=== PATIENT | male | born 1965 | race African-American/Black ===

== ENCOUNTER 2018-01-16 12:34 | Inpatient (IN) | payer MEDICARE ==
[~2018-01-16] VITALS: Ht 177.8 cm; Wt 75.3 kg
[2018-01-16 16:00] VITALS: BP 142/79
[2018-01-16] MEDS: D5 1/2NS w/KCl 20mEq 1,000 ML IV SCH (17:34)
[2018-01-16 18:00] VITALS: BP 142/79
--- NOTE | 2018-01-16 19:35 | Infectious Diseases Prog Note ---
Assessment/Plan Assessment/Plan Full consult dictated: A) 1) possible infectious diarrhea, ? OI, ? c.diff., ? viral gastroenteritis 2) hiv, aids, off anti-retroviral therapy, hx rubén esophagitis that is now resolved 3) allergies - negative P) 1) cipro and flagyl 2) check stool studies, check cd4 and VL, start hiv prophylaxis 3) consider GI evaluation for colonoscopy 4) thank you Subjective Allergies: Coded Allergies: No Known Allergies (Unverified , 01/16/18) Objective Vital Signs Last 24 Hour Vital Signs Date Time Temp Pulse Resp B/P (MAP) Pulse Ox O2 Delivery O2 Flow Rate FiO2 01/16/18 18:00 97.3 66 19 142/79 100 97.3 01/16/18 16:00 97.3 66 19 142/79 100 97.3 Height (Feet): 5 Height (Inches): 10.00 Weight (Pounds): 166 Current Medications Medications (Trade) Dose Ordered Sig/Liat Route PRN Reason Start Time Stop Time Status Last Admin Dose Admin Ciprofloxacin 200 ml @ 200 mls/hr Q12HR IVPB 01/16/18 21:00 01/23/18 20:59 UNV Dextrose/ Electrolytes 1,000 ml @ 75 mls/hr [id number] IV 01/16/18 17:30 02/15/18 17:29 01/16/18 17:34 Metronidazole (Flagyl) 500 mg Q8HR ORAL 01/16/18 22:00 01/23/18 21:59 JUAN MANUEL SALES Jan 16, 2018 19:35
[2018-01-16 20:00] VITALS: BP 142/80
[2018-01-16] MEDS ORDERED: Azithromycin 600mg Tab ORAL SCH (21:00)
[2018-01-16] MEDS ORDERED: Ciprofloxacin 500mg tab ORAL SCH (21:00)
[2018-01-16] MEDS: Bactrim-DS 1 tab ORAL SCH (21:10)
--- NOTE | 2018-01-16 21:56 | Wound Care Consultation ---
Wound Assessment Wound Assessment : Wound Number: 1 Wound Present on Admission: Yes New Wound: No Status Change of Wound: No Wound Location Body Site Modif: mid Wound Location Body Site: other - Sacrococcygeal Wound Type: pressure ulcer Bandar Test: Does not Bandar Pressure Ulcer Stage: III Wound Thickness: Full Thickness Wound Length: 4.5 Wound Width: 2.5 Wound Depth: 0.3 Percent of Wound Elsa/Red: 100 Wound Drainage Description: Serosanguineous Wound Drainage Amount: Moderate Wound Drainage Odor: None/Absent Tissue Surrounding Wound: full thickness scar Wound General Appearance: Reddened, Draining Wound Comment #1 Sacrococcygeal stage III pressure ulcer. Surrounding skin with full thickness scar tissue. Pt at risk for further breakdown. Recommendation -Local wound care per protocol -Keep clean and dry -Turn and reposition -Optimize nutrition -Low air loss mattress -Offload both heels -Heel protector on both heels -Assess and f/u accordingly for any changes TAN MEJIA RN Jan 16, 2018 21:56
[2018-01-16] MEDS: metroNIDAZOLE 500mg tab ORAL SCH (22:32)
[2018-01-17] VITALS: BP 139/77
--- NOTE | 2018-01-17 | Consultation ---
DATE OF CONSULTATION: 01/16/2018 INFECTIOUS DISEASE CONSULTATION CONSULTING PHYSICIAN: Becca Madrid M.D. ATTENDING PHYSICIAN: Zach Mccray M.D. REFERRING PHYSICIAN: Zach Mccray M.D. REASON FOR CONSULTATION: Possible infectious diarrhea, C. diff, in a patient has HIV and AIDS. CHIEF COMPLAINT: The patient's chief complaint coming into the hospital is diarrhea and dehydration. HISTORY OF PRESENT ILLNESS: This is a 52-year-old male, who has a history of HIV and AIDS. He is off antiretroviral therapy. When I asked him why, he said "nothing works." The patient now presents with severe diarrhea and dehydration. Infectious Disease consultation is requested. The patient was placed on Cipro and Flagyl, and stool studies have been ordered. The patient has high risk for opportunistic infections such as CMV colitis or other bacterial infections such as Salmonella and Shigella. The patient also could have viral gastroenteritis. The patient will be continued on Cipro and Flagyl pending workup. MAR was noted. Orders were noted. Notes and records were reviewed. The patient of note has recent Marge esophagitis, he said, which has resolved after given Diflucan. REVIEW OF SYSTEMS: CONSTITUTIONAL: The patient has generalized weakness and fatigue. No focal weakness. No fever, chills, or night sweats. He does have history of weight loss and dehydration. HEAD AND NECK: No thrush or dysphagia. He did have dysphagia before, but it has resolved after treatment with Diflucan. CARDIAC: No chest pain or palpitations. GASTROINTESTINAL: No nausea or vomiting, but severe diarrhea and abdominal discomfort. PULMONARY: No congestion, shortness of breath, hemoptysis, or secretions. SKIN: No rash or itching. EXTREMITIES: No extremity pain. NEUROLOGIC: No seizures. GENITOURINARY: No dysuria of frequency. No Seymour. PAST MEDICAL HISTORY: Includes the following. The patient has a past medical history of HIV and AIDS. He has also blurry vision, diarrhea, history of Marge esophagitis. He has a history of wounds MEDICATIONS: The patient has been started on Flagyl, Cipro, Bactrim, azithromycin. He is getting IV fluids. He did have a course of Diflucan in the past, I will restart that at this time. Outside medications noted and reconciliated. He is not on antiretroviral therapy. Medications in regards to antibiotics, Cipro and Flagyl for active treatment, and Bactrim and azithromycin for prophylactic treatment. He was on Diflucan in the past and also off antiretroviral therapy. ALLERGIES: No known drug allergies. SOCIAL HISTORY: Negative for smoking, alcohol, or drug abuse. FAMILY HISTORY: Noncontributory. Negative for exposure to tuberculosis or cancer. PHYSICAL EXAMINATION: VITAL SIGNS: Temperature is 97.3 degrees, pulse rate 66, respiratory rate 19, blood pressure 142/79, and saturation 100%. GENERAL: Alert, responsive, in no acute distress. HEAD AND NECK: Oral exam, no thrush. Eye exam, no icterus. Normocephalic. No facial droop. No neck stiffness. Neck is supple. HEART: Regular rate and rhythm. No gallop or murmur. ABDOMEN: Soft. Positive bowel sounds. Nontender. LUNGS: Clear bilaterally. No rhonchi or rales. MUSCULOSKELETAL: No effusion. Legs are without cellulitis. PERIPHERAL VASCULAR: No gangrene. GENITOURINARY: No Seymour. LINES: Line sites is without phlebitis. NEUROLOGIC: Generalized weakness. Responsive. Alert and oriented x3. Intact and nonfocal. SKIN: No rash. Sacrococcyx wound looks clean and dry, stage III. LABORATORY DATA: Laboratory data has been ordered. Stool cultures and C. diff have been ordered. Chest x-ray and labs have been ordered. Pending at this time. ASSESSMENT AND PLAN: 1. The patient has possible infectious diarrhea versus gastroenteritis versus Clostridium difficile. Rule out opportunistic infections such as cryptosporidium, Microsporidium, and CMV. Continue Cipro and Flagyl for Salmonella and Clostridium difficile coverage, also Shigella coverage for bacterial infectious diarrhea coverage. Also again, the patient could have viral gastroenteritis in addition to Clostridium difficile and bacterial infectious diarrhea. Continue antibiotics, Cipro and Flagyl. Check stool studies. Check ova and parasites. Also, we would consider gastrointestinal evaluation for possible colonoscopy to rule out other etiology or opportunistic infection for the diarrhea. We will watch the patient clinically. Continue IV fluid hydration. 2. Human immunodeficiency virus and acquired immune deficiency syndrome, off antiretroviral therapy because he said nothing works. We will check CD4 viral load. Start Bactrim and azithromycin prophylaxis. Again, check CD4 viral load. 3. History of Marge esophagitis, status post treatment, which has resolved. However, I will restart Diflucan started on antibiotics and he is at high risk for recurrent Marge esophagitis. 4. Decrease in vision. Consider Ophthalmology evaluation. Rule out cytomegalovirus retinitis. 5. Wound care protocol for sacrococcyx wound, which looks really clean. 6. No history of diabetes or hypertension. 7. IV fluid hydration for dehydration. 8. No known allergies. 9. Social history is negative. 10. Family history is noncontributory. 11. MAR was noted. 12. Case was discussed with RN. 13. Continue treatment per primary consultants 14. Case was discussed with the patient. 15. Orders were noted. 16. Notes and records were noted. Becca Madrid M.D. DR: Maryanne JOB#: [id number] CC:
--- NOTE | 2018-01-17 01:00 | Consultation ---
DATE OF CONSULTATION: 01/16/2018 ADDENDUM The patient was at an outside facility as discussed earlier. He had labs which showed the following, CT scan of the head showed old lacunar infarcts. His ua was negative. White count 2.0, hemoglobin 9.7, platelet count was 197. Creatinine was 0.57. LFTs were noted. PAST MEDICAL HISTORY: He has also has history of anemia and leukopenia in addition to what was mentioned above and also old lacunar infarcts. Becca Madrid M.D. DR: Min JOB#: [id number] CC: WEN
[2018-01-17 04:00] VITALS: BP 136/75
[2018-01-17] MEDS: metroNIDAZOLE 500mg tab ORAL SCH ×3 (06:05→21:57)
[2018-01-17] MEDS: D5 1/2NS w/KCl 20mEq 1,000 ML IV SCH ×2 (06:48→20:36)
[2018-01-17 07:24] LABS: BILIRUBIN, URINE NEGATIVE (NEGATIVE); GLUCOSE, URINE (UA) NEGATIVE (NEGATIVE); KETONES,URINE NEGATIVE (NEGATIVE); LEUKOCYTE ESTERASE ,URINE NEGATIVE (NEGATIVE); NITRITE,URINE NEGATIVE (NEGATIVE); PH,URINE 6 (4.5-8.0); PROTEIN,URINE NEGATIVE (NEGATIVE); UROBILINOGEN,URINE 1 MG/DL (0.0-1.0)
[2018-01-17 07:25] LABS: APPEARANCE,URINE CLEAR; COLOR,URINE YELLOW
[2018-01-17 08:00] VITALS: BP 139/60
--- NOTE | 2018-01-17 09:43 | Diagnostic Imaging Report ---
Indication: Chest pain Technique: XRAY Chest 1v Comparison:None Findings: The heart is normal in size. There is some mild bronchial wall thickening. Remaining lungs are clear. No pleural fluid. The there is mild scoliosis convex to the left. Impression: Mild bronchial wall thickening. This may be acute or chronic. Otherwise negative.
[2018-01-17] MEDS: Fluconazole 100mg tab ORAL SCH (09:53)
[2018-01-17 10:18] LABS: HEMATOCRIT 21.5 % (42.0-52.0); MEAN CORPUSCULAR VOLUME 78 FL (80-99); PLATELET COUNT 157 K/UL (150-450); RED BLOOD COUNT 2.75 M/UL (4.70-6.10); RED CELL DISTRIBUTION WIDTH 18.9 % (11.6-14.8)
[2018-01-17 10:22] LABS: HEMOGLOBIN 6.6 G/DL (14.2-18.0); WHITE BLOOD COUNT 2.1 K/UL (4.8-10.8)
[2018-01-17 11:00] LABS: ALANINE AMINOTRANSFERASE 12 U/L (12-78); ALBUMIN 2.1 G/DL (3.4-5.0); ALBUMIN/GLOBULIN RATIO 0.5 (1.0-2.7); ALKALINE PHOSPHATASE 835 U/L (46-116); ANION GAP 6 mmol/L (5-15); ASPARTATE AMINO TRANSFERASE 28 U/L (15-37); BILIRUBIN,TOTAL 0.1 MG/DL (0.2-1.0); BLOOD UREA NITROGEN 9 mg/dL (7-18); CALCIUM 7.5 MG/DL (8.5-10.1); CARBON DIOXIDE 27 MMOL/L (21-32); CHLORIDE 109 MMOL/L (98-107); CREATININE 0.6 MG/DL (0.55-1.30); PHOSPHORUS 3.5 MG/DL (2.5-4.9); POTASSIUM 3.8 MMOL/L (3.5-5.1); SODIUM 142 MMOL/L (136-145)
[2018-01-17 12:00] VITALS: BP 127/79
--- NOTE | 2018-01-17 13:40 | History & Physical ---
History and Physical History & Physicial Dictated for [facility]Int Med-Dr Mccray no. [id number]. DELMA CARRANZA Jan 17, 2018 13:40
[2018-01-17 16:00] VITALS: BP 120/69
--- NOTE | 2018-01-17 17:45 | Consultation ---
DATE OF CONSULTATION: 01/17/2018 GASTROENTEROLOGY CONSULTATION CONSULTING PHYSICIAN: Toor Lugo M.D. CHIEF COMPLAINT: Diarrhea and anemia. HISTORY OF PRESENT ILLNESS: This is a very pleasant 52-year-old male with history of AIDS. According to him, he is not taking any medications at this time. He was recently admitted to [facility] according to him and he had an esophageal infection. He was given some antibiotics. He was transferred from [place] at this time with complaint of going blind, complaint of abdominal pain and diarrhea. According to the patient, diarrhea has been going on for two weeks. No recent travel. No recent fast food ingestion. He stated there is no prior history of endoscopy. No colonoscopy. PAST MEDICAL HISTORY: 1. History of HIV and AIDS. 2. History of CVA without any neurological loss. 3. Prostate cancer, status post treatment per patient with two shots. ALLERGIES: No known drug allergies. MEDICATIONS: Please see medication reconciliation list. SOCIAL HISTORY: There is no recent history of tobacco, alcohol, or illicit drug abuse. FAMILY HISTORY: Noncontributory. REVIEW OF SYSTEMS: A 10-point review of systems was performed and pertinent positives in HPI. PHYSICAL EXAMINATION: VITAL SIGNS: Temperature is 97.9, pulse is 74, respirations 17, and blood pressure is 136/75. HEENT: Normocephalic and atraumatic. Mild pale conjunctivae. NECK: Supple. No lymphadenopathy. CARDIOVASCULAR: Regular rate and rhythm. Plus S1 and S2. LUNGS: Clear to auscultation bilaterally. ABDOMEN: Positive bowel sounds. Soft and nontender. No rebound. No guarding. No peritoneal sign. EXTREMITIES: No cyanosis, no clubbing, no edema. LABORATORY AND DIAGNOSTIC DATA: Labs from [place] is not available. From [place], the patient had a CT of the head, which was negative except for old infarct. Hemoglobin was low at 9.7. ASSESSMENT: This is a 52-year-old male with human immunodeficiency virus and acquired immunodeficiency syndrome with leukopenia, anemia, and diarrhea. PLAN: We will do anemia workup including stool for OB, iron panel, B12, folic acid. Send the stool for OB. Stool for C. diff already came back negative. The patient's CD4 count is pending. If the patient has low CD4 count, then we have to do more workup in terms of diarrhea for opportunistic infections. Meanwhile, we will send a serology for CMV. Consider doing colonoscopy on Friday for evaluation of causes of diarrhea. We will talk to the patient about colonoscopy to see if he agrees. We also going to try to obtain the records from [facility]. Meanwhile, continue on diet, follow labs, send urine tox, and follow with anemia workup. I want to thank, Dr. Zach Mccray, for this kind referral. Toro Lugo M.D. DR: JENNIE JOB#: [id number] CC: Zach Mccray M.D.; Fax#: [phone]
--- NOTE | 2018-01-17 18:30 | History and Physical Report ---
DATE OF ADMISSION: 01/16/2018 CHIEF COMPLAINT: The patient is a 52-year-old male, who presents with chief complaint of diarrhea. HISTORY OF PRESENT ILLNESS: The patient was admitted to [facility] from 12/17/2017 to 12/29/2017. The patient was admitted for increased frequency of urination. The patient was found to have prostate cancer. The patient is status post chemotherapy treatment x1 at [facility]. The patient states history of present illness began immediately after discharge from [facility]. The patient began to have diarrhea. The patient states he has several bowel movements today. Diarrhea is complete water. The patient states there are no formed elements. The patient also has abdominal pain. The patient states that one week ago, he began to experience "shades" over both eyes. The patient states he is now unable to see out of either eye. The patient initially presented to [facility] Room. The patient is transferred to [facility] for insurance purposes. The patient is admitted for diarrhea and bilateral eye blindness. PAST MEDICAL HISTORY: Significant for: 1. Prostate cancer diagnosed in December 2017 as above. 2. AIDS. PAST SURGICAL HISTORY: The patient denies. CURRENT MEDICATIONS: The patient was not taking any medications at home. ALLERGIES: No known drug allergies. SOCIAL HISTORY: The patient is single and lives alone. The patient is disabled. The patient admits to tobacco use of one quarter pack per day. The patient admits to occasional alcohol use. The patient denies drug abuse. REVIEW OF SYSTEMS: CONSTITUTIONAL: The patient denies weight loss or weight gain. The patient denies fevers or chills. HEENT: The patient complains of bilateral eye blindness as above. The patient denies headache. CARDIOVASCULAR: The patient denies palpitations or chest pain. CHEST: The patient denies wheeze or shortness of breath. ABDOMINAL: The patient denies nausea or vomiting. The patient does complain of diarrhea as above. The patient denies constipation. GENITOURINARY: The patient denies dysuria or increased frequency of urination. NEUROMUSCULAR: The patient denies seizures or generalized weakness. PHYSICAL EXAMINATION: VITAL SIGNS: Temperature 97.3 degrees, respirations 19, pulse 66, and blood pressure 142/79. GENERAL: The patient is a thin-appearing, male, in no apparent distress. HEENT: Eyes, pupils equal and responsive to light and accommodation. Extraocular movements are intact. NECK: Supple. No lymphadenopathy. CHEST: Lungs are clear to auscultation bilaterally without wheezes or rales. CARDIOVASCULAR: Regular rate. S1 and S2 are normal without murmurs, rubs, or gallops. ABDOMEN: Soft, nontender, and nondistended. Positive bowel sounds. No evidence of hepatosplenomegaly. Currently, no rebound or guarding noted. EXTREMITIES: Negative for clubbing, cyanosis, or edema. RECTAL: Refused. GENITAL: Refused. NEUROLOGIC: Cranial nerves II through XII grossly intact without focal deficits. Motor strength is 5/5 bilaterally intact. Deep tendon reflexes are 2+ plantar. LABORATORY STUDIES: WBC 2.0, hemoglobin 9.7, hematocrit 31.1, and platelets 197,000. Sodium 139, potassium 5.0, chloride 106, CO2 25, BUN 10, and creatinine 0.59. ASSESSMENT: This is a 52-year-old male: 1. Diarrhea. 2. 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 3. Acquired immune deficiency syndrome. 4. Anemia. 5. Prostate cancer. TREATMENT: 1. Diarrhea. A Gastroenterology consultation has been obtained with Dr. Toro Lugo. Infectious Diseases consultation was obtained with Dr. Madrid. Stool cultures are pending. Clostridium difficile titer is pending. The patient has been started empirically on ciprofloxacin and Flagyl. We will follow recommendations of Infectious Disease and Gastroenterology. 2. Blindness. An Ophthalmology consultation has been obtained with Dr. Isaacs. We will follow recommendations of Ophthalmology. Differential includes CMV retinitis. 3. AIDS. The patient is currently not on anti-retroviral therapy. We will follow recommendations of Infectious Diseases. A CD4 and viral load are pending. 4. Prostate cancer. The patient is status post chemotherapy x1. The patient is to follow up with his primary oncologist upon discharge. 5. Anemia. He has probably anemia of chronic disease. We will follow hemoglobin and hematocrit. Brian Sun M.D. DR: Emperatriz JOB#: [id number] CC:
[2018-01-17 20:00] VITALS: BP 119/67
[2018-01-17] MEDS: LORazepam 1mg tab ORAL PRN (20:37)
[2018-01-17] MEDS: Bactrim-DS 1 tab ORAL SCH (20:37)
[2018-01-18] VITALS (10 sets, daily range): BP systolic 117–143; BP diastolic 59–88
[2018-01-18] MEDS: metroNIDAZOLE 500mg tab ORAL SCH ×3 (06:43→22:07)
--- NOTE | 2018-01-18 08:03 | General Progress Note ---
Assessment/Plan Problem List: (1) Anemia ICD Codes: D64.9 - Anemia, unspecified SNOMED: 239790230 (2) Leukopenia ICD Codes: D72.819 - Decreased white blood cell count, unspecified SNOMED: 69025938, 442664374 (3) HIV (human immunodeficiency virus infection) ICD Codes: B20 - Human immunodeficiency virus [HIV] disease SNOMED: 07989715 (4) Prostate CA ICD Codes: C61 - Malignant neoplasm of prostate SNOMED: 832606327 (5) Diarrhea ICD Codes: R19.7 - Diarrhea, unspecified SNOMED: 77111135 (6) Blurry vision, bilateral ICD Codes: H53.8 - Other visual disturbances SNOMED: 034879062 Assessment/Plan blood transfusion fu stool ob GI procedures when WBC better fu stool studies fu ID recs Subjective ROS Limited/Unobtainable: Yes Allergies: Coded Allergies: No Known Allergies (Unverified , 01/16/18) Subjective no event Objective Last 24 Hour Vital Signs Date Time Temp Pulse Resp B/P (MAP) Pulse Ox O2 Delivery O2 Flow Rate FiO2 01/18/18 07:04 96.8 68 18 126/88 99 96.8 01/18/18 04:25 97.4 70 18 120/70 100 Room Air 97.4 01/18/18 04:10 97.5 69 18 119/78 100 97.5 01/18/18 01:25 97.7 77 20 143/74 99 97.7 01/18/18 01:10 97.7 73 20 139/74 99 97.7 01/18/18 00:00 97.7 77 20 127/68 99 97.7 01/17/18 20:00 97.5 74 20 119/67 100 97.5 01/17/18 16:00 97.5 67 19 120/69 100 97.5 01/17/18 12:00 98.4 90 18 127/79 100 98.4 Intake and Output 01/17/18 01/18/18 19:00 07:00 Intake Total 1355 ml 575 ml Output Total 800 ml 800 ml Balance 555 ml -225 ml Intake Oral 480 ml IV Total 875 ml 575 ml Output Urine Total 800 ml 800 ml # Bowel Movements 2 Laboratory Tests 01/18/18 05:00: Urine Opiates Screen Negative, Urine Barbiturates Screen Negative, Phencyclidine (PCP) Screen Negative, Urine Amphetamines Screen Negative, Urine Benzodiazepines Screen Negative, Urine Cocaine Screen Negative, Urine Marijuana (THC) Screen Negative Height (Feet): 5 Height (Inches): 10.00 Weight (Pounds): 166 General Appearance: alert EENT: normal ENT inspection Neck: supple Cardiovascular: normal rate Respiratory/Chest: decreased breath sounds Abdomen: normal bowel sounds, non tender, soft Extremities: non-tender MARLENE PERSAUD Jan 18, 2018 08:03
[2018-01-18] MEDS: Fluconazole 100mg tab ORAL SCH (08:39)
[2018-01-18] MEDS: D5 1/2NS w/KCl 20mEq 1,000 ML IV SCH ×2 (08:42→22:50)
[2018-01-18] MEDS ORDERED: NS 500ML ONE (10:07)
[2018-01-18] MEDS ORDERED: Tubing Blood Filter IV ONE (10:07)
--- NOTE | 2018-01-18 10:59 | Internal Med Progress Note ---
Subjective Date of Service: Jan 18, 2018 Physician Name Delma Carranza Attending Physician Zach Mccray MD Current Medications Medications (Trade) Dose Ordered Sig/Liat Route PRN Reason Start Time Stop Time Status Last Admin Dose Admin Azithromycin (Zithromax) 1,200 mg ONCE A WEEK ORAL 01/16/18 21:00 01/23/18 20:59 01/16/18 21:10 Ciprofloxacin 200 ml @ 200 mls/hr Q12HR IV 01/16/18 21:00 01/23/18 20:59 01/18/18 08:42 Dextrose/ Electrolytes 1,000 ml @ 75 mls/hr [id number] IV 01/16/18 17:30 02/15/18 17:29 01/18/18 08:42 Fluconazole (Diflucan) 100 mg DAILY ORAL 01/17/18 09:00 01/24/18 08:59 01/18/18 08:39 Lorazepam (Ativan) 1 mg Q6H PRN ORAL For Anxiety 01/17/18 13:30 01/24/18 13:29 01/17/18 20:37 Metronidazole (Flagyl) 500 mg Q8HR ORAL 01/16/18 22:00 01/23/18 21:59 01/18/18 06:43 Ondansetron HCl (Zofran) 4 mg Q4H PRN IVP Nausea & Vomiting 01/17/18 09:00 02/16/18 08:59 Trimethoprim/ Sulfamethoxazole (Bactrim-DS) 1 tab QHS ORAL 01/16/18 21:00 01/23/18 20:59 01/17/18 20:37 Allergies: Coded Allergies: No Known Allergies (Unverified , 01/16/18) ROS Limited/Unobtainable: No Constitutional: Reports: no symptoms HEENT: Reports: blurred vision Cardiovascular: Reports: no symptoms Respiratory: Reports: no symptoms Gastrointestinal/Abdominal: Reports: diarrhea Genitourinary: Reports: no symptoms Neurologic/Psychiatric: Reports: no symptoms Subjective 52 YO M admitted with diarrhea and sudden blindness. Now severe anemia. Cover for Int Jostin-Dr Mccray Objective Last Vital Signs Date Time Temp Pulse Resp B/P (MAP) Pulse Ox O2 Delivery O2 Flow Rate FiO2 01/18/18 08:00 96.8 68 18 127/59 99 96.8 01/18/18 04:25 Room Air General Appearance: WD/WN, no apparent distress, alert EENT: PERRL/EOMI, normal ENT inspection, TMs normal Neck: non-tender, normal alignment, supple, normal inspection Cardiovascular: normal peripheral pulses, normal rate, regular rhythm, no gallop/murmur, no JVD Respiratory/Chest: chest wall non-tender, lungs clear, normal breath sounds, no respiratory distress, no accessory muscle use Abdomen: no organomegaly, no mass, decreased bowel sounds, tender Extremities: normal range of motion, non-tender 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 Skin: normal pigmentation, warm/dry Laboratory Tests Test 01/18/18 05:00 Urine Opiates Screen Negative (NEGATIVE) Urine Barbiturates Screen Negative (NEGATIVE) Phencyclidine (PCP) Screen Negative (NEGATIVE) Urine Amphetamines Screen Negative (NEGATIVE) Urine Benzodiazepines Screen Negative (NEGATIVE) Urine Cocaine Screen Negative (NEGATIVE) Urine Marijuana (THC) Screen Negative (NEGATIVE) Microbiology Date/Time Source Procedure Growth Status 01/16/18 18:00 Stool Clostridium difficile Toxin Assay - Final Complete Intake and Output 01/17/18 01/18/18 19:00 07:00 Intake Total 1355 ml 575 ml Output Total 800 ml 800 ml Balance 555 ml -225 ml Intake Oral 480 ml IV Total 875 ml 575 ml Output Urine Total 800 ml 800 ml # Bowel Movements 2 Assessment/Plan Problem List: (1) Diarrhea Assessment & Plan: See GI note. (2) Prostate CA Assessment & Plan: Await oncology consult (3) Blurry vision, bilateral (4) HIV (human immunodeficiency virus infection) Assessment & Plan: Noncompliant with HAART-see ID note. await HIV viral load and T cell panel (5) Severe anemia Assessment & Plan: ?due to chemotherapy? S/P transfusion 2 units PRBC 01/18/18. Await hematology consult. Status: not improved DELMA CARRANZA Jan 18, 2018 10:59
[2018-01-18] MEDS: LORazepam 1mg tab ORAL PRN ×2 (13:55→22:20)
[2018-01-18 14:22] LABS: HEMATOCRIT 22.2 % (42.0-52.0); HEMOGLOBIN 7.1 G/DL (14.2-18.0); MEAN CORPUSCULAR VOLUME 78 FL (80-99); PLATELET COUNT 132 K/UL (150-450); RED BLOOD COUNT 2.83 M/UL (4.70-6.10); RED CELL DISTRIBUTION WIDTH 17.4 % (11.6-14.8); WHITE BLOOD COUNT 2.4 K/UL (4.8-10.8)
[2018-01-18 14:59] LABS: ANION GAP 7 mmol/L (5-15); BLOOD UREA NITROGEN 10 mg/dL (7-18); CALCIUM 7.7 MG/DL (8.5-10.1); CARBON DIOXIDE 26 MMOL/L (21-32); CHLORIDE 107 MMOL/L (98-107); CREATININE 0.7 MG/DL (0.55-1.30); POTASSIUM 4.1 MMOL/L (3.5-5.1); SODIUM 140 MMOL/L (136-145)
[2018-01-18 15:00] LABS: BILIRUBIN,TOTAL 0.3 MG/DL (0.2-1.0)
[2018-01-18 15:05] LABS: % IRON SATURATION 62 % (15-50); IRON 105 ug/dL (50-175); TOTAL IRON BINDING CAPACITY 169 ug/dL (250-450)
--- NOTE | 2018-01-18 15:40 | Infectious Diseases Prog Note ---
Assessment/Plan Assessment/Plan ASSESSMENT AND PLAN: 1. possible infectious diarrhea vs viral gastroenteritis, c.diff. negative, dehydration - clinically improved, stool culture and o/p pending - continue cipro and flagyl - GI f/u, possible colonoscopy - continue ivf - check labs 2. Human immunodeficiency virus and acquired immune deficiency syndrome, off antiretroviral therapy because he said nothing works. We will check CD4 viral load. continue Bactrim and azithromycin prophylaxis. Again, check CD4 viral load. Will need outpatient genotyping prior to anti-retroviral treatment. 3. History of Marge esophagitis, status post treatment, which has resolved - will continue Diflucan for now, high risk for recurrent marge esophagitis and thrush. 4. Decrease in vision. Consider Ophthalmology evaluation. Rule out cytomegalovirus retinitis. 5. Wound care protocol for sacrococcyx wound, which looks really clean. 6. anemia, leukopenia, prostate ca, old lacunar infarcts 7. IV fluid hydration for dehydration. 8. No known allergies. 9. Social history is negative. 10. Family history is noncontributory. 11. MAR was noted. 12. Case was discussed with RN. 13. Continue treatment per primary consultants 14. Case was discussed with the patient. 15. Orders were noted. 16. Notes and records were noted. Subjective Constitutional: Denies: fever HEENT: Reports: visual change - as vision loss over last two weeks ; Denies: congestion Respiratory: Denies: shortness of breath Cardiovascular: Denies: chest pain Gastrointestinal/Abdominal: Reports: other - diarrhea resolved; Denies: nausea , vomiting, diarrhea Genitourinary: Denies: dysuria Neurologic: Denies: headache Psychiatric: Denies: depression Skin: Denies: rash Hematologic: Denies: bleeding Musculoskeletal: Denies: pain Allergies: Coded Allergies: No Known Allergies (Unverified , 01/16/18) Objective Vital Signs Last 24 Hour Vital Signs Date Time Temp Pulse Resp B/P (MAP) Pulse Ox O2 Delivery O2 Flow Rate FiO2 01/18/18 12:00 97.1 61 18 126/72 100 97.1 01/18/18 08:00 96.8 68 18 127/59 99 96.8 01/18/18 07:04 96.8 68 18 126/88 99 96.8 01/18/18 04:25 97.4 70 18 120/70 100 Room Air 97.4 01/18/18 04:10 97.5 69 18 119/78 100 97.5 01/18/18 01:25 97.7 77 20 143/74 99 97.7 01/18/18 01:10 97.7 73 20 139/74 99 97.7 01/18/18 00:00 97.7 77 20 127/68 99 97.7 01/17/18 20:00 97.5 74 20 119/67 100 97.5 01/17/18 16:00 97.5 67 19 120/69 100 97.5 Height (Feet): 5 Height (Inches): 10.00 Weight (Pounds): 166 General Appearance: no acute distress HEENT: normocephalic, atraumatic, anicteric, mucous membranes moist, EOMI, pharynx normal, supple, no JVD Respiratory/Chest: lungs clear, normal breath sounds, no respiratory distress, no accessory muscle use Cardiovascular: normal rate, regular rhythm, no gallop/murmur, no JVD Abdomen: normal bowel sounds, soft, non tender, no organomegaly, non distended Genitourinary: other - no delcaruz, no cva pain Extremities: no cyanosis Skin: no rash Neurologic/Psychiatric: 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 There is some mild bronchial wall thickening. Remaining lungs are clear. No pleural fluid. The there is mild scoliosis convex to the left. Impression: Mild bronchial wall thickening. This may be acute or chronic. Otherwise negative. Microbiology Date/Time Source Procedure Growth Status 01/16/18 18:00 Stool Clostridium difficile Toxin Assay - Final Complete Laboratory Tests Test 01/18/18 05:00 01/18/18 13:20 01/18/18 13:30 01/18/18 14:30 Urine Opiates Screen Negative (NEGATIVE) Urine Barbiturates Screen Negative (NEGATIVE) Phencyclidine (PCP) Screen Negative (NEGATIVE) Urine Amphetamines Screen Negative (NEGATIVE) Urine Benzodiazepines Screen Negative (NEGATIVE) Urine Cocaine Screen Negative (NEGATIVE) Urine Marijuana (THC) Screen Negative (NEGATIVE) Fibrinogen 411 mg/dL (200-400) H White Blood Count 2.4 K/UL (4.8-10.8) L Red Blood Count 2.83 M/UL (4.70-6.10) L Hemoglobin 7.1 G/DL (14.2-18.0) L Hematocrit 22.2 % (42.0-52.0) L Mean Corpuscular Volume 78 FL (80-99) L Mean Corpuscular Hemoglobin 25.0 PG (27.0-31.0) L Mean Corpuscular Hemoglobin Concent 31.9 G/DL (32.0-36.0) L Red Cell Distribution Width 17.4 % (11.6-14.8) H Platelet Count 132 K/UL (150-450) L Mean Platelet Volume 6.3 FL (6.5-10.1) L Neutrophils (%) (Auto) % (45.0-75.0) Lymphocytes (%) (Auto) % (20.0-45.0) Monocytes (%) (Auto) % (1.0-10.0) Eosinophils (%) (Auto) % (0.0-3.0) Basophils (%) (Auto) % (0.0-2.0) Differential Total Cells Counted 100 Neutrophils % (Manual) 41 % (45-75) L Lymphocytes % (Manual) 33 % (20-45) Monocytes % (Manual) 14 % (1-10) H Eosinophils % (Manual) 8 % (0-3) H Basophils % (Manual) 0 % (0-2) Band Neutrophils 4 % (0-8) Nucleated Red Blood Cells 3 /100 WBC Platelet Estimate Adequate Platelet Morphology Normal Polychromasia 1+ Hypochromasia 2+ Anisocytosis 1+ Microcytosis 1+ Reticulocyte Count 1.9 % (0.0-2.0) Sodium Level 140 MMOL/L (136-145) Potassium Level 4.1 MMOL/L (3.5-5.1) Chloride Level 107 MMOL/L (98-107) Carbon Dioxide Level 26 MMOL/L (21-32) Anion Gap 7 mmol/L (5-15) Blood Urea Nitrogen 10 mg/dL (7-18) Creatinine 0.7 MG/DL (0.55-1.30) Estimat Glomerular Filtration Rate > 60 mL/min (>60) Glucose Level 85 MG/DL (74-106) Calcium Level 7.7 MG/DL (8.5-10.1) L Iron Level 105 ug/dL (50-175) Total Iron Binding Capacity 169 ug/dL (250-450) L Percent Iron Saturation 62 % (15-50) H Unsaturated Iron Binding 64 ug/dL (112-346) L Ferritin 739 NG/ML (8-388) H Total Bilirubin 0.3 MG/DL (0.2-1.0) Lactate Dehydrogenase 347 U/L (135-225) H Prostate Specific Antigen 15.02 ng/mL (0.13-4.0) H Vitamin B12 Level 614 PG/ML (193-986) Folate 2.3 NG/ML (8.6-58.9) L Thyroid Stimulating Hormone (TSH) 0.811 uiU/mL (0.358-3.740) Hepatitis A IgM Antibody Pending Hepatitis B Surface Antigen Pending Hepatitis B Core IgM Antibody Pending Hepatitis C Antibody Pending Erythrocyte Sedimentation Rate Pending Current Medications Medications (Trade) Dose Ordered Sig/Liat Route PRN Reason Start Time Stop Time Status Last Admin Dose Admin Azithromycin (Zithromax) 1,200 mg ONCE A WEEK ORAL 01/16/18 21:00 01/23/18 20:59 01/16/18 21:10 Ciprofloxacin 200 ml @ 200 mls/hr Q12HR IV 01/16/18 21:00 01/23/18 20:59 01/18/18 08:42 Dextrose/ Electrolytes 1,000 ml @ 75 mls/hr [id number] IV 01/16/18 17:30 02/15/18 17:29 01/18/18 08:42 Fluconazole (Diflucan) 100 mg DAILY ORAL 01/17/18 09:00 01/24/18 08:59 01/18/18 08:39 Lorazepam (Ativan) 1 mg Q6H PRN ORAL For Anxiety 01/17/18 13:30 01/24/18 13:29 01/18/18 13:55 Metronidazole (Flagyl) 500 mg Q8HR ORAL 01/16/18 22:00 01/23/18 21:59 01/18/18 13:55 Ondansetron HCl (Zofran) 4 mg Q4H PRN IVP Nausea & Vomiting 01/17/18 09:00 02/16/18 08:59 Trimethoprim/ Sulfamethoxazole (Bactrim-DS) 1 tab QHS ORAL 01/16/18 21:00 01/23/18 20:59 01/17/18 20:37 JUAN MANUEL SALES Jan 18, 2018 15:40
[2018-01-18] MEDS: Bactrim-DS 1 tab ORAL SCH (22:07)
[2018-01-19] VITALS: BP 157/70
--- NOTE | 2018-01-19 00:45 | Consultation ---
DATE OF CONSULTATION: 01/18/2018 NOTE: POOR AUDIO HEMATOLOGY/ONCOLOGY CONSULTATION CONSULTING PHYSICIAN: Zack Castro M.D. REQUESTING PHYSICIAN: Brian Sun M.D. REASON FOR CONSULTATION: Evaluation of anemia and prostate cancer. IDENTIFICATION DATA: Dear Dr. Sun, The patient is a pleasant 52-year-old male with past medical history significant for prostate cancer, history of HIV/AIDS, at this time presents initially from [facility], admitted for approximately two weeks, is status post chemotherapy for one treatment at [facility], began to have diarrhea, states he has had several bowel movements on Friday, full of water. He states he was unable to see from either eye. The patient apparently initially went to [facility] emergency room. At this time presents to [facility] due to insurance reasons. WBC , hemoglobin 6.6, and platelet count of 137,000. Serology reviewed. CMV pending. PAST MEDICAL HISTORY: 1. Breast cancer. 2. HIV/AIDS. PAST SURGICAL HISTORY: None. CURRENT MEDICATIONS: Reviewed. ALLERGIES: No known drug allergies. SOCIAL HISTORY: Single, lives alone, disabled. Smokes tobacco. Admits to occasional alcohol use. No illicit drug use. REVIEW OF SYSTEMS: CONSTITUTIONAL: No fevers, chills, or night sweats. SKIN: No rashes, bumps, or itching. HEENT: No headache, hearing or vision changes. BREASTS: No lumps, pain, or discharge. PULMONARY: No cough, sputum, or shortness of breath. GASTROINTESTINAL: No nausea, vomiting, or diarrhea. GENITOURINARY: No dysuria, frequency, or urgency. MUSCULOSKELETAL: No joint swelling, muscle pain, or trauma. PHYSICAL EXAMINATION: VITAL SIGNS: Reviewed. GENERAL: Cachectic male. No distress. PULMONARY: Decreased breath sounds. CARDIOVASCULAR: Regular rate. No S3 or S4 noted. ABDOMEN: Soft, nontender, and nondistended. Positive bowel sounds. EXTREMITIES: No cyanosis, swelling, or edema. NEUROLOGIC: Grossly nonfocal. LABORATORY DATA: WBC of 2, hemoglobin 10.7, hematocrit of 30, and platelet count of 197,000. Creatinine was 0.5. ASSESSMENT AND PLAN: 1. Prostate cancer. Imaging as described and reviewed. Mild bronchial thickening noted. The patient has not had prior imaging here before. PSA at this time has already been ordered. Continue outpatient management with Oncology. 2. Leukopenia, likely secondary to chemotherapy, likely needs dose reduction in the future per primary oncologist. In addition, consider use of antibiotics since the patient is having neutropenic fever and administered one dose of Neupogen. 3. . 4. Anemia due to myelosuppression from chemotherapy. Continue anemia workup at this time. In addition, may need administration of iron based on workup. 5. Weakness and fatigue, likely due to underlying anemia. 6. Diarrhea. Has been seen by Gastroenterology. GI procedure when white count has improved. Follow up stool studies, IV fluids, evaluation. 7. Human immunodeficiency virus/acquired immunodeificiency syndrome. Outpatient management. ID service followup. CD4 count and viral load pending. I appreciate the consultation. Zack Castro M.D. DR: KAYLEE JOB#: [id number] CC:
[2018-01-19 04:00] VITALS: BP 112/69
[2018-01-19] MEDS: metroNIDAZOLE 500mg tab ORAL SCH ×4 (05:42→20:50)
[2018-01-19 08:00] VITALS: BP 128/68
[2018-01-19] MEDS: Fluconazole 100mg tab ORAL SCH (09:04)
--- NOTE | 2018-01-19 10:35 | General Progress Note ---
Assessment/Plan Problem List: (1) Anemia ICD Codes: D64.9 - Anemia, unspecified SNOMED: 851193442 (2) Leukopenia ICD Codes: D72.819 - Decreased white blood cell count, unspecified SNOMED: 30606795, 177171609 (3) HIV (human immunodeficiency virus infection) ICD Codes: B20 - Human immunodeficiency virus [HIV] disease SNOMED: 63847663 (4) Prostate CA ICD Codes: C61 - Malignant neoplasm of prostate SNOMED: 242940890 (5) Diarrhea ICD Codes: R19.7 - Diarrhea, unspecified SNOMED: 38290143 (6) Blurry vision, bilateral ICD Codes: H53.8 - Other visual disturbances SNOMED: 040498968 Assessment/Plan fu stool ob diarrhea is beeter patient refusing GI procedures, he wants to see an eye doctor fu stool studies fu ID recs Subjective ROS Limited/Unobtainable: Yes Allergies: Coded Allergies: No Known Allergies (Unverified , 01/16/18) Subjective no event Objective Last 24 Hour Vital Signs Date Time Temp Pulse Resp B/P (MAP) Pulse Ox O2 Delivery O2 Flow Rate FiO2 01/19/18 08:00 97.5 77 20 128/68 92 Room Air 97.5 01/19/18 04:00 97.7 75 18 112/69 100 Room Air 97.7 01/19/18 00:00 98.2 81 20 157/70 100 Room Air 98.2 01/18/18 20:00 98.1 73 18 127/69 100 Room Air 98.1 01/18/18 16:00 97.3 67 19 117/64 100 97.3 01/18/18 12:00 97.1 61 18 126/72 100 97.1 Intake and Output 01/18/18 01/19/18 19:00 07:00 Intake Total 1205 ml 360 ml Output Total 1150 ml Balance 55 ml 360 ml Intake Oral 480 ml 360 ml IV Total 725 ml Output Urine Total 1150 ml # Voids 3 # Bowel Movements 1 1 Laboratory Tests 01/18/18 13:20: Fibrinogen 411H 01/18/18 13:30: White Blood Count 2.4L, Red Blood Count 2.83L, Hemoglobin 7.1L, Hematocrit 22.2L , Mean Corpuscular Volume 78L, Mean Corpuscular Hemoglobin 25.0L, Mean Corpuscular Hemoglobin Concent 31.9L, Red Cell Distribution Width 17.4H, Platelet Count 132L, Mean Platelet Volume 6.3L, Neutrophils (%) (Auto) , Lymphocytes (%) (Auto) , Monocytes (%) (Auto) , Eosinophils (%) (Auto) , Basophils (%) (Auto) , Differential Total Cells Counted 100, Neutrophils % ( Manual) 41L, Lymphocytes % (Manual) 33, Monocytes % (Manual) 14H, Eosinophils % (Manual) 8H, Basophils % (Manual) 0, Band Neutrophils 4, Nucleated Red Blood Cells 3, Other Cell Type Pathologist comment, Platelet Estimate Adequate, Platelet Morphology Normal, Polychromasia 1+, Hypochromasia 2+, Anisocytosis 1+ , Microcytosis 1+, Reticulocyte Count 1.9, Haptoglobin [Pending], Sodium Level 140, Potassium Level 4.1, Chloride Level 107, Carbon Dioxide Level 26, Anion Gap 7, Blood Urea Nitrogen 10, Creatinine 0.7, Estimat Glomerular Filtration Rate > 60, Glucose Level 85, Calcium Level 7.7L, Iron Level 105, Total Iron Binding Capacity 169L, Percent Iron Saturation 62H, Unsaturated Iron Binding 64L , Soluble Transferrin Receptor [Pending], Ferritin 739H, Total Bilirubin 0.3, Lactate Dehydrogenase 347H, Prostate Specific Antigen 15.02H, Vitamin B12 Level 614, Methylmalonic Acid [Pending], Folate 2.3L, Thyroid Stimulating Hormone (TSH ) 0.811, Hepatitis A IgM Antibody [Pending], Hepatitis B Surface Antigen [ Pending], Hepatitis B Core IgM Antibody [Pending], Hepatitis C Antibody [Pending ] 01/18/18 14:30: Erythrocyte Sedimentation Rate 115H Height (Feet): 5 Height (Inches): 10.00 Weight (Pounds): 166 General Appearance: alert EENT: normal ENT inspection Neck: supple Cardiovascular: normal rate Respiratory/Chest: decreased breath sounds Abdomen: normal bowel sounds, non tender, soft Extremities: non-tender MARLENE PERSAUD Jan 19, 2018 10:35
[2018-01-19 11:13] LABS: ANION GAP 5 mmol/L (5-15); BLOOD UREA NITROGEN 12 mg/dL (7-18); CARBON DIOXIDE 28 MMOL/L (21-32); CHLORIDE 105 MMOL/L (98-107); CREATININE 0.6 MG/DL (0.55-1.30); POTASSIUM 4.1 MMOL/L (3.5-5.1); SODIUM 138 MMOL/L (136-145)
[2018-01-19 11:18] LABS: HEMATOCRIT 30.2 % (42.0-52.0); MEAN CORPUSCULAR VOLUME 79 FL (80-99); PLATELET COUNT 147 K/UL (150-450); RED BLOOD COUNT 3.83 M/UL (4.70-6.10); RED CELL DISTRIBUTION WIDTH 17.9 % (11.6-14.8); WHITE BLOOD COUNT 2.2 K/UL (4.8-10.8)
[2018-01-19] MEDS: D5 1/2NS w/KCl 20mEq 1,000 ML IV SCH (12:10)
--- NOTE | 2018-01-19 12:36 | Internal Med Progress Note ---
Subjective Date of Service: Jan 19, 2018 Physician Name Delma Carranza Attending Physician Zach Mccray MD Current Medications Medications (Trade) Dose Ordered Sig/Liat Route PRN Reason Start Time Stop Time Status Last Admin Dose Admin Azithromycin (Zithromax) 1,200 mg ONCE A WEEK ORAL 01/16/18 21:00 01/23/18 20:59 01/16/18 21:10 Ciprofloxacin 200 ml @ 200 mls/hr Q12HR IV 01/16/18 21:00 01/23/18 20:59 01/19/18 09:04 Dextrose/ Electrolytes 1,000 ml @ 75 mls/hr [id number] IV 01/16/18 17:30 02/15/18 17:29 01/18/18 22:50 Fluconazole (Diflucan) 100 mg DAILY ORAL 01/17/18 09:00 01/24/18 08:59 01/19/18 09:04 Lorazepam (Ativan) 1 mg Q6H PRN ORAL For Anxiety 01/17/18 13:30 01/24/18 13:29 01/18/18 22:20 Metronidazole (Flagyl) 500 mg Q8HR ORAL 01/16/18 22:00 01/23/18 21:59 01/19/18 05:42 Ondansetron HCl (Zofran) 4 mg Q4H PRN IVP Nausea & Vomiting 01/17/18 09:00 02/16/18 08:59 Trimethoprim/ Sulfamethoxazole (Bactrim-DS) 1 tab QHS ORAL 01/16/18 21:00 01/23/18 20:59 01/18/18 22:07 Allergies: Coded Allergies: No Known Allergies (Unverified , 01/16/18) ROS Limited/Unobtainable: No Constitutional: Reports: no symptoms HEENT: Reports: blurred vision Cardiovascular: Reports: no symptoms Respiratory: Reports: no symptoms Gastrointestinal/Abdominal: Reports: diarrhea Genitourinary: Reports: no symptoms Neurologic/Psychiatric: Reports: no symptoms Subjective 52 YO M admitted with diarrhea and sudden blindness. Now severe anemia. Cover for Ernst Frankel-Dr Mccray Objective Last Vital Signs Date Time Temp Pulse Resp B/P (MAP) Pulse Ox O2 Delivery O2 Flow Rate FiO2 01/19/18 08:00 97.5 77 20 128/68 92 Room Air 97.5 Laboratory Tests Test 01/18/18 13:20 01/18/18 13:30 01/18/18 14:30 01/19/18 10:50 Fibrinogen 411 mg/dL (200-400) H White Blood Count 2.4 K/UL (4.8-10.8) L 2.2 K/UL (4.8-10.8) L Red Blood Count 2.83 M/UL (4.70-6.10) L 3.83 M/UL (4.70-6.10) L Hemoglobin 7.1 G/DL (14.2-18.0) L 10.0 G/DL (14.2-18.0) #L Hematocrit 22.2 % (42.0-52.0) L 30.2 % (42.0-52.0) #L Mean Corpuscular Volume 78 FL (80-99) L 79 FL (80-99) L Mean Corpuscular Hemoglobin 25.0 PG (27.0-31.0) L 26.1 PG (27.0-31.0) L Mean Corpuscular Hemoglobin Concent 31.9 G/DL (32.0-36.0) L 33.1 G/DL (32.0-36.0) Red Cell Distribution Width 17.4 % (11.6-14.8) H 17.9 % (11.6-14.8) H Platelet Count 132 K/UL (150-450) L 147 K/UL (150-450) L Mean Platelet Volume 6.3 FL (6.5-10.1) L 7.3 FL (6.5-10.1) Neutrophils (%) (Auto) % (45.0-75.0) % (45.0-75.0) Lymphocytes (%) (Auto) % (20.0-45.0) % (20.0-45.0) Monocytes (%) (Auto) % (1.0-10.0) % (1.0-10.0) Eosinophils (%) (Auto) % (0.0-3.0) % (0.0-3.0) Basophils (%) (Auto) % (0.0-2.0) % (0.0-2.0) Differential Total Cells Counted 100 100 Neutrophils % (Manual) 41 % (45-75) L 47 % (45-75) Lymphocytes % (Manual) 33 % (20-45) 28 % (20-45) Monocytes % (Manual) 14 % (1-10) H 17 % (1-10) H Eosinophils % (Manual) 8 % (0-3) H 4 % (0-3) H Basophils % (Manual) 0 % (0-2) 0 % (0-2) Band Neutrophils 4 % (0-8) 4 % (0-8) Nucleated Red Blood Cells 3 /100 WBC 3 /100 WBC Other Cell Type Pathologist comment Platelet Estimate Adequate Adequate Platelet Morphology Normal Normal Polychromasia 1+ 2+ Hypochromasia 2+ 1+ Anisocytosis 1+ 1+ Microcytosis 1+ 1+ Reticulocyte Count 1.9 % (0.0-2.0) Haptoglobin Pending Sodium Level 140 MMOL/L (136-145) 138 MMOL/L (136-145) Potassium Level 4.1 MMOL/L (3.5-5.1) 4.1 MMOL/L (3.5-5.1) Chloride Level 107 MMOL/L (98-107) 105 MMOL/L (98-107) Carbon Dioxide Level 26 MMOL/L (21-32) 28 MMOL/L (21-32) Anion Gap 7 mmol/L (5-15) 5 mmol/L (5-15) Blood Urea Nitrogen 10 mg/dL (7-18) 12 mg/dL (7-18) Creatinine 0.7 MG/DL (0.55-1.30) 0.6 MG/DL (0.55-1.30) Estimat Glomerular Filtration Rate > 60 mL/min (>60) > 60 mL/min (>60) Glucose Level 85 MG/DL (74-106) 83 MG/DL (74-106) Calcium Level 7.7 MG/DL (8.5-10.1) L 8.0 MG/DL (8.5-10.1) L Iron Level 105 ug/dL (50-175) Total Iron Binding Capacity 169 ug/dL (250-450) L Percent Iron Saturation 62 % (15-50) H Unsaturated Iron Binding 64 ug/dL (112-346) L Soluble Transferrin Receptor Pending Ferritin 739 NG/ML (8-388) H Total Bilirubin 0.3 MG/DL (0.2-1.0) Lactate Dehydrogenase 347 U/L (135-225) H Prostate Specific Antigen 15.02 ng/mL (0.13-4.0) H Vitamin B12 Level 614 PG/ML (193-986) Methylmalonic Acid Pending Folate 2.3 NG/ML (8.6-58.9) L Thyroid Stimulating Hormone (TSH) 0.811 uiU/mL (0.358-3.740) Hepatitis A IgM Antibody Pending Hepatitis B Surface Antigen Pending Hepatitis B Core IgM Antibody Pending Hepatitis C Antibody Pending Erythrocyte Sedimentation Rate 115 MM/HR (0-20) H Microbiology Date/Time Source Procedure Growth Status 01/16/18 18:00 Stool Clostridium difficile Toxin Assay - Final Complete 01/16/18 18:00 Anus Stool Culture - Final NO SALMONELLA,SHIGELLA,OR CAMPYLOBACT... Complete Intake and Output 01/18/18 01/19/18 19:00 07:00 Intake Total 1205 ml 360 ml Output Total 1150 ml Balance 55 ml 360 ml Intake Oral 480 ml 360 ml IV Total 725 ml Output Urine Total 1150 ml # Voids 3 # Bowel Movements 1 1 Objective General Appearance: WD/WN, no apparent distress, alert EENT: PERRL/EOMI, normal ENT inspection, TMs normal Neck: non-tender, normal alignment, supple, normal inspection Cardiovascular: normal peripheral pulses, normal rate, regular rhythm, no gallop/murmur, no JVD Respiratory/Chest: chest wall non-tender, lungs clear, normal breath sounds, no respiratory distress, no accessory muscle use Abdomen: no organomegaly, no mass, decreased bowel sounds, tender Extremities: normal range of motion, non-tender Neurologic: code enforcement officer II-XII grossly normal Skin: normal pigmentation, warm/dry Assessment/Plan Problem List: (1) Diarrhea Assessment & Plan: Stool studies negative so far. See GI note. (2) Prostate CA Assessment & Plan: Await oncology consult (3) Blurry vision, bilateral (4) HIV (human immunodeficiency virus infection) Assessment & Plan: Noncompliant with HAART-see ID note. await HIV viral load and T cell panel (5) Severe anemia Assessment & Plan: ?due to chemotherapy? S/P transfusion 2 units PRBC 01/18/18. Await hematology consult. Status: progressing DELMA CARRANZA Jan 19, 2018 12:36
[2018-01-19 16:00] VITALS: BP 127/67
[2018-01-19 20:00] VITALS: BP 159/78
[2018-01-19] MEDS: Ciprofloxacin 500mg tab ORAL SCH (20:50)
[2018-01-19] MEDS: Bactrim-DS 1 tab ORAL SCH (20:50)
--- NOTE | 2018-01-19 21:30 | Consultation ---
DATE OF CONSULTATION: 01/19/2018 CONSULTING PHYSICIAN: Brian Farrell M.D. REQUESTING PHYSICIAN: Zach Mccray M.D. REASON FOR CONSULTATION: Evaluation of decreased visual acuity. HISTORY OF PRESENT ILLNESS: The patient is a very pleasant 53-year-old male who is HIV positive with AIDS and he has been off his anti-retroviral therapy because "nothing works." He was admitted at [facility] for dehydration and severe diarrhea. An ophthalmology consultation was requested as it was noted that he had decreased vision in both eyes. The patient states that he has noticed decreased vision over three to four weeks and he associates this with receiving some type of medication, possible chemotherapy for his prostate cancer. He states that prior to this his vision was fine. The patient has had painless progressive loss of vision in both eyes that has became very severe over the last two weeks. There is no history of trauma, discharge, or photophobia. ALLERGIES: None known. MEDICATIONS: As noted in the EMR. PAST OCULAR HISTORY: None previous to this episode. PAST MEDICAL HISTORY: History of HIV with AIDS, history of prostate cancer, history of Marge esophagitis. PAST SURGICAL HISTORY: None. REVIEW OF SYSTEMS: Negative except for the above. PHYSICAL EXAMINATION: HEENT: Upon examination, his visual acuity in the right eye was possibly count fingers but in the left eye hand motion. The pupils in the right eye were approximately 5 mm with minimal reactivity and in the left eye approximately 4 mm with minimal reactivity. Isaiah-Pen tonometry at 19:00 was OD 20 and OS 16. The extraocular motility was intact bilaterally without pain. The lids were within normal limits bilaterally as well as the conjunctivae and sclerae. The cornea was clear bilaterally and the anterior chamber deep and quiet. The iris was within normal limits bilaterally and the lens were clear bilaterally. A dilated fundus examination revealed marked papilledema bilaterally with severe pallor and hemorrhages for approximately 360 degrees in both retinas. The retina did appear flat though. The vitreous revealed mild areas of slight vitreous hemorrhage. ASSESSMENT/PLAN: Severe CMV retinitis, bilaterally. I will ask the retina specialist to consult to see what we can offer from an ophthalmic standpoint. Also I have noticed notified the Infectious Disease remediation consultant, Dr. Becca Madrid as well as Dr. Zach Mccray. I will continue to follow the patient while he is in-house but unfortunately this is a very severe case of CMV retinitis. Brian Prashanth Farrell DR: Karie JOB#: [id number] CC:
--- NOTE | 2018-01-19 22:41 | Pulmonology Progress Note ---
Assessment/Plan Problems: (1) Bronchiectasis (2) Anemia (3) Prostate CA (4) Blurry vision, bilateral (5) Severe anemia (6) HIV (human immunodeficiency virus infection) (7) Diarrhea Assessment/Plan respiratory treatment anemia w/u to be seen by ophtahlmology f/u by ID CD4 pending CT of abdomen and pelvis to looks for prostate cancer and it mets. Subjective Allergies: Coded Allergies: No Known Allergies (Unverified , 01/16/18) Objective Last 24 Hour Vital Signs Date Time Temp Pulse Resp B/P (MAP) Pulse Ox O2 Delivery O2 Flow Rate FiO2 01/19/18 20:00 97.9 67 20 159/78 100 97.9 01/19/18 16:00 97.4 69 18 127/67 94 Room Air 97.4 01/19/18 08:00 97.5 77 20 128/68 92 Room Air 97.5 01/19/18 04:00 97.7 75 18 112/69 100 Room Air 97.7 01/19/18 00:00 98.2 81 20 157/70 100 Room Air 98.2 Intake and Output 01/18/18 01/19/18 19:00 07:00 Intake Total 1205 ml 360 ml Output Total 1150 ml Balance 55 ml 360 ml Intake Oral 480 ml 360 ml IV Total 725 ml Output Urine Total 1150 ml # Voids 3 # Bowel Movements 1 1 Laboratory Tests 01/19/18 10:50: White Blood Count 2.2L, Red Blood Count 3.83L, Hemoglobin 10.0#L, Hematocrit 30.2#L, Mean Corpuscular Volume 79L, Mean Corpuscular Hemoglobin 26.1L, Mean Corpuscular Hemoglobin Concent 33.1, Red Cell Distribution Width 17.9H, Platelet Count 147L, Mean Platelet Volume 7.3, Neutrophils (%) (Auto) , Lymphocytes (%) (Auto) , Monocytes (%) (Auto) , Eosinophils (%) (Auto) , Basophils (%) (Auto) , Differential Total Cells Counted 100, Neutrophils % ( Manual) 47, Lymphocytes % (Manual) 28, Monocytes % (Manual) 17H, Eosinophils % ( Manual) 4H, Basophils % (Manual) 0, Band Neutrophils 4, Nucleated Red Blood Cells 3, Platelet Estimate Adequate, Platelet Morphology Normal, Polychromasia 2 +, Hypochromasia 1+, Anisocytosis 1+, Microcytosis 1+, Sodium Level 138, Potassium Level 4.1, Chloride Level 105, Carbon Dioxide Level 28, Anion Gap 5, Blood Urea Nitrogen 12, Creatinine 0.6, Estimat Glomerular Filtration Rate > 60 , Glucose Level 83, Calcium Level 8.0L Current Medications Medications (Trade) Dose Ordered Sig/Liat Route PRN Reason Start Time Stop Time Status Last Admin Dose Admin Azithromycin (Zithromax) 1,200 mg ONCE A WEEK ORAL 01/16/18 21:00 01/23/18 20:59 01/16/18 21:10 Ciprofloxacin (Cipro 500mg tab) 500 mg EVERY 12 HOURS ORAL 01/19/18 21:00 01/26/18 20:59 01/19/18 20:50 Dextrose/ Electrolytes 1,000 ml @ 75 mls/hr [id number] IV 01/16/18 17:30 02/15/18 17:29 01/18/18 22:50 Fluconazole (Diflucan) 100 mg DAILY ORAL 01/17/18 09:00 01/24/18 08:59 01/19/18 09:04 Lorazepam (Ativan) 1 mg Q6H PRN ORAL For Anxiety 01/17/18 13:30 01/24/18 13:29 01/18/18 22:20 Metronidazole (Flagyl) 500 mg Q8HR ORAL 01/16/18 22:00 01/23/18 21:59 01/19/18 20:50 Ondansetron HCl (Zofran) 4 mg Q4H PRN IVP Nausea & Vomiting 01/17/18 09:00 02/16/18 08:59 Trimethoprim/ Sulfamethoxazole (Bactrim-DS) 1 tab QHS ORAL 01/16/18 21:00 01/23/18 20:59 01/19/18 20:50 Spenser Serrano MD Jan 19, 2018 22:41
[2018-01-20] VITALS: BP 135/68
[2018-01-20] MEDS: D5 1/2NS w/KCl 20mEq 1,000 ML IV SCH ×2 (01:47→14:28)
[2018-01-20 04:00] VITALS: BP 117/79
[2018-01-20] MEDS: metroNIDAZOLE 500mg tab ORAL SCH ×2 (06:00→14:24)
[2018-01-20 08:00] VITALS: BP 107/67
[2018-01-20] MEDS: Fluconazole 100mg tab ORAL SCH (08:15)
[2018-01-20] MEDS: Ciprofloxacin 500mg tab ORAL SCH (08:16)
--- NOTE | 2018-01-20 09:21 | General Progress Note ---
Assessment/Plan Problem List: (1) Anemia ICD Codes: D64.9 - Anemia, unspecified SNOMED: 322323281 (2) Leukopenia ICD Codes: D72.819 - Decreased white blood cell count, unspecified SNOMED: 37166915, 962743404 (3) HIV (human immunodeficiency virus infection) ICD Codes: B20 - Human immunodeficiency virus [HIV] disease SNOMED: 15647600 (4) Prostate CA ICD Codes: C61 - Malignant neoplasm of prostate SNOMED: 742441260 (5) Diarrhea ICD Codes: R19.7 - Diarrhea, unspecified SNOMED: 67415529 (6) Blurry vision, bilateral ICD Codes: H53.8 - Other visual disturbances SNOMED: 546145421 Assessment/Plan s/p blood transfusion fu stool ob diarrhea is better patient refusing GI procedures, fu stool studies fu ID recs Subjective ROS Limited/Unobtainable: Yes Allergies: Coded Allergies: No Known Allergies (Unverified , 01/16/18) Subjective no event Objective Last 24 Hour Vital Signs Date Time Temp Pulse Resp B/P (MAP) Pulse Ox O2 Delivery O2 Flow Rate FiO2 01/20/18 08:00 96.8 72 18 107/67 97 Room Air 96.8 01/20/18 04:00 97.9 71 20 117/79 100 97.9 01/20/18 00:00 97.6 65 21 135/68 100 97.6 01/19/18 20:00 97.9 67 20 159/78 100 97.9 01/19/18 16:00 97.4 69 18 127/67 94 Room Air 97.4 Intake and Output 01/19/18 01/20/18 19:00 07:00 Intake Total 1670 ml 300 ml Output Total 800 ml 850 ml Balance 870 ml -550 ml Intake Oral 720 ml IV Total 950 ml 300 ml Output Urine Total 800 ml 850 ml # Voids 2 # Bowel Movements 1 Laboratory Tests 01/19/18 10:50: White Blood Count 2.2L, Red Blood Count 3.83L, Hemoglobin 10.0#L, Hematocrit 30.2#L, Mean Corpuscular Volume 79L, Mean Corpuscular Hemoglobin 26.1L, Mean Corpuscular Hemoglobin Concent 33.1, Red Cell Distribution Width 17.9H, Platelet Count 147L, Mean Platelet Volume 7.3, Neutrophils (%) (Auto) , Lymphocytes (%) (Auto) , Monocytes (%) (Auto) , Eosinophils (%) (Auto) , Basophils (%) (Auto) , Differential Total Cells Counted 100, Neutrophils % ( Manual) 47, Lymphocytes % (Manual) 28, Monocytes % (Manual) 17H, Eosinophils % ( Manual) 4H, Basophils % (Manual) 0, Band Neutrophils 4, Nucleated Red Blood Cells 3, Platelet Estimate Adequate, Platelet Morphology Normal, Polychromasia 2 +, Hypochromasia 1+, Anisocytosis 1+, Microcytosis 1+, Sodium Level 138, Potassium Level 4.1, Chloride Level 105, Carbon Dioxide Level 28, Anion Gap 5, Blood Urea Nitrogen 12, Creatinine 0.6, Estimat Glomerular Filtration Rate > 60 , Glucose Level 83, Calcium Level 8.0L Height (Feet): 5 Height (Inches): 10.00 Weight (Pounds): 166 General Appearance: no apparent distress EENT: normal ENT inspection Neck: supple Cardiovascular: normal rate Respiratory/Chest: decreased breath sounds Abdomen: normal bowel sounds, non tender, soft Extremities: non-tender MARLENE PERSAUD Jan 20, 2018 09:21
[2018-01-20 11:43] VITALS: BP 112/64
--- NOTE | 2018-01-20 15:32 | Infectious Diseases Prog Note ---
Assessment/Plan Assessment/Plan ASSESSMENT AND PLAN: 1. possible infectious diarrhea vs viral gastroenteritis, c.diff. negative, dehydration - clinically improved, stool culture negative, c.diff. negative - discontinue cipro and flagyl - diarrhea improved - check labs 2. Human immunodeficiency virus and acquired immune deficiency syndrome - bactrim ds daily for pcp prophylaxis - azithromycin 1200 mg weekly for mac prophylaxis - await viral load and cd4 - patient to f/u with MD for hiv mgt, genotyping and anti-retroviral therapy - patient says has been given tx in past but not taking it, not clear of medication names in d/w patient, I told him to f/u and clarify this with MD - d/w Dr. Sun and patient 3. History of Marge esophagitis - continue diflucan 100 mg daily po 4. Decrease in vision - d/w ophthalmology and patient has cmv retinitis - valganciclovir 900 mg po bid for 2 week induction then suppression with 900 mg daily - f/u with ophthalmology retinal specialist for intravitreal ganciclovir or foscarnet - d/w Dr. Sun and Dr. Farrell from ophthalmology - d/w pharmacy x 2 5. Wound care protocol for sacrococcyx wound, which looks really clean. 6. anemia, leukopenia, prostate ca, old lacunar infarcts 7. IV fluid hydration for dehydration. 8. No known allergies. 9. Social history is negative. 10. Family history is noncontributory. 11. MAR was noted. 12. Case was discussed with RN. 13. Continue treatment per primary consultants 14. Case was discussed with the patient. 15. Orders were noted. 16. Notes and records were noted. Subjective Constitutional: Reports: fatigue, other - loss of vision ; Denies: fever, chills HEENT: Denies: congestion Respiratory: Denies: shortness of breath Cardiovascular: Denies: chest pain Gastrointestinal/Abdominal: Denies: nausea, vomiting, diarrhea Genitourinary: Denies: dysuria, hematuria Neurologic: Denies: headache Psychiatric: Denies: depression Skin: Denies: rash Hematologic: Denies: bleeding Musculoskeletal: Denies: pain Allergies: Coded Allergies: No Known Allergies (Unverified , 01/16/18) Objective Vital Signs Last 24 Hour Vital Signs Date Time Temp Pulse Resp B/P (MAP) Pulse Ox O2 Delivery O2 Flow Rate FiO2 01/20/18 11:43 97.3 68 19 112/64 100 97.3 01/20/18 08:00 96.8 72 18 107/67 97 Room Air 96.8 01/20/18 04:00 97.9 71 20 117/79 100 97.9 01/20/18 00:00 97.6 65 21 135/68 100 97.6 01/19/18 20:00 97.9 67 20 159/78 100 97.9 01/19/18 16:00 97.4 69 18 127/67 94 Room Air 97.4 Height (Feet): 5 Height (Inches): 10.00 Weight (Pounds): 166 General Appearance: no acute distress HEENT: normocephalic, atraumatic, anicteric, mucous membranes moist Respiratory/Chest: lungs clear, normal breath sounds, no accessory muscle use, respiratory distress Cardiovascular: normal rate, regular rhythm, no gallop/murmur, no JVD Abdomen: normal bowel sounds, soft, non tender, no organomegaly, non distended Genitourinary: other - no delacruz Extremities: no cyanosis Skin: no rash 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 There is some mild bronchial wall thickening. Remaining lungs are clear. No pleural fluid. The there is mild scoliosis convex to the left. Impression: Mild bronchial wall thickening. This may be acute or chronic. Otherwise negative. Microbiology Date/Time Source Procedure Growth Status 01/16/18 18:00 Stool Clostridium difficile Toxin Assay - Final Complete 01/16/18 18:00 Anus Stool Culture - Final NO SALMONELLA,SHIGELLA,OR CAMPYLOBACT... Complete c.diff. - negative Labs Test 01/18/18 05:00 01/18/18 13:20 01/18/18 13:30 01/18/18 14:30 Urine Opiates Screen Negative (NEGATIVE) Urine Barbiturates Screen Negative (NEGATIVE) Phencyclidine (PCP) Screen Negative (NEGATIVE) Urine Amphetamines Screen Negative (NEGATIVE) Urine Benzodiazepines Screen Negative (NEGATIVE) Urine Cocaine Screen Negative (NEGATIVE) Urine Marijuana (THC) Screen Negative (NEGATIVE) Fibrinogen 411 mg/dL (200-400) White Blood Count 2.4 K/UL (4.8-10.8) Red Blood Count 2.83 M/UL (4.70-6.10) Hemoglobin 7.1 G/DL (14.2-18.0) Hematocrit 22.2 % (42.0-52.0) Mean Corpuscular Volume 78 FL (80-99) Mean Corpuscular Hemoglobin 25.0 PG (27.0-31.0) Mean Corpuscular Hemoglobin Concent 31.9 G/DL (32.0-36.0) Red Cell Distribution Width 17.4 % (11.6-14.8) Platelet Count 132 K/UL (150-450) Mean Platelet Volume 6.3 FL (6.5-10.1) Neutrophils (%) (Auto) % (45.0-75.0) Lymphocytes (%) (Auto) % (20.0-45.0) Monocytes (%) (Auto) % (1.0-10.0) Eosinophils (%) (Auto) % (0.0-3.0) Basophils (%) (Auto) % (0.0-2.0) Differential Total Cells Counted 100 Neutrophils % (Manual) 41 % (45-75) Lymphocytes % (Manual) 33 % (20-45) Monocytes % (Manual) 14 % (1-10) Eosinophils % (Manual) 8 % (0-3) Basophils % (Manual) 0 % (0-2) Band Neutrophils 4 % (0-8) Nucleated Red Blood Cells 3 /100 WBC Other Cell Type Pathologist comment Platelet Estimate Adequate Platelet Morphology Normal Polychromasia 1+ Hypochromasia 2+ Anisocytosis 1+ Microcytosis 1+ Reticulocyte Count 1.9 % (0.0-2.0) Sodium Level 140 MMOL/L (136-145) Potassium Level 4.1 MMOL/L (3.5-5.1) Chloride Level 107 MMOL/L (98-107) Carbon Dioxide Level 26 MMOL/L (21-32) Anion Gap 7 mmol/L (5-15) Blood Urea Nitrogen 10 mg/dL (7-18) Creatinine 0.7 MG/DL (0.55-1.30) Estimat Glomerular Filtration Rate > 60 mL/min (>60) Glucose Level 85 MG/DL (74-106) Calcium Level 7.7 MG/DL (8.5-10.1) Iron Level 105 ug/dL (50-175) Total Iron Binding Capacity 169 ug/dL (250-450) Percent Iron Saturation 62 % (15-50) Unsaturated Iron Binding 64 ug/dL (112-346) Ferritin 739 NG/ML (8-388) Total Bilirubin 0.3 MG/DL (0.2-1.0) Lactate Dehydrogenase 347 U/L (135-225) Prostate Specific Antigen 15.02 ng/mL (0.13-4.0) Vitamin B12 Level 614 PG/ML (193-986) Folate 2.3 NG/ML (8.6-58.9) Thyroid Stimulating Hormone (TSH) 0.811 uiU/mL (0.358-3.740) Hepatitis A IgM Antibody Negative (Negative) Hepatitis B Surface Antigen Positive (Negative) Hepatitis B Core IgM Antibody Negative (Negative) Hepatitis C Antibody 0.1 s/co ratio (0.0-0.9) Erythrocyte Sedimentation Rate 115 MM/HR (0-20) Test 01/19/18 10:50 White Blood Count 2.2 K/UL (4.8-10.8) Red Blood Count 3.83 M/UL (4.70-6.10) Hemoglobin 10.0 G/DL (14.2-18.0) Hematocrit 30.2 % (42.0-52.0) Mean Corpuscular Volume 79 FL (80-99) Mean Corpuscular Hemoglobin 26.1 PG (27.0-31.0) Mean Corpuscular Hemoglobin Concent 33.1 G/DL (32.0-36.0) Red Cell Distribution Width 17.9 % (11.6-14.8) Platelet Count 147 K/UL (150-450) Mean Platelet Volume 7.3 FL (6.5-10.1) Neutrophils (%) (Auto) % (45.0-75.0) Lymphocytes (%) (Auto) % (20.0-45.0) Monocytes (%) (Auto) % (1.0-10.0) Eosinophils (%) (Auto) % (0.0-3.0) Basophils (%) (Auto) % (0.0-2.0) Differential Total Cells Counted 100 Neutrophils % (Manual) 47 % (45-75) Lymphocytes % (Manual) 28 % (20-45) Monocytes % (Manual) 17 % (1-10) Eosinophils % (Manual) 4 % (0-3) Basophils % (Manual) 0 % (0-2) Band Neutrophils 4 % (0-8) Nucleated Red Blood Cells 3 /100 WBC Platelet Estimate Adequate Platelet Morphology Normal Polychromasia 2+ Hypochromasia 1+ Anisocytosis 1+ Microcytosis 1+ Sodium Level 138 MMOL/L (136-145) Potassium Level 4.1 MMOL/L (3.5-5.1) Chloride Level 105 MMOL/L (98-107) Carbon Dioxide Level 28 MMOL/L (21-32) Anion Gap 5 mmol/L (5-15) Blood Urea Nitrogen 12 mg/dL (7-18) Creatinine 0.6 MG/DL (0.55-1.30) Estimat Glomerular Filtration Rate > 60 mL/min (>60) Glucose Level 83 MG/DL (74-106) Calcium Level 8.0 MG/DL (8.5-10.1) Current Medications Medications (Trade) Dose Ordered Sig/Liat Route PRN Reason Start Time Stop Time Status Last Admin Dose Admin Azithromycin (Zithromax) 1,200 mg ONCE A WEEK ORAL 01/16/18 21:00 01/23/18 20:59 01/16/18 21:10 Ciprofloxacin (Cipro 500mg tab) 500 mg EVERY 12 HOURS ORAL 01/19/18 21:00 01/26/18 20:59 01/20/18 08:16 Dextrose/ Electrolytes 1,000 ml @ 75 mls/hr [id number] IV 01/16/18 17:30 02/15/18 17:29 01/20/18 14:28 Fluconazole (Diflucan) 100 mg DAILY ORAL 01/17/18 09:00 01/24/18 08:59 01/20/18 08:15 Lorazepam (Ativan) 1 mg Q6H PRN ORAL For Anxiety 01/17/18 13:30 01/24/18 13:29 01/18/18 22:20 Metronidazole (Flagyl) 500 mg Q8HR ORAL 01/16/18 22:00 01/23/18 21:59 01/20/18 14:24 Ondansetron HCl (Zofran) 4 mg Q4H PRN IVP Nausea & Vomiting 01/17/18 09:00 02/16/18 08:59 Trimethoprim/ Sulfamethoxazole (Bactrim-DS) 1 tab QHS ORAL 01/16/18 21:00 01/23/18 20:59 01/19/18 20:50 JUAN MANUEL [employer]ES Jan 20, 2018 15:32
[2018-01-20 16:00] VITALS: BP 122/64
--- NOTE | 2018-01-20 16:19 | Pulmonology Progress Note ---
Assessment/Plan Problems: (1) Bronchiectasis (2) Anemia (3) Prostate CA (4) Blurry vision, bilateral (5) Severe anemia (6) HIV (human immunodeficiency virus infection) (7) Diarrhea Assessment/Plan respiratory treatment anemia w/u to be seen by ophtahlmology f/u by ID CD4 pending Ophthalmology input appreciated, He recommended retinal specialist ID recommended antiviral treatment. dc home with close f/u Subjective ROS Limited/Unobtainable: No Constitutional: Reports: no symptoms Allergies: Coded Allergies: No Known Allergies (Unverified , 01/16/18) Objective Last 24 Hour Vital Signs Date Time Temp Pulse Resp B/P (MAP) Pulse Ox O2 Delivery O2 Flow Rate FiO2 01/20/18 11:43 97.3 68 19 112/64 100 97.3 01/20/18 08:00 96.8 72 18 107/67 97 Room Air 96.8 01/20/18 04:00 97.9 71 20 117/79 100 97.9 01/20/18 00:00 97.6 65 21 135/68 100 97.6 01/19/18 20:00 97.9 67 20 159/78 100 97.9 Intake and Output 01/19/18 01/20/18 19:00 07:00 Intake Total 1670 ml 300 ml Output Total 800 ml 850 ml Balance 870 ml -550 ml Intake Oral 720 ml IV Total 950 ml 300 ml Output Urine Total 800 ml 850 ml # Voids 2 # Bowel Movements 1 General Appearance: cachetic HEENT: normocephalic, atraumatic Respiratory/Chest: chest wall non-tender, lungs clear Cardiovascular: normal peripheral pulses, normal rate Abdomen: normal bowel sounds, soft, non tender Genitourinary: normal external genitalia Extremities: no cyanosis 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, no motor/sensory deficits Lymphatic: no neck adenopathy, no groin adenopathy Current Medications Medications (Trade) Dose Ordered Sig/Liat Route PRN Reason Start Time Stop Time Status Last Admin Dose Admin Azithromycin (Zithromax) 1,200 mg ONCE A WEEK ORAL 01/16/18 21:00 01/23/18 20:59 01/16/18 21:10 Dextrose/ Electrolytes 1,000 ml @ 75 mls/hr [id number] IV 3/30/18 17:30 02/15/18 17:29 01/20/18 14:28 Fluconazole (Diflucan) 100 mg DAILY ORAL 01/17/18 09:00 01/24/18 08:59 01/20/18 08:15 Lorazepam (Ativan) 1 mg Q6H PRN ORAL For Anxiety 01/17/18 13:30 01/24/18 13:29 01/18/18 22:20 Ondansetron HCl (Zofran) 4 mg Q4H PRN IVP Nausea & Vomiting 01/17/18 09:00 02/16/18 08:59 Trimethoprim/ Sulfamethoxazole (Bactrim-DS) 1 tab QHS ORAL 01/16/18 21:00 01/23/18 20:59 01/19/18 20:50 Valganciclovir (Valcyte) 900 mg Q12HR ORAL 01/20/18 16:00 02/19/18 15:59 01/20/18 15:56 Spenser Serrano MD Jan 20, 2018 16:19
[2018-01-20] MEDS ORDERED: BACTRIM-DS1 EA ORAL (16:36)
[2018-01-20] MEDS ORDERED: ZITHROMAX600 MG ORAL (16:36)
[2018-01-20] MEDS ORDERED: VALCYTE450 MG ORAL (16:36)
--- NOTE | 2018-01-20 16:57 | Internal Med Progress Note ---
Subjective Date of Service: Jan 20, 2018 Physician Name Delma Carranza Attending Physician Zach Mccray MD Current Medications Medications (Trade) Dose Ordered Sig/Liat Route PRN Reason Start Time Stop Time Status Last Admin Dose Admin Azithromycin (Zithromax) 1,200 mg ONCE A WEEK ORAL 01/16/18 21:00 01/23/18 20:59 01/16/18 21:10 Dextrose/ Electrolytes 1,000 ml @ 75 mls/hr [id number] IV 01/16/18 17:30 02/15/18 17:29 01/20/18 14:28 Fluconazole (Diflucan) 100 mg DAILY ORAL 01/17/18 09:00 01/24/18 08:59 01/20/18 08:15 Lorazepam (Ativan) 1 mg Q6H PRN ORAL For Anxiety 01/17/18 13:30 01/24/18 13:29 01/18/18 22:20 Ondansetron HCl (Zofran) 4 mg Q4H PRN IVP Nausea & Vomiting 01/17/18 09:00 02/16/18 08:59 Trimethoprim/ Sulfamethoxazole (Bactrim-DS) 1 tab QHS ORAL 01/16/18 21:00 01/23/18 20:59 01/19/18 20:50 Valganciclovir (Valcyte) 900 mg Q12HR ORAL 01/20/18 16:00 02/19/18 15:59 01/20/18 15:56 Allergies: Coded Allergies: No Known Allergies (Unverified , 01/16/18) ROS Limited/Unobtainable: No Constitutional: Reports: no symptoms HEENT: Reports: no symptoms Cardiovascular: Reports: no symptoms Respiratory: Reports: no symptoms Gastrointestinal/Abdominal: Reports: no symptoms Genitourinary: Reports: no symptoms Neurologic/Psychiatric: Reports: no symptoms Subjective 52 YO M admitted with diarrhea and sudden blindness. Now severe anemia. Cover for Int Jostin-Dr Mccray Objective Last Vital Signs Date Time Temp Pulse Resp B/P (MAP) Pulse Ox O2 Delivery O2 Flow Rate FiO2 01/20/18 16:00 97.9 72 21 122/64 100 97.9 01/20/18 08:00 Room Air Intake and Output 01/19/18 01/20/18 19:00 07:00 Intake Total 1670 ml 300 ml Output Total 800 ml 850 ml Balance 870 ml -550 ml Intake Oral 720 ml IV Total 950 ml 300 ml Output Urine Total 800 ml 850 ml # Voids 2 # Bowel Movements 1 Objective General Appearance: WD/WN, no apparent distress, alert EENT: PERRL/EOMI, normal ENT inspection, TMs normal Neck: non-tender, normal alignment, supple, normal inspection Cardiovascular: normal peripheral pulses, normal rate, regular rhythm, no gallop/murmur, no JVD Respiratory/Chest: chest wall non-tender, lungs clear, normal breath sounds, no respiratory distress, no accessory muscle use Abdomen: no organomegaly, no mass, decreased bowel sounds, tender Extremities: normal range of motion, non-tender 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 See GI note. (2) Prostate CA Assessment & Plan: Await oncology consult (3) Blurry vision, bilateral (4) HIV (human immunodeficiency virus infection) Assessment & Plan: Noncompliant with HAART-see ID note. await HIV viral load and T cell panel (5) Severe anemia Assessment & Plan: ?due to chemotherapy? S/P transfusion 2 units PRBC 01/18/18. Await hematology consult. (6) CMV (cytomegalovirus retinitis) Assessment & Plan: Continue valganciclovir per ID Status: stable Assessment/Plan D/C home today DELMA CARRANZA Jan 20, 2018 16:57
--- NOTE | 2018-01-20 19:50 | General Progress Note ---
Assessment/Plan Assessment/Plan #. Prostate cancer. Imaging as described and reviewed. --> Mild bronchial thickening noted. The patient has not had prior imaging here before. --> PSA at this time has already been ordered. PSA --> 15 --> Continue outpatient management with Oncology. #. Leukopenia, likely secondary to chemotherapy, likely needs dose reduction in the future per primary oncologist. --> In addition, consider use of antibiotics since the patient is having neutropenic fever and administered one dose of Neupogen. #. Anemia due to myelosuppression from chemotherapy. --> Continue anemia workup at this time. --> In addition, may need administration of iron based workup. #. Weakness and fatigue, likely due to underlying anemia. #. Diarrhea. Has been seen by Gastroenterology. --> GI procedure when white count has improved. --> Follow up stool studies, IV fluids, evaluation. #. Human immunodeficiency virus/acquired immunodeificiency syndrome. --> Outpatient management. ID service followup. CD4 count and viral load pending. Subjective Date patient seen: Jan 19, 2018 Constitutional: Denies: no symptoms, chills, diaphoresis, fever, malaise, weakness, other HEENT: Denies: no symptoms, eye pain, blurred vision, tearing, double vision, ear pain, ear discharge, nose pain, nose congestion, throat pain, throat swelling, mouth pain, mouth swelling, other Cardiovascular: Denies: no symptoms, chest pain, edema, irregular heart rate, lightheadedness, palpitations, syncope, other Respiratory: Denies: no symptoms, cough, orthopnea, shortness of breath, SOB with excertion, SOB at rest, sputum, stridor, wheezing, other Gastrointestinal/Abdominal: Denies: no symptoms, abdomen distended, abdominal pain, black stools, tarry stools, blood in stool, constipated, diarrhea, difficulty swallowing, nausea, poor appetite, poor fluid intake, rectal bleeding , vomiting, other Genitourinary: Denies: no symptoms, burning, discharge, frequency, flank pain, hematuria, incontinence, pain, urgency, other Neurologic/Psychiatric: Denies: no symptoms, anxiety, depressed, emotional problems, headache, numbness, paresthesia, pre-existing deficit, seizure, tingling, tremors, weakness, other Hematologic/Lymphatic: Reports: anemia Allergies: Coded Allergies: No Known Allergies (Unverified , 01/16/18) Subjective Wbc count low. No fever or chills. Objective Last 24 Hour Vital Signs Date Time Temp Pulse Resp B/P (MAP) Pulse Ox O2 Delivery O2 Flow Rate FiO2 01/20/18 16:00 97.9 72 21 122/64 100 97.9 01/20/18 11:43 97.3 68 19 112/64 100 97.3 01/20/18 08:00 96.8 72 18 107/67 97 Room Air 96.8 01/20/18 04:00 97.9 71 20 117/79 100 97.9 01/20/18 00:00 97.6 65 21 135/68 100 97.6 01/19/18 20:00 97.9 67 20 159/78 100 97.9 Intake and Output 01/19/18 01/20/18 19:00 07:00 Intake Total 1670 ml 300 ml Output Total 800 ml 850 ml Balance 870 ml -550 ml Intake Oral 720 ml IV Total 950 ml 300 ml Output Urine Total 800 ml 850 ml # Voids 2 # Bowel Movements 1 Height (Feet): 5 Height (Inches): 10.00 Weight (Pounds): 166 General Appearance: no apparent distress Respiratory/Chest: decreased breath sounds Edema: trace edema Zack Castro MD Jan 20, 2018 19:50
--- NOTE | 2018-01-21 23:36 | General Progress Note ---
Assessment/Plan Assessment/Plan #. Prostate cancer. Imaging as described and reviewed. --> Mild bronchial thickening noted. The patient has not had prior imaging here before. --> PSA at this time has already been ordered. PSA --> 15 --> Continue outpatient management with Oncology. #. Leukopenia, likely secondary to chemotherapy, likely needs dose reduction in the future per primary oncologist. --> In addition, consider use of antibiotics since the patient is having neutropenic fever and administered one dose of Neupogen. --> Improved. #. Anemia due to myelosuppression from chemotherapy. --> Continue anemia workup at this time. --> In addition, may need administration of iron based workup. --> Blood transfusion not required unless symptomatic or hgb <7 #. Weakness and fatigue, likely due to underlying anemia. #. Diarrhea. Has been seen by Gastroenterology. --> GI procedure when white count has improved. --> Follow up stool studies, IV fluids, evaluation. #. Human immunodeficiency virus/acquired immunodeificiency syndrome. --> Outpatient management. ID service followup. CD4 count and viral load pending. Subjective Date patient seen: Jan 20, 2018 Constitutional: Denies: no symptoms, chills, diaphoresis, fever, malaise, weakness, other HEENT: Denies: no symptoms, eye pain, blurred vision, tearing, double vision, ear pain, ear discharge, nose pain, nose congestion, throat pain, throat swelling, mouth pain, mouth swelling, other Cardiovascular: Denies: no symptoms, chest pain, edema, irregular heart rate, lightheadedness, palpitations, syncope, other Respiratory: Denies: no symptoms, cough, orthopnea, shortness of breath, SOB with excertion, SOB at rest, sputum, stridor, wheezing, other Gastrointestinal/Abdominal: Denies: no symptoms, abdomen distended, abdominal pain, black stools, tarry stools, blood in stool, constipated, diarrhea, difficulty swallowing, nausea, poor appetite, poor fluid intake, rectal bleeding , vomiting, other Genitourinary: Denies: no symptoms, burning, discharge, frequency, flank pain, hematuria, incontinence, pain, urgency, other Neurologic/Psychiatric: Denies: no symptoms, anxiety, depressed, emotional problems, headache, numbness, paresthesia, pre-existing deficit, seizure, tingling, tremors, weakness, other Hematologic/Lymphatic: Reports: anemia Allergies: Coded Allergies: No Known Allergies (Unverified , 01/16/18) Subjective H/H stable. No acute distress. No active bleeding. Objective Intake and Output 01/20/18 01/21/18 19:00 07:00 Intake Total 525 ml Balance 525 ml IV Total 525 ml Height (Feet): 5 Height (Inches): 10.00 Weight (Pounds): 166 General Appearance: no apparent distress Respiratory/Chest: decreased breath sounds Abdomen: soft Zack Castro MD Jan 21, 2018 23:36
--- NOTE | 2018-01-22 14:25 | Discharge Summary ---
Discharge Summary Discharge Summary Discharge Summary DATE OF ADMISSION: 01/16/2018 DATE OF DISCHARGE: 01/20/2018 CONSULTANTS: Dr. Zack Hicks BRIEF HOSPITAL COURSE: Patient is a 52-year-old -[place] male who presented with chief complaint of diarrhea. He was admitted to [facility] on 12/17/2017 and was admitted for increased frequency of urination. He was found to have prostate cancer. He is status post chemotherapy treatment at [facility]. Symptoms started immediately after discharge from [facility] and began to have diarrhea. He initially presented to [facility] and was transferred to [place] for insurance purposes. He also stated a week prior he began to experience "shade" over both eyes. He is now unable to see on both eyes. He has medical history significant for prostate CA and AIDS. He was started empirically on ciprofloxacin and Flagyl. He was seen by ophthalmology. He was diagnosed with severe CMV retinitis bilaterally. Patient has HIV and AIDS and had been off anti-retroviral therapy. He was started on Bactrim and azithromycin for prophylaxis. He was having diarrhea stool culture was negative and C. difficile was negative. He was given valganciclovir 900 mg twice a day and we'll need to weeks for induction and then suppression with 900 mg daily, he was advised to follow-up with ophthalmology/retinitis specialist. He had history of prostate cancer PSA was 15 he was advised to continue with outpatient management with oncologist. His leukopenia was probably secondary to chemotherapy, likely needs dose reduction per primary oncologist. He was having neutropenic fever and was given a dose of Neupogen. Anemia was due to myelosuppression from chemotherapy. CD4 and viral load count pending. He came in with pressure ulcer and was given wound care. He had drop in Hemoglobin and received total 3 units packed RBC blood transfusion. He refused GI procedures. He was eventually discharged home advice to follow up as outpatient. 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 DISCHARGE INSTRUCTIONS: Follow up with PCP in a week. Will need to follow-up with PMD for HIV management, genotyping and antiretroviral therapy. I have been assigned to dictate discharge summary on this account, and I was not involved in the patient's management. Valeria Frost NP Jan 22, 2018 14:25
== END 2018-01-20 17:47 | disposition home or self-care (01) | DRG 974 ==
LOC: 4W 15:15
PROC: 30233N1 Transfusion of Nonautologous Red Blood Cells into Peripheral Vein, Percutaneous Approach (ICD-10-PCS; principal; 2018-01-18)
DX: B20 Human immunodeficiency virus [HIV] disease (principal); L89.153 Pressure ulcer of sacral region, stage 3; B25.8 Other cytomegaloviral diseases; H30.893 Other chorioretinal inflammations, bilateral; C61 Malignant neoplasm of prostate; Z91.14 Patient's other noncompliance with medication regimen; R19.7 Diarrhea, unspecified; E86.0 Dehydration; H53.8 Other visual disturbances; D64.81 Anemia due to antineoplastic chemotherapy; Z86.73 Personal history of transient ischemic attack (TIA), and cerebral infarction without residual deficits; J47.9 Bronchiectasis, uncomplicated
CPT/HCPCS: 36415; 71045; 80048; 80053; 80307; 81003; 82247; 82270; 82607; 82728; 82746; 83010; 83540; 83550; 83615; 83735; 83921; 84100; 84153; 84238; 84443; 85007; 85025; 85044; 85060; 85384; 85651; 86360; 86644; 86705; 86709; 86803; 86850; 86870; 86880; 86900; 86901; 86904; 86920; 87045; 87324; 87340; 87536

== ENCOUNTER 2019-06-09 11:50 | Inpatient (IN) | payer MEDICARE, OTHER ==
[~2019-06-09] VITALS: Ht 182.9 cm; Wt 107.0 kg
[~2019-06-09 11:50] MED LIST: BACTRIM-DS1 EA ORAL; VALCYTE450 MG ORAL; ZITHROMAX600 MG ORAL
--- NOTE | 2019-06-09 11:50 | NUR ---
ED Nurse Note: Patient brought in by ambulance from home due to left lower back/pelvic pain. patient reports he has stage 4 prostate cancer, patient reports he has been having discomfort and pain on the left lower back/pelvic area for 1 week, but this morning the pain was unbearable. patient is alert awake x4 breathing unlabored and even.
[2019-06-09 12:11] VITALS: BP 127/73
--- NOTE | 2019-06-09 12:42 | Emergency Room Report ---
History of Present Illness General Chief Complaint: Back Pain-No Injury Source: Patient Present Illness HPI Patient is a 54-year-old male who presents after increased low back pain. Patient had prior history of stage IV prostate cancer with widespread metastases as well as HIV. Patient reports having worsening pain to the left lower extremity. He reports having pain worse with left lateral flexion. He had been able to urinate. He reports having decreased bowel movements for the past 2 days. He reports having some chills. He had reportedly had recent imaging which showed widespread bony metastases. Patient is followed by Dr. Lopez. Allergies: Coded Allergies: No Known Allergies (Unverified , 01/16/18) Patient History Past Medical History: see triage record Reviewed Nursing Documentation: PMH: Agreed; PSxH: Agreed Nursing Documentation-PMH Past Medical History: No History, Except For Hx Cancer: Yes - Stage 4 Prostate Hx Gastrointestinal Problems: Yes Hx Cerebrovascular Accident: Yes Review of Systems All Other Systems: negative except mentioned in HPI Physical Exam Vital Signs Date Time Temp Pulse Resp B/P (MAP) Pulse Ox O2 Delivery O2 Flow Rate FiO2 06/09/19 11:42 97.3 86 20 133/90 (104) 97 Room Air Sp02 EP Interpretation: reviewed, normal General Appearance: normal inspection, well appearing, no apparent distress, alert, GCS 15 Head: atraumatic ENT: normal ENT inspection, hearing grossly normal, normal voice Neck: normal inspection, full range of motion, supple, no bony tend Respiratory: normal inspection, lungs clear, normal breath sounds, no respiratory distress, no retraction, no wheezing Cardiovascular #1: regular rate, rhythm, no edema Gastrointestinal: normal inspection, normal bowel sounds, non tender, soft, no guarding, no hernia Genitourinary: no CVA tenderness Musculoskeletal: normal inspection, back normal, normal range of motion Neurologic: normal inspection, alert, responsive, speech normal Psychiatric: normal inspection, judgement/insight normal, mood/affect normal Medical Decision Making Diagnostic Impression: Primary Impression: CMV (cytomegalovirus retinitis) Additional Impressions: Leukopenia Prostate cancer metastatic to bone ER Course Patient presented for low back pain. Differential diagnosis include was not limited to metastatic lesion, spinal cord compression, cauda equina syndrome, abscess among others. Because of complexity of patient's case laboratory testing and imaging studies were ordered. Patient was noted to have long- standing history of prostate cancer which is stage IV. Per patient's prior CT imaging patient had widely metastatic disease to the bone of his spine. I contacted the patient's physician Dr. Lopez who suggested obtaining MRI of the lumbar spine. Patient was given IV pain medications.Patient is noted to be weak to the left lower extremity and having difficulty with ambulation. MRI of the lumbar spine showed no evidence of bony metastases to this area or cord compression. Patient was noted to have some CT imaging which she had previously shown some pelvic metastases. Dr. Lopez was notified of patient MR findings and requested patient be admitted to Dr. Tremayne Garcia. Dr. Tremayne Garcia was contacted for inpatient management due to PMD request and he agreed to accept the patient. Labs Test 06/09/19 12:40 06/09/19 13:23 White Blood Count 4.4 K/UL (4.8-10.8) Red Blood Count 4.35 M/UL (4.70-6.10) Hemoglobin 10.6 G/DL (14.2-18.0) Hematocrit 35.4 % (42.0-52.0) Mean Corpuscular Volume 81 FL (80-99) Mean Corpuscular Hemoglobin 24.4 PG (27.0-31.0) Mean Corpuscular Hemoglobin Concent 30.0 G/DL (32.0-36.0) Red Cell Distribution Width 17.0 % (11.6-14.8) Platelet Count 191 K/UL (150-450) Mean Platelet Volume 6.2 FL (6.5-10.1) Neutrophils (%) (Auto) 40.7 % (45.0-75.0) Lymphocytes (%) (Auto) 39.6 % (20.0-45.0) Monocytes (%) (Auto) 9.2 % (1.0-10.0) Eosinophils (%) (Auto) 2.4 % (0.0-3.0) Basophils (%) (Auto) 8.0 % (0.0-2.0) Sodium Level 140 MMOL/L (136-145) Potassium Level 4.3 MMOL/L (3.5-5.1) Chloride Level 106 MMOL/L (98-107) Carbon Dioxide Level 29 MMOL/L (21-32) Anion Gap 5 mmol/L (5-15) Blood Urea Nitrogen 14 mg/dL (7-18) Creatinine 0.8 MG/DL (0.55-1.30) Estimat Glomerular Filtration Rate > 60 mL/min (>60) Glucose Level 112 MG/DL (74-106) Calcium Level 9.6 MG/DL (8.5-10.1) Total Bilirubin 0.3 MG/DL (0.2-1.0) Aspartate Amino Transf (AST/SGOT) 21 U/L (15-37) Alanine Aminotransferase (ALT/SGPT) 13 U/L (12-78) Alkaline Phosphatase 169 U/L (46-116) Troponin I 0.000 ng/mL (0.000-0.056) Total Protein 8.3 G/DL (6.4-8.2) Albumin 3.3 G/DL (3.4-5.0) Globulin 5.0 g/dL Albumin/Globulin Ratio 0.7 (1.0-2.7) Lipase 98 U/L (73-393) Urine Color Pale yellow Urine Appearance Clear Urine pH 7 (4.5-8.0) Urine Specific [place] 1.005 (1.005-1.035) Urine Protein Negative (NEGATIVE) Urine Glucose (UA) Negative (NEGATIVE) Urine Ketones Negative (NEGATIVE) Urine Blood Negative (NEGATIVE) Urine Nitrite Negative (NEGATIVE) Urine Bilirubin Negative (NEGATIVE) Urine Urobilinogen Normal MG/DL (0.0-1.0) Urine Leukocyte Esterase Negative (NEGATIVE) Urine RBC 0 /HPF (0 - 0) Urine WBC 0 /HPF (0 - 0) Urine Squamous Epithelial Cells Occasional /LPF Urine Bacteria None /HPF (NONE) Last Vital Signs Date Time Temp Pulse Resp B/P (MAP) Pulse Ox O2 Delivery O2 Flow Rate FiO2 06/09/19 12:11 97.3 75 12 127/73 99 Room Air Status: improved Disposition: ADMITTED INPATIENT Condition: Stable Chip Galloway MD Jun 09, 2019 12:42
[2019-06-09] MEDS ORDERED: Isovue-300 100ml vial INJ PRN (12:45)
[2019-06-09] MEDS ORDERED: Morphine Sulfate 4mg/ml Inj (IV USE ONLY) IVP ONE ×3 (12:45→16:15)
[2019-06-09 12:51] LABS: EOSINOPHILS % (AUTO) 2.4 % (0.0-3.0); HEMATOCRIT 35.4 % (42.0-52.0); HEMOGLOBIN 10.6 G/DL (14.2-18.0); LYMPHOCYTES % (AUTO) 39.6 % (20.0-45.0); MEAN CORPUSCULAR VOLUME 81 FL (80-99); MONOCYTES % (AUTO) 9.2 % (1.0-10.0); NEUTROPHILS % (AUTO) 40.7 % (45.0-75.0); PLATELET COUNT 191 K/UL (150-450); RED BLOOD COUNT 4.35 M/UL (4.70-6.10); WHITE BLOOD COUNT 4.4 K/UL (4.8-10.8)
[2019-06-09 13:03] LABS: ANION GAP 5 mmol/L (5-15); BLOOD UREA NITROGEN 14 mg/dL (7-18); CALCIUM 9.6 MG/DL (8.5-10.1); CARBON DIOXIDE 29 MMOL/L (21-32); CHLORIDE 106 MMOL/L (98-107); CREATININE 0.8 MG/DL (0.55-1.30); POTASSIUM 4.3 MMOL/L (3.5-5.1); SODIUM 140 MMOL/L (136-145)
[2019-06-09 13:07] LABS: ALANINE AMINOTRANSFERASE 13 U/L (12-78); ALBUMIN 3.3 G/DL (3.4-5.0); ALBUMIN/GLOBULIN RATIO 0.7 (1.0-2.7); ALKALINE PHOSPHATASE 169 U/L (46-116); ASPARTATE AMINO TRANSFERASE 21 U/L (15-37); BILIRUBIN,TOTAL 0.3 MG/DL (0.2-1.0)
--- NOTE | 2019-06-09 13:24 | NUR ---
ED Nurse Note: patient taken to MRI in stable condtion.
[2019-06-09 13:32] LABS: APPEARANCE,URINE CLEAR; BILIRUBIN, URINE NEGATIVE (NEGATIVE); COLOR,URINE PALE YELLOW; GLUCOSE, URINE (UA) NEGATIVE (NEGATIVE); KETONES,URINE NEGATIVE (NEGATIVE); LEUKOCYTE ESTERASE ,URINE NEGATIVE (NEGATIVE); NITRITE,URINE NEGATIVE (NEGATIVE); PH,URINE 7 (4.5-8.0); PROTEIN,URINE NEGATIVE (NEGATIVE); UROBILINOGEN,URINE NORMAL MG/DL (0.0-1.0)
--- NOTE | 2019-06-09 14:30 | NUR ---
ED Nurse Note: patient came back from MRI in same condtion. patient connected back to monitor, vss.
[2019-06-09 14:43] VITALS: BP 125/71
--- NOTE | 2019-06-09 15:23 | Diagnostic Imaging Report ---
Indication: Severe low back pain. History of prostate cancer Technique: Sagittal T1, sagittal T2 propeller, sagittal STIR propeller, axial T2 FRFSE, axial T2 propeller disc cut, axial T1, pre and postcontrast sagittal and axial T1 fat saturated images of the lumbar spine Comparison: none Findings: There is very slight anterior offset of L4 on L5. The bony alignment is otherwise normal. There are Modic type II marrow changes about the L3-4 and L4-5 discs. Vertebral marrow signal is otherwise unremarkable. The vertebral body heights are preserved. The conus medullaris terminates at the L1 level. At L3-4, there is mild degenerative disc narrowing. There is minimal right foraminal disc protrusion which, in combination with facet hypertrophy, results in mild to moderate compromise of the neural foramen. No significant central disc protrusion or central canal stenosis At L4-5, there is mild degenerative disc narrowing. There is mild circumferential annular bulge. This results in mild compromise of the left neural foramen. No evidence of central canal stenosis or right neural foraminal stenosis. At L5-S1, there is minimal degenerative disc narrowing. There is broad-based posterior disc protrusion. This does not compromise the central canal, may result in mild compromise of the bilateral neural foramina. No unusual contrast enhancement is demonstrated. The included extraspinal soft tissues are unremarkable. Impression: No acute bony trauma No definite evidence of osseous metastatic disease Mild degenerative changes, as detailed above
--- NOTE | 2019-06-09 16:23 | NUR ---
HAND-OFF: Report given to Swati DUMONT. patient is stable in bed. endorsed all plan of care to Swati DUMONT
--- NOTE | 2019-06-09 16:43 | NUR ---
ED Nurse Note: patient is being transferred to with all of his belongings. patient did not come with a cane.
[2019-06-09 17:00] VITALS: BP 107/67
--- NOTE | 2019-06-09 17:00 | NUR ---
NURSE NOTES: ADMITTED A 54 YR OLD MALE WITH DX OF INTRACTABLE BACK PAIN. AWAKE/ALERT. ADM CARE DONE SEE ADM ASSESSMENT. [facility] CALLED FOR ADM ORDERS BY TYRONE AMARAL RN. LEFT MESSAGE TO RETURN CALL
--- NOTE | 2019-06-09 18:17 | History & Physical ---
History and Physical History & Physicial dictated #[id number] Tremayne Garcia MD Jun 09, 2019 18:17
[2019-06-09] MEDS: oxyCODONE 15mg IR tab ORAL PRN (19:03)
--- NOTE | 2019-06-09 19:40 | NUR ---
NURSE NOTES: RESING IN BED. NO ACUTE DISTRESS.
--- NOTE | 2019-06-09 19:41 | NUR ---
HAND-OFF: Report given to Kim CHUNG RN.
--- NOTE | 2019-06-09 19:42 | NUR ---
NURSE NOTES: Received report from Swati Talamantes RN. No distress noted at this time. Patient alert and oriented. IV infusing well in RFA. Bed in low position, locked, side rails up x2, call light within reach. Will continue to monitor.
[2019-06-09 20:00] VITALS: BP 103/65
[2019-06-09] MEDS ORDERED: Bactrim-DS 1 tab ORAL SCH (21:00)
--- NOTE | 2019-06-09 21:00 | History and Physical Report ---
DATE OF ADMISSION: 06/09/2019 HISTORY OF PRESENT ILLNESS: This is a 54-year-old male with history of HIV with last CD4 count of 250, metastatic prostate cancer, pancytopenia, ____, CMV retinitis, and history of CVA, who presents to the emergency room for left flank pain x1 week. The patient states that he has left flank pain that was worse last night to the point where he could not stand or walk. He is followed by oncologist, Dr. Celso Melton and was on chemotherapy until recently. He denies any dysuria, frequency, or urgency. He had an MRI of the spine in the emergency room that shows no obvious metastatic disease. The patient takes oxycodone 30 mg four times a day for pain. He has tenderness over his left flank region. He does not have any hematuria. Creatinine is normal. PAST MEDICAL HISTORY: Includes CMV retinitis, HIV with last CD4 count 250, syphilis, metastatic prostate cancer with metastases to the T/L-spine as well as bilateral hips, obesity, anemia, and hypertension. PAST SURGICAL HISTORY: None. MEDICATIONS: Reviewed in [facility]. SOCIAL HISTORY: The patient does not smoke, drink alcohol, or use any drugs. FAMILY HISTORY: Noncontributory. PHYSICAL EXAMINATION: VITAL SIGNS: Temperature is 97.9, pulse 75, respiratory rate 20, and blood pressure 107/67. O2 saturation 97% on room air. GENERAL: No acute distress. The patient is awake, alert, and oriented x3. HEENT: Normocephalic/atraumatic. NECK: Supple. No JVD. LUNGS: Clear to auscultation bilaterally. No crackles, rhonchi, or rales. CARDIOVASCULAR: Regular rate and rhythm. Normal S1, S2. ABDOMEN: Soft, nontender, and nondistended. The patient has tenderness to palpation over the left flank region, however, not the right. EXTREMITIES: No clubbing, cyanosis, or edema. LABORATORY DATA: BMP - sodium 140, potassium 4.3, chloride 106, CO2 29, BUN 14, and creatinine 0.8. Alkaline phosphatase is 169. Troponin is 0. CBC - white count 4.4, hemoglobin 10.6, and platelet count 191,000. UA is negative for ketones, blood, nitrites, wbc's. ASSESSMENT: 1. Left-sided flank plain. Differential diagnosis includes obstructive uropathy/hydronephrosis versus secondary to prostate cancer metastasis to that region. 2. Metastatic prostate cancer with metastases to the lumbar spine and bilateral hips. 3. History of CVA. 4. Anemia. 5. . 6. Cytomegalovirus retinitis. PLAN: 1. The patient is admitted to Med/Surg. 2. MRI of spine reviewed with no obvious metastatic lesions. 3. Urology consult. 4. Continue HIV/AIDS prophylaxis with Bactrim Double Strength Friday, Friday, and Friday, and azithromycin 1200 mg weekly. Continue with Tivicay, Prezcobix, and Descovy for HIV. 5. Pain management. 6. IV fluids. 7. Ultrasound of the abdomen to evaluate kidneys. 8. DVT prophylaxis with heparin. 9. Full Code. Tremayne Garcia MD DR: LORRAINE/PETE JOB#: [id number] CC:
[2019-06-09] MEDS: LORazepam 0.5mg tab ORAL SCH (21:06)
--- NOTE | 2019-06-09 21:35 | NUR ---
NURSE NOTES: Patient voided approximately 1 hour ago: 100 cc, clear yellow urine. At this time bladder scan done per physician request. Bladder scan: 147 cc.
--- NOTE | 2019-06-09 21:40 | NUR ---
NURSE NOTES: Notified physician of patient's pain 710 after med was already given. Patient requested IV medication earlier to AM shift. Received order for Dilaudid 1 mg IV piggy back Q6 hours as needed for breakthrough pain.
[2019-06-09] MEDS ORDERED: HYDROmorphone 1 MG in NS 55 ML IVPB PRN (21:45)
[2019-06-09] MEDS ORDERED: HYDROmorphone 1mg/ml Carpuject IVPB PRN (21:45)
--- NOTE | 2019-06-09 22:15 | Consultation ---
DATE OF CONSULTATION: 06/09/2019 CONSULTING PHYSICIAN: Logan King M.D. REFERRING PHYSICIAN: Tremayne Garcia M.D. REASON FOR CONSULTATION: For evaluation of metastatic prostate cancer and back pain. HISTORY OF PRESENT ILLNESS: This is a 54-year-old gentleman. Apparently, he has a history of metastatic prostate cancer. He is followed as an outpatient by Dr. Ponce as well as Dr. Celso Melton at [facility]. He had been on Lupron and he was previously on Zytiga and apparently he is supposed to start Xtandi soon. He has been having back pain, which is mostly left-sided that started about a week ago and has been progressively worsening and he came to the emergency room and has been admitted for pain control. Urology evaluation requested. The patient is able to urinate well. He has some frequency. He denies hematuria. PAST MEDICAL HISTORY: Significant for above. Again, metastatic prostate cancer. He also has a history of HIV, history of hypertension, peritonitis. PAST SURGICAL HISTORY: Unknown. CURRENT MEDICATIONS: Here in the hospital, the patient is on Zithromax, Ativan, oxycodone, Isovue. ALLERGIES: No known drug allergies. SOCIAL HISTORY: The patient is currently nonsmoker. REVIEW OF SYSTEMS: As above. FAMILY HISTORY: Noncontributory. PHYSICAL EXAMINATION: GENERAL: He is a well-developed and well-nourished male. He has some distress from his back pain. VITAL SIGNS: Temperature is 98, blood pressure is 103/65, pulse 74, respirations 18. HEENT: Normocephalic. NECK: Supple. ABDOMEN: Soft. BACK: There is minimal CVA tenderness. He does have some tenderness to palpation of his left lower abdomen laterally. EXTREMITIES: No clubbing, cyanosis. LABORATORY DATA: White count is 4.4, hemoglobin 10.6, platelets 191,000. BUN is 14 and creatinine is 0.8. UA was negative. DIAGNOSTIC IMAGING STUDIES: The patient had a lumbar spine MRI, which showed no acute bony trauma and there was no obvious osseous metastatic disease. IMPRESSION: 1. History of advanced prostate cancer. 2. Left-sided abdominal and back pain. 3. Urinary frequency. 4. Rule out neurogenic bladder. PLAN AND DISCUSSION: Again, the patient does have back pain and I agree with workup with abdominal ultrasound, which has been ordered. There is a question that this may be urologic in origin and we have to rule out hydronephrosis. The bladder scan result will also be obtained. We will have to review the outside records including any recent PSA levels and he needs to continue his Lupron and Xtandi as an outpatient. Thank you for this consultation. Logan King M.D. DR: MONI JOB#: [id number] CC:
--- NOTE | 2019-06-09 23:29 | NUR ---
NURSE NOTES: Patient states pain has decreased to 5/10. States it is easier to move in bed now, with less pain. Aware of status NPO after midnight in preparation for abd ultrasound.
[2019-06-10] VITALS: BP 119/70
[2019-06-10 04:00] VITALS: BP 116/64
--- NOTE | 2019-06-10 06:53 | NUR ---
NURSE NOTES: Patient dislodged IV. Will start new IV.
--- NOTE | 2019-06-10 07:30 | NUR ---
NURSE NOTES: Pt received in bed IV dislodged . Pt is malodorous, per outgoing nurse pt refused to change gown. Fac Engineer provided pt with towel and soap, encouraged to freshen up at his leisure.
--- NOTE | 2019-06-10 07:42 | NUR ---
HAND-OFF: Report given to TIM Conrad. Notified of unsuccessful IV start.
[2019-06-10 08:00] VITALS: BP 119/73
--- NOTE | 2019-06-10 08:43 | Urology Progress Note ---
Assessment/Plan Assessment/Plan: 1. History of advanced prostate cancer. 2. Left-sided abdominal and back pain. 3. Urinary frequency. 4. Rule out neurogenic bladder. monitor clinically pain control f/u on abdominal u/s consider adding flomax Subjective Allergies: Coded Allergies: No Known Allergies (Unverified , 01/16/18) Subjective all noted, voiding, feels better, PVR 147 cc Objective Last 24 Hour Vital Signs Date Time Temp Pulse Resp B/P (MAP) Pulse Ox O2 Delivery O2 Flow Rate FiO2 06/10/19 04:00 98.1 75 18 116/64 (81) 97 06/10/19 00:00 98.3 69 17 119/70 (86) 97 06/09/19 21:00 Room Air 06/09/19 20:00 98.0 74 18 103/65 (78) 97 06/09/19 17:00 Room Air 06/09/19 17:00 97.9 75 20 107/67 (80) 97 06/09/19 17:00 Room Air 06/09/19 16:40 97.3 71 14 125/71 99 Room Air 06/09/19 16:29 97.3 06/09/19 16:29 97.3 06/09/19 14:43 97.3 71 14 125/71 99 Room Air 06/09/19 14:34 97.3 06/09/19 12:11 97.3 75 12 127/73 99 Room Air 06/09/19 11:42 97.3 86 20 133/90 (104) 97 Room Air Intake and Output 06/09/19 06/10/19 18:59 06:59 Intake Total 300 ml 1065 ml Output Total 950 ml Balance 300 ml 115 ml Intake Oral 300 ml 240 ml IV Total 825 ml Output Urine Total 950 ml # Voids 6 Current Medications Medications (Trade) Dose Ordered Sig/Liat Route PRN Reason Start Time Stop Time Status Last Admin Dose Admin Azithromycin (Zithromax) 1,200 mg ONCE A WEEK ORAL 06/14/19 09:00 06/21/19 08:59 Dextrose (Dextrose 50%) 25 ml Q30M PRN IV Hypoglycemia 06/09/19 18:15 07/09/19 18:14 Dextrose (Dextrose 50%) 50 ml Q30M PRN IV Hypoglycemia 06/09/19 18:15 07/09/19 18:14 Hydromorphone HCl 1 mg/Sodium Chloride 56 ml @ 224 mls/hr Q6H PRN IVPB breakthrough pain 06/09/19 21:45 06/16/19 21:44 06/09/19 22:32 Iopamidol (Isovue-300 100ml) 100 ml NOW PRN INJ Radiology Procedure 06/09/19 12:45 Lorazepam (Ativan) 0.5 mg QHS ORAL 06/09/19 21:00 06/16/19 20:59 06/09/19 21:06 Oxycodone HCl (Roxicodone) 30 mg QIDPRN PRN ORAL pain 06/09/19 18:30 06/16/19 18:29 06/09/19 19:03 Patient Own Medication (Patient's Own Med) 1 ea DAILY OPHTHALM 06/10/19 09:00 07/10/19 08:59 Sodium Chloride 1,000 ml @ 75 mls/hr [id number] IV 06/09/19 18:19 07/09/19 18:18 06/09/19 18:54 Valganciclovir (Valcyte) 900 mg Q12HR ORAL 06/09/19 21:00 07/09/19 20:59 Future Hold Laboratory Tests 06/09/19 12:40: White Blood Count 4.4L, Red Blood Count 4.35L, Hemoglobin 10.6L, Hematocrit 35.4L, Mean Corpuscular Volume 81, Mean Corpuscular Hemoglobin 24.4L, Mean Corpuscular Hemoglobin Concent 30.0L, Red Cell Distribution Width 17.0H, Platelet Count 191, Mean Platelet Volume 6.2L, Neutrophils (%) (Auto) 40.7L, Lymphocytes (%) (Auto) 39.6, Monocytes (%) (Auto) 9.2, Eosinophils (%) (Auto) 2.4, Basophils (%) (Auto) 8.0H, Sodium Level 140, Potassium Level 4.3, Chloride Level 106, Carbon Dioxide Level 29, Anion Gap 5, Blood Urea Nitrogen 14, Creatinine 0.8, Estimat Glomerular Filtration Rate > 60, Glucose Level 112H, Calcium Level 9.6, Total Bilirubin 0.3, Aspartate Amino Transf (AST/SGOT) 21, Alanine Aminotransferase (ALT/SGPT) 13, Alkaline Phosphatase 169H, Troponin I 0.000, Total Protein 8.3H, Albumin 3.3L, Globulin 5.0, Albumin/Globulin Ratio 0.7L, Lipase 98 06/09/19 13:23: Urine Color Pale yellow, Urine Appearance Clear, Urine pH 7, Urine Specific [place] 1.005, Urine Protein Negative, Urine Glucose (UA) Negative, Urine Ketones Negative, Urine Blood Negative, Urine Nitrite Negative, Urine Bilirubin Negative, Urine Urobilinogen Normal, Urine Leukocyte Esterase Negative, Urine RBC 0, Urine WBC 0, Urine Squamous Epithelial Cells Occasional, Urine Bacteria None Height (Feet): 6 Weight (Pounds): 236 Objective exam stable Logan King MD Jun 10, 2019 08:43
[2019-06-10] MEDS ORDERED: DUREZOL 0.05% OPHTHALM SCH (09:00)
--- NOTE | 2019-06-10 09:28 | NUR ---
NURSE NOTES: Pt undergoing ultrasound upon this writing. Well provide scheduled medication when ultrasound is complete
[2019-06-10] MEDS: oxyCODONE 15mg IR tab ORAL PRN (10:01)
--- NOTE | 2019-06-10 10:35 | NUR ---
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 No definite evidence of osseous metastatic disease IS: MORPHINE 4MG IV x 3 Admitted to [facility] status DCP: Pending Hospital Stay
--- NOTE | 2019-06-10 11:04 | Diagnostic Imaging Report ---
Indication: Abdominal pain, abnormal liver function tests Technique: Toussaint-scale and duplex images of the upper abdomen were obtained Comparison: none Findings: Gallbladder is unremarkable, without stones, wall thickening, nor pericholecystic fluid. Sonographic Galdamez's sign is negative. Common bile duct measures for mm in diameter. No intrahepatic biliary ductal dilatation. Liver demonstrates normal echogenicity, no focal abnormality. Portal vein and hepatic veins are patent. Pancreas is unremarkable. Spleen is unremarkable. Left kidney measures 10.9 cm in length. Right kidney measures 11.1 cm length. Both kidneys demonstrate normal echogenicity. There is no hydronephrosis. No focal abnormality . Abdominal aorta is partially obscured by bowel gas, visualized portions are non-aneurysmal . Impression: Negative Note Limited visualization of the abdominal aorta
[2019-06-10] MEDS ORDERED: Tubing IV Secondary IV ONE (11:15)
[2019-06-10] MEDS ORDERED: 1/2 NS 1000ml IV ONE (11:15)
[2019-06-10 12:00] VITALS: BP 124/64
--- NOTE | 2019-06-10 12:43 | Internal Med Progress Note ---
Subjective Physician Name Tremayne Garcia Attending Physician Tremayne Garcia MD Current Medications Medications (Trade) Dose Ordered Sig/Liat Route PRN Reason Start Time Stop Time Status Last Admin Dose Admin Azithromycin (Zithromax) 1,200 mg ONCE A WEEK ORAL 06/14/19 09:00 06/21/19 08:59 Dextrose (Dextrose 50%) 25 ml Q30M PRN IV Hypoglycemia 06/09/19 18:15 07/09/19 18:14 Dextrose (Dextrose 50%) 50 ml Q30M PRN IV Hypoglycemia 06/09/19 18:15 07/09/19 18:14 Hydromorphone HCl 1 mg/Sodium Chloride 56 ml @ 224 mls/hr Q6H PRN IVPB breakthrough pain 06/09/19 21:45 06/16/19 21:44 06/09/19 22:32 Iopamidol (Isovue-300 100ml) 100 ml NOW PRN INJ Radiology Procedure 06/09/19 12:45 Lorazepam (Ativan) 0.5 mg QHS ORAL 06/09/19 21:00 06/16/19 20:59 06/09/19 21:06 Oxycodone HCl (Roxicodone) 30 mg QIDPRN PRN ORAL pain 06/09/19 18:30 06/16/19 18:29 06/10/19 10:01 Patient Own Medication (Patient's Own Med) 1 ea DAILY OPHTHALM 06/10/19 09:00 07/10/19 08:59 06/10/19 09:59 Sodium Chloride 1,000 ml @ 75 mls/hr [id number] IV 06/09/19 18:19 07/09/19 18:18 06/09/19 18:54 Valganciclovir (Valcyte) 900 mg Q12HR ORAL 06/09/19 21:00 07/09/19 20:59 Future Hold Allergies: Coded Allergies: No Known Allergies (Unverified , 01/16/18) All Systems: reviewed and negative except above - Left CVA pain Objective Last Vital Signs Date Time Temp Pulse Resp B/P (MAP) Pulse Ox O2 Delivery O2 Flow Rate FiO2 06/10/19 04:00 98.1 75 18 116/64 (81) 97 06/09/19 21:00 Room Air General Appearance: WD/WN, no apparent distress EENT: PERRL/EOMI, normal ENT inspection Neck: normal alignment, supple Cardiovascular: normal rate, regular rhythm Respiratory/Chest: lungs clear, normal breath sounds Abdomen: non tender, soft Laboratory Tests Test 06/09/19 12:40 06/09/19 13:23 White Blood Count 4.4 K/UL (4.8-10.8) L Red Blood Count 4.35 M/UL (4.70-6.10) L Hemoglobin 10.6 G/DL (14.2-18.0) L Hematocrit 35.4 % (42.0-52.0) L Mean Corpuscular Volume 81 FL (80-99) Mean Corpuscular Hemoglobin 24.4 PG (27.0-31.0) L Mean Corpuscular Hemoglobin Concent 30.0 G/DL (32.0-36.0) L Red Cell Distribution Width 17.0 % (11.6-14.8) H Platelet Count 191 K/UL (150-450) Mean Platelet Volume 6.2 FL (6.5-10.1) L Neutrophils (%) (Auto) 40.7 % (45.0-75.0) L Lymphocytes (%) (Auto) 39.6 % (20.0-45.0) Monocytes (%) (Auto) 9.2 % (1.0-10.0) Eosinophils (%) (Auto) 2.4 % (0.0-3.0) Basophils (%) (Auto) 8.0 % (0.0-2.0) H Sodium Level 140 MMOL/L (136-145) Potassium Level 4.3 MMOL/L (3.5-5.1) Chloride Level 106 MMOL/L (98-107) Carbon Dioxide Level 29 MMOL/L (21-32) Anion Gap 5 mmol/L (5-15) Blood Urea Nitrogen 14 mg/dL (7-18) Creatinine 0.8 MG/DL (0.55-1.30) Estimat Glomerular Filtration Rate > 60 mL/min (>60) Glucose Level 112 MG/DL (74-106) H Calcium Level 9.6 MG/DL (8.5-10.1) Total Bilirubin 0.3 MG/DL (0.2-1.0) Aspartate Amino Transf (AST/SGOT) 21 U/L (15-37) Alanine Aminotransferase (ALT/SGPT) 13 U/L (12-78) Alkaline Phosphatase 169 U/L (46-116) H Troponin I 0.000 ng/mL (0.000-0.056) Total Protein 8.3 G/DL (6.4-8.2) H Albumin 3.3 G/DL (3.4-5.0) L Globulin 5.0 g/dL Albumin/Globulin Ratio 0.7 (1.0-2.7) L Lipase 98 U/L (73-393) Urine Color Pale yellow Urine Appearance Clear Urine pH 7 (4.5-8.0) Urine Specific [place] 1.005 (1.005-1.035) Urine Protein Negative (NEGATIVE) Urine Glucose (UA) Negative (NEGATIVE) Urine Ketones Negative (NEGATIVE) Urine Blood Negative (NEGATIVE) Urine Nitrite Negative (NEGATIVE) Urine Bilirubin Negative (NEGATIVE) Urine Urobilinogen Normal MG/DL (0.0-1.0) Urine Leukocyte Esterase Negative (NEGATIVE) Urine RBC 0 /HPF (0 - 0) Urine WBC 0 /HPF (0 - 0) Urine Squamous Epithelial Cells Occasional /LPF Urine Bacteria None /HPF (NONE) Intake and Output 06/09/19 06/10/19 19:00 07:00 Intake Total 300 ml 1065 ml Output Total 950 ml Balance 300 ml 115 ml Intake Oral 300 ml 240 ml IV Total 825 ml Output Urine Total 950 ml # Voids 6 Assessment/Plan Assessment/Plan ASSESSMENT: 1. Left-sided flank plain. Differential diagnosis includes obstructive uropathy/hydronephrosis versus secondary to prostate cancer metastasis to that region. 2. Metastatic prostate cancer with metastases to the lumbar spine and bilateral hips. 3. History of CVA. 4. Anemia. 5. Cytomegalovirus retinitis. PLAN: 1. Med/Surg. 2. MRI of spine reviewed with no obvious metastatic lesions. 3. Urology consult. 4. Continue HIV/AIDS prophylaxis with Bactrim Double Strength Friday, Friday, and Friday, and azithromycin 1200 mg weekly. Continue with Tivicay, Prezcobix, and Descovy for HIV. 5. Pain management. 6. IV fluids. 7. Ultrasound of the abdomen to evaluate kidneys. 8. Robaxin 500mg PO TID 8. DVT prophylaxis with heparin. 9. Full Code. Tremayne Garcia MD Jun 10, 2019 12:43
--- NOTE | 2019-06-10 12:45 | NUR ---
NURSE NOTES: Dr Garcia here made aware that pt does not have a IV line. ultrasound complete. Jose requested that pt ambulate with physical therapy. Graham pt costumer assistant informed.
[2019-06-10] MEDS: Methocarbamol 500mg tab ORAL SCH ×3 (13:00→20:47)
--- NOTE | 2019-06-10 14:40 | NUR ---
NURSE NOTES: Strapper attempted to start an in line on pt. PT has multiple scar tissue areas, most vein are not palpable, and those that are are firm with keloid type nodule. Pt is emotional fearful of possible results of ultrasound. Required verbal encouragement
[2019-06-10 16:00] VITALS: BP 117/80
[2019-06-10] MEDS ORDERED: HYDROmorphone 2mg tab ORAL PRN ×2 (16:46→17:00)
[2019-06-10] MEDS ORDERED: oxyCODONE 15mg IR tab ORAL PRN (17:00)
--- NOTE | 2019-06-10 17:50 | NUR ---
NURSE NOTES: Dr made aware that pt has his antivirals at bedside and refused to give medications. Charge Nurse made aware. Pt is emotional fearful of mestasis of cancer. Call light in reach
--- NOTE | 2019-06-10 19:10 | NUR ---
NURSE NOTES: Received report from TIM Conrad. Patient alert, resting in bed. Side rails up x2, bed in low position locked. Call light within reach. TIM Cherry will take over care of patient for the night.
[2019-06-10 19:46] LABS: BASOPHILS % (AUTO) 2.5 % (0.0-2.0); EOSINOPHILS % (AUTO) 2.6 % (0.0-3.0); HEMATOCRIT 33.2 % (42.0-52.0); HEMOGLOBIN 10.5 G/DL (14.2-18.0); LYMPHOCYTES % (AUTO) 44.7 % (20.0-45.0); MEAN CORPUSCULAR VOLUME 78 FL (80-99); MONOCYTES % (AUTO) 2.7 % (1.0-10.0); NEUTROPHILS % (AUTO) 47.6 % (45.0-75.0); PLATELET COUNT 209 K/UL (150-450); RED BLOOD COUNT 4.23 M/UL (4.70-6.10); RED CELL DISTRIBUTION WIDTH 15.9 % (11.6-14.8); WHITE BLOOD COUNT 5.3 K/UL (4.8-10.8)
--- NOTE | 2019-06-10 20:07 | NUR ---
NURSE NOTES: gave orders earlier in shift for pt to have cbc and bmp in the am
[2019-06-10 20:08] VITALS: BP 136/86
--- NOTE | 2019-06-10 20:08 | NUR ---
HAND-OFF: Report given to Leitcia DUMONT.
[2019-06-10 20:15] LABS: ANION GAP 5 mmol/L (5-15); BLOOD UREA NITROGEN 15 mg/dL (7-18); CALCIUM 8.9 MG/DL (8.5-10.1); CARBON DIOXIDE 28 MMOL/L (21-32); CHLORIDE 105 MMOL/L (98-107); CREATININE 0.8 MG/DL (0.55-1.30); POTASSIUM 3.8 MMOL/L (3.5-5.1); SODIUM 138 MMOL/L (136-145)
[2019-06-10] MEDS: LORazepam 0.5mg tab ORAL SCH (20:46)
[2019-06-10] MEDS: Artificial Tears 1.4% Op Soln BOTH EYES PRN (20:47)
[2019-06-10] MEDS: DUREZOL OPHTHALM SCH (20:47)
[2019-06-11 00:10] VITALS: BP 124/84
[2019-06-11 04:00] VITALS: BP 106/60
--- NOTE | 2019-06-11 07:09 | NUR ---
HAND-OFF: Report given to TIM Cotter.
--- NOTE | 2019-06-11 07:52 | Urology Progress Note ---
Assessment/Plan Assessment/Plan: 1. History of advanced prostate cancer. 2. Left-sided abdominal and back pain. 3. Urinary frequency. 4. Rule out neurogenic bladder. monitor clinically pain control no obvious source of pain consider adding flomax Subjective Allergies: Coded Allergies: No Known Allergies (Unverified , 01/16/18) Subjective all noted, voiding, feels better, PVR 147 cc Objective Last 24 Hour Vital Signs Date Time Temp Pulse Resp B/P (MAP) Pulse Ox O2 Delivery O2 Flow Rate FiO2 06/11/19 04:00 98.4 72 18 106/60 (75) 98 06/11/19 00:10 97.9 86 18 124/84 (97) 96 06/10/19 20:08 98.3 80 18 136/86 (103) 98 06/10/19 20:06 Room Air 06/10/19 16:00 97.8 78 18 117/80 (92) 97 06/10/19 12:00 98.8 20 20 124/64 (84) 06/10/19 09:00 Room Air 06/10/19 08:00 97.1 78 19 119/73 (88) 97 Intake and Output 06/10/19 06/11/19 19:00 07:00 Intake Total 480 ml 240 ml Output Total 500 ml Balance 480 ml -260 ml Intake Oral 480 ml 240 ml Output Urine Total 500 ml # Voids 1 Current Medications Medications (Trade) Dose Ordered Sig/Liat Route PRN Reason Start Time Stop Time Status Last Admin Dose Admin Artificial Tears (Akwa-Tears) 2 drop Q4H PRN BOTH EYES Dry Eyes 06/10/19 20:00 07/10/19 19:59 06/10/19 20:47 Azithromycin (Zithromax) 1,200 mg ONCE A WEEK ORAL 06/14/19 09:00 06/21/19 08:59 Dextrose (Dextrose 50%) 25 ml Q30M PRN IV Hypoglycemia 06/09/19 18:15 07/09/19 18:14 Dextrose (Dextrose 50%) 50 ml Q30M PRN IV Hypoglycemia 06/09/19 18:15 07/09/19 18:14 Hydromorphone HCl (Dilaudid) 2 mg Q4H PRN ORAL SEVERE PAIN 06/10/19 17:00 06/17/19 16:45 Iopamidol (Isovue-300 100ml) 100 ml NOW PRN INJ Radiology Procedure 06/09/19 12:45 Lorazepam (Ativan) 0.5 mg QHS ORAL 06/09/19 21:00 06/16/19 20:59 06/10/19 20:46 Methocarbamol (Robaxin) 500 mg QID ORAL 06/10/19 13:00 07/10/19 12:59 06/10/19 20:47 Oxycodone HCl (Roxicodone) 30 mg QIDPRN PRN ORAL moderate pain 06/10/19 17:00 06/16/19 18:29 Patient Own Medication (Patient's Own Med) 1 ea EVERY 12 HOURS OPHTHALM 06/10/19 21:00 07/10/19 08:59 06/10/19 20:47 Valganciclovir (Valcyte) 900 mg Q12HR ORAL 06/09/19 21:00 07/09/19 20:59 Future Hold Laboratory Tests 06/10/19 19:30: White Blood Count 5.3, Red Blood Count 4.23L, Hemoglobin 10.5L, Hematocrit 33.2L , Mean Corpuscular Volume 78L, Mean Corpuscular Hemoglobin 24.8L, Mean Corpuscular Hemoglobin Concent 31.6L, Red Cell Distribution Width 15.9H, Platelet Count 209, Mean Platelet Volume 5.9L, Neutrophils (%) (Auto) 47.6, Lymphocytes (%) (Auto) 44.7, Monocytes (%) (Auto) 2.7, Eosinophils (%) (Auto) 2.6, Basophils (%) (Auto) 2.5H, Sodium Level 138, Potassium Level 3.8, Chloride Level 105, Carbon Dioxide Level 28, Anion Gap 5, Blood Urea Nitrogen 15, Creatinine 0.8, Estimat Glomerular Filtration Rate > 60, Glucose Level 103, Calcium Level 8.9 Height (Feet): 6 Weight (Pounds): 236 Objective exam stable abdominal u/s (06/10) negative Logan King MD Jun 11, 2019 07:52
[2019-06-11 08:00] VITALS: BP 135/81
--- NOTE | 2019-06-11 08:13 | NUR ---
NURSE NOTES: Pt eating breakfast. States he feels better today. Slept well through the night. Call light is in reach. Fluids encouraged, due to appearance of urine, dark yellow. Per pt was here earlier in shift , and explained results to him from yesterday ultrasound. Pt is aware of pending PT evaluation
[2019-06-11] MEDS: DUREZOL OPHTHALM SCH ×2 (08:44→21:00)
[2019-06-11] MEDS: Methocarbamol 500mg tab ORAL SCH ×4 (08:44→20:59)
--- NOTE | 2019-06-11 09:30 | NUR ---
PT EVALUATION NOTE Patient seen for initial evaluation, see complete evaluation for details. Patient presents with low back pain and generalized weakness which affects patient's ability to perform functional mobility tasks. Patient requires SBA for transfers and ambulation with a SPC due to c/o LBP and history of CVA with L hemibody weakness and increased tone. Patient will benefit from skilled inpatient PT intervention to address strength, balance, safety and functional mobility. Recommend outpatient PT at discharge once medically cleared by MD. No DME recommendations at this time. Addendum: 06/11/19 at 1308 by CIRA TONY PT Amended: Links added.
[2019-06-11 12:00] VITALS: BP 134/89
--- NOTE | 2019-06-11 12:13 | NUR ---
CASE MANAGEMENT:REVIEW 06/11/19 SI: LT FLANK PAIN METS PROSTATE CANCER. CMV RETINITIS 97.9 84 18 135/81 98% ON RA IS: AZITHROMAX PO QWEEK DILAUDID PO QID PRN ROBAXIN PO QID : [facility] STATUS 3 EAST DCP: FROM HOME
[2019-06-11] MEDS ORDERED: Miralax 17gm pkt ORAL PRN (15:45)
[2019-06-11 16:00] VITALS: BP 136/86
--- NOTE | 2019-06-11 18:38 | NUR ---
NURSE NOTES: Dr Gonzalez here seen pt gave orders for urine to be collected stat. gave written prescription to pt to take home with him. Pt very emotional . made aware that pt was anxious believing that cancer has spread. Pt required pt teaching for safe medication administration.
--- NOTE | 2019-06-11 18:41 | Discharge Instructions ---
Discharge Instructions Discharge Instructions Follow up with: PCP in 1 wk and Oncology in 1wk Call MD/Return to Hospital if: worsening symptoms Resume Normal Activity?: Yes For Congestive Heart Failure Reminder Report to your physician any weight gain of 5 pounds or more in one week. Tremayne Garcia MD Jun 11, 2019 18:41
--- NOTE | 2019-06-11 18:48 | Discharge Summary ---
Discharge Summary Hospital Course Date of Admission Jun 09, 2019 at 13:08 Date of Discharge Admitting Diagnosis intractable back pain HPI Jones Noel is a 54 year old male who was admitted on Jun 09, 2019 at 13 :08 for Intractable Back Pain dictated # [id number] Discharge Condition Upon Discharge: stable Discharge Disposition Patient was discharged to home Discharge Instructions Discharge Instructions Follow up with: PCP in 1 wk and Oncology in 1wk Call MD/Return to Hospital if: worsening symptoms Tremayne Garcia MD Jun 11, 2019 18:47
--- NOTE | 2019-06-11 19:30 | NUR ---
NURSE NOTES: Oncoming nurse made aware , pt has orders for discharge. Written prescription in his chart. UA contaminated and requires to be collected again.
--- NOTE | 2019-06-11 19:30 | NUR ---
NURSE NOTES: Receive a report from TIM Leija. Pt is discharging today as soon as pt collects urine. Pt's neighbor will come and pick him up. Will continue to monitor.
[2019-06-11] MEDS: Artificial Tears 1.4% Op Soln BOTH EYES PRN (21:00)
[2019-06-11] MEDS: LORazepam 0.5mg tab ORAL SCH (21:00)
--- NOTE | 2019-06-11 21:00 | NUR ---
NURSE NOTES: Urine collection is done. Pt is aware that MD will contact if urine lab results are abnormal for other prescription. Given prescription to pt. Discharge education done with discharge package. Done checking belongings and retrieve home medication from pharmacy. Waiting for ride. Will continue to monitor.
--- NOTE | 2019-06-11 21:15 | Discharge Summary ---
DATE OF ADMISSION: 06/09/2019 DATE OF DISCHARGE: 06/11/2019 REASON FOR ADMISSION: Left-sided flank pain. PROCEDURES DONE HERE: None. SIGNIFICANT FINDINGS: None. BRIEF HOSPITAL COURSE AND SUMMARY: This is a 54-year-old male with a history of HIV, last CD4 count of 250, metastatic prostate cancer, pancytopenia, CMV retinitis, and history of CVA, who presented to the emergency room for left flank pain x1 week. The patient had an MRI of his lumbar spine that showed no metastatic disease. We also ordered an ultrasound of his kidneys that showed no hydronephrosis, stones or obstruction. The patient's urinalysis was done that did not show any evidence of urinary tract infection. He was seen by Urology. The patient was started on muscle relaxant and given some narcotics with improvement in his pain. There is no obvious source for his pain other than possible muscle strain from lifting a heavy watermelon. The patient is stable for discharge with follow up with Dr. Ponce and his oncologist next week. He understands to come back to the emergency room for worsening pain. DISCHARGE DIAGNOSES: 1. Left flank pain, possibly secondary to muscle strain. 2. Metastatic prostate cancer with metastasis to the lumbar spine and bilateral hips. 3. History of cerebrovascular accident. 4. Anemia. 5. CMV retinitis. Tremayne Garcia MD DR: MAC JOB#: [id number] CC:
[2019-06-11 21:23] LABS: APPEARANCE,URINE CLEAR; BILIRUBIN, URINE NEGATIVE (NEGATIVE); GLUCOSE, URINE (UA) NEGATIVE (NEGATIVE); KETONES,URINE NEGATIVE (NEGATIVE); LEUKOCYTE ESTERASE ,URINE NEGATIVE (NEGATIVE); NITRITE,URINE NEGATIVE (NEGATIVE); PH,URINE 5 (4.5-8.0); PROTEIN,URINE NEGATIVE (NEGATIVE); UROBILINOGEN,URINE 1 MG/DL (0.0-1.0)
[2019-06-11 21:25] LABS: COLOR,URINE YELLOW
--- NOTE | 2019-06-11 21:35 | NUR ---
NURSE NOTES: Pt's neighbor arrives and walk down with a cane to private car. Left the facility with all his belongings, prescription, and discharge package.
[2019-06-14] MEDS ORDERED: Azithromycin 600mg Tab ORAL SCH (09:00)
== END 2019-06-11 21:35 | disposition home or self-care (01) | DRG 563 ==
LOC: EDBD 11:50 → EMR 12:40 → 3E 13:08 → EDBEDREQ 16:16
DX: S39.011A Strain of muscle, fascia and tendon of abdomen, initial encounter (principal); C79.51 Secondary malignant neoplasm of bone; C79.89 Secondary malignant neoplasm of other specified sites; N13.1 Hydronephrosis with ureteral stricture, not elsewhere classified; H30.899 Other chorioretinal inflammations, unspecified eye; B20 Human immunodeficiency virus [HIV] disease; X58.XXXA Exposure to other specified factors, initial encounter; C61 Malignant neoplasm of prostate; R35.0 Frequency of micturition; M54.9 Dorsalgia, unspecified
CPT/HCPCS: 36415; 72158; 76700; 80048; 80053; 81001; 81003; 83690; 84484; 85025; 87086; 96374; 96376; 99285; A9585

== ENCOUNTER 2020-07-24 18:07 | Inpatient (IN) | payer MEDICARE, OTHER ==
[~2020-07-24] VITALS: Ht 182.9 cm; Wt 77.2 kg
[2020-07-24] MEDS ORDERED: Hydromorphone 0.5mg/0.5ml inj IVP ONE (18:30)
[2020-07-24] MEDS ORDERED: OXYCODONE HCL5 M2 ORAL (18:34)
[2020-07-24] MEDS ORDERED: CELEXA20 MG ORAL (18:34)
--- NOTE | 2020-07-24 18:35 | NUR ---
ED Nurse Note: Pt arrived with RA 894 due to left lower marcial pain s/p fall today after heating up food in kitchen. pt denies head trauma. left lower left tender to touch and to move. pt shows facial grimacing, and moaning. pt skin intact slight deformity noted with swelling
--- NOTE | 2020-07-24 18:38 | NUR ---
ED Nurse Note: xray at bedside
--- NOTE | 2020-07-24 19:01 | NUR ---
ED Nurse Note: rapid test and blood specimen obtained.
--- NOTE | 2020-07-24 19:08 | Emergency Room Report ---
History of Present Illness General Chief Complaint: Lower Extremity Injury Source: Patient Present Illness HPI 55-year-old male history of prostate cancer metastatic, presents with left ankle tibial pain, aggravated with movement alleviated with rest severity is moderate, he endorses the pain as sharp, patient was walking, hit his knee against a stool, tripped and fell, no LOC did not hit his head no chest pain or shortness of breath patient presents for evaluation and treatment Allergies: Coded Allergies: No Known Allergies (Unverified , 01/16/18) COVID-19 Screening Contact w/high risk pt: No Experienced COVID-19 symptoms?: No COVID-19 Testing performed MANAGER COMBINATION: No Patient History Past Medical History: see triage record Reviewed Nursing Documentation: PMH: Agreed; PSxH: Agreed Nursing Documentation-PMH Hx Cancer: Yes - Stage 4 Prostate Hx Gastrointestinal Problems: No Hx Cerebrovascular Accident: Yes - 2008 Review of Systems All Other Systems: negative except mentioned in HPI Physical Exam Vital Signs Date Time Temp Pulse Resp B/P (MAP) Pulse Ox O2 Delivery O2 Flow Rate FiO2 07/24/20 18:25 97.0 90 18 142/8 (52) 99 Room Air Sp02 EP Interpretation: reviewed, normal General Appearance: well appearing, no apparent distress, alert Head: normocephalic, atraumatic Eyes: bilateral eye PERRL, bilateral eye EOMI ENT: uvula midline, moist mucus membranes Neck: supple, thyroid normal, supple/symm/no masses Respiratory: lungs clear, no respiratory distress, no retraction, no accessory muscle use Cardiovascular #1: normal peripheral pulses, regular rate, rhythm, no edema, no gallop, no murmur Gastrointestinal: non tender, soft, no guarding, no rebound Musculoskeletal: other - Left lower extremity: Swelling left tibia, 2+ PT DP fires EHL Neurologic: alert, oriented x3 Psychiatric: mood/affect normal Skin: no rash, warm/dry Procedures Splinting Splinting : Consent: Emergent Location: left leg Hand-Made Type: plaster Splint: posterior long Pre-Proc Neuro Vasc Exam: normal Post-Proc Neuro Vasc Exam: normal Patient Tolerated: Well Complications: None Medical Decision Making Diagnostic Impression: Primary Impression: Pathologic fracture Qualified Codes: M84.562A - Pathological fracture in neoplastic disease, left tibia, initial encounter for fracture Additional Impression: Left tibial fracture Qualified Codes: S82.192A - Other fracture of upper end of left tibia, initial encounter for closed fracture ER Course 55-year-old male presents with pathological left hip medial fracture, after hi tting it against a stool. Patient given pain control with hydromorphone, patient required multiple doses, patient also placed in a stirrup/long posterior leg splint neurovascularly intact patient will be admitted to [facility] for possible orthopedic evaluation and intervention Laboratory Tests Test 07/24/20 18:53 White Blood Count 8.3 K/UL (4.8-10.8) Red Blood Count 3.22 M/UL (4.70-6.10) L Hemoglobin 8.4 G/DL (14.2-18.0) L Hematocrit 26.9 % (42.0-52.0) L Mean Corpuscular Volume 84 FL (80-99) Mean Corpuscular Hemoglobin 26.0 PG (27.0-31.0) L Mean Corpuscular Hemoglobin Concent 31.1 G/DL (32.0-36.0) L Red Cell Distribution Width 19.6 % (11.6-14.8) H Platelet Count 211 K/UL (150-450) Mean Platelet Volume 6.3 FL (6.5-10.1) L Neutrophils (%) (Auto) 74.9 % (45.0-75.0) Lymphocytes (%) (Auto) 18.8 % (20.0-45.0) L Monocytes (%) (Auto) 5.2 % (1.0-10.0) Eosinophils (%) (Auto) 0.4 % (0.0-3.0) Basophils (%) (Auto) 0.7 % (0.0-2.0) Prothrombin Time 11.8 SEC (9.30-11.50) H Prothrombin Time INR 1.1 (0.9-1.1) Activated Partial Thromboplast Time 25 SEC (23-33) Sodium Level 137 MMOL/L (136-145) Potassium Level 3.5 MMOL/L (3.5-5.1) Chloride Level 105 MMOL/L (98-107) Carbon Dioxide Level 22 MMOL/L (21-32) Blood Urea Nitrogen 10 mg/dL (7-18) Creatinine 0.7 MG/DL (0.55-1.30) Estimated Glomerular Filtration Rate > 60 mL/min (>60) Glucose Level 113 MG/DL (74-106) H Calcium Level 8.0 MG/DL (8.5-10.1) L Total Bilirubin 0.3 MG/DL (0.2-1.0) Aspartate Amino Transferase (AST) 50 U/L (15-37) H Alanine Aminotransferase (ALT) 12 U/L (12-78) Alkaline Phosphatase 778 U/L (46-116) H Total Protein 7.5 G/DL (6.4-8.2) Albumin 2.4 G/DL (3.4-5.0) L Globulin 5.1 g/dL Albumin/Globulin Ratio 0.5 (1.0-2.7) L Microbiology Date/Time Source Procedure Growth Status 07/24/20 19:00 Nasopharynx SARS-CoV-2 RdRp Gene Assay - Final Complete Other X-Ray Diagnostic Results Other X-Ray Diagnostic Results : X-Ray ordered: Tibia-fibula # of Views/Limited Vs Complete: 4 View Indication: Pain EP Interpretation: Yes Interpretation: other - Fracture of the superior tibia noted Impression: Other - Fracture of the superior tibia noted Electronically Signed by: Tien Martinez MD Last Vital Signs Date Time Temp Pulse Resp B/P (MAP) Pulse Ox O2 Delivery O2 Flow Rate FiO2 07/24/20 18:25 97.0 90 18 142/8 (52) 99 Room Air Disposition: ADMITTED INPATIENT Condition: Stable Tien Martinez MD Jul 24, 2020 19:08
--- NOTE | 2020-07-24 19:12 | NUR ---
HAND-OFF: Report given to TIM Campbell.
--- NOTE | 2020-07-24 19:15 | NUR ---
ED Nurse Note: Recieved report from TIM Lemus to [facility], pt in bed awake, alert and oriented x 4, pt here with fx of left tibula, pt is moaning and groaning, states pain at 10/10 and meds given were not effective at all, pt needs splint cast applied, MD informed of pain level, will re-medicate and apply splint and prepare for admission, pt has patent saline lock in left arm. pt denies chest pain or sob or labored breathing.
[2020-07-24] MEDS ORDERED: HYDROmorphone 1mg/ml Carpuject IVP ONE ×2 (19:30→20:45)
[2020-07-24 19:33] LABS: INR 1.1 (0.9-1.1)
[2020-07-24 19:37] LABS: BASOPHILS % (AUTO) 0.7 % (0.0-2.0); EOSINOPHILS % (AUTO) 0.4 % (0.0-3.0); HEMATOCRIT 26.9 % (42.0-52.0); HEMOGLOBIN 8.4 G/DL (14.2-18.0); LYMPHOCYTES % (AUTO) 18.8 % (20.0-45.0); MEAN CORPUSCULAR VOLUME 84 FL (80-99); MONOCYTES % (AUTO) 5.2 % (1.0-10.0); NEUTROPHILS % (AUTO) 74.9 % (45.0-75.0); PLATELET COUNT 211 K/UL (150-450); RED BLOOD COUNT 3.22 M/UL (4.70-6.10); RED CELL DISTRIBUTION WIDTH 19.6 % (11.6-14.8); WHITE BLOOD COUNT 8.3 K/UL (4.8-10.8)
[2020-07-24 19:56] LABS: ALANINE AMINOTRANSFERASE 12 U/L (12-78); ALBUMIN 2.4 G/DL (3.4-5.0); ALBUMIN/GLOBULIN RATIO 0.5 (1.0-2.7); ALKALINE PHOSPHATASE 778 U/L (46-116); ASPARTATE AMINO TRANSFERASE 50 U/L (15-37); BILIRUBIN,TOTAL 0.3 MG/DL (0.2-1.0); BLOOD UREA NITROGEN 10 mg/dL (7-18); CARBON DIOXIDE 22 MMOL/L (21-32); CREATININE 0.7 MG/DL (0.55-1.30)
--- NOTE | 2020-07-24 20:15 | NUR ---
ED Nurse Note: Posterior, sugar tong splint applied to left leg, pt tolerated poorly, yelling and screaming in pain, pt cooperating as much as possible but c/o severe pain, MD aware and pt re-medicated with dilaudid, extremity elevated on pillow, pt IV site patent, will send to floor bed for admission when bed is available.
[2020-07-24 20:19] LABS: CHLORIDE 105 MMOL/L (98-107); POTASSIUM 3.5 MMOL/L (3.5-5.1); SODIUM 137 MMOL/L (136-145)
[2020-07-24 20:23] VITALS: BP 105/66
--- NOTE | 2020-07-24 20:38 | NUR ---
TRANSFER TO FLOOR: Patient transferred to as ordered, per DR. BANKS. Report given to TIM BONILLA. Belongings endorsed to TIM Bonilla
--- NOTE | 2020-07-24 20:50 | NUR ---
ED Nurse Note: Pt being taken to floor bed via gurney, pt medicated for pain prior to going, still states pain is very bad in left leg at 9/10, no changes noted, IV site patent, pt being taken to unit via gurney with [facility], pt has all belongings.
[2020-07-24 21:10] VITALS: BP 123/73
[2020-07-24] MEDS ORDERED: OXYCODONE HCL15 M1 ORAL (21:44)
[2020-07-24] MEDS ORDERED: KADIAN20 M1 PO (21:44)
[2020-07-24] MEDS ORDERED: BUPROPION XL300 MG ORAL (21:44)
[2020-07-24] MEDS ORDERED: VALACYCLOVIR (21:44)
[2020-07-24] MEDS: Morphine Sulfate 2mg/ml Inj(IV/IM USE ONLY) IVP PRN (22:28)
--- NOTE | 2020-07-24 22:30 | NUR ---
NURSE NOTES: Received patient from ED on [facility] accompanied by a staff. Alert and oriented x 4, on room air, with severe pain on left leg per patient it was 12/. IV access on left AC which was occluded and obtained a new IV access on the right forearm g.20. Per patient, he's taking Morphine 100mg PO every 12 hours, Oxycodone 60mg every 3 hours, Wellbutrin and Valcyclovir that he can't remember the dosages and frequencies. Per patient somebody can come by tomorrow to bring his HIV meds which he couldn't remember the names and dosages. Dr. Michael made aware and also that patient has no ordered code status but no new orders. Charge nurse made aware. Instructed patient to use call light for assistance. Call light in reach. Bed in lowest, lock engaged and alarm on. Will continue to monitor. Addendum: 07/25/20 at 0200 by DANA DOMINGUEZ RN Add: Patient came on the floor with splint cast applied in ED.
[2020-07-24] MEDS: Heparin 5000 units/ml inj SUBQ SCH (22:33)
[2020-07-25 00:30] VITALS: BP 128/77
[2020-07-25] MEDS: Morphine Sulfate 2mg/ml Inj(IV/IM USE ONLY) IVP PRN ×2 (02:26→06:21)
[2020-07-25 04:00] VITALS: BP 122/74
[2020-07-25] MEDS: Heparin 5000 units/ml inj SUBQ SCH ×3 (06:26→21:13)
--- NOTE | 2020-07-25 07:34 | NUR ---
NURSE HAND-OFF: Important Events on Shift:Admission, pain mgt Patient Status: in pain Diet: Regular Pending Orders: resume home meds Pending Results/Labs: Pending MD notification: Latest Vital Signs: Temperature 98.0 , Pulse 90 , B/P 122 /74 , Respiratory Rate 20 , O2 SAT 98 , Room Air, O2 Flow Rate . Vital Sign Comment:stable Latest Wade Fall Score: 80 Fall Risk: High Risk Safety Measures: Call light Within Reach, Bed Alarm Zone 1, Side Rails Side Rails x2, Bed position Low and Locked. Fall Precautions: Yellow Socks Door Sign Patient Fall Education Report given to TIM Gaytan.
--- NOTE | 2020-07-25 07:37 | NUR ---
NURSE NOTES: Patient is in bed asleep. Stable. Breathing is even and unlabored. Cast noted on left leg. Facial grimacing noted. No visible signs of distress noted at this time. Patient is in bed in locked and lowest position with call light within reach. All safety measures provided. Will continue to monitor.
--- NOTE | 2020-07-25 09:12 | NUR ---
CASE MANAGEMENT: INITIAL REVIEW 55YR OLD MALE FROM HOME CC:LOWER EXTREMITY INJURY + SWELLING + PAIN SI:LEFT TIBIA FRACTURE 97.0 18 1 H/H 8.4/26.9 BG 113 CA+ 8.0 AST 50 ALKP 778 PT 11.8 IS:IV ZOFRAN X1 IV DILAUDID X2 COVID-19 ~NEGATIVE TYPE AND CROSS~ \: 3E MED SURG UNIT DCP: HOME WHEN STABLE PLAN: SURGERY CONSULT
--- NOTE | 2020-07-25 09:45 | History and Physical ---
History of Present Illness General Date patient seen: Jul 25, 2020 Time patient seen: 09:00 Reason for Hospitalization: Lower Extremity Injury Present Illness HPI 55 years old aam c/o fall sustained fracture of lt tibia, interctable pain 07/29 hx prostate ca Allergies: Coded Allergies: No Known Allergies (Unverified , 01/16/18) COVID-19 Screening Contact w/high risk pt: No Experienced COVID-19 symptoms?: No Medication History Scheduled Azithromycin (Zithromax), 1,200 MG ORAL ONCE A WEEK Bupropion Hcl* (Wellbutrin*), 300 MG ORAL DAILY, (Reported) Citalopram Hydrobromide* (Celexa*), 20 MG ORAL DAILY, (Reported) Trimethoprim/Sulfamethoxazole (Bactrim Ds Tablet), 1 TAB ORAL QHS Valganciclovir HCl (Valcyte), 900 MG ORAL Q12HR Scheduled PRN Morphine Sulfate (Renee), 100 MG PO EVERY 12 HOURS PRN for Pain Scale (6-10), (Reported) Oxycodone Hcl* (Oxycodone Hcl*), 5 MG ORAL Q4H PRN for For Pain, (Reported) Oxycodone Hcl* (Oxycodone Hcl*), 60 MG ORAL EVERY 3 HOURS PRN for For Pain, (Reported) Miscellaneous Medications [valclyclovir], (Reported) Patient History Healthcare decision maker Resuscitation status Advanced Directive on File Physical Exam General Appearance: cachetic, other - in pain10/10 Last 24 Hour Vital Signs Date Time Temp Pulse Resp B/P (MAP) Pulse Ox O2 Delivery O2 Flow Rate FiO2 07/25/20 08:28 Room Air 07/25/20 08:00 20 07/25/20 04:00 98.0 90 20 122/74 (90) 98 07/25/20 01:23 Room Air 07/25/20 00:30 97.9 93 18 128/77 (94) 100 07/24/20 21:10 98.5 93 20 123/73 (90) 98 07/24/20 20:50 98.0 72 19 105/66 98 Room Air 07/24/20 20:50 98.0 07/24/20 20:23 98.0 72 19 105/66 98 07/24/20 19:27 97.0 07/24/20 19:27 97.0 10/5/20 18:25 97.0 90 18 142/8 (52) 99 Room Air Intake and Output 07/24/20 07/25/20 19:00 07:00 Intake Total 120 ml Output Total 0 ml 500 ml Balance 0 ml -380 ml Intake Oral 120 ml Output Urine Total 0 ml 500 ml # Voids 2 Laboratory Tests Test 07/24/20 18:53 White Blood Count 8.3 K/UL (4.8-10.8) Red Blood Count 3.22 M/UL (4.70-6.10) L Hemoglobin 8.4 G/DL (14.2-18.0) L Hematocrit 26.9 % (42.0-52.0) L Mean Corpuscular Volume 84 FL (80-99) Mean Corpuscular Hemoglobin 26.0 PG (27.0-31.0) L Mean Corpuscular Hemoglobin Concent 31.1 G/DL (32.0-36.0) L Red Cell Distribution Width 19.6 % (11.6-14.8) H Platelet Count 211 K/UL (150-450) Mean Platelet Volume 6.3 FL (6.5-10.1) L Neutrophils (%) (Auto) 74.9 % (45.0-75.0) Lymphocytes (%) (Auto) 18.8 % (20.0-45.0) L Monocytes (%) (Auto) 5.2 % (1.0-10.0) Eosinophils (%) (Auto) 0.4 % (0.0-3.0) Basophils (%) (Auto) 0.7 % (0.0-2.0) Prothrombin Time 11.8 SEC (9.30-11.50) H Prothromb Time International Ratio 1.1 (0.9-1.1) Activated Partial Thromboplast Time 25 SEC (23-33) Sodium Level 137 MMOL/L (136-145) Potassium Level 3.5 MMOL/L (3.5-5.1) Chloride Level 105 MMOL/L (98-107) Carbon Dioxide Level 22 MMOL/L (21-32) Blood Urea Nitrogen 10 mg/dL (7-18) Creatinine 0.7 MG/DL (0.55-1.30) Estimat Glomerular Filtration Rate > 60 mL/min (>60) Glucose Level 113 MG/DL (74-106) H Calcium Level 8.0 MG/DL (8.5-10.1) L Total Bilirubin 0.3 MG/DL (0.2-1.0) Aspartate Amino Transf (AST/SGOT) 50 U/L (15-37) H Alanine Aminotransferase (ALT/SGPT) 12 U/L (12-78) Alkaline Phosphatase 778 U/L (46-116) H Total Protein 7.5 G/DL (6.4-8.2) Albumin 2.4 G/DL (3.4-5.0) L Globulin 5.1 g/dL Albumin/Globulin Ratio 0.5 (1.0-2.7) L Microbiology Date/Time Source Procedure Growth Status 07/24/20 19:00 Nasopharynx SARS-CoV-2 RdRp Gene Assay - Final Complete Height (Feet): 6 Height (Inches): 0.00 Weight (Pounds): 168 Medications Current Medications Medications (Trade) Dose Ordered Sig/Liat Route PRN Reason Start Time Stop Time Status Last Admin Dose Admin Acetaminophen (Tylenol) 650 mg Q4H PRN ORAL Temp >100.5 07/24/20 21:45 08/23/20 21:44 Docusate Sodium (Colace) 200 mg TWICE A DAY ORAL 07/25/20 18:00 08/24/20 17:59 Heparin Sodium (Porcine) (Heparin 5000 units/ml) 5,000 units EVERY 8 HOURS SUBQ 07/24/20 22:00 09/07/20 21:59 07/25/20 06:26 Morphine Sulfate (Morphine Sulfate) 3 mg Q4H PRN IVP For Pain 07/25/20 09:06 08/01/20 09:05 Zeke Michael MD Jul 25, 2020 09:45
--- NOTE | 2020-07-25 09:49 | History and Physical ---
History of Present Illness General Reason for Hospitalization: Lower Extremity Injury Present Illness Allergies: Coded Allergies: No Known Allergies (Unverified , 01/16/18) COVID-19 Screening Contact w/high risk pt: No Experienced COVID-19 symptoms?: No Medication History Scheduled Azithromycin (Zithromax), 1,200 MG ORAL ONCE A WEEK Bupropion Hcl* (Wellbutrin*), 300 MG ORAL DAILY, (Reported) Citalopram Hydrobromide* (Celexa*), 20 MG ORAL DAILY, (Reported) Trimethoprim/Sulfamethoxazole (Bactrim Ds Tablet), 1 TAB ORAL QHS Valganciclovir HCl (Valcyte), 900 MG ORAL Q12HR Scheduled PRN Morphine Sulfate (Renee), 100 MG PO EVERY 12 HOURS PRN for Pain Scale (6-10), (Reported) Oxycodone Hcl* (Oxycodone Hcl*), 5 MG ORAL Q4H PRN for For Pain, (Reported) Oxycodone Hcl* (Oxycodone Hcl*), 60 MG ORAL EVERY 3 HOURS PRN for For Pain, (Reported) Miscellaneous Medications [valclyclovir], (Reported) Patient History Healthcare decision maker Resuscitation status Advanced Directive on File Physical Exam HEENT: anicteric, PERRL Neck: supple Respiratory/Chest: normal breath sounds Cardiovascular/Chest: regular rhythm Abdomen: non tender, soft, no organomegaly Genitourinary/Rectal: normal genital exam Extremities: other - lt leg in splint, moving his toes Skin Exam: warm/dry 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 II-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 grossly normal Last 24 Hour Vital Signs Date Time Temp Pulse Resp B/P (MAP) Pulse Ox O2 Delivery O2 Flow Rate FiO2 07/25/20 08:28 Room Air 07/25/20 08:00 20 07/25/20 04:00 98.0 90 20 122/74 (90) 98 07/25/20 01:23 Room Air 07/25/20 00:30 97.9 93 18 128/77 (94) 100 07/24/20 21:10 98.5 93 20 123/73 (90) 98 07/24/20 20:50 98.0 72 19 105/66 98 Room Air 07/24/20 20:50 98.0 07/24/20 20:23 98.0 72 19 105/66 98 10/5/20 19:27 97.0 07/24/20 19:27 97.0 07/24/20 18:25 97.0 90 18 142/8 (52) 99 Room Air Intake and Output 07/24/20 07/25/20 19:00 07:00 Intake Total 120 ml Output Total 0 ml 500 ml Balance 0 ml -380 ml Intake Oral 120 ml Output Urine Total 0 ml 500 ml # Voids 2 Laboratory Tests Test 07/24/20 18:53 White Blood Count 8.3 K/UL (4.8-10.8) Red Blood Count 3.22 M/UL (4.70-6.10) L Hemoglobin 8.4 G/DL (14.2-18.0) L Hematocrit 26.9 % (42.0-52.0) L Mean Corpuscular Volume 84 FL (80-99) Mean Corpuscular Hemoglobin 26.0 PG (27.0-31.0) L Mean Corpuscular Hemoglobin Concent 31.1 G/DL (32.0-36.0) L Red Cell Distribution Width 19.6 % (11.6-14.8) H Platelet Count 211 K/UL (150-450) Mean Platelet Volume 6.3 FL (6.5-10.1) L Neutrophils (%) (Auto) 74.9 % (45.0-75.0) Lymphocytes (%) (Auto) 18.8 % (20.0-45.0) L Monocytes (%) (Auto) 5.2 % (1.0-10.0) Eosinophils (%) (Auto) 0.4 % (0.0-3.0) Basophils (%) (Auto) 0.7 % (0.0-2.0) Prothrombin Time 11.8 SEC (9.30-11.50) H Prothromb Time International Ratio 1.1 (0.9-1.1) Activated Partial Thromboplast Time 25 SEC (23-33) Sodium Level 137 MMOL/L (136-145) Potassium Level 3.5 MMOL/L (3.5-5.1) Chloride Level 105 MMOL/L (98-107) Carbon Dioxide Level 22 MMOL/L (21-32) Blood Urea Nitrogen 10 mg/dL (7-18) Creatinine 0.7 MG/DL (0.55-1.30) Estimat Glomerular Filtration Rate > 60 mL/min (>60) Glucose Level 113 MG/DL (74-106) H Calcium Level 8.0 MG/DL (8.5-10.1) L Total Bilirubin 0.3 MG/DL (0.2-1.0) Aspartate Amino Transf (AST/SGOT) 50 U/L (15-37) H Alanine Aminotransferase (ALT/SGPT) 12 U/L (12-78) Alkaline Phosphatase 778 U/L (46-116) H Total Protein 7.5 G/DL (6.4-8.2) Albumin 2.4 G/DL (3.4-5.0) L Globulin 5.1 g/dL Albumin/Globulin Ratio 0.5 (1.0-2.7) L Microbiology Date/Time Source Procedure Growth Status 07/24/20 19:00 Nasopharynx SARS-CoV-2 RdRp Gene Assay - Final Complete Height (Feet): 6 Height (Inches): 0.00 Weight (Pounds): 168 Medications Current Medications Medications (Trade) Dose Ordered Sig/Liat Route PRN Reason Start Time Stop Time Status Last Admin Dose Admin Acetaminophen (Tylenol) 650 mg Q4H PRN ORAL Temp >100.5 07/24/20 21:45 08/23/20 21:44 Docusate Sodium (Colace) 200 mg TWICE A DAY ORAL 07/25/20 18:00 08/24/20 17:59 Heparin Sodium (Porcine) (Heparin 5000 units/ml) 5,000 units EVERY 8 HOURS SUBQ 07/24/20 22:00 09/07/20 21:59 07/25/20 06:26 Morphine Sulfate (Morphine Sulfate) 3 mg Q4H PRN IVP For Pain 07/25/20 09:06 08/01/20 09:05 Assessment/Plan Status: stable, other Diagnosis [place] I: 1 fracure of tibia left 2 interctable pain 3 hx prostate ca pain meds dvt prophylasix ortho Zeke Rodriguez MD Jul 25, 2020 09:49
[2020-07-25] MEDS: Morphine Sulfate 4mg/ml Inj (IV USE ONLY) IVP PRN ×2 (10:02→14:11)
--- NOTE | 2020-07-25 11:55 | NUR ---
KITCHEN STEWARD/STEWARDESS NOTE SW met w/ pt to discuss social worker psychiatric concerns. PT presents as A&O4x. Pt resides alone at [address] [place] [id number]. PT's apartment is located on the 1st floor. There are no stairs that he will need to use to enter his apartment. Pt does not have children/siblings. Pt's cousin, Tacho Diop is the IHSS caregiver/the closest family member. Pt receives IHSS 98 hours/mo. Pt uses a walker. Pt receives his grocery delivered or his cousin has been providing all assistance. Pt informs this SW that he receives sufficient support from his cousin. Pt does not share any social worker psychiatric concerns/needs at this time. SW to F/U as needed. Emergency contact: Tacho Diop (cousin/IHSS caregiver) [phone]
[2020-07-25 12:00] VITALS: BP 135/73
[2020-07-25] MEDS ORDERED: Naloxone 0.4mg/ml Inj IVP PRN (14:45)
--- NOTE | 2020-07-25 14:49 | Consultation ---
History of Present Illness General Date patient seen: Jul 25, 2020 Chief Complaint: Present Illness Allergies: Coded Allergies: No Known Allergies (Unverified , 01/16/18) Medication History Scheduled Azithromycin (Zithromax), 1,200 MG ORAL ONCE A WEEK Bupropion Hcl* (Wellbutrin*), 300 MG ORAL DAILY, (Reported) Citalopram Hydrobromide* (Celexa*), 20 MG ORAL DAILY, (Reported) Trimethoprim/Sulfamethoxazole (Bactrim Ds Tablet), 1 TAB ORAL QHS Valganciclovir HCl (Valcyte), 900 MG ORAL Q12HR Scheduled PRN Morphine Sulfate (Renee), 100 MG PO EVERY 12 HOURS PRN for Pain Scale (6-10), (Reported) Oxycodone Hcl* (Oxycodone Hcl*), 5 MG ORAL Q4H PRN for For Pain, (Reported) Oxycodone Hcl* (Oxycodone Hcl*), 60 MG ORAL EVERY 3 HOURS PRN for For Pain, (Reported) Miscellaneous Medications [valclyclovir], (Reported) Patient History Healthcare decision maker SELF RESPONSIBLE Resuscitation status Advanced Directive on File Physical Exam Last 24 Hour Vital Signs Date Time Temp Pulse Resp B/P (MAP) Pulse Ox O2 Delivery O2 Flow Rate FiO2 07/25/20 12:00 97.9 102 20 135/73 (93) 100 07/25/20 08:28 Room Air 07/25/20 08:00 20 07/25/20 04:00 98.0 90 20 122/74 (90) 98 07/25/20 01:23 Room Air 07/25/20 00:30 97.9 93 18 128/77 (94) 100 07/24/20 21:10 98.5 93 20 123/73 (90) 98 07/24/20 20:50 98.0 72 19 105/66 98 Room Air 07/24/20 20:50 98.0 07/24/20 20:23 98.0 72 19 105/66 98 07/24/20 19:27 97.0 07/24/20 19:27 97.0 07/24/20 18:25 97.0 90 18 142/8 (52) 99 Room Air Intake and Output 07/24/20 07/25/20 19:00 07:00 Intake Total 120 ml Output Total 0 ml 500 ml Balance 0 ml -380 ml Intake Oral 120 ml Output Urine Total 0 ml 500 ml # Voids 2 Laboratory Tests Test 07/24/20 18:53 White Blood Count 8.3 K/UL (4.8-10.8) Red Blood Count 3.22 M/UL (4.70-6.10) L Hemoglobin 8.4 G/DL (14.2-18.0) L Hematocrit 26.9 % (42.0-52.0) L Mean Corpuscular Volume 84 FL (80-99) Mean Corpuscular Hemoglobin 26.0 PG (27.0-31.0) L Mean Corpuscular Hemoglobin Concent 31.1 G/DL (32.0-36.0) L Red Cell Distribution Width 19.6 % (11.6-14.8) H Platelet Count 211 K/UL (150-450) Mean Platelet Volume 6.3 FL (6.5-10.1) L Neutrophils (%) (Auto) 74.9 % (45.0-75.0) Lymphocytes (%) (Auto) 18.8 % (20.0-45.0) L Monocytes (%) (Auto) 5.2 % (1.0-10.0) Eosinophils (%) (Auto) 0.4 % (0.0-3.0) Basophils (%) (Auto) 0.7 % (0.0-2.0) Prothrombin Time 11.8 SEC (9.30-11.50) H Prothromb Time International Ratio 1.1 (0.9-1.1) Activated Partial Thromboplast Time 25 SEC (23-33) Sodium Level 137 MMOL/L (136-145) Potassium Level 3.5 MMOL/L (3.5-5.1) Chloride Level 105 MMOL/L (98-107) Carbon Dioxide Level 22 MMOL/L (21-32) Blood Urea Nitrogen 10 mg/dL (7-18) Creatinine 0.7 MG/DL (0.55-1.30) Estimat Glomerular Filtration Rate > 60 mL/min (>60) Glucose Level 113 MG/DL (74-106) H Calcium Level 8.0 MG/DL (8.5-10.1) L Total Bilirubin 0.3 MG/DL (0.2-1.0) Aspartate Amino Transf (AST/SGOT) 50 U/L (15-37) H Alanine Aminotransferase (ALT/SGPT) 12 U/L (12-78) Alkaline Phosphatase 778 U/L (46-116) H Total Protein 7.5 G/DL (6.4-8.2) Albumin 2.4 G/DL (3.4-5.0) L Globulin 5.1 g/dL Albumin/Globulin Ratio 0.5 (1.0-2.7) L Microbiology Date/Time Source Procedure Growth Status 07/24/20 19:00 Nasopharynx SARS-CoV-2 RdRp Gene Assay - Final Complete Height (Feet): 6 Height (Inches): 0.00 Weight (Pounds): 168 Medications Current Medications Medications (Trade) Dose Ordered Sig/Liat Route PRN Reason Start Time Stop Time Status Last Admin Dose Admin Acetaminophen (Tylenol) 650 mg Q4H PRN ORAL Temp >100.5 07/24/20 21:45 08/23/20 21:44 Docusate Sodium (Colace) 200 mg TWICE A DAY ORAL 07/25/20 18:00 08/24/20 17:59 Heparin Sodium (Porcine) (Heparin 5000 units/ml) 5,000 units EVERY 8 HOURS SUBQ 07/24/20 22:00 09/07/20 21:59 07/25/20 14:25 Morphine Sulfate (Morphine Sulfate) 3 mg Q4H PRN IVP For Pain 07/25/20 09:06 08/01/20 09:05 07/25/20 14:11 Assessment/Plan Assessment/Plan: (1) Left tibial pathological fracture (2) Left LE pain (3) Metastatic prostate cancer seen dictated Ervin Duval Jul 25, 2020 14:49
[2020-07-25] MEDS: MS Contin 15mg tab ORAL SCH ×2 (14:56→22:45)
[2020-07-25] MEDS ORDERED: BUPROPION XL150 MG ORAL (15:38)
[2020-07-25] MEDS ORDERED: METOPROLOL TART50 M1 ORAL (15:38)
[2020-07-25] MEDS ORDERED: DUREZOL5 M1 OP (15:38)
[2020-07-25] MEDS ORDERED: ASPIRIN325 MG ORAL (15:38)
[2020-07-25] MEDS ORDERED: NEURONTIN300 MG ORAL (15:38)
[2020-07-25] MEDS ORDERED: DESCOVY 200MG/25MG PO (15:38)
[2020-07-25] MEDS ORDERED: ROXICODONE30 M1 ORAL (15:38)
[2020-07-25] MEDS ORDERED: TIVICAY50 MG ORAL (15:38)
[2020-07-25] MEDS ORDERED: KADIAN100 MG PO (15:38)
--- NOTE | 2020-07-25 15:51 | Diagnostic Imaging Report ---
Indication: Reason For Exam: PAIN Technique: 2 views of the left tibia and fibula Comparison: none Findings: There is a nondisplaced oblique fracture of the proximal tibial metadiaphyseal region there is also a fracture of the fibular neck, nondisplaced. Extensive surgical hardware is seen within the patella. Impression: Positive for tibial and fibular fractures
[2020-07-25 16:00] VITALS: BP 123/76
--- NOTE | 2020-07-25 17:27 | NUR ---
NURSE NOTES: RN spoke to Dr. Pablo regarding possible surgery for patient. Paged Dr. Wiggins regarding cardiac clearance for possible surgery. SCD at bedside, will apply when patient is agreeable. Patient is stable. Will continue to monitor.
[2020-07-25] MEDS: Docusate 100mg cap ORAL SCH (18:01)
[2020-07-25] MEDS: HYDROmorphone 1mg/ml Carpuject IVP PRN ×2 (18:02→21:11)
--- NOTE | 2020-07-25 18:36 | NUR ---
NURSE NOTES: Consents in chart. Patient refused SCD on right leg. Patient made aware of risks and benefits, patient stated he will put them on when he sleeps. Patient is stable. Will continue to monitor.
--- NOTE | 2020-07-25 19:14 | NUR ---
NURSE NOTES: Received report from TIM Gaytan. Pt resting in bed, on room air, AAO x 4. Pt has pain 5/10 on L leg. IV site intact and patent. No labored breathing. No acute distress noted. Bed locked, lowest position, side rails up, call light within reach. Will continue to monitor.
--- NOTE | 2020-07-25 19:29 | NUR ---
NURSE HAND-OFF: Important Events on Shift: pain management Patient Status: stable Diet: regular Pending Orders: n/a Pending Results/Labs:n/a Pending MD notification:n/a Latest Vital Signs: Temperature 97.5 , Pulse 108 , B/P 123 /76 , Respiratory Rate 20 , O2 SAT 98 , Room Air, O2 Flow Rate . Vital Sign Comment: n/a Latest Wade Fall Score: 60 Fall Risk: High Risk Safety Measures: Call light Within Reach, Side Rails x2, Bed position Low and Locked. Fall Precautions: Yellow Gown Door Sign Patient Fall Education Report given to Julia DUMONT.
[2020-07-25 19:59] VITALS: BP 135/83
--- NOTE | 2020-07-25 21:30 | Cardiology Progress Note ---
Assessment/Plan Assessment/Plan The patient is sen and examined, full consult note is dictated. Objective Last 24 Hour Vital Signs Date Time Temp Pulse Resp B/P (MAP) Pulse Ox O2 Delivery O2 Flow Rate FiO2 07/25/20 20:19 Room Air 07/25/20 19:59 98.0 110 18 135/83 (100) 96 07/25/20 16:00 97.5 108 20 123/76 (92) 98 07/25/20 12:00 97.9 102 20 135/73 (93) 100 07/25/20 08:28 Room Air 07/25/20 08:00 20 07/25/20 04:00 98.0 90 20 122/74 (90) 98 07/25/20 01:23 Room Air 07/25/20 00:30 97.9 93 18 128/77 (94) 100 Intake and Output 07/24/20 07/25/20 19:00 07:00 Intake Total 120 ml Output Total 0 ml 500 ml Balance 0 ml -380 ml Intake Oral 120 ml Output Urine Total 0 ml 500 ml # Voids 2 Microbiology Date/Time Source Procedure Growth Status 07/24/20 19:00 Nasopharynx SARS-CoV-2 RdRp Gene Assay - Final Complete Hector Wiggins MD Jul 25, 2020 21:30
--- NOTE | 2020-07-25 22:00 | Consultation ---
DATE OF CONSULTATION: 07/25/2020 PAIN MANAGEMENT CONSULTATION CONSULTING PHYSICIAN: Vivek Cristina MD REFERRING PHYSICIAN: Zeke Michael MD PHYSICIAN AUTO FORMER MACHINE OPERATOR: CRIS Layton CHIEF COMPLAINT: Left lower extremity pain. HISTORY OF PRESENT ILLNESS: This is a 55-year-old male, who is being seen on the Med/Surg floor of [facility] for initial pain management consultation. The patient was admitted under the care of Dr. Michael due to left lower extremity pain, which occurred yesterday. It is a constant acute pain, rating at 10/10. He described the pain as sharp pain, increased with movement, and is reduced with none. Reports that he has been aware of prostate cancer for about 3 years and had chemotherapy, and reports that he had a fall at home, found to have a left tibial pathologic fracture, and waiting for orthopedic consultation. At this time, reports that he takes morphine extended release 100 mg once a day and oxycodone 30 mg as needed as well, as an outpatient, which was confirmed with [facility] PDMP. At this time, he is on morphine 30 mg IV every 4 hours as needed for pain with minimal pain relief. Due to this, we were consulted so that the patient would have adequate pain control while here in the hospital. PAST MEDICAL HISTORY: HIV and prostate cancer. PAST SURGICAL HISTORY: Left knee ORIF. SOCIAL HISTORY: Denies smoking tobacco, drinking alcohol, or drug use. ALLERGIES: No known drug allergies. MEDICATIONS: Zithromax, Wellbutrin, Celexa, Bactrim, morphine, and oxycodone. REVIEW OF SYSTEMS: Denies rash, fever, chills, sweating, dizziness, drowsiness, blurred vision, sore throat, or change in weight. No shortness of breath or chest pain. No nausea, vomiting, diarrhea, or blood in the stool or urine. No dysuria. PHYSICAL EXAMINATION: GENERAL: Alert, awake, and oriented. VITAL SIGNS: Blood pressure 135/73, heart rate is 100, oxygen saturation 100%, respiratory rate 18 HEENT: PERRLA. NECK: Range of motion is decreased due to the patient's condition. No tenderness. LUNGS: Decreased breath sounds bilaterally. HEART: S1 and S2 regular. ABDOMEN: Soft, nontender. BACK: Range of motion is decreased in flexion and extension. EXTREMITIES: Upper and lower extremity range of motion is decreased due to the patient's condition. No cyanosis. No clubbing. Sensory is reduced. Reflexes are not obtainable. No adenopathy. Left lower extremity is in a splint. ASSESSMENT AND PLAN: The patient is a 55-year-old male with metastatic prostate cancer, left tibial pathological fracture, and left lower extremity pain. The patient will be discontinued of the morphine IV, started on morphine extended release 30 mg every 8 hours [id number], hold for oversedation; Dilaudid 1 mg IV every 3 hours as needed for severe pain; Percocet 10/325 one tablet every 4 hours as needed for moderate breakthrough pain. Parameters to be set to hold opiates for oversedation or lethargy or systolic blood pressure below 90 or diastolic blood pressure below 60, respiratory rate below 12, oxygen saturation below 94%, or heart rate below 69. The patient was discussed with Dr. Cristina and Dr. Cristina concurred. We will follow the patient. Thank you very much for the courtesy of this consultation. Vivek Cristina M.D. CRIS Layton DR: ALMAS JOB#: [id number] CC: WEN
--- NOTE | 2020-07-25 22:06 | NUR ---
NURSE NOTES: EKG done at bedside
--- NOTE | 2020-07-25 22:15 | Consultation ---
DATE OF CONSULTATION: 07/25/2020 ORTHOPEDIC CONSULTATION CONSULTING PHYSICIAN: Vel Pablo MD CHIEF COMPLAINT: Left leg pain. HISTORY OF PRESENT ILLNESS: Patient is a pleasant 55-year-old gentleman with a complicated medical history. He had a trip and fall. He was brought to the emergency room. He was diagnosed with left tibial fracture. Orthopedic consultation was obtained for further care and recommendation. PAST MEDICAL HISTORY: Reviewed per intake chart. PAST SURGICAL HISTORY: Reviewed per intake chart. MEDICATIONS: Reviewed per intake chart. PHYSICAL EXAMINATION: GENERAL: Patient is resting comfortably in bed. EXTREMITIES: Left leg is in a splint. Neurovascular exam is normal. IMAGING STUDIES: Show minimally displaced Schatzker 6 tibial plateau fracture. ASSESSMENT: Left tibial plateau fracture. DISCUSSION: At this point, what I recommend is to go ahead and proceed with open reduction and internal fixation with lateral plate fixation. Patient does have a cardiac history. We will try to obtain a cardiac clearance and schedule him for surgery more likely Friday in order to give us enough time to order the instruments and obtain medical clearance. Vel Pablo M.D. DR: SINCERE JOB#: [id number] CC:
[2020-07-26] VITALS: BP 138/86
[2020-07-26] MEDS: HYDROmorphone 1mg/ml Carpuject IVP PRN ×6 (00:49→22:38)
[2020-07-26 03:58] VITALS: BP 127/77
[2020-07-26] MEDS: MS Contin 15mg tab ORAL SCH ×3 (06:09→16:43)
[2020-07-26] MEDS: Heparin 5000 units/ml inj SUBQ SCH ×3 (06:12→21:07)
--- NOTE | 2020-07-26 06:25 | NUR ---
NURSE HAND-OFF: Important Events on Shift:tachy,fever,pain management Patient Status: in pain Diet: Reg. Mech soft chopped Pending Orders: 2D Echo 07/26 Pending Results/Labs:N Pending MD notification:N Latest Vital Signs: Temperature 98.4 , Pulse 113 , B/P 127 /77 , Respiratory Rate 20 , O2 SAT 96 , Room Air, O2 Flow Rate . Vital Sign Comment: [] Latest Wade Fall Score: 60 Fall Risk: High Risk Safety Measures: Call light Within Reach, Bed Alarm Zone 1, Side Rails Side Rails x2, Bed position Low and Locked. Fall Precautions: Yellow Gown Door Sign Patient Fall Education Addendum: 07/26/20 at 0716 by DHEERAJ NICOLE RN RN HAND-OFF: Report given to Harvey.
--- NOTE | 2020-07-26 07:28 | NUR ---
NURSE NOTES: PATIENT RECEIVED IN STABLE CONDITION. LLE IN SPLINT ELEVATED ON PILLOW. CMS WNL. LEFT PEDAL PULSE PALPABLE. C/O CONSTANT PAIN. ANALGESICS ADMINISTERED PER MD ORDERS. DISCUSSED PLAN OF CARE FOR THE DAY. DISCUSSED PLAN OF CARE FOR THE DAY. VERBALIZED UNDERSTANDING.BED IN LOW AND LOCKED IN POSITION. CALL LIGHT WITHIN REACH.
[2020-07-26 08:00] VITALS: BP 112/77
[2020-07-26] MEDS: Docusate 100mg cap ORAL SCH ×2 (08:01→17:59)
--- NOTE | 2020-07-26 10:15 | Consultation ---
DATE OF CONSULTATION: 07/25/2020 CARDIOLOGY CONSULTATION CONSULTING PHYSICIAN: Hector Wiggins MD. REFERRING PHYSICIAN: Zeke Michael MD. REASON FOR CONSULTATION: Preoperative cardiac clearance for noncardiac surgery. HISTORY OF PRESENT ILLNESS: The patient is a very unfortunate 55-year-old gentleman who presents to the hospital with left ankle tibial pain which is aggravated with movement and alleviated with rest. The patient apparently had a mechanical fall and hit his knee against a tool. There was no loss of consciousness involved. In the emergency department, he was found to have a fracture of the superior tibia. Cardiology consultation was made at request of Dr. Michael for preoperative cardiac clearance. The patient at time of arrival to the hospital did not have any chest pain or shortness of breath. He does not have any prior history of coronary artery disease or congestive heart failure. He had 2D echocardiography in the past showing normal LV systolic function with LVEF of approximately 55%. PAST MEDICAL HISTORY: Significant for metastatic prostate cancer stage IV, history of CVA in 2008, HIV disease, history of neuropathy, history of psychiatric disorder. PAST SURGICAL HISTORY: None. ALLERGIES: No known drug allergies. MEDICATIONS: List of medications: Aspirin 325 mg daily, bupropion 150 mg q.24 hours, , Tivicay 50 mg daily, Neurontin 600 mg twice daily, metoprolol 50 mg twice daily, morphine sulfate 100 mg twice daily as needed severe pain, oxycodone 30 mg p.o. q.3 hours as needed severe pain, valganciclovir 900 mg q.12 hours, Descovy 200/25 one tablet daily. FAMILY HISTORY: No premature coronary artery disease in the first-degree relatives. REVIEW OF SYSTEMS: HEENT: Denies any headache, diplopia, or blurred vision. CONSTITUTIONAL: Denies any fever, chills, night sweats, or weight loss. CARDIOVASCULAR: Denies any chest pain, shortness breath, PND, orthopnea, leg swelling. EXTREMITIES: There is casting of the right lower extremity with associated pain upon movement. PULMONARY: Denies any cough, hemoptysis, wheezing. GASTROINTESTINAL: Denies any nausea, vomiting, diarrhea, constipation, abdominal pain, or GI bleed. GENITOURINARY: Denies any hematuria, dysuria, incontinence. NEUROLOGY: Denies any motor dysfunction, sensory deficit, or altered speech. PHYSICAL EXAMINATION: VITAL SIGNS: At time of arrival to the hospital, blood pressure was 142/80, pulse of 90, temperature 97.0 degrees Fahrenheit, respirations 18, O2 saturation 99% on room air. GENERAL: The patient is a very delightful 55-year-old gentleman in no apparent respiratory distress. Alert and oriented x4. HEENT: Atraumatic and normocephalic. Anicteric. Pupils are equal, round, and reactive to light and accommodation. Extraocular muscles intact. NECK: JVP less than 5 cm. No carotid bruit. Carotid upstrokes 2+ bilaterally. CARDIOVASCULAR: Normal S1 and S2. Regular rate and rhythm. No murmurs, gallops, or rubs. PMI is at fourth intercostal space in the midclavicular line. LUNGS: Clear to auscultation bilaterally. ABDOMEN: Soft, nontender, nondistended. No hepatosplenomegaly. Positive bowel sounds. EXTREMITIES: Left lower extremity, swelling of left tibia about 2+. Right lower extremity within the cast. LABORATORY FINDINGS: WBC was 8.3, hemoglobin 8.4, hematocrit of 26.9%, and platelet count is 211. Sodium 137, potassium 3.5, chloride 105, bicarbonate 22, BUN of 10, creatinine 0.7, glucose is 113, calcium is 8.0. ASSESSMENT AND PLAN: The patient is a very unfortunate 55-year-old gentleman seen in Cardiology consultation. The patient is scheduled for open reduction and internal fixation of tibial fracture in the right lower extremity. Prior to fall on right lower extremity leading to right tibial fracture, he was asymptomatic from cardiovascular standpoint. He claimed that he could tolerate activity equal to 4 mets with no limitations. He does not have any history of coronary artery disease or congestive heart failure. Of note, 2D echocardiography recently showed normal LV systolic function with LVEF approximately 55%. He is clear for the intermediate risk ORIF of right tibia with risk of coronary artery events, cardiac arrest perioperatively estimated to be less than 1%. We recommend repeat of 2D echocardiography for latest evaluation of LV systolic and diastolic function. A 12-lead electrocardiogram stat has been ordered for preoperative purposes. The patient will be followed closely in the postoperative period. I would like to thank Dr. Michael for the courtesy of this consultation. Hector Wiggins M.D. DR: Dov JOB#: [id number] CC:
--- NOTE | 2020-07-26 11:27 | General Progress Note ---
Subjective Date patient seen: Jul 26, 2020 Time patient seen: 10:00 - am Allergies: Coded Allergies: No Known Allergies (Unverified , 01/16/18) Subjective REVIEW OF SYSTEMS: Denies rash, fever, chills, sweating, dizziness, drowsiness, blurred vision, sore throat, or change in weight. No shortness of breath or chest pain. No nausea, vomiting, diarrhea, or blood in the stool or urine. No dysuria. HISTORY OF PRESENT ILLNESS: This is a 55-year-old male, who is being seen on the Med/Surg floor of [facility]. Patient is in bed and showing no signs of pain or distress. Was seen by Ortho and is scheduled for surgery possibly on Friday. Pain has been tolerated on the Morphine ER and Dilaudid. No new complaints at this time. Objective Last 24 Hour Vital Signs Date Time Temp Pulse Resp B/P (MAP) Pulse Ox O2 Delivery O2 Flow Rate FiO2 07/26/20 09:01 Room Air 07/26/20 08:32 98.4 07/26/20 08:00 98.6 114 18 112/77 (89) 98 07/26/20 03:58 98.4 113 20 127/77 (94) 96 07/26/20 00:00 100.7 116 18 138/86 (103) 100 07/25/20 23:54 98.2 07/25/20 20:19 Room Air 07/25/20 19:59 98.0 110 18 135/83 (100) 96 07/25/20 16:00 97.5 108 20 123/76 (92) 98 07/25/20 12:00 97.9 102 20 135/73 (93) 100 Intake and Output 07/25/20 07/26/20 19:00 07:00 Output Total 800 ml 300 ml Balance -800 ml -300 ml Output Urine Total 800 ml 300 ml # Voids 4 2 Height (Feet): 6 Height (Inches): 0.00 Weight (Pounds): 168 Objective PHYSICAL EXAMINATION: LUNGS: Decreased breath sounds bilaterally. HEART: S1 and S2 regular. ABDOMEN: Soft, nontender. EXTREMITIES: Left lower extremity is in a splint. NEURO: No changes. Assessment/Plan Status: other Assessment/Plan: (1) Left tibial pathological fracture (2) Left LE pain (3) Metastatic prostate cancer Patient to be continued on Morphine ER, Dilaudid and Percocet. D/w Dr. Cristina and he concurred Ervin Duval Jul 26, 2020 11:27
[2020-07-26] MEDS: DUREZOL EYE BOTH EYES SCH (11:47)
[2020-07-26 11:54] VITALS: BP 128/72
--- NOTE | 2020-07-26 12:44 | General Progress Note ---
Subjective Date patient seen: Jul 26, 2020 Allergies: Coded Allergies: No Known Allergies (Unverified , 01/16/18) Subjective c/o pain weakness Objective Last 24 Hour Vital Signs Date Time Temp Pulse Resp B/P (MAP) Pulse Ox O2 Delivery O2 Flow Rate FiO2 07/26/20 11:54 99.0 112 18 128/72 (90) 99 07/26/20 09:01 Room Air 07/26/20 08:32 98.4 07/26/20 08:00 98.6 114 18 112/77 (89) 98 07/26/20 03:58 98.4 113 20 127/77 (94) 96 07/26/20 00:00 100.7 116 18 138/86 (103) 100 07/25/20 23:54 98.2 07/25/20 20:19 Room Air 07/25/20 19:59 98.0 110 18 135/83 (100) 96 07/25/20 16:00 97.5 108 20 123/76 (92) 98 Intake and Output 07/25/20 07/26/20 19:00 07:00 Output Total 800 ml 300 ml Balance -800 ml -300 ml Output Urine Total 800 ml 300 ml # Voids 4 2 Height (Feet): 6 Height (Inches): 0.00 Weight (Pounds): 168 General Appearance: alert, cachetic EENT: PERRL/EOMI Neck: supple Cardiovascular: regular rhythm Respiratory/Chest: lungs clear Abdomen: non tender, soft Extremities: other - weakness Assessment/Plan Status: other Zeke Michael MD Jul 26, 2020 12:44
--- NOTE | 2020-07-26 12:48 | General Progress Note ---
Subjective Allergies: Coded Allergies: No Known Allergies (Unverified , 01/16/18) Subjective c/o pain weakness Objective Last 24 Hour Vital Signs Date Time Temp Pulse Resp B/P (MAP) Pulse Ox O2 Delivery O2 Flow Rate FiO2 07/26/20 11:54 99.0 112 18 128/72 (90) 99 07/26/20 09:01 Room Air 07/26/20 08:32 98.4 07/26/20 08:00 98.6 114 18 112/77 (89) 98 07/26/20 03:58 98.4 113 20 127/77 (94) 96 07/26/20 00:00 100.7 116 18 138/86 (103) 100 07/25/20 23:54 98.2 07/25/20 20:19 Room Air 07/25/20 19:59 98.0 110 18 135/83 (100) 96 07/25/20 16:00 97.5 108 20 123/76 (92) 98 Intake and Output 07/25/20 07/26/20 19:00 07:00 Output Total 800 ml 300 ml Balance -800 ml -300 ml Output Urine Total 800 ml 300 ml # Voids 4 2 Height (Feet): 6 Height (Inches): 0.00 Weight (Pounds): 168 Assessment/Plan Status: doing well, stable, other Assessment/Plan: 1 fracture of leg 2 malnutrition 3 dehydation 4 htn for ortho surgery cont ccurrent tx dvt prophylasix cardio clearence Zeke Michael MD Jul 26, 2020 12:48
--- NOTE | 2020-07-26 13:06 | NUR ---
CASE MANAGEMENT:REVIEW SI;LEFT TIBIAL PLATEAU FRACTURE. 100.7 116 20 128/72 96% ON RA IS;HEPARIN SUBQ Q8 MORPHINE SULFATE PO Q8 GABAPENTIN PO TID MED SURG STATUS DCP;FROM HOME PLAN; ORIF TO LEFT TIBIA PLANNED FOR 07/28/20 PENDING CARDIO CLEARANCE FOR SURGERY
[2020-07-26] MEDS: VALCYTE ORAL SCH ×2 (13:57→21:05)
[2020-07-26] MEDS: DOLUTEGRAVIR SODIUM 50 MG ORAL SCH (13:58)
[2020-07-26] MEDS: DESCOVY ORAL SCH (13:58)
[2020-07-26] MEDS: BuPROPion XL 150mg tab ORAL SCH (13:59)
--- NOTE | 2020-07-26 15:14 | Cardiology Report ---
APPROVED REPORT EXAM: Two-dimensional and M-mode echocardiogram with Doppler and color Doppler. INDICATION PRE-OP M-Mode DIMENSIONS IVSd1.1 (0.7-1.1cm)Left Atrium (MM)4.1 (1.6-4.0cm) LVDd3.4 (3.5-5.6cm)Aortic Root2.7 (2.0-3.7cm) PWd1.2 (0.7-1.1cm)Aortic Cusp Exc.1.5 (1.5-2.0cm) IVSs1.3 cm LVDs2.1 (2.5-4.0cm) <Conclusion> Technically difficult study due to poor windows,all images obtained from subcostal. Normal left ventricular chamber size, systolic function and wall motion to extent visualized. Left ventricular ejection fraction estimated to be 60-65 %. No evidence of left ventricular hypertrophy. No evidence of pericardial fat or effusion. All other cardiac chamber sizes are within normal limits. Moderate calcification of aortic valve with adequate cusp excursion. Moderate thickened mitral valve leaflets with normal excursion. Mitral annulus and aortic root calcification. Pulmonic valve not well visualized. Normal tricuspid valve structure. IVC dilated at 2.3 cm without physiologic collapse suggestive of increased RA pressure. A color flow and spectral Doppler study was performed and revealed: Mild to moderate aortic insufficiency. Peak aortic valve gradient of 13 mm Hg and a mean of 5mmHg. Trace mitral regurgitation. Mitral diastolic velocities suggest reduced left ventricular relaxation c/w mild LV diastolic dysfunction (Grade I ). Mild tricuspid regurgitation. Tricuspid systolic velocities suggests peak right ventricular systolic pressure of 73 mmHg,consistent with severe pulmonary hypertension.
--- NOTE | 2020-07-26 15:44 | Cardiology Report ---
APPROVED REPORT EKG Measurement Heart [id number] <Conclusion> Sinus tachycardia Nonspecific ST abnormality Abnormal ECG
[2020-07-26 16:00] VITALS: BP 118/78
--- NOTE | 2020-07-26 17:18 | NUR ---
NURSE NOTES: PATIENT REMAINS STABLE. PAIN CONTROLLED WITH DILAUDID ORDERED. PATIENT SLEPT MOST OF THE DAY.LLE SPLINT REMAINS C/D/I ELEVATE DON PILLOW. CMS WNL. VSS.
--- NOTE | 2020-07-26 19:12 | NUR ---
NURSE NOTES: Received report from TIM STEINBERG. patient on bed, awake. a&0 x4. verbally responsive. noted with splint on the left lower leg. denies any pain or discomfort at the moment. on room air. no sob. per sanchez, " patient is cleared from cardio and possible surgery on the left lower leg on friday". with iv line on the right forearm, saline lock. reiterated to call and ask for assistance. bed locked and in lowest position. call light and light button within easy reach. will continue plan of care.
--- NOTE | 2020-07-26 19:20 | NUR ---
NURSE HAND-OFF: Important Events on Shift: HOME MEDS RESUMED; LAXATIVES ORDERED, WANTS FLU VACCINE UPON DISCHARGE. Patient Status: STABLE Diet: REGULAR Pending Orders: N/A Pending Results/Labs:N/A Pending MD notification:N/A Latest Vital Signs: Temperature 99.0 , Pulse 100 , B/P 118 /78 , Respiratory Rate 20 , O2 SAT 99 , Room Air . Vital Sign Comment: STABLE Latest Wade Fall Score: 80 Fall Risk: High Risk Safety Measures: Call light Within Reach, Bed Alarm Zone 1, Side Rails Side Rails x2, Bed position Low and Locked. Fall Precautions: Door Sign Patient Fall Education Report given to LISETTE DUMONT.
[2020-07-26 20:00] VITALS: BP 122/75
[2020-07-26] MEDS ORDERED: Bisacodyl EC 5mg tab ORAL SCH (21:00)
[2020-07-26] MEDS: Metoprolol Tartrate 50mg tab ORAL SCH (21:05)
[2020-07-26] MEDS: Miralax 17gm pkt ORAL SCH (21:05)
[2020-07-27] VITALS: BP 112/69
[2020-07-27] MEDS: HYDROmorphone 1mg/ml Carpuject IVP PRN ×4 (03:02→21:59)
[2020-07-27 04:00] VITALS: BP 120/78
[2020-07-27] MEDS: MS Contin 15mg tab ORAL SCH ×3 (05:59→23:37)
[2020-07-27] MEDS: Heparin 5000 units/ml inj SUBQ SCH ×3 (06:00→22:00)
--- NOTE | 2020-07-27 06:37 | NUR ---
NURSE HAND-OFF: Important Events on Shift: SPLINT ON THE LEFT LEG; PAIN MNGT; WITH BM TODAY Patient Status: STABLE Diet:REGULAR MECH SOFT CHOPPED Pending Orders: PENDING SURGERY Pending Results/Labs: Pending MD notification: Latest Vital Signs: Temperature 98.1 , Pulse 97 , B/P 120 /78 , Respiratory Rate 20 , O2 SAT 100 , Room Air, O2 Flow Rate . Vital Sign Comment: Latest Wade Fall Score: 80 Fall Risk: High Risk Safety Measures: Call light Within Reach, Bed Alarm Zone 1, Side Rails Side Rails x2, Bed position Low and Locked. Fall Precautions: Door Sign Patient Fall Education Addendum: 07/27/20 at 0639 by Rubi Carl RN HOLD ASPIRIN PER DR. DONOVAN.
--- NOTE | 2020-07-27 06:40 | NUR ---
NURSE NOTES: with bm x1
--- NOTE | 2020-07-27 07:20 | General Progress Note ---
Subjective HEENT: Denies: no symptoms, eye pain, blurred vision, tearing, double vision, ear pain, ear discharge, nose pain, nose congestion, throat pain, throat swelling, mouth pain, mouth swelling, other Cardiovascular: Denies: no symptoms, chest pain, edema, irregular heart rate, lightheadedness, palpitations, syncope, other Respiratory: Denies: no symptoms, cough, orthopnea, shortness of breath, SOB with excertion, SOB at rest, sputum, stridor, wheezing, other Gastrointestinal/Abdominal: Denies: no symptoms, abdomen distended, abdominal pain, black stools, tarry stools, blood in stool, constipated, diarrhea, difficulty swallowing, nausea, poor appetite, poor fluid intake, rectal bleeding, vomiting, other Neurologic/Psychiatric: Denies: no symptoms, anxiety, depressed, emotional problems, headache, numbness, paresthesia, pre-existing deficit, seizure, tingling, tremors, weakness, other Endocrine: Denies: no symptoms, excessive sweating, flushing, intolerance to cold, intolerance to heat, increased hunger, increased thirst, increased urine, unexplained weight gain, unexplained weight loss, other Hematologic/Lymphatic: Denies: no symptoms, anemia, easy bleeding, easy bruising, other Allergies: Coded Allergies: No Known Allergies (Unverified , 01/16/18) Subjective 07/27 is for surgery friday left hip orif Objective Last 24 Hour Vital Signs Date Time Temp Pulse Resp B/P (MAP) Pulse Ox O2 Delivery O2 Flow Rate FiO2 07/27/20 06:29 98.1 07/27/20 04:00 98.1 97 20 120/78 (92) 100 07/27/20 03:32 98.1 07/27/20 00:00 98.5 98 19 112/69 (83) 100 07/26/20 21:05 112 122/77 07/26/20 21:00 Room Air 07/26/20 20:00 99.1 112 19 122/75 (91) 100 07/26/20 18:33 99.0 07/26/20 17:13 99.0 07/26/20 16:00 98.6 100 20 118/78 (91) 99 07/26/20 12:21 99.0 07/26/20 11:54 99.0 112 18 128/72 (90) 99 07/26/20 09:01 Room Air 07/26/20 08:32 98.4 07/26/20 08:00 98.6 114 18 112/77 (89) 98 Intake and Output 07/26/20 07/27/20 18:59 06:59 Intake Total 840 ml 250 ml Output Total 300 ml 350 ml Balance 540 ml -100 ml Intake Oral 840 ml 250 ml Output Urine Total 300 ml 350 ml # Bowel Movements 1 Height (Feet): 6 Height (Inches): 0.00 Weight (Pounds): 168 Objective Gen nad Pulm ctab CV rrr Abd soft nt nd Ext Left leg in gauze padding Assessment/Plan Status: doing well, stable, other Status Narrative Assessment/Plan: 1 fracture of leg 2 malnutrition 3 dehydation 4 htn for ortho surgery cont ccurrent tx dvt prophylasix cardio clearence For surgery friday Zack Castro MD Jul 27, 2020 07:20
--- NOTE | 2020-07-27 07:20 | NUR ---
HAND-OFF: Report given to marilyn silverio.
--- NOTE | 2020-07-27 07:30 | NUR ---
NURSE NOTES: Patient lying in bed awake. Complain of pain 9/10 on left leg and pain medication given by production engineer nurse. Will continue to monitor. Splint on left lower leg intact and dry. IV dressing intact and dry. Bed lowest position. Call light within reach. Will continue to monitor.
[2020-07-27 08:00] VITALS: BP 110/71
[2020-07-27] MEDS: BuPROPion XL 150mg tab ORAL SCH (08:28)
[2020-07-27] MEDS: Docusate 100mg cap ORAL SCH ×2 (08:29→18:00)
[2020-07-27] MEDS: DUREZOL EYE BOTH EYES SCH (08:29)
[2020-07-27] MEDS: Metoprolol Tartrate 50mg tab ORAL SCH ×2 (08:29→20:55)
[2020-07-27] MEDS: DESCOVY ORAL SCH (08:49)
[2020-07-27] MEDS: DOLUTEGRAVIR SODIUM 50 MG ORAL SCH (08:49)
[2020-07-27] MEDS: VALCYTE ORAL SCH ×2 (08:49→20:57)
--- NOTE | 2020-07-27 09:37 | General Progress Note ---
Subjective Date patient seen: Jul 27, 2020 Time patient seen: 08:15 - am Allergies: Coded Allergies: No Known Allergies (Unverified , 01/16/18) Subjective REVIEW OF SYSTEMS: Denies rash, fever, chills, sweating, dizziness, drowsiness, blurred vision, sore throat, or change in weight. No shortness of breath or chest pain. No nausea, vomiting, diarrhea, or blood in the stool or urine. No dysuria. HISTORY OF PRESENT ILLNESS: This is a 55-year-old male, who is being seen on the Med/Surg floor of [facility]. Patient has been doing well tolerating pain on the Morphine ER and Dilaudid. Has no new complaints at this time. Objective Last 24 Hour Vital Signs Date Time Temp Pulse Resp B/P (MAP) Pulse Ox O2 Delivery O2 Flow Rate FiO2 07/27/20 08:29 92 110/71 07/27/20 08:00 98.0 92 18 110/71 (84) 98 07/27/20 06:29 98.1 07/27/20 04:00 98.1 97 20 120/78 (92) 100 07/27/20 03:32 98.1 07/27/20 00:00 98.5 98 19 112/69 (83) 100 07/26/20 21:05 112 122/77 07/26/20 21:00 Room Air 07/26/20 20:00 99.1 112 19 122/75 (91) 100 07/26/20 18:33 99.0 07/26/20 17:13 99.0 07/26/20 16:00 98.6 100 20 118/78 (91) 99 07/26/20 12:21 99.0 07/26/20 11:54 99.0 112 18 128/72 (90) 99 Intake and Output 07/26/20 07/27/20 18:59 06:59 Intake Total 840 ml 250 ml Output Total 300 ml 350 ml Balance 540 ml -100 ml Intake Oral 840 ml 250 ml Output Urine Total 300 ml 350 ml # Bowel Movements 1 Height (Feet): 6 Height (Inches): 0.00 Weight (Pounds): 168 Objective PHYSICAL EXAMINATION: LUNGS: Decreased breath sounds bilaterally. HEART: S1 and S2 regular. ABDOMEN: Soft, nontender. EXTREMITIES: Left lower extremity is in a splint. NEURO: No changes. Assessment/Plan Assessment/Plan: (1) Left tibial pathological fracture (2) Left LE pain (3) Metastatic prostate cancer Patient to be continued on Morphine ER, Dilaudid and Percocet. D/w Dr. Cristina and he concurred Ervin Duval Jul 27, 2020 09:37
--- NOTE | 2020-07-27 09:58 | General Progress Note ---
Subjective Date patient seen: Jul 27, 2020 Allergies: Coded Allergies: No Known Allergies (Unverified , 01/16/18) Subjective c/o pain weakness Objective Last 24 Hour Vital Signs Date Time Temp Pulse Resp B/P (MAP) Pulse Ox O2 Delivery O2 Flow Rate FiO2 07/27/20 08:29 92 110/71 07/27/20 08:00 98.0 92 18 110/71 (84) 98 07/27/20 06:29 98.1 07/27/20 04:00 98.1 97 20 120/78 (92) 100 07/27/20 03:32 98.1 07/27/20 00:00 98.5 98 19 112/69 (83) 100 07/26/20 21:05 112 122/77 07/26/20 21:00 Room Air 07/26/20 20:00 99.1 112 19 122/75 (91) 100 07/26/20 18:33 99.0 07/26/20 17:13 99.0 07/26/20 16:00 98.6 100 20 118/78 (91) 99 07/26/20 12:21 99.0 07/26/20 11:54 99.0 112 18 128/72 (90) 99 Intake and Output 07/26/20 07/27/20 18:59 06:59 Intake Total 840 ml 250 ml Output Total 300 ml 350 ml Balance 540 ml -100 ml Intake Oral 840 ml 250 ml Output Urine Total 300 ml 350 ml # Bowel Movements 1 Height (Feet): 6 Height (Inches): 0.00 Weight (Pounds): 168 General Appearance: alert EENT: PERRL/EOMI Neck: supple Cardiovascular: regular rhythm Respiratory/Chest: normal breath sounds Abdomen: non tender, soft Extremities: other - fracture tibia in splint Assessment/Plan Assessment/Plan: 1 fracture of leg 2 malnutrition 3 dehydation 4 htn for ortho surgery cont ccurrent tx dvt prophylasix cardio clearence Zeke Michael MD Jul 27, 2020 09:57
[2020-07-27 12:00] VITALS: BP 113/73
--- NOTE | 2020-07-27 14:50 | Anethesia Preoperative Eval ---
Anesthesia Pre-op PMH/ROS General Date of Evaluation: Jul 27, 2020 Time of Evaluation: 13:17 Anesthesiologist: Josias ASA Score: ASA 4 Mallampati Score Class I : Soft palate, uvula, fauces, pillars visible Class II: Soft palate, uvula, fauces visible Class III: Soft palate, base of uvula visible Class IV: Only hard plate visible Mallampati Classification: Class II Surgeon: Samy Diagnosis: L Tibial Fx Surgical Procedure: ORIF L Tibia Anesthesia History: none Family History: no anesthesia problems Allergies: Coded Allergies: No Known Allergies (Unverified , 01/16/18) Medications: see eMAR Patient NPO?: Yes Past Medical History Cardiovascular: Reports: CAD, [place] Gastrointestinal/Genitourinary: Reports: other - Prostate CA Neurologic/Psychiatric: Reports: CVA Hematology/Immune: Reports: other - HIV/AIDS Musculoskeletal/Integumentary: Reports: other - Back Pain Anesthesia Pre-op Phys. Exam Physician Exam Last Vital Signs Date Time Temp Pulse Resp B/P (MAP) Pulse Ox O2 Delivery O2 Flow Rate FiO2 07/27/20 12:00 97.9 95 18 113/73 (86) 98 07/27/20 09:00 Room Air Constitutional: NAD Neurologic: CN 2-12 intact Cardiovascular: RRR Respiratory: CTA Gastrointestinal: S/NT/ND Airway Exam Mallampati Score: Class II MO: full ROM: limited Teeth: missing, intact Anesthesia Pre-op A/P Labs Labs Test 07/24/20 18:53 White Blood Count 8.3 K/UL (4.8-10.8) Red Blood Count 3.22 M/UL (4.70-6.10) Hemoglobin 8.4 G/DL (14.2-18.0) Hematocrit 26.9 % (42.0-52.0) Mean Corpuscular Volume 84 FL (80-99) Mean Corpuscular Hemoglobin 26.0 PG (27.0-31.0) Mean Corpuscular Hemoglobin Concent 31.1 G/DL (32.0-36.0) Red Cell Distribution Width 19.6 % (11.6-14.8) Platelet Count 211 K/UL (150-450) Mean Platelet Volume 6.3 FL (6.5-10.1) Neutrophils (%) (Auto) 74.9 % (45.0-75.0) Lymphocytes (%) (Auto) 18.8 % (20.0-45.0) Monocytes (%) (Auto) 5.2 % (1.0-10.0) Eosinophils (%) (Auto) 0.4 % (0.0-3.0) Basophils (%) (Auto) 0.7 % (0.0-2.0) Prothrombin Time 11.8 SEC (9.30-11.50) Prothromb Time International Ratio 1.1 (0.9-1.1) Activated Partial Thromboplast Time 25 SEC (23-33) Sodium Level 137 MMOL/L (136-145) Potassium Level 3.5 MMOL/L (3.5-5.1) Chloride Level 105 MMOL/L (98-107) Carbon Dioxide Level 22 MMOL/L (21-32) Blood Urea Nitrogen 10 mg/dL (7-18) Creatinine 0.7 MG/DL (0.55-1.30) Estimat Glomerular Filtration Rate > 60 mL/min (>60) Glucose Level 113 MG/DL (74-106) Calcium Level 8.0 MG/DL (8.5-10.1) Total Bilirubin 0.3 MG/DL (0.2-1.0) Aspartate Amino Transf (AST/SGOT) 50 U/L (15-37) Alanine Aminotransferase (ALT/SGPT) 12 U/L (12-78) Alkaline Phosphatase 778 U/L (46-116) Total Protein 7.5 G/DL (6.4-8.2) Albumin 2.4 G/DL (3.4-5.0) Globulin 5.1 g/dL Albumin/Globulin Ratio 0.5 (1.0-2.7) Risk Assessment & Plan Assessment: ASA 4 Plan: GA Status Change Before Surgery: No Pre-Antibiotics Drug: Natalio Apple MD Jul 27, 2020 14:50
[2020-07-27 16:00] VITALS: BP 119/73
--- NOTE | 2020-07-27 19:29 | NUR ---
NURSE HAND-OFF: Important Events on Shift: Surgery tomorrow Patient Status: Stable Diet: Reg Pending Orders: N/A Pending Results/Labs: CBC, BMP on 07/28/20 Pending MD notification: N/A Latest Vital Signs: Temperature 97.3 , Pulse 100 , B/P 119 /73 , Respiratory Rate 18 , O2 SAT 97 , Room Air, O2 Flow Rate . Vital Sign Comment: Stable Latest Wade Fall Score: 80 Fall Risk: High Risk Safety Measures: Call light Within Reach, Bed Alarm Zone 1, Side Rails Side Rails x2, Bed position Low and Locked. Fall Precautions: Yellow Socks Door Sign Patient Fall Education Report given to Micheline DUMONT. Patient in stable condition.
--- NOTE | 2020-07-27 19:30 | NUR ---
NURSE NOTES: Received report from TIM Benitez. Patient is awake on bed, alert and oriented x 4. On regular diet, mechanical soft, chopped, NPO post midnight in preparation for his procedure tomorrow instructed and amenable. On room air, with no shortness of breath reported. With splint on left lower leg. SCD's on right lower leg. IV site is on right forearm g-20 saline lock that is patent and intact. Safety measures are in place, bed in lowest and locked position, side rails up x 2, call light button and bedside table within reach, instructed to call for any assistance needed. Will continue plan of care.
--- NOTE | 2020-07-27 19:51 | NUR ---
NURSE NOTES: Patient has due heparin 5,000 units tonight at [address] Pablo to verify this medication, awaiting for reply.
--- NOTE | 2020-07-27 19:53 | NUR ---
NURSE NOTES: Received an order from Dr. Pablo, will carry out.
[2020-07-27 20:00] VITALS: BP 119/73
[2020-07-27] MEDS: Miralax 17gm pkt ORAL SCH (20:56)
--- NOTE | 2020-07-27 20:59 | NUR ---
NURSE NOTES: Patient states that he had 4 episode of soft bowel movement, moderate in amount since this morning, refused due Miralax. Will observed for further BM episode.
--- NOTE | 2020-07-27 23:30 | NUR ---
NURSE NOTES: Patient is schedule for open reduction and internal fixation with lateral plate fixation of left lower leg tomorrow @ 1330. Instructed on NPO post midnight, amenable to instruction given.
[2020-07-28] VITALS (13 sets, daily range): BP systolic 100–137; BP diastolic 63–83
[2020-07-28] MEDS: HYDROmorphone 1mg/ml Carpuject IVP PRN ×3 (01:43→08:51)
[2020-07-28] MEDS: Heparin 5000 units/ml inj SUBQ SCH ×3 (05:55→22:44)
[2020-07-28] MEDS: MS Contin 15mg tab ORAL SCH ×3 (06:42→22:42)
[2020-07-28 07:06] LABS: HEMATOCRIT 25.3 % (42.0-52.0); HEMOGLOBIN 7.8 G/DL (14.2-18.0); MEAN CORPUSCULAR VOLUME 82 FL (80-99); PLATELET COUNT 168 K/UL (150-450); RED CELL DISTRIBUTION WIDTH 17.8 % (11.6-14.8); WHITE BLOOD COUNT 5.7 K/UL (4.8-10.8)
--- NOTE | 2020-07-28 07:20 | NUR ---
NURSE HAND-OFF: Important Events on Shift: Patient has been complaining of pain on left lower leg, dilaudid 1mg was given. Patient is for surgery today, on NPO post midnight. Patient Status: Patient is awake on bed, in stable condition. With no complaints made at this time. RN made aware of heparin was held since yesterday 2200 in preparation for the procedure today. Plan of care endorsed. Diet: Regular, mechanical soft chooped. NPO post midnight. Pending Orders: Surgery today Pending Results/Labs:BMP, CBC result Pending MD notification:none Latest Vital Signs: Temperature 98.2 , Pulse 89 , B/P 100 /68 , Respiratory Rate 20 , O2 SAT 100 , Room Air, O2 Flow Rate . Vital Sign Comment: Stable Latest Wade Fall Score: 80 Fall Risk: High Risk Safety Measures: Call light Within Reach, Bed Alarm Zone 1, Side Rails Side Rails x2, Bed position Low and Locked. Fall Precautions: Yellow Socks Yellow Gown Door Sign Patient Fall Education Report given to TIM Cunningham.
[2020-07-28 07:23] LABS: ANION GAP 9 mmol/L (5-15); BLOOD UREA NITROGEN 9 mg/dL (7-18); CALCIUM 8.2 MG/DL (8.5-10.1); CARBON DIOXIDE 25 MMOL/L (21-32); CHLORIDE 102 MMOL/L (98-107); CREATININE 0.7 MG/DL (0.55-1.30); POTASSIUM 3.9 MMOL/L (3.5-5.1); SODIUM 136 MMOL/L (136-145)
--- NOTE | 2020-07-28 07:52 | NUR ---
NURSE NOTES: Patient is in bed asleep. Stable. Breathing is even and unlabored. No visible signs of distress noted. Splint noted on left lower leg. Patient is in bed in locked and lowest position with call light within reach. All safety measures provided. Will continue to monitor.
--- NOTE | 2020-07-28 08:22 | General Progress Note ---
Subjective Constitutional: Denies: no symptoms, chills, diaphoresis, fever, malaise, weakness, other HEENT: Denies: no symptoms, eye pain, blurred vision, tearing, double vision, ear pain, ear discharge, nose pain, nose congestion, throat pain, throat swelling, mouth pain, mouth swelling, other Cardiovascular: Denies: no symptoms, chest pain, edema, irregular heart rate, lightheadedness, palpitations, syncope, other Respiratory: Denies: no symptoms, cough, orthopnea, shortness of breath, SOB with excertion, SOB at rest, sputum, stridor, wheezing, other Gastrointestinal/Abdominal: Denies: no symptoms, abdomen distended, abdominal pain, black stools, tarry stools, blood in stool, constipated, diarrhea, difficulty swallowing, nausea, poor appetite, poor fluid intake, rectal bleeding, vomiting, other Endocrine: Denies: no symptoms, excessive sweating, flushing, intolerance to cold, intolerance to heat, increased hunger, increased thirst, increased urine, unexplained weight gain, unexplained weight loss, other Allergies: Coded Allergies: No Known Allergies (Unverified , 01/16/18) Subjective 07/27 is for surgery friday left hip orif 07/28 scheduled for open reduction and internal fixation with lateral plate fixation of left lower leg today Objective Last 24 Hour Vital Signs Date Time Temp Pulse Resp B/P (MAP) Pulse Ox O2 Delivery O2 Flow Rate FiO2 07/28/20 04:00 98.2 89 20 100/68 (79) 100 07/28/20 00:00 97.5 89 20 114/73 (87) 100 07/27/20 21:00 Room Air 07/27/20 20:55 105 109/74 07/27/20 20:00 97.9 105 20 119/73 (88) 100 07/27/20 16:00 97.3 100 18 119/73 (88) 97 07/27/20 12:00 97.9 95 18 113/73 (86) 98 07/27/20 09:00 Room Air 07/27/20 08:29 92 110/71 Intake and Output 07/27/20 07/28/20 19:00 07:00 Intake Total 800 ml 500 ml Output Total 860 ml Balance 800 ml -360 ml Intake Oral 800 ml 500 ml Output Urine Total 860 ml # Voids 3 # Bowel Movements 4 Laboratory Tests 07/28/20 05:15: White Blood Count 5.7, Red Blood Count 3.10L, Hemoglobin 7.8L, Hematocrit 25.3L, Mean Corpuscular Volume 82, Mean Corpuscular Hemoglobin 25.1L, Mean Corpuscular Hemoglobin Concent 30.7L, Red Cell Distribution Width 17.8H, Platelet Count 168, Mean Platelet Volume 6.4L, Neutrophils (%) (Auto) , Lymphocytes (%) (Auto) , Monocytes (%) (Auto) , Eosinophils (%) (Auto) , Basophils (%) (Auto) , Sodium Level 136, Potassium Level 3.9, Chloride Level 102, Carbon Dioxide Level 25, Anion Gap 9, Blood Urea Nitrogen 9, Creatinine 0.7, Estimat Glomerular Filtration Rate > 60, Glucose Level 88, Calcium Level 8.2L Height (Feet): 6 Height (Inches): 0.00 Weight (Pounds): 168 Objective Gen nad Pulm ctab CV rrr Abd soft nt nd Ext Left leg in gauze padding Assessment/Plan Assessment/Plan: 1 fracture of leg 2 malnutrition 3 dehydation 4 htn for ortho surgery cont ccurrent tx dvt prophylasix cardio clearence Zack Castro MD Jul 28, 2020 08:22
[2020-07-28] MEDS: DUREZOL EYE BOTH EYES SCH (08:48)
[2020-07-28] MEDS: DOLUTEGRAVIR SODIUM 50 MG ORAL SCH (08:48)
[2020-07-28] MEDS: Docusate 100mg cap ORAL SCH ×2 (08:49→17:28)
[2020-07-28] MEDS: DESCOVY ORAL SCH (08:49)
[2020-07-28] MEDS: BuPROPion XL 150mg tab ORAL SCH (08:49)
[2020-07-28] MEDS: VALCYTE ORAL SCH ×2 (08:49→20:28)
[2020-07-28] MEDS: Metoprolol Tartrate 50mg tab ORAL SCH ×2 (08:50→20:28)
--- NOTE | 2020-07-28 09:00 | NUR ---
NURSE NOTES: Spoke to Patient regarding meningitis vaccine. Per patient: don't want it right now but may be before go home. Will follow up as needed.
--- NOTE | 2020-07-28 11:23 | General Progress Note ---
Subjective Date patient seen: Jul 28, 2020 Time patient seen: 10:15 - am Allergies: Coded Allergies: No Known Allergies (Unverified , 01/16/18) Subjective REVIEW OF SYSTEMS: Denies rash, fever, chills, sweating, dizziness, drowsiness, blurred vision, sore throat, or change in weight. No shortness of breath or chest pain. No nausea, vomiting, diarrhea, or blood in the stool or urine. No dysuria. HISTORY OF PRESENT ILLNESS: This is a 55-year-old male, who is being seen on the Med/Surg floor of [facility]. Patient is doing well, pain has been stable on the Morphine ER as scheduled and Dilaudid 6 doses in the last 24hrs. Surgery is scheduled for today. Objective Last 24 Hour Vital Signs Date Time Temp Pulse Resp B/P (MAP) Pulse Ox O2 Delivery O2 Flow Rate FiO2 07/28/20 08:50 100 116/72 07/28/20 04:00 98.2 89 20 100/68 (79) 100 07/28/20 00:00 97.5 89 20 114/73 (87) 100 07/27/20 21:00 Room Air 07/27/20 20:55 105 109/74 07/27/20 20:00 97.9 105 20 119/73 (88) 100 07/27/20 16:00 97.3 100 18 119/73 (88) 97 07/27/20 12:00 97.9 95 18 113/73 (86) 98 Intake and Output 07/27/20 07/28/20 19:00 07:00 Intake Total 800 ml 500 ml Output Total 860 ml Balance 800 ml -360 ml Intake Oral 800 ml 500 ml Output Urine Total 860 ml # Voids 3 # Bowel Movements 4 Laboratory Tests 07/28/20 05:15: White Blood Count 5.7, Red Blood Count 3.10L, Hemoglobin 7.8L, Hematocrit 25.3L, Mean Corpuscular Volume 82, Mean Corpuscular Hemoglobin 25.1L, Mean Corpuscular Hemoglobin Concent 30.7L, Red Cell Distribution Width 17.8H, Platelet Count 168, Mean Platelet Volume 6.4L, Neutrophils (%) (Auto) , Lymphocytes (%) (Auto) , Monocytes (%) (Auto) , Eosinophils (%) (Auto) , Basophils (%) (Auto) , Sodium Level 136, Potassium Level 3.9, Chloride Level 102, Carbon Dioxide Level 25, Anion Gap 9, Blood Urea Nitrogen 9, Creatinine 0.7, Estimat Glomerular Filtration Rate > 60, Glucose Level 88, Calcium Level 8.2L Height (Feet): 6 Height (Inches): 0.00 Weight (Pounds): 168 Objective PHYSICAL EXAMINATION: LUNGS: Decreased breath sounds bilaterally. HEART: S1 and S2 regular. ABDOMEN: Soft, nontender. EXTREMITIES: Left lower extremity is in a splint. NEURO: No changes. Assessment/Plan Assessment/Plan: (1) Left tibial pathological fracture (2) Left LE pain (3) Metastatic prostate cancer Patient to be continued on Morphine ER, Dilaudid and Percocet. D/w Dr. Cristina and he concurred Ervin Duval Jul 28, 2020 11:23
[2020-07-28] MEDS ORDERED: Rate Change PCA 1 Each MISC PRN ×2 (11:30→17:00)
[2020-07-28] MEDS ORDERED: PCA Education Pamphlet MISC ONE (11:30)
[2020-07-28] MEDS ORDERED: Naloxone 0.4mg/ml Inj IVP PRN ×2 (11:30→17:00)
--- NOTE | 2020-07-28 12:30 | NUR ---
NURSE NOTES: Patient taken to surgery. All belongings left in room.
[2020-07-28] MEDS ORDERED: Bupivacaine 0.25% Inj 30ml INJ ONE (12:40)
[2020-07-28] MEDS ORDERED: EPINEPHrine 1mg/1ml Amp ONE (12:40)
[2020-07-28] MEDS ORDERED: Bacitracin 50000 Units Vial ONE (12:40)
[2020-07-28] MEDS ORDERED: NeoSporin Gu Irrig 1ml Amp IRRIG ONE (12:41)
[2020-07-28] MEDS ORDERED: Rocuronium Bromide 50mg/5ml Inj IV ONE (12:52)
[2020-07-28] MEDS ORDERED: NS Irrig 1000ml ONE (13:00)
[2020-07-28] MEDS ORDERED: Phenylephrine 10mg/ml Vial ONE (13:00)
[2020-07-28] MEDS ORDERED: Sterile Water Irrig 1000ml IRRIG ONE (13:00)
[2020-07-28] MEDS ORDERED: Midazolam 2mg/2ml Inj ONE (13:02)
[2020-07-28] MEDS ORDERED: fentaNYL 100 mcg/2 mL IV ONE (13:02)
[2020-07-28] MEDS ORDERED: NS Irrig 2000ml IRRIG ONE ×2 (13:15→13:42)
[2020-07-28] MEDS ORDERED: PCA HYDROmorphone 1mg/ml 30 ML IV PRN ×3 (13:30→19:45)
[2020-07-28] MEDS ORDERED: Metoclopramide 10mg/2ml Inj ONE (13:41)
[2020-07-28] MEDS ORDERED: Lidocaine 1% MPF 10mg/ml 5ml ONE (13:41)
[2020-07-28] MEDS ORDERED: Ropivacaine 5mg/ml Vial 20ml INJ ONE (14:44)
[2020-07-28] MEDS ORDERED: Hydrogen Peroxide 473ml Bottle TOPIC ONE (14:44)
[2020-07-28] MEDS ORDERED: Lidocaine 1% Plain 30 ml INJ ONE (14:44)
[2020-07-28] MEDS ORDERED: Neostigmine 1mg/ml 10ml Inj ONE (14:51)
[2020-07-28] MEDS ORDERED: Glycopyrrolate 0.2mg/ml 1ml Vial ONE (14:51)
--- NOTE | 2020-07-28 15:04 | NUR ---
DISCHARGE PLANNING: NOTE PATIENT IS IN SERVICE WITH [facility] T: [phone] F: [phone]
--- NOTE | 2020-07-28 15:06 | NUR ---
CASE MANAGEMENT: REVIEW 07/28/2020 SI:PATH FRACTURE IN NEOPLASTIC DX VS: T 96.5 HR 89 RR 20 B/P 108/68 SATS 99% ON RA LABS: HGB 7.8 HCT 25.3 CA 8.2 IS:LOPRESSOR PO Q12H WELLBUTRIN PO QD MS CONTIN PO Q8H GRAIN ELEVATOR SUPERINTENDENT PER SHIFT VOLUME GABAPENTIN PO TID MED/SURG DCP: HOME W/ HOME HEALTH PLAN OF CARE: Surgical Procedure: ORIF L Tibia
--- NOTE | 2020-07-28 15:26 | Immediate Post-Op Evaluation ---
Immediate Post-Op Evalulation Immediate Post-Op Evalulation Procedure: ORIF left femoral Date of Evaluation: Jul 28, 2020 Time of Evaluation: 15:25 IV Fluids: 1000 Blood Products: 1 Estimated Blood Loss: 100 Blood Pressure Systolic: 118 Blood Pressure Diastolic: 78 Pulse Rate: 76 Respiratory Rate: 14 O2 Sat by Pulse Oximetry: 100 Temperature (Fahrenheit): 97.5 Nausea: No Vomiting: No Complications none Patient Status: awake, reacts, patent Hydration Status: adequate Drug: ancef Given Within 1 Hr of Incision: Yes Time Given: 13:15 Christelle Edouard CRNA Jul 28, 2020 15:26
[2020-07-28] MEDS ORDERED: DiphenhydrAMINE 50mg/ml Inj IVP PRN (15:30)
[2020-07-28] MEDS ORDERED: Hydromorphone 0.5mg/0.5ml inj IVP PRN (15:30)
[2020-07-28] MEDS ORDERED: fentaNYL 100 mcg/2 mL IV PRN (15:30)
--- NOTE | 2020-07-28 15:36 | 48 Hour Post Anesthesia Eval ---
Post Anesthesia Evaluation Procedure: ORIF left femoral Date of Evaluation: Jul 28, 2020 Time of Evaluation: 17:41 Blood Pressure Systolic: 127 0: 79 Pulse Rate: 88 Respiratory Rate: 16 Temperature (Fahrenheit): 98 O2 Sat by Pulse Oximetry: 100 Airway: patent Nausea: No Vomiting: No Pain Intensity: 2 Hydration Status: adequate Cardiopulmonary Status: Stable Mental Status/LOC: patient returned to baseline Follow-up Care/Observations: 0 Post-Anesthesia Complications: 0 Follow-up care needed: N/A Natalio Ferrara MD Jul 28, 2020 15:36
--- NOTE | 2020-07-28 16:30 | NUR ---
NURSE NOTES: Patient arrived on unit. Stable. Breathing is even and unlabored on 3L oxygen via nc. No signs of distress noted at this time. Patient is oriented to room, call light and unit. Facial grimacing noted. Patient c/o pain and GREENSKEEPER LABORER instructions were given. Patient given GREENSKEEPER LABORER pamphlet. Surgical dressing c/d/i. Immobilizer and ice pack in place. All safety measures provided. Patient is in bed in locked and lowest position with call light within reach. All needs met at this time. Will continue to monitor.
--- NOTE | 2020-07-28 16:40 | Diagnostic Imaging Report ---
INDICATION: Pain, intraoperative TECHNIQUE: Intraoperative imaging Fluoroscopy time: 67.9 seconds Total dose: [id number] mGym2 Total number of images: 4 COMPARISON: None FINDINGS: Intraoperative images document surgical repair of proximal tibial fracture using side plate and screws. IMPRESSION: Intraoperative imaging, as described
--- NOTE | 2020-07-28 17:00 | Cardiology Progress Note ---
Assessment/Plan Assessment/Plan 1. Left tibial facture, s/p left tibial ORIF, POD #0, no immediate cardiac events. 2. Metastatic prostate cancer stage IV, 3. History of CVA, consider ASA and statins. 4. HIV disease. 5. History of neuropathy. 6. History of psychiatric disorder. Subjective Subjective No cardiac event reported. Objective Last 24 Hour Vital Signs Date Time Temp Pulse Resp B/P (MAP) Pulse Ox O2 Delivery O2 Flow Rate FiO2 07/28/20 15:36 88 16 100 07/28/20 15:26 76 14 100 07/28/20 15:10 97.9 69 14 115/73 100 Simple Mask 6 07/28/20 12:00 96.5 89 20 108/68 (81) 99 07/28/20 09:00 Room Air 07/28/20 08:50 100 116/72 07/28/20 08:00 97.5 100 20 116/72 (87) 99 07/28/20 04:00 98.2 89 20 100/68 (79) 100 07/28/20 00:00 97.5 89 20 114/73 (87) 100 07/27/20 21:00 Room Air 07/27/20 20:55 105 109/74 07/27/20 20:00 97.9 105 20 119/73 (88) 100 Intake and Output 07/27/20 07/28/20 19:00 07:00 Intake Total 800 ml 500 ml Output Total 860 ml Balance 800 ml -360 ml Intake Oral 800 ml 500 ml Output Urine Total 860 ml # Voids 3 # Bowel Movements 4 Laboratory Tests Test 07/28/20 05:15 White Blood Count 5.7 K/UL (4.8-10.8) Red Blood Count 3.10 M/UL (4.70-6.10) L Hemoglobin 7.8 G/DL (14.2-18.0) L Hematocrit 25.3 % (42.0-52.0) L Mean Corpuscular Volume 82 FL (80-99) Mean Corpuscular Hemoglobin 25.1 PG (27.0-31.0) L Mean Corpuscular Hemoglobin Concent 30.7 G/DL (32.0-36.0) L Red Cell Distribution Width 17.8 % (11.6-14.8) H Platelet Count 168 K/UL (150-450) Mean Platelet Volume 6.4 FL (6.5-10.1) L Neutrophils (%) (Auto) % (45.0-75.0) Lymphocytes (%) (Auto) % (20.0-45.0) Monocytes (%) (Auto) % (1.0-10.0) Eosinophils (%) (Auto) % (0.0-3.0) Basophils (%) (Auto) % (0.0-2.0) Sodium Level 136 MMOL/L (136-145) Potassium Level 3.9 MMOL/L (3.5-5.1) Chloride Level 102 MMOL/L (98-107) Carbon Dioxide Level 25 MMOL/L (21-32) Anion Gap 9 mmol/L (5-15) Blood Urea Nitrogen 9 mg/dL (7-18) Creatinine 0.7 MG/DL (0.55-1.30) Estimat Glomerular Filtration Rate > 60 mL/min (>60) Glucose Level 88 MG/DL (74-106) Calcium Level 8.2 MG/DL (8.5-10.1) L Objective HEENT: Atraumatic and normocephalic. Anicteric. Pupils are equal, round, and reactive to light and accommodation. Extraocular muscles intact. NECK: JVP less than 5 cm. No carotid bruit. Carotid upstrokes 2+ bilaterally. CARDIOVASCULAR: Normal S1 and S2. Regular rate and rhythm. No murmurs, gallops, or rubs. PMI is at fourth intercostal space in the midclavicular line. LUNGS: Clear to auscultation bilaterally. ABDOMEN: Soft, nontender, nondistended. No hepatosplenomegaly. Positive bowel sounds. EXTREMITIES: Left lower extremity, swelling of left tibia about 2+. Right lower extremity within the cast. Hector Wiggins MD Jul 28, 2020 17:00
--- NOTE | 2020-07-28 17:57 | NUR ---
NURSE NOTES: Patient tolerated clear liquid diet. no c/o abdominal pain or n/v. Will advance diet as tolerated.
[2020-07-28] MEDS ORDERED: PCA shift volume MISC SCH (19:00)
[2020-07-28] MEDS: PCA shift volume MISC SCH (19:09)
--- NOTE | 2020-07-28 19:17 | NUR ---
NURSE HAND-OFF: Important Events on Shift: s/p surgery, pain management, CASH PROCESSING SPECIALIST teaching Patient Status: stable Diet: regular soft easy chew Pending Orders: n/a Pending Results/Labs:n/a Pending MD notification:n/a Latest Vital Signs: Temperature 98.0 , Pulse 91 , B/P 132 /80 , Respiratory Rate 18 , O2 SAT 100 , Nasal Cannula, O2 Flow Rate 3 . Vital Sign Comment: n/a Latest Wade Fall Score: 80 Fall Risk: High Risk Safety Measures: Call light Within Reach, Side Rails x2, Bed position Low and Locked. Fall Precautions: Yellow Socks Yellow Gown Door Sign Patient Fall Education Report given to Junior DUMONT.
--- NOTE | 2020-07-28 19:20 | NUR ---
NURSE NOTES: received pt and report from TIM Gaytan. patient alert and oriented x 4 but sleepy and in no acute distress. patient claims pain, will give meds when due. SPECIAL CRIMES INVESTIGATOR noted and running. patients surgical dressing on left leg noted clean dry and intact. patient says there is pain but no tingling or burning sensation. Plan of care discussed.
--- NOTE | 2020-07-28 19:34 | NUR ---
NURSE NOTES: patient still complaining of 9/10 pain on left leg, increased OFFSET PLATEMAKER bolus dose by 0.1mg as ordered. Will reassess and continue to monitor patients pain level.
[2020-07-28] MEDS: Miralax 17gm pkt ORAL SCH (20:28)
--- NOTE | 2020-07-28 21:00 | Operative Note - Dictated ---
DATE OF OPERATION: 07/28/2020 PREOPERATIVE DIAGNOSES: 1. Left Schatzker tibial plateau fracture involving the medial and lateral tibial plateau. 2. Osteoporosis. POSTOPERATIVE DIAGNOSES: 1. Left Schatzker tibial plateau fracture involving the medial and lateral tibial plateau. 2. Osteoporosis. PROCEDURES: Open reduction and internal fixation bi colounar tibial plateau fracture with plate and screw fixation. SURGEON: Vel Pablo MD ANESTHESIA: General with femoral adductor block. INDICATION FOR PROCEDURE: The patient is a pleasant 55-year-old gentleman who has been diagnosed with minimally displaced Schatzker tibial plateau fracture, indicative of operative fixation with open reduction internal fixation. Risks, limitations, expectations, and complications of the procedure discussed in detail. All questions addressed. DESCRIPTION OF PROCEDURE: After informed consent was obtained, the patient was brought to the operating room. The patient was placed under general anesthesia. Left leg was prepped and draped in a sterile manner. Time-out was performed. A lateral skin incision was made along the lateral tibial plateau. The subcutaneous tissue was dissected down to the fascia marialuisa. The fascia marialuisa was incised and the tibialis anterior tendon was reflected off the anterior lateral compartment. At this point, the fracture site along the lateral tibial plateau was well visualized. Given estimated displacement, minimal reduction of the fragments was required. At this point, periosteal elevator from the anterior and lateral aspect of the tibia, an 8-hole plate was then selected and placed. Two K-wires were placed proximally and distally and correct position was confirmed on AP and lateral imaging. Cortical screws were placed in the shaft. The patient was osteopenia, therefore there was only so much compression we could obtain. Once that was done, the cortical screws were placed proximally. Once this was done, AP and lateral imaging showed good overall reduction of the fracture fragment. Good placement of hardware. Wound was copiously irrigated. IT band was closed using #1 Vicryl suture, subcutaneous tissue closed using 2-0 Vicryl suture, and 3-0 Monocryl was used to close the skin. ESTIMATED BLOOD LOSS: 25 mL. COMPLICATIONS: None. SPECIMENS: None. IMPLANTS: [place] proximal tibial plate with multiple cortical screws. Vel Pablo M.D. DR: Jewel JOB#: [id number] CC: WEN
--- NOTE | 2020-07-28 22:13 | NUR ---
NURSE NOTES: pt continues to experience severe pain on left leg but upon assessment, patient respiratory rate was 10. GENETIC COUNSELLOR bolus dose decreased to 0.2mg. Patient o2 sat on 3 liters is 100% and CO2 level at 34. patient denies sob or difficulty breathing. patient wanted dose increase but i educated the patient on harmful effects of respiratory depression if more pain medication is administered. advised patient to dry distraction techniques such as watch TV. ice placed on pts knee.
[2020-07-29] VITALS: BP 128/78
--- NOTE | 2020-07-29 00:25 | NUR ---
NURSE NOTES: patients vital signs stable. patient still complaining of pain. I reminded patient that the button can be pressed q6min for bolus delivery. new ice pack placed on patients knee to help with pain. respiratory rate returned to 12 breaths per min. Will continue to follow up on patients pain level.
--- NOTE | 2020-07-29 02:15 | NUR ---
NURSE NOTES: patient currently asleep. will reassess pain level at 0400 vitals. pt in no acute distress at this time.
[2020-07-29 04:00] VITALS: BP 127/75
--- NOTE | 2020-07-29 04:26 | NUR ---
NURSE NOTES: pts vital signs stable. demand dosage administered from CONTRACT SERVICEMAN in past 4 hours was 4.2 which was the most in 4 hours for this shift. patient did not complain of pain at this moment. respiratory rate at 11-12 breaths per minute. patient satting at 100% on 2 liters, with CO2 of 35. patient in no acute distress. patient was uncomfortable when pulses in the left foot were plapated. Dorsalis pedis pulse felt throught the DES hose stocking but faint. pt denies any burning or numbness or pins and kneedles feeling in the left leg. patient was asked to wiggle toes and he accomplished task without difficulty.
[2020-07-29] MEDS: HYDROmorphone 1mg/ml Carpuject IVP PRN ×4 (05:35→20:42)
[2020-07-29] MEDS: Heparin 5000 units/ml inj SUBQ SCH ×3 (05:35→22:00)
--- NOTE | 2020-07-29 05:45 | NUR ---
NURSE NOTES: patient awake and complaining of severe pain. respiratory rate has been consistent at about 12 breaths per minute. Dilaudid PRN given and pt with almost immediate relief from pain. I/S teaching reinforced and patient tolerating it well. patient now sleeping and in no acute distress.
[2020-07-29] MEDS: MS Contin 15mg tab ORAL SCH ×3 (06:54→23:07)
--- NOTE | 2020-07-29 07:07 | NUR ---
NURSE NOTES: spoke with doctor Valerie Greenwood, who said she works under Dr. Castro. asked about issues. I reported on the increased MACHINE ADJUSTER LEADER bolus change and the need to drop the dose back down because of decreased respiratory rate. I also told her of the patients concern that the medication regimen wasnt working but that i was hesitant to give PRN pain meds because of the respiratory rate.
[2020-07-29] MEDS: PCA shift volume MISC SCH ×2 (07:27→19:00)
--- NOTE | 2020-07-29 07:30 | NUR ---
NURSE NOTES: Handoff received from Junior RN. Patient is asleep, no signs of distress noted, breathing is even and unlabored on 2L nasal cannula with etC02 monitor. Patient is on CHIEF OF STAFF, settings verified against order. Left leg andreas hose and immobilizer noted, dressing is dry and intact. Bed is low and locked, side rails up x2, call light is within reach.
--- NOTE | 2020-07-29 07:36 | NUR ---
NURSE HAND-OFF: Important Events on Shift: pain management, PROTECTIVE SERVICE SPECIALIST titration, monitor neurovascular status of left leg, PROTECTIVE SERVICE SPECIALIST bolus dose increased once during shift but returned to ordered dose because of low respiratory rate. Pts respiratory rate now normal Patient Status: stable but in pain Diet: regular Pending Orders: NA Pending Results/Labs:NA Pending MD notification:NA Latest Vital Signs: Temperature 97.9 , Pulse 84 , B/P 127 /75 , Respiratory Rate 11 , O2 SAT 100 , Nasal Cannula, O2 Flow Rate 2.0 . Vital Sign Comment: stable througout shift Latest Wade Fall Score: 80 Fall Risk: High Risk Safety Measures: Call light Within Reach, Bed Alarm Zone 1, Side Rails Side Rails x2, Bed position Low and Locked. Fall Precautions: Yellow Socks Yellow Gown Door Sign Patient Fall Education Report given to TIM Anne.
[2020-07-29 07:55] LABS: BASOPHILS % (AUTO) 0.9 % (0.0-2.0); EOSINOPHILS % (AUTO) 0.8 % (0.0-3.0); HEMATOCRIT 27.1 % (42.0-52.0); HEMOGLOBIN 8.8 G/DL (14.2-18.0); LYMPHOCYTES % (AUTO) 22.4 % (20.0-45.0); MEAN CORPUSCULAR VOLUME 80 FL (80-99); MONOCYTES % (AUTO) 7.4 % (1.0-10.0); NEUTROPHILS % (AUTO) 68.5 % (45.0-75.0); PLATELET COUNT 144 K/UL (150-450); RED CELL DISTRIBUTION WIDTH 15.8 % (11.6-14.8); WHITE BLOOD COUNT 5.2 K/UL (4.8-10.8)
[2020-07-29 08:00] VITALS: BP 126/75
[2020-07-29 08:07] LABS: ANION GAP 6 mmol/L (5-15); BLOOD UREA NITROGEN 6 mg/dL (7-18); CARBON DIOXIDE 26 MMOL/L (21-32); CHLORIDE 104 MMOL/L (98-107); CREATININE 0.7 MG/DL (0.55-1.30); POTASSIUM 3.7 MMOL/L (3.5-5.1); SODIUM 136 MMOL/L (136-145)
[2020-07-29] MEDS: BuPROPion XL 150mg tab ORAL SCH (08:50)
[2020-07-29] MEDS: Docusate 100mg cap ORAL SCH ×2 (08:51→17:19)
[2020-07-29] MEDS: Metoprolol Tartrate 50mg tab ORAL SCH ×2 (08:51→20:33)
[2020-07-29] MEDS: DUREZOL EYE BOTH EYES SCH (08:51)
--- NOTE | 2020-07-29 08:53 | General Progress Note ---
Subjective Allergies: Coded Allergies: No Known Allergies (Unverified , 01/16/18) Subjective Subjective: 07/27 is for surgery friday left hip orif 07/28 scheduled for open reduction and internal fixation with lateral plate fixation of left lower leg today 07/29: pt is resting is sleepy. Objective Last 24 Hour Vital Signs Date Time Temp Pulse Resp B/P (MAP) Pulse Ox O2 Delivery O2 Flow Rate FiO2 07/29/20 04:00 84 11 100 07/29/20 04:00 97.9 84 11 127/75 (92) 100 07/29/20 00:00 98.7 89 11 128/78 (95) 100 07/29/20 00:00 89 11 100 07/28/20 20:28 92 113/70 07/28/20 20:00 92 14 98 07/28/20 20:00 98.2 92 14 113/70 (84) 98 07/28/20 19:49 Nasal Cannula 2.0 07/28/20 17:00 98.0 91 18 132/80 (97) 100 07/28/20 16:30 98.0 88 18 137/83 (101) 100 07/28/20 16:15 97.9 85 18 134/79 100 Nasal Cannula 3 07/28/20 16:00 83 20 129/77 100 Nasal Cannula 3 07/28/20 15:45 88 15 120/64 100 Nasal Cannula 3 07/28/20 15:36 88 16 100 07/28/20 15:30 91 16 117/63 100 Nasal Cannula 3 07/28/20 15:26 76 14 100 07/28/20 15:20 94 20 112/65 100 Simple Mask 6 07/28/20 15:10 97.9 69 14 115/73 100 Simple Mask 6 07/28/20 12:00 96.5 89 20 108/68 (81) 99 07/28/20 09:00 Room Air Intake and Output 07/28/20 07/29/20 19:00 07:00 Intake Total 300 ml 300 ml Output Total 350 ml Balance 300 ml -50 ml Intake Oral 300 ml IV Total 100 ml Blood Product 200 ml Output Urine Total 350 ml # Voids 2 Laboratory Tests 07/29/20 07:45: White Blood Count 5.2, Red Blood Count 3.40L, Hemoglobin 8.8L, Hematocrit 27.1L, Mean Corpuscular Volume 80, Mean Corpuscular Hemoglobin 25.9L, Mean Corpuscular Hemoglobin Concent 32.4, Red Cell Distribution Width 15.8H, Platelet Count 144L, Mean Platelet Volume 5.4L, Neutrophils (%) (Auto) 68.5, Lymphocytes (%) (Auto) 22.4, Monocytes (%) (Auto) 7.4, Eosinophils (%) (Auto) 0.8, Basophils (%) (Auto) 0.9, Sodium Level 136, Potassium Level 3.7, Chloride Level 104, Carbon Dioxide Level 26, Anion Gap 6, Blood Urea Nitrogen 6L, Creatinine 0.7, Estimat Glomerular Filtration Rate > 60, Glucose Level 118H, Calcium Level 8.0L Height (Feet): 6 Height (Inches): 0.00 Weight (Pounds): 164 Objective Objective Gen nad Pulm ctab CV rrr Abd soft nt nd Ext Left leg in gauze padding Assessment/Plan Assessment/Plan: Assessment/Plan: # fracture of leg --> S/p Left Schatzker tibial plateau fracture involving the medial and lateral tibial plateau. --> s/p 07/28:ORIF w plate and screw fixation. #. Anemia of chronic disease --> Hgb 8.8 cont to monitor. post op labs --> transfuse as needed. --> anemia work up ordered #. Osteoporosis. # malnutrition # dehydation --> IVF # htn --> controlled cont ccurrent tx #. dvt prophylaxis Verónica Yin NP Jul 29, 2020 08:53
[2020-07-29] MEDS: VALCYTE ORAL SCH ×2 (08:58→20:34)
[2020-07-29] MEDS: DESCOVY ORAL SCH (08:58)
[2020-07-29] MEDS: DOLUTEGRAVIR SODIUM 50 MG ORAL SCH (08:58)
[2020-07-29 09:30] LABS: % IRON SATURATION 42 % (15-50); IRON 60 ug/dL (50-175); TOTAL IRON BINDING CAPACITY 142 ug/dL (250-450)
[2020-07-29 10:21] LABS: FERRITIN > 2000 NG/ML (8-388)
[2020-07-29 12:00] VITALS: BP 131/77
--- NOTE | 2020-07-29 15:19 | NUR ---
NURSE NOTES: MS contin held because patient is asleep, FLACC score is 0.
[2020-07-29 16:00] VITALS: BP 120/71
[2020-07-29] MEDS ORDERED: NS 500ML ONE (17:27)
--- NOTE | 2020-07-29 19:15 | NUR ---
NURSE HAND-OFF: Important Events on Shift:[none] Patient Status: stable Diet: reg soft Pending Orders: Pending Results/Labs: Pending MD notification: Latest Vital Signs: Temperature 98.6 , Pulse 83 , B/P 120 /71 , Respiratory Rate 16 , O2 SAT 100 , Nasal Cannula, O2 Flow Rate 2.0 . Vital Sign Comment: Latest Wade Fall Score: 80 Fall Risk: High Risk Safety Measures: Call light Within Reach, Bed Alarm Zone 1, Side Rails Side Rails x2, Bed position Low and Locked. Fall Precautions: Yellow Socks Yellow Gown Door Sign Patient Fall Education Report given to Joanne DUMONT.
[2020-07-29 20:00] VITALS: BP 123/74
--- NOTE | 2020-07-29 20:06 | NUR ---
NURSES NOTE: Pt in bed, A/OX4, denies pain currently. Breathing pattern is even and unlabored on RA. No outward s/s of distress noted. Dressing L leg is intact, clean and dry. Immobilizer on. IV site, R Hand, is patent infusing IVF without incident. TEACHING DIETITIAN pump, Dilaudid in place. Effective. All due medications will be administered. Bed at lowest level. Call light within reach. Pt will continue to be monitored.
[2020-07-29] MEDS: Miralax 17gm pkt ORAL SCH (20:34)
[2020-07-30] VITALS: BP 130/76
[2020-07-30 04:00] VITALS: BP 122/69
[2020-07-30] MEDS: PCA HYDROmorphone 1mg/ml 30 ML IV PRN (05:25)
[2020-07-30] MEDS: Heparin 5000 units/ml inj SUBQ SCH ×3 (06:40→21:01)
[2020-07-30] MEDS: MS Contin 15mg tab ORAL SCH ×4 (06:41→22:45)
[2020-07-30] MEDS: PCA shift volume MISC SCH ×2 (07:00→19:29)
--- NOTE | 2020-07-30 07:09 | General Progress Note ---
Subjective HEENT: Denies: no symptoms, eye pain, blurred vision, tearing, double vision, ear pain, ear discharge, nose pain, nose congestion, throat pain, throat swelling, mouth pain, mouth swelling, other Cardiovascular: Denies: no symptoms, chest pain, edema, irregular heart rate, lightheadedness, palpitations, syncope, other Respiratory: Denies: no symptoms, cough, orthopnea, shortness of breath, SOB with excertion, SOB at rest, sputum, stridor, wheezing, other Gastrointestinal/Abdominal: Denies: no symptoms, abdomen distended, abdominal pain, black stools, tarry stools, blood in stool, constipated, diarrhea, difficulty swallowing, nausea, poor appetite, poor fluid intake, rectal bleeding, vomiting, other Genitourinary: Denies: no symptoms, burning, discharge, frequency, flank pain, hematuria, incontinence, pain, urgency, other Neurologic/Psychiatric: Denies: no symptoms, anxiety, depressed, emotional problems, headache, numbness, paresthesia, pre-existing deficit, seizure, tingling, tremors, weakness, other Endocrine: Denies: no symptoms, excessive sweating, flushing, intolerance to cold, intolerance to heat, increased hunger, increased thirst, increased urine, unexplained weight gain, unexplained weight loss, other Allergies: Coded Allergies: No Known Allergies (Unverified , 01/16/18) Subjective 07/27 is for surgery friday left hip orif 07/28 scheduled for open reduction and internal fixation with lateral plate fixation of left lower leg today 07/29: pt is resting is sleepy. 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 baggage handler Objective Last 24 Hour Vital Signs Date Time Temp Pulse Resp B/P (MAP) Pulse Ox O2 Delivery O2 Flow Rate FiO2 07/30/20 04:00 99.2 90 19 122/69 (86) 97 07/30/20 00:00 99.3 88 17 130/76 (94) 98 07/29/20 21:00 Room Air 07/29/20 20:33 95 123/74 07/29/20 20:00 98.8 95 16 123/74 (90) 98 07/29/20 19:58 98 Room Air 21 07/29/20 17:50 98.6 07/29/20 16:00 98.6 83 16 120/71 (87) 100 07/29/20 12:15 98.2 07/29/20 12:03 97 Room Air 21 07/29/20 12:00 98.2 82 16 131/77 (95) 99 07/29/20 09:00 Nasal Cannula 2.0 07/29/20 08:51 87 126/75 07/29/20 08:00 98.8 87 16 126/75 (92) 100 Intake and Output 07/29/20 07/30/20 19:00 07:00 Intake Total 300 ml 120 ml Output Total 550 ml 400 ml Balance -250 ml -280 ml Intake Oral 300 ml 120 ml Output Urine Total 550 ml 400 ml # Voids 3 2 Laboratory Tests 07/29/20 07:45: White Blood Count 5.2, Red Blood Count 3.40L, Hemoglobin 8.8L, Hematocrit 27.1L, Mean Corpuscular Volume 80, Mean Corpuscular Hemoglobin 25.9L, Mean Corpuscular Hemoglobin Concent 32.4, Red Cell Distribution Width 15.8H, Platelet Count 144L, Mean Platelet Volume 5.4L, Neutrophils (%) (Auto) 68.5, Lymphocytes (%) (Auto) 22.4, Monocytes (%) (Auto) 7.4, Eosinophils (%) (Auto) 0.8, Basophils (%) (Auto) 0.9, Sodium Level 136, Potassium Level 3.7, Chloride Level 104, Carbon Dioxide Level 26, Anion Gap 6, Blood Urea Nitrogen 6L, Creatinine 0.7, Estimat Glomerular Filtration Rate > 60, Glucose Level 118H, Calcium Level 8.0L, Iron Level 60, Total Iron Binding Capacity 142L, Percent Iron Saturation 42, Unsaturated Iron Binding 82L, Ferritin > 2000H 07/30/20 05:30: White Blood Count [Pending], Red Blood Count [Pending], Hemoglobin [Pending], Hematocrit [Pending], Mean Corpuscular Volume [Pending], Mean Corpuscular Hemoglobin [Pending], Mean Corpuscular Hemoglobin Concent [Pending], Red Cell Distribution Width [Pending], Platelet Count [Pending], Mean Platelet Volume [Pending], Neutrophils (%) (Auto) [Pending], Lymphocytes (%) (Auto) [Pending], Monocytes (%) (Auto) [Pending], Eosinophils (%) (Auto) [Pending], Basophils (%) (Auto) [Pending], Sodium Level [Pending], Potassium Level [Pending], Chloride Level [Pending], Carbon Dioxide Level [Pending], Blood Urea Nitrogen [Pending], Creatinine [Pending], Estimat Glomerular Filtration Rate [Pending], Glucose Level [Pending], Calcium Level [Pending] Height (Feet): 6 Height (Inches): 0.00 Weight (Pounds): 164 Objective Gen nad Pulm ctab CV rrr Abd soft nt nd Ext Left leg in gauze padding Assessment/Plan Assessment/Plan: 1 fracture of leg 2 malnutrition 3 dehydation 4 htn for ortho surgery cont ccurrent tx dvt prophylasix cardio clearence s/p surgery Zack Castro MD Jul 30, 2020 07:09
--- NOTE | 2020-07-30 07:11 | NUR ---
NURSE HAND-OFF: Important Events on Shift:[NONE] Patient Status: [STABLE] Diet: [REG DIET SOFT] Pending Orders: [NONE] Pending Results/Labs:[CBC BMP] Pending MD notification:[] Latest Vital Signs: Temperature 99.2 , Pulse 90 , B/P 122 /69 , Respiratory Rate 19 , O2 SAT 97 , Room Air, O2 Flow Rate 2.0 . Vital Sign Comment: [WNL] Latest Wade Fall Score: 80 Fall Risk: High Risk Safety Measures: Call light Within Reach, Bed Alarm Zone 1, Side Rails Side Rails x2, Bed position Low and Locked. Fall Precautions: Yellow Socks Door Sign Patient Fall Education Report given to [].
[2020-07-30 07:27] LABS: BASOPHILS % (AUTO) 0.8 % (0.0-2.0); EOSINOPHILS % (AUTO) 0.8 % (0.0-3.0); HEMATOCRIT 26.1 % (42.0-52.0); HEMOGLOBIN 8.2 G/DL (14.2-18.0); LYMPHOCYTES % (AUTO) 24.1 % (20.0-45.0); MEAN CORPUSCULAR VOLUME 80 FL (80-99); MONOCYTES % (AUTO) 7.2 % (1.0-10.0); NEUTROPHILS % (AUTO) 67.1 % (45.0-75.0); PLATELET COUNT 140 K/UL (150-450); RED BLOOD COUNT 3.25 M/UL (4.70-6.10); RED CELL DISTRIBUTION WIDTH 16.8 % (11.6-14.8); WHITE BLOOD COUNT 5.3 K/UL (4.8-10.8)
[2020-07-30 07:36] LABS: ANION GAP 9 mmol/L (5-15); BLOOD UREA NITROGEN 5 mg/dL (7-18); CALCIUM 8.1 MG/DL (8.5-10.1); CARBON DIOXIDE 23 MMOL/L (21-32); CHLORIDE 105 MMOL/L (98-107); CREATININE 0.6 MG/DL (0.55-1.30); POTASSIUM 3.5 MMOL/L (3.5-5.1); SODIUM 137 MMOL/L (136-145)
--- NOTE | 2020-07-30 07:45 | NUR ---
HAND OFF: Report given to TIM Gaytan.
--- NOTE | 2020-07-30 07:53 | NUR ---
NURSE NOTES: Patient is in bed awake and able to verbalize needs. Stable. AOx4, irritable, c/o pain. Patient instructed to use BUSINESS SERVICES OFFICER for pain management, reinforcement needed. Patient instructed to use call light for assistance, verbalized understanding Surgical dressing c/d/i, immobilizer in place. Patient is in bed in locked and lowest position with call light within reach. All safety measures provided.WIll continue to monitor.
[2020-07-30 08:00] VITALS: BP 123/68
[2020-07-30] MEDS: DOLUTEGRAVIR SODIUM 50 MG ORAL SCH (08:22)
[2020-07-30] MEDS: BuPROPion XL 150mg tab ORAL SCH (08:22)
[2020-07-30] MEDS: VALCYTE ORAL SCH ×2 (08:22→20:55)
[2020-07-30] MEDS: DESCOVY ORAL SCH (08:22)
[2020-07-30] MEDS: DUREZOL EYE BOTH EYES SCH (08:22)
[2020-07-30] MEDS: Metoprolol Tartrate 50mg tab ORAL SCH ×2 (08:23→20:55)
[2020-07-30] MEDS: Docusate 100mg cap ORAL SCH ×2 (08:23→17:28)
[2020-07-30] MEDS: HYDROmorphone 1mg/ml Carpuject IVP PRN ×3 (08:28→21:14)
--- NOTE | 2020-07-30 11:01 | NUR ---
PT Note PT alaina completed, treatment initiated. Patient has muscle weakness and pain and NWB on the LLE, requiring extensive assist in mobility, unable to ambulate. Patient needs physical therapy to increase his muscle strength, ROM and balance to improve his safety in mobility and gait. Addendum: 07/30/20 at 1102 by ANAY SILVA PT Amended: Links added.
[2020-07-30 12:00] VITALS: BP 119/69
--- NOTE | 2020-07-30 15:54 | Cardiology Progress Note ---
Assessment/Plan Assessment/Plan 1. Left tibial facture, s/p left tibial ORIF, POD #2, no immediate cardiac events. 2. Metastatic prostate cancer stage IV, 3. History of CVA, consider ASA and statins. 4. HIV disease. 5. History of neuropathy. 6. History of psychiatric disorder. Subjective Subjective No cardiac event reported. Objective Last 24 Hour Vital Signs Date Time Temp Pulse Resp B/P (MAP) Pulse Ox O2 Delivery O2 Flow Rate FiO2 07/30/20 12:00 98.0 94 19 119/69 (86) 98 07/30/20 09:00 Room Air 07/30/20 08:23 93 123/68 07/30/20 08:00 97.5 93 19 123/68 (86) 98 07/30/20 04:00 99.2 90 19 122/69 (86) 97 07/30/20 00:00 99.3 88 17 130/76 (94) 98 07/29/20 21:00 Room Air 07/29/20 20:33 95 123/74 07/29/20 20:00 98.8 95 16 123/74 (90) 98 07/29/20 19:58 98 Room Air 21 07/29/20 17:50 98.6 07/29/20 16:00 98.6 83 16 120/71 (87) 100 Intake and Output 07/29/20 07/30/20 19:00 07:00 Intake Total 300 ml 120 ml Output Total 550 ml 400 ml Balance -250 ml -280 ml Intake Oral 300 ml 120 ml Output Urine Total 550 ml 400 ml # Voids 3 2 2D Echo: LVEF 60%, RVSP 73 mmHg, Grade I LVDD, RAP 15 mmHg, Mild-Mod AR Laboratory Tests Test 07/30/20 05:30 White Blood Count 5.3 K/UL (4.8-10.8) Red Blood Count 3.25 M/UL (4.70-6.10) L Hemoglobin 8.2 G/DL (14.2-18.0) L Hematocrit 26.1 % (42.0-52.0) L Mean Corpuscular Volume 80 FL (80-99) Mean Corpuscular Hemoglobin 25.3 PG (27.0-31.0) L Mean Corpuscular Hemoglobin Concent 31.4 G/DL (32.0-36.0) L Red Cell Distribution Width 16.8 % (11.6-14.8) H Platelet Count 140 K/UL (150-450) L Mean Platelet Volume 6.9 FL (6.5-10.1) Neutrophils (%) (Auto) 67.1 % (45.0-75.0) Lymphocytes (%) (Auto) 24.1 % (20.0-45.0) Monocytes (%) (Auto) 7.2 % (1.0-10.0) Eosinophils (%) (Auto) 0.8 % (0.0-3.0) Basophils (%) (Auto) 0.8 % (0.0-2.0) Sodium Level 137 MMOL/L (136-145) Potassium Level 3.5 MMOL/L (3.5-5.1) Chloride Level 105 MMOL/L (98-107) Carbon Dioxide Level 23 MMOL/L (21-32) Anion Gap 9 mmol/L (5-15) Blood Urea Nitrogen 5 mg/dL (7-18) L Creatinine 0.6 MG/DL (0.55-1.30) Estimat Glomerular Filtration Rate > 60 mL/min (>60) Glucose Level 107 MG/DL (74-106) H Calcium Level 8.1 MG/DL (8.5-10.1) L Objective HEENT: Atraumatic and normocephalic. Anicteric. Pupils are equal, round, and reactive to light and accommodation. Extraocular muscles intact. NECK: JVP less than 5 cm. No carotid bruit. Carotid upstrokes 2+ bilaterally. CARDIOVASCULAR: Normal S1 and S2. Regular rate and rhythm. 2/6 MSM at LSB, no gallops, or rubs. PMI is at fourth intercostal space in the midclavicular line. LUNGS: Clear to auscultation bilaterally. ABDOMEN: Soft, nontender, nondistended. No hepatosplenomegaly. Positive bowel sounds. EXTREMITIES: Left lower extremity, swelling of left tibia about 2+. Right lower extremity within the cast. Hector Wiggins MD Jul 30, 2020 15:54
[2020-07-30 16:00] VITALS: BP 113/68
--- NOTE | 2020-07-30 19:34 | NUR ---
NURSE HAND-OFF: Important Events on Shift: pain management, ROM Patient Status: stable Diet: regular soft easy chew Pending Orders: n/a Pending Results/Labs:n/a Pending MD notification:n/a Latest Vital Signs: Temperature 98.4 , Pulse 95 , B/P 113 /68 , Respiratory Rate 19 , O2 SAT 97 , Room Air, O2 Flow Rate 2.0 . Vital Sign Comment: n/a Latest Wade Fall Score: 80 Fall Risk: High Risk Safety Measures: Call light Within Reach, Bed Alarm Zone 1, Side Rails Yellow Socks Door Sign Patient Fall Education Report given to Joanne DUMONT.
[2020-07-30 20:00] VITALS: BP 107/68
[2020-07-30] MEDS: Miralax 17gm pkt ORAL SCH (20:54)
--- NOTE | 2020-07-30 22:53 | NUR ---
NURSES NOTE: Pt in bed, A/OX4, 04/28 pain in L marcial. Dilaudid 1mg IV push administered. Effective. No outward s/s of distress noted. Breathing pattern is even and unlabored on RA. Dilaudid SERVER ASSISTANT pump set up and used by pt. Pt prefers IV push for break through pain, however. IV site, R forearm, intact, infusing fluids to KVO. L marcial dressing, clean, dry intact. L leg elevated. All due medications will be administered. Bed at lowest level. Call light within reach. Pt will continue to be monitored.
[2020-07-31] MEDS: HYDROmorphone 1mg/ml Carpuject IVP PRN ×6 (02:16→22:07)
[2020-07-31 04:00] VITALS: BP 127/75
[2020-07-31] MEDS: PCA HYDROmorphone 1mg/ml 30 ML IV PRN (05:30)
[2020-07-31] MEDS: Heparin 5000 units/ml inj SUBQ SCH (05:50)
[2020-07-31] MEDS: MS Contin 15mg tab ORAL SCH ×3 (05:50→23:48)
[2020-07-31] MEDS: PCA shift volume MISC SCH (07:00)
--- NOTE | 2020-07-31 07:00 | General Progress Note ---
Subjective Constitutional: Denies: no symptoms, chills, diaphoresis, fever, malaise, weakness, other HEENT: Denies: no symptoms, eye pain, blurred vision, tearing, double vision, ear pain, ear discharge, nose pain, nose congestion, throat pain, throat swelling, mouth pain, mouth swelling, other Cardiovascular: Denies: no symptoms, chest pain, edema, irregular heart rate, lightheadedness, palpitations, syncope, other Respiratory: Denies: no symptoms, cough, orthopnea, shortness of breath, SOB with excertion, SOB at rest, sputum, stridor, wheezing, other Gastrointestinal/Abdominal: Denies: no symptoms, abdomen distended, abdominal pain, black stools, tarry stools, blood in stool, constipated, diarrhea, difficulty swallowing, nausea, poor appetite, poor fluid intake, rectal bleeding, vomiting, other Genitourinary: Denies: no symptoms, burning, discharge, frequency, flank pain, hematuria, incontinence, pain, urgency, other Neurologic/Psychiatric: Denies: no symptoms, anxiety, depressed, emotional problems, headache, numbness, paresthesia, pre-existing deficit, seizure, tingling, tremors, weakness, other Endocrine: Denies: no symptoms, excessive sweating, flushing, intolerance to cold, intolerance to heat, increased hunger, increased thirst, increased urine, unexplained weight gain, unexplained weight loss, other Allergies: Coded Allergies: No Known Allergies (Unverified , 01/16/18) Subjective 07/27 is for surgery friday left hip orif 07/28 scheduled for open reduction and internal fixation with lateral plate fixation of left lower leg today 07/29: pt is resting is sleepy. 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 07/31 labs noted, no bleeding, cbc has been reordered, meds reviewed Objective Last 24 Hour Vital Signs Date Time Temp Pulse Resp B/P (MAP) Pulse Ox O2 Delivery O2 Flow Rate FiO2 07/31/20 04:00 98.1 87 17 127/75 (92) 97 07/30/20 21:00 Room Air 07/30/20 20:55 95 107/68 07/30/20 20:10 100 Room Air 21 07/30/20 20:00 98.1 95 16 107/68 (81) 95 07/30/20 16:00 98.4 95 19 113/68 (83) 97 07/30/20 12:00 98.0 94 19 119/69 (86) 98 07/30/20 09:00 Room Air 07/30/20 08:23 93 123/68 07/30/20 08:00 97.5 93 19 123/68 (86) 98 Intake and Output 07/30/20 07/31/20 19:00 07:00 Intake Total 240 ml Output Total 450 ml Balance -210 ml Intake Oral 240 ml Output Urine Total 450 ml # Voids 3 4 Height (Feet): 6 Height (Inches): 0.00 Weight (Pounds): 164 Objective Gen nad Pulm ctab CV rrr Abd soft nt nd Ext Left leg in gauze padding Assessment/Plan Assessment/Plan: 1 fracture of leg 2 malnutrition 3 dehydation 4 htn cont ccurrent tx dvt prophylasix cardio clearence s/p surgery hgb 8.2 yest Zack Castro MD Jul 31, 2020 07:00
--- NOTE | 2020-07-31 07:30 | NUR ---
NURSE NOTES: Patient lying in bed awake. Complain of pain 8/10 on Left leg. On CONTINUOUS MINING MACHINE OPERATOR for pain management and will continue to monitor. IV dressing intact and dry. Surgical dressing intact and dry on Immobilizer. Bed lowest position. Call light within reach. Will continue to monitor.
--- NOTE | 2020-07-31 07:55 | NUR ---
NURSE HAND-OFF: Important Events on Shift:[NONE] Patient Status: [STABLE] Diet: [REGULAR] Pending Orders: [NONE] Pending Results/Labs:[NONE] Pending MD notification:[NONE] Latest Vital Signs: Temperature 98.1 , Pulse 87 , B/P 127 /75 , Respiratory Rate 17 , O2 SAT 97 , Room Air, O2 Flow Rate 2.0 . Vital Sign Comment: [WNL] Latest Wade Fall Score: 80 Fall Risk: High Risk Safety Measures: Call light Within Reach, Bed Alarm Zone 1, Side Rails Side Rails x2, Bed position Low and Locked. Fall Precautions: Yellow Socks Door Sign Patient Fall Education Report given to [TIM PADILLA].
[2020-07-31 08:00] VITALS: BP 116/75
[2020-07-31] MEDS: VALCYTE ORAL SCH ×2 (08:22→21:15)
[2020-07-31] MEDS: DUREZOL EYE BOTH EYES SCH (08:22)
[2020-07-31] MEDS: DOLUTEGRAVIR SODIUM 50 MG ORAL SCH (08:23)
[2020-07-31] MEDS: DESCOVY ORAL SCH (08:23)
[2020-07-31] MEDS: BuPROPion XL 150mg tab ORAL SCH (08:23)
[2020-07-31] MEDS: Metoprolol Tartrate 50mg tab ORAL SCH ×2 (08:23→21:16)
[2020-07-31] MEDS: Docusate 100mg cap ORAL SCH ×2 (08:24→17:11)
[2020-07-31 12:00] VITALS: BP 119/76
--- NOTE | 2020-07-31 12:38 | General Progress Note ---
Subjective Date patient seen: Jul 31, 2020 Time patient seen: 12:30 - pm Allergies: Coded Allergies: No Known Allergies (Unverified , 01/16/18) Subjective REVIEW OF SYSTEMS: Denies rash, fever, chills, sweating, dizziness, drowsiness, blurred vision, sore throat, or change in weight. No shortness of breath or chest pain. No nausea, vomiting, diarrhea, or blood in the stool or urine. No dysuria. HISTORY OF PRESENT ILLNESS: This is a 55-year-old male, who is being seen on the Med/Surg floor of [facility]. Patient is s/p ORIF of left LE. Was started on SECURITY SPECIALIST Dilaudid 0.25mg Q6min which has been used 8.2mg in the last 24hrs. I d/w patient about discontinuing the SECURITY SPECIALIST and he seems to understand. Objective Last 24 Hour Vital Signs Date Time Temp Pulse Resp B/P (MAP) Pulse Ox O2 Delivery O2 Flow Rate FiO2 07/31/20 12:00 97 18 98 07/31/20 12:00 98.1 97 18 119/76 (90) 98 07/31/20 09:00 Room Air 07/31/20 08:23 92 116/75 07/31/20 08:00 92 18 99 07/31/20 08:00 97.7 92 18 116/75 (89) 99 07/31/20 04:00 98.1 87 17 127/75 (92) 97 07/30/20 21:00 Room Air 07/30/20 20:55 95 107/68 07/30/20 20:10 100 Room Air 21 07/30/20 20:00 98.1 95 16 107/68 (81) 95 07/30/20 16:00 98.4 95 19 113/68 (83) 97 Intake and Output 07/30/20 07/31/20 19:00 07:00 Intake Total 240 ml Output Total 450 ml Balance -210 ml Intake Oral 240 ml Output Urine Total 450 ml # Voids 3 4 Height (Feet): 6 Height (Inches): 0.00 Weight (Pounds): 164 Objective PHYSICAL EXAMINATION: LUNGS: Decreased breath sounds bilaterally. HEART: S1 and S2 regular. ABDOMEN: Soft, nontender. EXTREMITIES: Left lower extremity is in a splint. NEURO: No changes. Assessment/Plan Assessment/Plan: (1) Left tibial pathological fracture (2) Left LE pain s/p ORIF (3) Metastatic prostate cancer Patient to be continued on Morphine ER, Dilaudid and Percocet. We will discontinued the SECURITY SPECIALIST D/w Dr. Cristina and he concurred Ervin Duval Jul 31, 2020 12:38
--- NOTE | 2020-07-31 12:49 | NUR ---
NURSE NOTES: Spoke to Ervin LYNCH regarding CRM SOLUTION ARCHITECT and Patient can finish current CRM SOLUTION ARCHITECT syringe and D/C CRM SOLUTION ARCHITECT. Order noted and carried out.
--- NOTE | 2020-07-31 13:01 | NUR ---
NURSE NOTES: Spoke to regarding Heparin and Platelet level and D/C Heparin. Order noted and carried out.
--- NOTE | 2020-07-31 14:16 | NUR ---
CASE MANAGEMENT: REVIEW SI: LEFT TIBIA FRACTURE S/P ORIF 07/28 T 98.1 HR 97 RR 18 BP 119/76 SAT 98% ROOM AIR IS: MS CONTIN PO Q8HR PT EVAL MED/SURG STATUS DCP: PATIENT IS FROM HOME
--- NOTE | 2020-07-31 14:30 | Psych Consult Progress Note ---
Psychiatry Progress Note Psychiatry Progress Note Medications Current Medications Medications (Trade) Dose Ordered Sig/Liat Route PRN Reason Start Time Stop Time Status Last Admin Dose Admin Acetaminophen (Tylenol) 650 mg Q4H PRN ORAL Temp >100.5 07/24/20 21:45 08/23/20 21:44 07/25/20 23:24 Bupropion HCl (Wellbutrin XL) 150 mg DAILY ORAL 07/26/20 13:00 08/25/20 12:59 07/31/20 08:23 Docusate Sodium (Colace) 200 mg TWICE A DAY ORAL 07/25/20 18:00 08/24/20 17:59 07/31/20 08:24 Gabapentin (Neurontin) 300 mg THREE TIMES A DAY ORAL 07/25/20 14:45 08/24/20 14:44 07/31/20 12:29 Hydromorphone HCl (Dilaudid) 1 mg Q2H PRN IVP Severe Pain (Pain Scale 7-10) 07/31/20 12:45 08/07/20 12:44 07/31/20 14:05 Metoprolol Tartrate (Lopressor) 50 mg EVERY 12 HOURS ORAL 07/26/20 21:00 10/24/20 20:59 07/31/20 08:23 Morphine Sulfate (MS Contin) 30 mg Q8H ORAL 07/31/20 14:45 08/07/20 14:44 Naloxone HCl (Narcan) 0.2 mg Q2M PRN IVP RR<8MIN 08/01/20 00:00 10/30/20 00:00 Oxycodone/ Acetaminophen (Percocet 10/325) 1 tab Q4H PRN ORAL Moderate Breakthru Pain (5-7) 07/31/20 14:45 08/07/20 14:44 Patient Own Medication (Patient's Own Med) 1 ea DAILY BOTH EYES 07/26/20 10:00 08/25/20 09:59 07/31/20 08:22 Patient Own Medication (Patient's Own Med) 1 ea DAILY ORAL 07/26/20 13:30 08/25/20 13:29 07/31/20 08:23 Patient Own Medication (Patient's Own Med) 1 ea DAILY ORAL 07/26/20 13:30 08/25/20 13:29 10/12/20 08:23 Patient Own Medication (Patient's Own Med) 2 ea Q12HR ORAL 07/26/20 13:30 08/25/20 13:29 07/31/20 08:22 Polyethylene Glycol (Miralax) 17 gm BEDTIME ORAL 07/26/20 21:00 08/25/20 20:59 07/30/20 20:54 Neurological/Psychiatric: Reports: anxiety, depressed, emotional problems; Denies: no symptoms, headache, numbness, paresthesia, pre-existing deficit, seizure, tingling, tremors, weakness, other Allergies: Coded Allergies: No Known Allergies (Unverified , 01/16/18) Objective Data Height (Feet): 6 Height (Inches): 0.00 Weight (Pounds): 164 General Appearance: WD/WN, no apparent distress, alert Additional Comments: alert and oriented times self, place, situation. Mood is depressed. Affect is blunted, congruent with mood. Thought process is concrete. Thought content, no suicidal or homicidal ideation. Cognition is intact. Insight and judgment is fair. Assessment/Plan Assessment/Plan: ASSESSMENT: [place] I Major depressive disorder. [place] II Deferred. [place] III None. [place] IV Low. [place] V 50 PLAN: 1. Continue the Wellbutrin. 2. Celexa. 3. Provide the patient with reality orientation and supportive therapy. Olegario Arreola MD Jul 31, 2020 14:30
[2020-07-31 16:00] VITALS: BP 116/76
--- NOTE | 2020-07-31 19:32 | NUR ---
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 Vital Sign Comment: Stable Latest Wade Fall Score: 80 Fall Risk: High Risk Safety Measures: Call light Within Reach, Bed Alarm Zone 1, Side Rails Side Rails x2, Bed position Low and Locked. Fall Precautions: Yellow Socks Door Sign Patient Fall Education Report given to Joanne DUMONT. Patient in stable condition.
--- NOTE | 2020-07-31 19:39 | NUR ---
NURSES NOTE: Pt in bed, A/OX4, AM nurse administered Dilaudid 1mg IV push upon end of shift. Will f/u on effectiveness. No outward s/s of distress noted. Breathing pattern is even and unlabored on RA. HISTORY PROFESSOR pump was discontinued. IV site, L hand, in place, patent. Dressing L marcial, dry, intact clean. L leg elevated on pillow. All due medications will be administered. Bed at lowest level. Call light within reach. Pt will continue to be monitored.
[2020-07-31 20:00] VITALS: BP 123/80
[2020-07-31] MEDS: Miralax 17gm pkt ORAL SCH (21:15)
--- NOTE | 2020-07-31 23:57 | Cardiology Progress Note ---
Assessment/Plan Assessment/Plan 1. Left tibial facture, s/p left tibial ORIF, POD #3, no cardiac events. 2. Metastatic prostate cancer stage IV, 3. History of CVA, consider ASA and statins. 4. HIV disease. 5. History of neuropathy. 6. History of psychiatric disorder. Subjective Subjective No cardiac event reported. Objective Last 24 Hour Vital Signs Date Time Temp Pulse Resp B/P (MAP) Pulse Ox O2 Delivery O2 Flow Rate FiO2 07/31/20 23:09 99.2 07/31/20 21:16 108 123/80 07/31/20 21:00 Room Air 07/31/20 20:42 98 Room Air 21 07/31/20 20:00 100.1 108 17 123/80 (94) 98 07/31/20 16:00 109 18 98 07/31/20 16:00 98.3 109 18 116/76 (89) 98 07/31/20 13:36 100 Room Air 21 07/31/20 12:00 97 18 98 07/31/20 12:00 98.1 97 18 119/76 (90) 98 07/31/20 09:00 Room Air 07/31/20 08:23 92 116/75 07/31/20 08:00 92 18 99 07/31/20 08:00 97.7 92 18 116/75 (89) 99 07/31/20 04:00 98.1 87 17 127/75 (92) 97 Intake and Output 07/30/20 07/31/20 19:00 07:00 Intake Total 240 ml Output Total 450 ml Balance -210 ml Intake Oral 240 ml Output Urine Total 450 ml # Voids 3 4 2D Echo: LVEF 60%, RVSP 73 mmHg, Grade I LVDD, RAP 15 mmHg, Mild-Mod AR Objective HEENT: Atraumatic and normocephalic. Anicteric. Pupils are equal, round, and reactive to light and accommodation. Extraocular muscles intact. NECK: JVP less than 5 cm. No carotid bruit. Carotid upstrokes 2+ bilaterally. CARDIOVASCULAR: Normal S1 and S2. Regular rate and rhythm. 2/6 MSM at LSB, no gallops, or rubs. PMI is at fourth intercostal space in the midclavicular line. LUNGS: Clear to auscultation bilaterally. ABDOMEN: Soft, nontender, nondistended. No hepatosplenomegaly. Positive bowel sounds. EXTREMITIES: Left lower extremity, swelling of left tibia about 2+. Hector Wiggins MD Jul 31, 2020 23:57
[2020-08-01] VITALS: BP 138/82
[2020-08-01] MEDS ORDERED: Naloxone 0.4mg/ml Inj IVP PRN
--- NOTE | 2020-08-01 00:45 | Consultation ---
DATE OF CONSULTATION: 08/01/2020 This is a 55-year-old male with a history of multiple medical issues including depression, anxiety, who has been admitted to the hospital for tibial fracture surgery. The patient presented with depressed mood, anxiety, low energy, anhedonia, worthlessness, hopelessness. PAST PSYCHIATRIC HISTORY: Depression and anxiety. No suicide attempt. PAST MEDICAL HISTORY: Hypertension and neuropathy. ALLERGIES: No known drug allergies. SUBSTANCE ABUSE HISTORY: No known history of illicit drug use or alcohol. MENTAL STATUS EXAMINATION: The patient is alert and oriented times self, place, situation. Mood is depressed. Affect is blunted, congruent with mood. Thought process is concrete. Thought content, no suicidal or homicidal ideation. Cognition is intact. Insight and judgment is fair. ASSESSMENT: [place] I Major depressive disorder. [place] II Deferred. [place] III None. [place] IV Low. [place] V 50 PLAN: 1. Continue the Wellbutrin. 2. Celexa. 3. Provide the patient with reality orientation and supportive therapy. Olegario Arreola M.D. DR: NORBERTO JOB#: [id number] CC:
[2020-08-01] MEDS: HYDROmorphone 1mg/ml Carpuject IVP PRN ×8 (01:45→21:46)
[2020-08-01 04:00] VITALS: BP 129/79
[2020-08-01 05:33] LABS: HEMATOCRIT 23.1 % (42.0-52.0); HEMOGLOBIN 7.3 G/DL (14.2-18.0); MEAN CORPUSCULAR VOLUME 79 FL (80-99); PLATELET COUNT 132 K/UL (150-450); RED BLOOD COUNT 2.91 M/UL (4.70-6.10); RED CELL DISTRIBUTION WIDTH 16.5 % (11.6-14.8); WHITE BLOOD COUNT 4.8 K/UL (4.8-10.8)
[2020-08-01] MEDS: MS Contin 15mg tab ORAL SCH ×3 (05:54→22:42)
--- NOTE | 2020-08-01 06:52 | General Progress Note ---
Subjective Constitutional: Denies: no symptoms, chills, diaphoresis, fever, malaise, weakness, other HEENT: Denies: no symptoms, eye pain, blurred vision, tearing, double vision, ear pain, ear discharge, nose pain, nose congestion, throat pain, throat swelling, mouth pain, mouth swelling, other Cardiovascular: Denies: no symptoms, chest pain, edema, irregular heart rate, lightheadedness, palpitations, syncope, other Respiratory: Denies: no symptoms, cough, orthopnea, shortness of breath, SOB with excertion, SOB at rest, sputum, stridor, wheezing, other Genitourinary: Denies: no symptoms, burning, discharge, frequency, flank pain, hematuria, incontinence, pain, urgency, other Neurologic/Psychiatric: Denies: no symptoms, anxiety, depressed, emotional problems, headache, numbness, paresthesia, pre-existing deficit, seizure, tingling, tremors, weakness, other Endocrine: Denies: no symptoms, excessive sweating, flushing, intolerance to cold, intolerance to heat, increased hunger, increased thirst, increased urine, unexplained weight gain, unexplained weight loss, other Allergies: Coded Allergies: No Known Allergies (Unverified , 01/16/18) Subjective 07/27 is for surgery friday left hip orif 07/28 scheduled for open reduction and internal fixation with lateral plate fixation of left lower leg today 07/29: pt is resting is sleepy. 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 learning solutions specialist 07/31 labs noted, no bleeding, cbc has been reordered, meds reviewed 08/01 labs reviewed, hgb 7.3, plt lower, hepbs ag was + from prior, and hiv Objective Last 24 Hour Vital Signs Date Time Temp Pulse Resp B/P (MAP) Pulse Ox O2 Delivery O2 Flow Rate FiO2 08/01/20 04:00 98.7 87 17 129/79 (96) 98 08/01/20 00:00 98.4 90 18 138/82 (100) 98 07/31/20 23:09 99.2 07/31/20 21:16 108 123/80 07/31/20 21:00 Room Air 07/31/20 20:42 98 Room Air 21 07/31/20 20:00 100.1 108 17 123/80 (94) 98 07/31/20 16:00 109 18 98 07/31/20 16:00 98.3 109 18 116/76 (89) 98 07/31/20 13:36 100 Room Air 21 07/31/20 12:00 97 18 98 07/31/20 12:00 98.1 97 18 119/76 (90) 98 07/31/20 09:00 Room Air 07/31/20 08:23 92 116/75 07/31/20 08:00 92 18 99 07/31/20 08:00 97.7 92 18 116/75 (89) 99 Intake and Output 07/31/20 08/01/20 19:00 07:00 Intake Total 590 ml 240 ml Output Total 500 ml Balance 590 ml -260 ml Intake Oral 590 ml 240 ml Output Urine Total 500 ml # Voids 2 Laboratory Tests 08/01/20 05:00: White Blood Count 4.8, Red Blood Count 2.91L, Hemoglobin 7.3L, Hematocrit 23.1L, Mean Corpuscular Volume 79L, Mean Corpuscular Hemoglobin 25.2L, Mean Corpuscular Hemoglobin Concent 31.7L, Red Cell Distribution Width 16.5H, Platelet Count 132L , Mean Platelet Volume 5.6L, Neutrophils (%) (Auto) , Lymphocytes (%) (Auto) , Monocytes (%) (Auto) , Eosinophils (%) (Auto) , Basophils (%) (Auto) , Neutrophils % (Manual) [Pending], Lymphocytes % (Manual) [Pending], Platelet Estimate [Pending], Platelet Morphology [Pending] Height (Feet): 6 Height (Inches): 0.00 Weight (Pounds): 164 Objective Gen nad Pulm ctab CV rrr Abd soft nt nd Ext Left leg in gauze padding Assessment/Plan Assessment/Plan: 1 fracture of leg 2 malnutrition 3 dehydation 4 htn 5. anemia r/o gi bleed 6. hiv 7. hep B sAg+ cont ccurrent tx dvt prophylasix cardio clearence s/p surgery hgb 8.2 -->7.3 1 unit prbc plt lower get id [id number] Landers MD Aug 01, 2020 06:52
--- NOTE | 2020-08-01 06:56 | NUR ---
NURSES NOTE: Message left for Dr. Zack Shay. Filling in for Dr Michael. Reported low Hct 23.1, Hgb 7.3, RBC 2.91 and platelets pending but have been recently under 150,000.00.
--- NOTE | 2020-08-01 07:28 | NUR ---
NURSE HAND-OFF: Important Events on Shift:[Abnormal labs, Message left for Dr. Shay. Hct, 23.1 Hgb 7.3, RBC 2.91 Endorsed to AM nurse. Platelets were pending] Patient Status: [STABLE] Diet: [REGULAR SOFT] Pending Orders: [NONE] Pending Results/Labs:[NONE] Pending MD notification:Platelets] Latest Vital Signs: Temperature 98.7 , Pulse 87 , B/P 129 /79 , Respiratory Rate 17 , O2 SAT 98 , Room Air, O2 Flow Rate 2.0 . Vital Sign Comment: [WNL] Latest Wade Fall Score: 80 Fall Risk: High Risk Safety Measures: Call light Within Reach, Bed Alarm Zone 1, Side Rails Side Rails x2, Bed position Low and Locked. Fall Precautions: Yellow Socks Door Sign Patient Fall Education Report given to [MARIBELL RN].
--- NOTE | 2020-08-01 07:30 | NUR ---
NURSE NOTES: received report from TIM Donahue. patient in bed. alert oriented x4, verbally responsive. no respiratory distress noted.clear lung sound. pain on lower abd area. legs.s/p ORIF left tibia. tedhose and immobilizer in place.elevated leg with pillow. IV on left fore arm TKO 20/hr. skin intact, warm to touch. urinal bed side. bed in the lowest position and locked. call light within reach, will continue to provide plan of care.
[2020-08-01 08:00] VITALS: BP 121/75
[2020-08-01] MEDS: BuPROPion XL 150mg tab ORAL SCH (08:25)
[2020-08-01] MEDS: DESCOVY ORAL SCH (08:26)
[2020-08-01] MEDS: Metoprolol Tartrate 50mg tab ORAL SCH ×2 (08:26→20:43)
[2020-08-01] MEDS: DUREZOL EYE BOTH EYES SCH (08:26)
[2020-08-01] MEDS: Docusate 100mg cap ORAL SCH ×2 (08:26→17:33)
[2020-08-01] MEDS: DOLUTEGRAVIR SODIUM 50 MG ORAL SCH (08:26)
[2020-08-01] MEDS: VALCYTE ORAL SCH ×2 (08:26→20:44)
--- NOTE | 2020-08-01 08:52 | General Progress Note ---
Subjective Date patient seen: Aug 01, 2020 Time patient seen: 08:15 - am Allergies: Coded Allergies: No Known Allergies (Unverified , 01/16/18) Subjective REVIEW OF SYSTEMS: Denies rash, fever, chills, sweating, dizziness, drowsiness, blurred vision, sore throat, or change in weight. No shortness of breath or chest pain. No nausea, vomiting, diarrhea, or blood in the stool or urine. No dysuria. HISTORY OF PRESENT ILLNESS: This is a 55-year-old male, who is being seen on the Med/Surg floor of [facility]. Patient resting in bed and continues to c/o pain which has been tolerated to a moderate level on the Morphine ER and Dilaudid. Was advised to continue therapy and he seems to understand. Objective Last 24 Hour Vital Signs Date Time Temp Pulse Resp B/P (MAP) Pulse Ox O2 Delivery O2 Flow Rate FiO2 08/01/20 08:26 90 121/75 08/01/20 08:00 97.4 90 20 121/75 (90) 97 08/01/20 07:30 99 Room Air 21 08/01/20 04:00 98.7 87 17 129/79 (96) 98 08/01/20 00:00 98.4 90 18 138/82 (100) 98 07/31/20 23:09 99.2 07/31/20 21:16 108 123/80 07/31/20 21:00 Room Air 07/31/20 20:42 98 Room Air 21 07/31/20 20:00 100.1 108 17 123/80 (94) 98 07/31/20 16:00 109 18 98 07/31/20 16:00 98.3 109 18 116/76 (89) 98 07/31/20 13:36 100 Room Air 21 07/31/20 12:00 97 18 98 07/31/20 12:00 98.1 97 18 119/76 (90) 98 07/31/20 09:00 Room Air Intake and Output 07/31/20 08/01/20 19:00 07:00 Intake Total 590 ml 240 ml Output Total 500 ml Balance 590 ml -260 ml Intake Oral 590 ml 240 ml Output Urine Total 500 ml # Voids 2 Laboratory Tests 08/01/20 05:00: White Blood Count 4.8, Red Blood Count 2.91L, Hemoglobin 7.3L, Hematocrit 23.1L, Mean Corpuscular Volume 79L, Mean Corpuscular Hemoglobin 25.2L, Mean Corpuscular Hemoglobin Concent 31.7L, Red Cell Distribution Width 16.5H, Platelet Count 132L , Mean Platelet Volume 5.6L, Neutrophils (%) (Auto) , Lymphocytes (%) (Auto) , Monocytes (%) (Auto) , Eosinophils (%) (Auto) , Basophils (%) (Auto) , Neutrophils % (Manual) [Pending], Lymphocytes % (Manual) [Pending], Platelet Estimate [Pending], Platelet Morphology [Pending] Height (Feet): 6 Height (Inches): 0.00 Weight (Pounds): 164 Objective PHYSICAL EXAMINATION: LUNGS: Decreased breath sounds bilaterally. HEART: S1 and S2 regular. ABDOMEN: Soft, nontender. EXTREMITIES: Left lower extremity is in a splint. NEURO: No changes. Assessment/Plan Assessment/Plan: (1) Left tibial pathological fracture (2) Left LE pain s/p ORIF (3) Metastatic prostate cancer Patient to be continued on Morphine ER, Dilaudid and Percocet. D/w Dr. Cristina and he concurred Ervin Duval Aug 01, 2020 08:52
--- NOTE | 2020-08-01 09:20 | NUR ---
NURSE NOTES: patient hasn't had a BM for 5days, colace miralax didn't work. notified DR. Castro and received order of have a physician consult with for GI. Also, patient hgb was 7.3 today. received order of 1unit of PRBC. order noted and carried out.
--- NOTE | 2020-08-01 09:35 | NUR ---
NURSE NOTES: notified that the patent has a GI consult. no BM for 5days. is aware.
--- NOTE | 2020-08-01 10:00 | NUR ---
NURSE NOTES: patient had a Physical therapy. used commode. sitting in chair with maximum travel assistant. No wt bearing on left leg.
--- NOTE | 2020-08-01 11:20 | NUR ---
RD ASSESSMENT & RECOMMENDATIONS SEE CARE ACTIVITY FOR COMPLETE ASSESSMENT DAILY ESTIMATED NEEDS: Needs based on HIV, CA/ 77.6kg 25-30 kcals/kg 3315-6776 total kcals 1-1.5 g protein/kg 77-115 g total protein 25-30 mL/kg 3060-4252 total fluid mLs NUTRITION DIAGNOSIS: Increased kcal/prot needs R/T catabolic dx as evidenced by HIV +, h/o metastatic prostate CA. CURRENT DIET:REGULAR, soft easy chew PO DIET RECOMMENDATIONS: LOW NA/ texture per STRAPPING MACHINE OPERATOR or as tolerated ADDITIONAL RECOMMENDATIONS: * Consider STRAPPING MACHINE OPERATOR evaluation for appropriate texture: h/o CVA * Snacks BID in b/w meals * Monitor for continued good PO intake * WC eval @ sacrum: sacral wound photo noted * Monitor BMs: last BM on 07/27, GI consulted for constipation -> prune juice QD added for now * Standing wt for accurate CBW
[2020-08-01 12:00] VITALS: BP 114/69
--- NOTE | 2020-08-01 14:11 | Consultation ---
History of Present Illness General Date patient seen: Aug 01, 2020 Chief Complaint: Lower Extremity Injury Present Illness HPI 55 y/o M with hx of MDD/Anxiety disorder, osteoporosis, HTN, HIV on ARV (Tivicay and Descovy), metastatic Prostate cancer sp chemotherapy 3 yrs ago, CVA 2008, neuropathy presented to ED on 07/24/20 with L ankle and tibial pain which is worse with movement. Patient had a mechanical fall and hit his knee against a tool. No LOC. Upon admission, was found to have Fracture of L superior tibia Denied CP, SOB upon admission Left tibial plateau fracture. -07/28 SP ORIF Allergies: Coded Allergies: No Known Allergies (Unverified , 01/16/18) Medication History Scheduled Aspirin* (Aspirin*), 325 MG ORAL DAILY, (Reported) Bupropion Xl* (Bupropion Xl*), 150 MG ORAL Q24H, (Reported) Dolutegravir Sodium (Tivicay), 50 MG ORAL DAILY, (Reported) Gabapentin (Neurontin), 600 MG ORAL BID, (Reported) Metoprolol Tartrate* (Metoprolol Tartrate*), 50 MG ORAL EVERY 12 HOURS, (Reported) Valganciclovir HCl (Valcyte), 900 MG ORAL Q12HR [Descovy 200MG/25MG], 1 TAB PO DAILY, (Reported) Scheduled PRN Morphine Sulfate (Renee), 100 MG PO BID PRN for Pain Scale (6-10), (Reported) Oxycodone Hcl* (Roxicodone*), 30 MG ORAL Q3HR PRN for For Pain, (Reported) Miscellaneous Medications Difluprednate (Durezol), Unknown Dose OP, (Reported) Discontinued Medications Azithromycin (Zithromax), 1,200 MG ORAL ONCE A WEEK Discontinued Reason: Therapy completed Bupropion Hcl* (Wellbutrin*), 300 MG ORAL DAILY, (Reported) Discontinued Reason: Therapy completed Citalopram Hydrobromide* (Celexa*), 20 MG ORAL DAILY, (Reported) Discontinued Reason: Therapy completed Morphine Sulfate (Renee), 100 MG PO EVERY 12 HOURS PRN for Pain Scale (6-10), (Reported) Discontinued Reason: Prescription changed Oxycodone Hcl* (Oxycodone Hcl*), 5 MG ORAL Q4H PRN for For Pain, (Reported) Discontinued Reason: Therapy completed Oxycodone Hcl* (Oxycodone Hcl*), 60 MG ORAL EVERY 3 HOURS PRN for For Pain, (Reported) Discontinued Reason: Prescription changed Trimethoprim/Sulfamethoxazole (Bactrim Ds Tablet), 1 TAB ORAL QHS Discontinued Reason: Therapy completed [valclyclovir], (Reported) Discontinued Reason: Therapy completed Patient History Healthcare decision maker SELF RESPONSIBLE Resuscitation status Advanced Directive on File Patient History Narrative Pmhx: as above Shx: No known history of illicit drug use or alcohol. Fhx: non contributory Review of Systems All Other Systems: negative except mentioned in HPI Physical Exam Physical Exam Narrative GENERAL: Alert, awake, and oriented. HEENT: PERRLA. NECK: Range of motion is decreased due to the patient's condition. No tenderness. LUNGS: Decreased breath sounds bilaterally. HEART: S1 and S2 regular. ABDOMEN: Soft, nontender. BACK: Range of motion is decreased in flexion and extension. EXTREMITIES: Upper and lower extremity range of motion is decreased due to the patient's condition. No cyanosis. No clubbing. Sensory is reduced. Reflexes are not obtainable. No adenopathy. Left lower extremity is in a splint. Last 24 Hour Vital Signs Date Time Temp Pulse Resp B/P (MAP) Pulse Ox O2 Delivery O2 Flow Rate FiO2 08/01/20 12:00 98.3 92 18 114/69 (84) 96 08/01/20 09:00 Room Air 08/01/20 08:26 90 121/75 08/01/20 08:00 97.4 90 20 121/75 (90) 97 08/01/20 07:30 99 Room Air 21 08/01/20 04:00 98.7 87 17 129/79 (96) 98 08/01/20 00:00 98.4 90 18 138/82 (100) 98 07/31/20 23:09 99.2 07/31/20 21:16 108 123/80 07/31/20 21:00 Room Air 07/31/20 20:42 98 Room Air 21 07/31/20 20:00 100.1 108 17 123/80 (94) 98 07/31/20 16:00 109 18 98 07/31/20 16:00 98.3 109 18 116/76 (89) 98 Intake and Output 07/31/20 08/01/20 19:00 07:00 Intake Total 590 ml 240 ml Output Total 500 ml Balance 590 ml -260 ml Intake Oral 590 ml 240 ml Output Urine Total 500 ml # Voids 2 Laboratory Tests Test 08/01/20 05:00 White Blood Count 4.8 K/UL (4.8-10.8) Red Blood Count 2.91 M/UL (4.70-6.10) L Hemoglobin 7.3 G/DL (14.2-18.0) L Hematocrit 23.1 % (42.0-52.0) L Mean Corpuscular Volume 79 FL (80-99) L Mean Corpuscular Hemoglobin 25.2 PG (27.0-31.0) L Mean Corpuscular Hemoglobin Concent 31.7 G/DL (32.0-36.0) L Red Cell Distribution Width 16.5 % (11.6-14.8) H Platelet Count 132 K/UL (150-450) L Mean Platelet Volume 5.6 FL (6.5-10.1) L Neutrophils (%) (Auto) % (45.0-75.0) Lymphocytes (%) (Auto) % (20.0-45.0) Monocytes (%) (Auto) % (1.0-10.0) Eosinophils (%) (Auto) % (0.0-3.0) Basophils (%) (Auto) % (0.0-2.0) Differential Total Cells Counted 100 Neutrophils % (Manual) 71 % (45-75) Lymphocytes % (Manual) 23 % (20-45) Monocytes % (Manual) 4 % (1-10) Eosinophils % (Manual) 2 % (0-3) Basophils % (Manual) 0 % (0-2) Band Neutrophils 0 % (0-8) Platelet Estimate Adequate Platelet Morphology Normal Hypochromasia 1+ Anisocytosis 1+ Microcytosis 1+ Height (Feet): 6 Height (Inches): 0.00 Weight (Pounds): 164 Medications Current Medications Medications (Trade) Dose Ordered Sig/Liat Route PRN Reason Start Time Stop Time Status Last Admin Dose Admin Acetaminophen (Tylenol) 650 mg Q4H PRN ORAL Temp >100.5 07/24/20 21:45 08/23/20 21:44 07/31/20 21:17 Bupropion HCl (Wellbutrin XL) 150 mg DAILY ORAL 07/26/20 13:00 08/25/20 12:59 08/01/20 08:25 Docusate Sodium (Colace) 200 mg TWICE A DAY ORAL 07/25/20 18:00 08/24/20 17:59 08/01/20 08:26 Gabapentin (Neurontin) 300 mg THREE TIMES A DAY ORAL 07/25/20 14:45 08/24/20 14:44 08/01/20 08:26 Hydromorphone HCl (Dilaudid) 1 mg Q2H PRN IVP Severe Pain (Pain Scale 7-10) 07/31/20 12:45 08/07/20 12:44 08/01/20 12:37 Methylnaltrexone [place] (Relistor) 12 mg QOD SUBQ 08/03/20 09:00 11/01/20 08:59 Metoprolol Tartrate (Lopressor) 50 mg EVERY 12 HOURS ORAL 07/26/20 21:00 10/24/20 20:59 08/01/20 08:26 Morphine Sulfate (MS Contin) 30 mg Q8H ORAL 07/31/20 14:45 08/07/20 14:44 08/01/20 05:54 Naloxone HCl (Narcan) 0.2 mg Q2M PRN IVP RR<8MIN 08/01/20 00:00 10/30/20 00:00 Oxycodone/ Acetaminophen (Percocet 10/325) 1 tab Q4H PRN ORAL Moderate Breakthru Pain (5-7) 07/31/20 14:45 08/07/20 14:44 Patient Own Medication (Patient's Own Med) 1 ea DAILY BOTH EYES 07/26/20 10:00 08/25/20 09:59 08/01/20 08:26 Patient Own Medication (Patient's Own Med) 1 ea DAILY ORAL 07/26/20 13:30 08/25/20 13:29 08/01/20 08:26 Patient Own Medication (Patient's Own Med) 1 ea DAILY ORAL 07/26/20 13:30 08/25/20 13:29 08/01/20 08:26 Patient Own Medication (Patient's Own Med) 2 ea Q12HR ORAL 07/26/20 13:30 11/6/20 13:29 08/01/20 08:26 Polyethylene Glycol (Miralax) 17 gm BEDTIME ORAL 07/26/20 21:00 08/25/20 20:59 07/31/20 21:15 Assessment/Plan Assessment/Plan: Abx: None Assessment: COVID19 neg x1 -07/24 rapid COVID PCR neg Low grade fever x1- probably post-op No leukocytosis Left tibial plateau fracture. -07/28 SP ORIF -07/24 L tibia/fibula xray: Positive for tibial and fibular fractures HIV on ARV (Tivicay and Descovy) Hep B (Hbs ag + 2017) MDD/Anxiety disorder osteoporosis HTN metastatic Prostate cancer sp chemotherapy 3 yrs ago, CVA 2008 neuropathy Plan: -Continue to monitor off abx -f/u cx -Monitor CBC/CMP, temperatures -wound care per ortho team -Continue ARV: Tivicay and Descovy (for both HIV and Hep B) -Continue Ppx valganciclovir -Ortho f/u Thank you for this consultation. Will continue to follow along with you. Discussed with Mariaa Up M.D. Aug 01, 2020 14:11
--- NOTE | 2020-08-01 14:30 | Consultation ---
DATE OF CONSULTATION: 08/01/2020 CONSULTING PHYSICIAN: Toro Lugo MD. REFERRING PHYSICIAN: Zeke Michael MD. CHIEF COMPLAINT: Constipation. HISTORY OF PRESENT ILLNESS: This is a 55-year-old male admitted to the hospital with ankle fracture, status post surgery, now postop. The patient is on lots of pain medications and subsequently has not had a bowel movement for five days. PAST MEDICAL HISTORY: 1. Metastatic prostate cancer. 2. History of CVA. 3. HIV. 4. Neuropathy. 5. Psychiatric disorder. ALLERGIES: No known drug allergies. MEDICATIONS: Please see medication reconciliation list. PAST SURGICAL HISTORY: Left ankle surgery in this admission, otherwise no other surgeries. REVIEW OF SYSTEMS: A 10-point review of systems was performed and pertinent positives in HPI. PHYSICAL EXAMINATION: VITAL SIGNS: Temperature is 97.4, pulse 90, respirations 20, blood pressure 121/75. HEENT: Normocephalic and atraumatic. Sclerae anicteric. NECK: Supple. No evidence of obvious lymphadenopathy. CARDIOVASCULAR: Regular rate and rhythm. Plus S1-S2. LUNGS: Clear to auscultation bilaterally. ABDOMEN: Positive bowel sounds. Soft and nontender. No rebound. No guarding. No peritoneal sign. EXTREMITIES: No cyanosis. No clubbing. The patient had a surgery on the left ankle. LABORATORY DATA: White count is 4.8, hemoglobin 7.3, hematocrit 23, platelet count 132,000. Chem-7, sodium is 137, potassium 3.5, BUN 5, creatinine 0.6. ASSESSMENT AND PLAN: This is a 55-year-old male, status post left ankle surgery, now with severe constipation, most probably secondary to narcotics. Currently on Colace and MiraLAX without any improvement. Plan is a dose of Relistor subcutaneous x1 dose to help movement as this is a medication for narcotic-induced constipation and then if that works tomorrow, we are going to put the patient on regimen including lactulose and Dulcolax. I want to thank Dr. Michael for this kind referral. Toro Lugo M.D. DR: JENNIE JOB#: [id number] CC:
--- NOTE | 2020-08-01 14:42 | NUR ---
CASE MANAGEMENT: REVIEW SI: LEFT TIBIA FRACTURE S/P ORIF 07/28 T 97.4 HR 902 RR 20 BP 121/75 SAT 97% ROOM AIR H/H 7.3/23.1 IS: MS CONTIN PO Q8HR PT EVAL TRANSFUSE PRBC 1 UNIT GI CONSULT -- NO BM FOR 5 DAYS MED/SURG STATUS DCP: PATIENT IS FROM HOME
[2020-08-01 16:00] VITALS: BP 127/75
--- NOTE | 2020-08-01 17:34 | Diagnostic Imaging Report ---
Indication: Abnormal liver function tests Technique: Toussaint-scale and duplex images of the upper abdomen were obtained Comparison: Findings: Gallbladder demonstrates sludge. Sonographic Galdamez's sign is negative. Common bile duct measures 5 mm in diameter. No intrahepatic biliary ductal dilatation. Liver demonstrates normal echogenicity. It is enlarged. Numerous hypoechoic lesions are seen scattered throughout the liver, measuring up to 1.7 cm in diameter. These are not evident previously. Portal vein and hepatic veins are patent. Pancreas is incompletely visualized due to overlying bowel gas, visualized portions are unremarkable. Spleen is unremarkable. Left kidney measures 10 cm in length. Right kidney measures 10 cm length. Both kidneys demonstrate normal echogenicity. There is no hydronephrosis. No focal abnormality . Left kidney is not well-demonstrated.. Abdominal aorta is partially obscured by bowel gas, visualized portions are non-aneurysmal . Impression: Numerous small liver lesions. These are not evident previously, are worrisome for multifocal neoplasm. Possibly metastatic deposits given history of prostate carcinoma. Multiple abscesses also a possibility Somewhat enlarged liver Gallbladder sludge. Negative for stones or dilated bile ducts Poorly demonstrated pancreas, abdominal aorta, left kidney
--- NOTE | 2020-08-01 19:19 | NUR ---
NURSE HAND-OFF: Important Events on Shift:pain management. 1unit PRBC. Patient Status: stable Diet: regular Pending Orders: n/a Pending Results/Labs:n/a Pending MD notification:n/a Latest Vital Signs: Temperature 98.0 , Pulse 89 , B/P 127 /75 , Respiratory Rate 20 , O2 SAT 98 , Room Air, O2 Flow Rate 2.0 . Vital Sign Comment: stale Latest Wade Fall Score: 80 Fall Risk: High Risk Safety Measures: Call light Within Reach, Bed Alarm Zone 1, Side Rails Side Rails x2, Bed position Low and Locked. Fall Precautions: Yellow Socks Door Sign Patient Fall Education Report given to TIM Gomez
--- NOTE | 2020-08-01 19:30 | NUR ---
NURSE NOTES: Received patient in no apparent distress. A&OX4. IV site patent and intact. Immobilizer noted on left leg, dressing dry and intact. Bed in lowest position. Call light within reach. Will continue to monitor.
[2020-08-01 20:00] VITALS: BP 113/74
[2020-08-01] MEDS: Miralax 17gm pkt ORAL SCH (20:43)
--- NOTE | 2020-08-02 00:14 | Psych Consult Progress Note ---
Psychiatry Progress Note Psychiatry Progress Note Medications Current Medications Medications (Trade) Dose Ordered Sig/Liat Route PRN Reason Start Time Stop Time Status Last Admin Dose Admin Acetaminophen (Tylenol) 650 mg Q4H PRN ORAL Temp >100.5 07/24/20 21:45 08/23/20 21:44 07/31/20 21:17 Bupropion HCl (Wellbutrin XL) 150 mg DAILY ORAL 07/26/20 13:00 08/25/20 12:59 08/01/20 08:25 Docusate Sodium (Colace) 200 mg TWICE A DAY ORAL 07/25/20 18:00 08/24/20 17:59 08/01/20 17:33 Gabapentin (Neurontin) 300 mg THREE TIMES A DAY ORAL 07/25/20 14:45 08/24/20 14:44 08/01/20 17:33 Hydromorphone HCl (Dilaudid) 1 mg Q2H PRN IVP Severe Pain (Pain Scale 7-10) 07/31/20 12:45 08/07/20 12:44 08/01/20 21:46 Methylnaltrexone [place] (Relistor) 12 mg QOD SUBQ 08/03/20 09:00 11/01/20 08:59 Metoprolol Tartrate (Lopressor) 50 mg EVERY 12 HOURS ORAL 07/26/20 21:00 10/24/20 20:59 08/01/20 20:43 Morphine Sulfate (MS Contin) 30 mg Q8H ORAL 07/31/20 14:45 08/07/20 14:44 08/01/20 22:42 Naloxone HCl (Narcan) 0.2 mg Q2M PRN IVP RR<8MIN 08/01/20 00:00 10/30/20 00:00 Oxycodone/ Acetaminophen (Percocet 10/325) 1 tab Q4H PRN ORAL Moderate Breakthru Pain (5-7) 07/31/20 14:45 08/07/20 14:44 Patient Own Medication (Patient's Own Med) 1 ea DAILY BOTH EYES 07/26/20 10:00 08/25/20 09:59 08/01/20 08:26 Patient Own Medication (Patient's Own Med) 1 ea DAILY ORAL 07/26/20 13:30 08/25/20 13:29 08/01/20 08:26 Patient Own Medication (Patient's Own Med) 1 ea DAILY ORAL 07/26/20 13:30 08/25/20 13:29 08/01/20 08:26 Patient Own Medication (Patient's Own Med) 2 ea Q12HR ORAL 07/26/20 13:30 08/25/20 13:29 08/01/20 20:44 Polyethylene Glycol (Miralax) 17 gm BEDTIME ORAL 07/26/20 21:00 08/25/20 20:59 08/01/20 20:43 Neurological/Psychiatric: Reports: anxiety, depressed; Denies: no symptoms, emotional problems, headache, numbness, paresthesia, pre-existing deficit, seizure, tingling, tremors, weakness, other Allergies: Coded Allergies: No Known Allergies (Unverified , 01/16/18) Objective Data Height (Feet): 6 Height (Inches): 0.00 Weight (Pounds): 164 General Appearance: alert Appearance: no abnormalities noted Behavior Mannerisms: good eye contact Mental Status Exam - Affect: blunted Mental Status Exam - Mood: depressed, anxious Mental Status Exam - Thought P: goal-directed Mental Status Exam - Suicidal: not present, no plan Additional Comments: Assessment/Plan Assessment/Plan: ASSESSMENT: Patterson I Major depressive disorder. Patterson II Deferred. Patterson III None. Patterson IV Low. Patterson V 50 PLAN: 1. Continue the Wellbutrin. 2. Celexa. 3. Provide the patient with reality orientation and supportive therapy. Olegario Arreola MD Aug 02, 2020 00:14
[2020-08-02] MEDS: HYDROmorphone 1mg/ml Carpuject IVP PRN ×6 (01:25→17:31)
[2020-08-02 04:00] VITALS: BP 106/67
[2020-08-02 05:21] LABS: HEMATOCRIT 24.6 % (42.0-52.0); HEMOGLOBIN 7.9 G/DL (14.2-18.0); MEAN CORPUSCULAR VOLUME 80 FL (80-99); PLATELET COUNT 130 K/UL (150-450); RED BLOOD COUNT 3.05 M/UL (4.70-6.10); WHITE BLOOD COUNT 4.7 K/UL (4.8-10.8)
[2020-08-02 05:36] LABS: ALANINE AMINOTRANSFERASE < 6 U/L (12-78); ALBUMIN 1.9 G/DL (3.4-5.0); ALBUMIN/GLOBULIN RATIO 0.4 (1.0-2.7); ALKALINE PHOSPHATASE 704 U/L (46-116); ANION GAP 9 mmol/L (5-15); ASPARTATE AMINO TRANSFERASE 125 U/L (15-37); BILIRUBIN,TOTAL 0.4 MG/DL (0.2-1.0); BLOOD UREA NITROGEN 6 mg/dL (7-18); CALCIUM 7.8 MG/DL (8.5-10.1); CARBON DIOXIDE 24 MMOL/L (21-32); CHLORIDE 106 MMOL/L (98-107); CREATININE 0.6 MG/DL (0.55-1.30); POTASSIUM 3.8 MMOL/L (3.5-5.1); SODIUM 139 MMOL/L (136-145)
[2020-08-02 05:45] LABS: % IRON SATURATION 36 % (15-50); IRON 44 ug/dL (50-175); TOTAL IRON BINDING CAPACITY 121 ug/dL (250-450)
[2020-08-02] MEDS: MS Contin 15mg tab ORAL SCH ×3 (06:29→22:31)
--- NOTE | 2020-08-02 07:32 | NUR ---
NURSE HAND-OFF: Important Events on Shift: No BM yet. Pain level 8/10. Pain medication was given as ordered. Patient Status: Diet: Regular diet Pending Orders: Pending Results/Labs: Pending MD notification: Latest Vital Signs: Temperature 99.2 , Pulse 90 , B/P 106 /67 , Respiratory Rate 20 , O2 SAT 96 , Room Air, O2 Flow Rate 2.0 . Vital Sign Comment: Latest Wade Fall Score: 80 Fall Risk: High Risk Safety Measures: Call light Within Reach, Bed Alarm Zone 1, Side Rails Side Rails x2, Bed position Low and Locked. Fall Precautions: Yellow Socks Door Sign Patient Fall Education Report given to Luzmaria DUMONT.
--- NOTE | 2020-08-02 07:34 | NUR ---
NURSE NOTES: Received report from Jason RN, rounds made, pt sleeping breaths regular unlabored on RA, no s/s of distress on RA, left leg with knee immobilizer, bed in low locked position, side rails upX2, call light with in reach,will continue with pain management plan
[2020-08-02 08:02] VITALS: BP 139/72
--- NOTE | 2020-08-02 08:38 | General Progress Note ---
Subjective Date patient seen: Aug 02, 2020 Time patient seen: 07:45 - am Allergies: Coded Allergies: No Known Allergies (Unverified , 01/16/18) Subjective REVIEW OF SYSTEMS: Denies rash, fever, chills, sweating, dizziness, drowsiness, blurred vision, sore throat, or change in weight. No shortness of breath or chest pain. No nausea, vomiting, diarrhea, or blood in the stool or urine. No dysuria. HISTORY OF PRESENT ILLNESS: This is a 55-year-old male, who is being seen on the Med/Surg floor of [facility]. Patient has been doing well and reports pain at a moderate and tolerable level, having no new complaints at this time. Objective Last 24 Hour Vital Signs Date Time Temp Pulse Resp B/P (MAP) Pulse Ox O2 Delivery O2 Flow Rate FiO2 08/02/20 08:02 98.0 71 20 139/72 (94) 97 08/02/20 04:00 99.2 90 20 106/67 (80) 96 08/02/20 00:00 20 08/01/20 20:57 Room Air 08/01/20 20:43 101 113/74 08/01/20 20:05 99 Room Air 21 08/01/20 20:00 99.0 101 20 113/74 (87) 97 08/01/20 16:00 98.0 89 20 127/75 (92) 98 08/01/20 12:00 98.3 92 18 114/69 (84) 96 08/01/20 09:00 Room Air Intake and Output 08/01/20 08/02/20 19:00 07:00 Intake Total 300 ml 240 ml Output Total 600 ml 850 ml Balance -300 ml -610 ml Intake Oral 300 ml 240 ml Output Urine Total 600 ml 850 ml # Voids 2 4 Laboratory Tests 08/02/20 04:35: White Blood Count 4.7L, Red Blood Count 3.05L, Hemoglobin 7.9L, Hematocrit 24.6L , Mean Corpuscular Volume 80, Mean Corpuscular Hemoglobin 25.9L, Mean Corpuscular Hemoglobin Concent 32.2, Red Cell Distribution Width 16.0H, Platelet Count 130L, Mean Platelet Volume 5.6L, Neutrophils (%) (Auto) , Lymphocytes (%) (Auto) , Monocytes (%) (Auto) , Eosinophils (%) (Auto) , Basophils (%) (Auto) , Differential Total Cells Counted 100, Neutrophils % (Manual) 58, Lymphocytes % (Manual) 36, Monocytes % (Manual) 3, Eosinophils % (Manual) 2, Basophils % (Manual) 0, Band Neutrophils 1, Platelet Estimate DecreasedL, Platelet Morphology Normal, Hypochromasia 1+, Anisocytosis 1+, Microcytosis 1+, Sodium Level 139, Potassium Level 3.8, Chloride Level 106, Carbon Dioxide Level 24, A nion Gap 9, Blood Urea Nitrogen 6L, Creatinine 0.6, Estimat Glomerular Filtration Rate > 60, Glucose Level 105, Calcium Level 7.8L, Iron Level 44L, Total Iron Binding Capacity 121L, Percent Iron Saturation 36, Unsaturated Iron Binding 77L, Total Bilirubin 0.4, Aspartate Amino Transf (AST/SGOT) 125H, Alanine Aminotransferase (ALT/SGPT) < 6L, Alkaline Phosphatase 704H, Total Protein 6.2L, Albumin 1.9L, Globulin 4.3, Albumin/Globulin Ratio 0.4L Height (Feet): 6 Height (Inches): 0.00 Weight (Pounds): 164 Objective PHYSICAL EXAMINATION: LUNGS: Decreased breath sounds bilaterally. HEART: S1 and S2 regular. ABDOMEN: Soft, nontender. EXTREMITIES: Left lower extremity is in a splint. NEURO: No changes. Assessment/Plan Assessment/Plan: (1) Left tibial pathological fracture (2) Left LE pain s/p ORIF (3) Metastatic prostate cancer Patient to be continued on Morphine ER, Dilaudid and Percocet. D/w Dr. Cristina and he concurred Ervin Duval Aug 02, 2020 08:38
[2020-08-02] MEDS: DUREZOL EYE BOTH EYES SCH (09:08)
[2020-08-02] MEDS: BuPROPion XL 150mg tab ORAL SCH (09:09)
[2020-08-02] MEDS: Metoprolol Tartrate 50mg tab ORAL SCH ×2 (09:09→20:11)
[2020-08-02] MEDS: DOLUTEGRAVIR SODIUM 50 MG ORAL SCH (09:09)
[2020-08-02] MEDS: VALCYTE ORAL SCH ×2 (09:09→20:12)
[2020-08-02] MEDS: Docusate 100mg cap ORAL SCH ×2 (09:09→17:30)
[2020-08-02] MEDS: DESCOVY ORAL SCH (09:09)
--- NOTE | 2020-08-02 10:58 | General Progress Note ---
Subjective ROS Limited/Unobtainable: Yes Allergies: Coded Allergies: No Known Allergies (Unverified , 01/16/18) Objective Last 24 Hour Vital Signs Date Time Temp Pulse Resp B/P (MAP) Pulse Ox O2 Delivery O2 Flow Rate FiO2 08/02/20 09:09 71 139/72 08/02/20 09:00 Room Air 08/02/20 08:02 98.0 71 20 139/72 (94) 97 08/02/20 04:00 99.2 90 20 106/67 (80) 96 08/02/20 00:00 20 08/01/20 20:57 Room Air 08/01/20 20:43 101 113/74 08/01/20 20:05 99 Room Air 21 08/01/20 20:00 99.0 101 20 113/74 (87) 97 08/01/20 16:00 98.0 89 20 127/75 (92) 98 08/01/20 12:00 98.3 92 18 114/69 (84) 96 l Intake and Output 08/01/20 08/02/20 19:00 07:00 Intake Total 300 ml 240 ml Output Total 600 ml 850 ml Balance -300 ml -610 ml Intake Oral 300 ml 240 ml Output Urine Total 600 ml 850 ml # Voids 2 4 Laboratory Tests 08/02/20 04:35: White Blood Count 4.7L, Red Blood Count 3.05L, Hemoglobin 7.9L, Hematocrit 24.6L , Mean Corpuscular Volume 80, Mean Corpuscular Hemoglobin 25.9L, Mean Corpuscular Hemoglobin Concent 32.2, Red Cell Distribution Width 16.0H, Platelet Count 130L, Mean Platelet Volume 5.6L, Neutrophils (%) (Auto) , Lymphocytes (%) (Auto) , Monocytes (%) (Auto) , Eosinophils (%) (Auto) , Basophils (%) (Auto) , Differential Total Cells Counted 100, Neutrophils % (Manual) 58, Lymphocytes % (Manual) 36, Monocytes % (Manual) 3, Eosinophils % (Manual) 2, Basophils % (Manual) 0, Band Neutrophils 1, Platelet Estimate DecreasedL, Platelet Morphology Normal, Hypochromasia 1+, Anisocytosis 1+, Microcytosis 1+, Sodium Level 139, Potassium Level 3.8, Chloride Level 106, Carbon Dioxide Level 24, Anion Gap 9, Blood Urea Nitrogen 6L, Creatinine 0.6, Estimat Glomerular Filtration Rate > 60, Glucose Level 105, Calcium Level 7.8L, Iron Level 44L, Total Iron Binding Capacity 121L, Percent Iron Saturation 36, Unsaturated Iron Binding 77L, Total Bilirubin 0.4, Aspartate Amino Transf (AST/SGOT) 125H, Alanine Aminotransferase (ALT/SGPT) < 6L, Alkaline Phosphatase 704H, Total Protein 6.2L, Albumin 1.9L, Globulin 4.3, Albumin/Globulin Ratio 0.4L Height (Feet): 6 Height (Inches): 0.00 Weight (Pounds): 164 General Appearance: no apparent distress EENT: normal ENT inspection Neck: supple Cardiovascular: normal rate Respiratory/Chest: decreased breath sounds Abdomen: normal bowel sounds, non tender, soft Extremities: non-tender Assessment/Plan Problem List: (1) Therapeutic opioid-induced constipation (OIC) ICD Codes: K59.03 - Drug induced constipation; T40.2X5A - Adverse effect of other opioids, initial encounter SNOMED: 404702847576900 (2) Prostate CA ICD Codes: C61 - Malignant neoplasm of prostate SNOMED: 756909980 (3) Left tibial fracture ICD Codes: S82.202A - Unspecified fracture of shaft of left tibia, initial encounter for closed fracture SNOMED: 85183694, 30607679636200805 Qualifiers: Qualified Codes: S82.192A - Other fracture of upper end of left tibia, initial encounter for closed fracture (4) HIV (human immunodeficiency virus infection) ICD Codes: B20 - Human immunodeficiency virus [HIV] disease SNOMED: 54884957 (5) Anemia ICD Codes: D64.9 - Anemia, unspecified SNOMED: 168923426 Assessment/Plan: good response to Relistor cont current meds repeat relistor tomorrow if needed Toro Lugo MD Aug 02, 2020 10:57
--- NOTE | 2020-08-02 11:38 | General Progress Note ---
Subjective Constitutional: Denies: no symptoms, chills, diaphoresis, fever, malaise, weakness, other HEENT: Denies: no symptoms, eye pain, blurred vision, tearing, double vision, ear pain, ear discharge, nose pain, nose congestion, throat pain, throat swelling, mouth pain, mouth swelling, other Cardiovascular: Denies: no symptoms, chest pain, edema, irregular heart rate, lightheadedness, palpitations, syncope, other Respiratory: Denies: no symptoms, cough, orthopnea, shortness of breath, SOB with excertion, SOB at rest, sputum, stridor, wheezing, other Gastrointestinal/Abdominal: Denies: no symptoms, abdomen distended, abdominal pain, black stools, tarry stools, blood in stool, constipated, diarrhea, difficulty swallowing, nausea, poor appetite, poor fluid intake, rectal bleeding, vomiting, other Genitourinary: Denies: no symptoms, burning, discharge, frequency, flank pain, hematuria, incontinence, pain, urgency, other Neurologic/Psychiatric: Denies: no symptoms, anxiety, depressed, emotional problems, headache, numbness, paresthesia, pre-existing deficit, seizure, tingling, tremors, weakness, other Endocrine: Denies: no symptoms, excessive sweating, flushing, intolerance to cold, intolerance to heat, increased hunger, increased thirst, increased urine, unexplained weight gain, unexplained weight loss, other Allergies: Coded Allergies: No Known Allergies (Unverified , 01/16/18) Subjective 07/27 is for surgery friday left hip orif 07/28 scheduled for open reduction and internal fixation with lateral plate fixation of left lower leg today 07/29: pt is resting is sleepy. 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 labs noted, no bleeding, cbc has been reordered, meds reviewed 08/01 labs reviewed, hgb 7.3, plt lower, hepbs ag was + from prior, and hiv 08/02 meds reviewed, no bleeding, wbc 4.7, hgb 7.9, psa ordered Objective Last 24 Hour Vital Signs Date Time Temp Pulse Resp B/P (MAP) Pulse Ox O2 Delivery O2 Flow Rate FiO2 08/02/20 09:09 71 139/72 08/02/20 09:00 Room Air 08/02/20 08:02 98.0 71 20 139/72 (94) 97 08/02/20 04:00 99.2 90 20 106/67 (80) 96 08/02/20 00:00 20 08/01/20 20:57 Room Air 08/01/20 20:43 101 113/74 08/01/20 20:05 99 Room Air 21 08/01/20 20:00 99.0 101 20 113/74 (87) 97 08/01/20 16:00 98.0 89 20 127/75 (92) 98 08/01/20 12:00 98.3 92 18 114/69 (84) 96 Intake and Output 08/01/20 08/02/20 19:00 07:00 Intake Total 300 ml 240 ml Output Total 600 ml 850 ml Balance -300 ml -610 ml Intake Oral 300 ml 240 ml Output Urine Total 600 ml 850 ml # Voids 2 4 Laboratory Tests 08/02/20 04:35: White Blood Count 4.7L, Red Blood Count 3.05L, Hemoglobin 7.9L, Hematocrit 24.6L , Mean Corpuscular Volume 80, Mean Corpuscular Hemoglobin 25.9L, Mean Corpuscular Hemoglobin Concent 32.2, Red Cell Distribution Width 16.0H, Platelet Count 130L, Mean Platelet Volume 5.6L, Neutrophils (%) (Auto) , Lymphocytes (%) (Auto) , Monocytes (%) (Auto) , Eosinophils (%) (Auto) , Basophils (%) (Auto) , Differential Total Cells Counted 100, Neutrophils % (Manual) 58, Lymphocytes % (Manual) 36, Monocytes % (Manual) 3, Eosinophils % (Manual) 2, Basophils % (Manual) 0, Band Neutrophils 1, Platelet Estimate DecreasedL, Platelet Morphology Normal, Hypochromasia 1+, Anisocytosis 1+, Microcytosis 1+, Sodium Level 139, Potassium Level 3.8, Chloride Level 106, Carbon Dioxide Level 24, Anion Gap 9, Blood Urea Nitrogen 6L, Creatinine 0.6, Estimat Glomerular Filtration Rate > 60, Glucose Level 105, Calcium Level 7.8L, Iron Level 44L, Total Iron Binding Capacity 121L, Percent Iron Saturation 36, Unsaturated Iron Binding 77L, Total Bilirubin 0.4, Aspartate Amino Transf (AST/SGOT) 125H, Alanine Aminotransferase (ALT/SGPT) < 6L, Alkaline Phosphatase 704H, Total Protein 6.2L, Albumin 1.9L, Globulin 4.3, Albumin/Globulin Ratio 0.4L Height (Feet): 6 Height (Inches): 0.00 Weight (Pounds): 164 Objective Gen nad Pulm ctab CV rrr Abd soft nt nd Ext Left leg in gauze padding Assessment/Plan Assessment/Plan: 1 fracture of leg 2 malnutrition 3 dehydation 4 htn 5. anemia r/o gi bleed 6. hiv 7. hep B sAg+ 8. leukopenia cont ccurrent tx dvt prophylasix cardio clearence s/p surgery hgb 8.2 -->7.3-->7.9 1 unit prbc plt lower psa ordered get id recs Zack Castro MD Aug 02, 2020 11:38
[2020-08-02 12:00] VITALS: BP 98/79
[2020-08-02] MEDS ORDERED: Omnipaque-300 100ml vial INJ PRN (12:45)
--- NOTE | 2020-08-02 12:45 | Infectious Diseases Prog Note ---
Assessment/Plan Assessment: COVID19 neg x1 -07/24 rapid COVID PCR neg Low grade fever x1- probably post-op No leukocytosis Left tibial plateau fracture. -07/28 SP ORIF -07/24 L tibia/fibula xray: Positive for tibial and fibular fractures HIV on ARV (Tivicay and Descovy) Hep B (Hbs ag + 2017) Elevate AST Liver lesions- r/o malignancy -Abd US: Numerous small liver lesions. These are not evident previously, are worrisome for multifocal neoplasm. Possibly metastatic deposits given history of prostate carcinoma. Multiple abscesses also a possibility. Somewhat enlarged liver. Gallbladder sludge. Negative for stones or dilated bile ducts Poorly demonstrated pancreas, abdominal aorta, left kidney MDD/Anxiety disorder osteoporosis HTN metastatic Prostate cancer sp chemotherapy 3 yrs ago, CVA 2008 neuropathy Plan: -Continue to monitor off abx -f/u cx -Monitor CBC/CMP, temperatures -wound care per ortho team -Continue ARV: Tivicay and Descovy (for both HIV and Hep B) -Continue Ppx valganciclovir -Ortho f/u -Discussed with Dr Kavon prescott liver lesions- will order CT liver protocol to further evaluate -HIV VL, CD4, hep serologies and Hep B VL -GI and Heme onc f/u Thank you for this consultation. Will continue to follow along with you. Discussed with RN. Subjective Allergies: Coded Allergies: No Known Allergies (Unverified , 01/16/18) afebrile >36hrs mild leukopenia liver lesions on ABd US Objective Last 24 Hour Vital Signs Date Time Temp Pulse Resp B/P (MAP) Pulse Ox O2 Delivery O2 Flow Rate FiO2 08/02/20 12:00 97.1 90 20 98/79 (85) 97 08/02/20 09:09 71 139/72 08/02/20 09:00 Room Air 08/02/20 08:02 98.0 71 20 139/72 (94) 97 08/02/20 04:00 99.2 90 20 106/67 (80) 96 08/02/20 00:00 20 08/01/20 20:57 Room Air 08/01/20 20:43 101 113/74 08/01/20 20:05 99 Room Air 21 08/01/20 20:00 99.0 101 20 113/74 (87) 97 10/13/20 16:00 98.0 89 20 127/75 (92) 98 Height (Feet): 6 Height (Inches): 0.00 Weight (Pounds): 164 GENERAL: Alert, awake, and oriented. HEENT: PERRLA. NECK: Range of motion is decreased due to the patient's condition. No tenderness. LUNGS: Decreased breath sounds bilaterally. HEART: S1 and S2 regular. ABDOMEN: Soft, nontender. BACK: Range of motion is decreased in flexion and extension. Ext- post op wound Laboratory Tests Test 08/02/20 04:35 White Blood Count 4.7 K/UL (4.8-10.8) L Red Blood Count 3.05 M/UL (4.70-6.10) L Hemoglobin 7.9 G/DL (14.2-18.0) L Hematocrit 24.6 % (42.0-52.0) L Mean Corpuscular Volume 80 FL (80-99) Mean Corpuscular Hemoglobin 25.9 PG (27.0-31.0) L Mean Corpuscular Hemoglobin Concent 32.2 G/DL (32.0-36.0) Red Cell Distribution Width 16.0 % (11.6-14.8) H Platelet Count 130 K/UL (150-450) L Mean Platelet Volume 5.6 FL (6.5-10.1) L Neutrophils (%) (Auto) % (45.0-75.0) Lymphocytes (%) (Auto) % (20.0-45.0) Monocytes (%) (Auto) % (1.0-10.0) Eosinophils (%) (Auto) % (0.0-3.0) Basophils (%) (Auto) % (0.0-2.0) Differential Total Cells Counted 100 Neutrophils % (Manual) 58 % (45-75) Lymphocytes % (Manual) 36 % (20-45) Monocytes % (Manual) 3 % (1-10) Eosinophils % (Manual) 2 % (0-3) Basophils % (Manual) 0 % (0-2) Band Neutrophils 1 % (0-8) Platelet Estimate Decreased L Platelet Morphology Normal Hypochromasia 1+ Anisocytosis 1+ Microcytosis 1+ Sodium Level 139 MMOL/L (136-145) Potassium Level 3.8 MMOL/L (3.5-5.1) Chloride Level 106 MMOL/L (98-107) Carbon Dioxide Level 24 MMOL/L (21-32) Anion Gap 9 mmol/L (5-15) Blood Urea Nitrogen 6 mg/dL (7-18) L Creatinine 0.6 MG/DL (0.55-1.30) Estimat Glomerular Filtration Rate > 60 mL/min (>60) Glucose Level 105 MG/DL (74-106) Calcium Level 7.8 MG/DL (8.5-10.1) L Iron Level 44 ug/dL (50-175) L Total Iron Binding Capacity 121 ug/dL (250-450) L Percent Iron Saturation 36 % (15-50) Unsaturated Iron Binding 77 ug/dL (112-346) L Total Bilirubin 0.4 MG/DL (0.2-1.0) Aspartate Amino Transf (AST/SGOT) 125 U/L (15-37) H Alanine Aminotransferase (ALT/SGPT) < 6 U/L (12-78) L Alkaline Phosphatase 704 U/L (46-116) H Total Protein 6.2 G/DL (6.4-8.2) L Albumin 1.9 G/DL (3.4-5.0) L Globulin 4.3 g/dL Albumin/Globulin Ratio 0.4 (1.0-2.7) L Prostate Specific Antigen Pending Current Medications Medications (Trade) Dose Ordered Sig/Liat Route PRN Reason Start Time Stop Time Status Last Admin Dose Admin Acetaminophen (Tylenol) 650 mg Q4H PRN ORAL Temp >100.5 07/24/20 21:45 08/23/20 21:44 07/31/20 21:17 Bupropion HCl (Wellbutrin XL) 150 mg DAILY ORAL 07/26/20 13:00 08/25/20 12:59 08/02/20 09:09 Docusate Sodium (Colace) 200 mg TWICE A DAY ORAL 07/25/20 18:00 08/24/20 17:59 08/02/20 09:09 Gabapentin (Neurontin) 300 mg THREE TIMES A DAY ORAL 07/25/20 14:45 08/24/20 14:44 08/02/20 09:09 Hydromorphone HCl (Dilaudid) 1 mg Q2H PRN IVP Severe Pain (Pain Scale 7-10) 07/31/20 12:45 08/07/20 12:44 08/02/20 11:36 Methylnaltrexone [place] (Relistor) 12 mg QOD SUBQ 08/03/20 09:00 11/01/20 08:59 Metoprolol Tartrate (Lopressor) 50 mg EVERY 12 HOURS ORAL 07/26/20 21:00 10/24/20 20:59 08/02/20 09:09 Mirtazapine (Remeron) 7.5 mg BEDTIME ORAL 08/02/20 21:00 10/31/20 20:59 Morphine Sulfate (MS Contin) 30 mg Q8H ORAL 07/31/20 14:45 08/07/20 14:44 08/02/20 06:29 Naloxone HCl (Narcan) 0.2 mg Q2M PRN IVP RR<8MIN 08/01/20 00:00 10/30/20 00:00 Oxycodone/ Acetaminophen (Percocet 10/325) 1 tab Q4H PRN ORAL Moderate Breakthru Pain (5-7) 07/31/20 14:45 08/07/20 14:44 Patient Own Medication (Patient's Own Med) 1 ea DAILY BOTH EYES 07/26/20 10:00 08/25/20 09:59 08/02/20 09:08 Patient Own Medication (Patient's Own Med) 1 ea DAILY ORAL 07/26/20 13:30 08/25/20 13:29 08/02/20 09:09 Patient Own Medication (Patient's Own Med) 1 ea DAILY ORAL 07/26/20 13:30 08/25/20 13:29 08/02/20 09:09 Patient Own Medication (Patient's Own Med) 2 ea Q12HR ORAL 07/26/20 13:30 08/25/20 13:29 08/02/20 09:09 Polyethylene Glycol (Miralax) 17 gm BEDTIME ORAL 07/26/20 21:00 08/25/20 20:59 08/01/20 20:43 Mariaa Pemberton M.D. Aug 02, 2020 12:45
--- NOTE | 2020-08-02 14:39 | NUR ---
CASE MANAGEMENT:REVIEW SI; LEFT TIBIA FRACTURE. S/P ORIF 07/28. 99.2 102 20 98/79 96% ON RA WBC 4.7 H/H 7.9/24.6 PLT 130 CA 7.8 IRON 44 AST 125 ALB 1.9 PROSTATE SPECIFIC AG 279.67 IS;MS CONTIN PO Q8 DILAUDID IV Q2 PRN LOPRESSOR PO Q12 MED SURG STATUS DCP;PATIENT IS FROM HOME
--- NOTE | 2020-08-02 15:19 | NUR ---
P.T NOTE: LATE ENTRY 1030 PATIENT RECEIVED IN SUPINE POSITION. PATIENT PRESENTED PERIODS OF CRYING EPISODES AND EXPRESSED FEELING OF BEING DEPRESSED AND SELF WORTHLESSNESS. PATIENT STATED " I FEEL LIKE GIVING UP AND DON'T WANT TO LIVE ANYMORE, I NEED SOMEONE TO SEE ME FOR MY DEPRESSION" . SPOKE WITH ATTENDING RN REGARDING WHAT PATIENT HAD STATED THIS AM PRIOR TO P.T SESSION. Addendum: 08/02/20 at 1527 by MIGUEL RAYA PT Amended: Links added.
[2020-08-02 16:00] VITALS: BP 103/69
--- NOTE | 2020-08-02 19:19 | NUR ---
NURSE HAND-OFF: Important Events on Shift: NPO after Midnight Patient Status: stable Diet: Regular Pending Orders: Pending Results/Labs: Pending MD notification: Latest Vital Signs: Temperature 97.0 , Pulse 73 , B/P 103 /69 , Respiratory Rate 21 , O2 SAT 99 , Room Air, O2 Flow Rate 2.0 . Vital Sign Comment: Latest Wade Fall Score: 80 Fall Risk: High Risk Safety Measures: Call light Within Reach, Bed Alarm Zone 1, Side Rails Side Rails x2, Bed position Low and Locked. Fall Precautions: Yellow Socks Door Sign Patient Fall Education Report given to Jason DUMONT .
--- NOTE | 2020-08-02 19:30 | NUR ---
NURSE NOTES: Received patient in no apparent distress. A&OX4. IV site patent and intact. Immobilizer noted on left leg, dressing dry and intact. Remind patient NPO midnight for tomorrow CT scan, patient fully understood. Bed in lowest position. Call light within reach. Will continue to monitor.
[2020-08-02 20:00] VITALS: BP 108/70
[2020-08-02] MEDS: Miralax 17gm pkt ORAL SCH (20:15)
--- NOTE | 2020-08-02 20:15 | NUR ---
NURSE NOTES: Patient refused Miralax. Explained risk and benefit but still refused. Patient says "tomorrow shot will take care of it!"
--- NOTE | 2020-08-02 23:07 | Psych Consult Progress Note ---
Psychiatry Progress Note Psychiatry Progress Note Medications Current Medications Medications (Trade) Dose Ordered Sig/Liat Route PRN Reason Start Time Stop Time Status Last Admin Dose Admin Acetaminophen (Tylenol) 650 mg Q4H PRN ORAL Temp >100.5 07/24/20 21:45 08/23/20 21:44 07/31/20 21:17 Barium Sulfate (Readi-Cat 2) 450 ml NOW PRN ORAL Radiology Procedure 08/02/20 12:45 08/04/20 12:44 Bupropion HCl (Wellbutrin XL) 150 mg DAILY ORAL 07/26/20 13:00 08/25/20 12:59 08/02/20 09:09 Docusate Sodium (Colace) 200 mg TWICE A DAY ORAL 07/25/20 18:00 08/24/20 17:59 08/02/20 17:30 Gabapentin (Neurontin) 300 mg THREE TIMES A DAY ORAL 07/25/20 14:45 08/24/20 14:44 08/02/20 17:30 Hydromorphone HCl (Dilaudid) 1 mg Q2H PRN IVP Severe Pain (Pain Scale 7-10) 07/31/20 12:45 08/07/20 12:44 08/02/20 17:31 Iohexol (OMNIPAQUE-300 100ml) 100 ml NOW PRN INJ Radiology Procedure 08/02/20 12:45 08/04/20 12:44 Methylnaltrexone [place] (Relistor) 12 mg QOD SUBQ 08/03/20 09:00 11/01/20 08:59 Metoprolol Tartrate (Lopressor) 50 mg EVERY 12 HOURS ORAL 07/26/20 21:00 10/24/20 20:59 08/02/20 20:11 Mirtazapine (Remeron) 7.5 mg BEDTIME ORAL 08/02/20 21:00 10/31/20 20:59 08/02/20 20:11 Morphine Sulfate (MS Contin) 30 mg Q8H ORAL 07/31/20 14:45 08/07/20 14:44 08/02/20 22:31 Naloxone HCl (Narcan) 0.2 mg Q2M PRN IVP RR<8MIN 08/01/20 00:00 10/30/20 00:00 Oxycodone/ Acetaminophen (Percocet 10/325) 1 tab Q4H PRN ORAL Moderate Breakthru Pain (5-7) 07/31/20 14:45 08/07/20 14:44 Patient Own Medication (Patient's Own Med) 1 ea DAILY BOTH EYES 07/26/20 10:00 08/25/20 09:59 08/02/20 09:08 Patient Own Medication (Patient's Own Med) 1 ea DAILY ORAL 07/26/20 13:30 08/25/20 13:29 08/02/20 09:09 Patient Own Medication (Patient's Own Med) 1 ea DAILY ORAL 07/26/20 13:30 08/25/20 13:29 08/02/20 09:09 Patient Own Medication (Patient's Own Med) 2 ea Q12HR ORAL 07/26/20 13:30 08/25/20 13:29 08/02/20 20:12 Polyethylene Glycol (Miralax) 17 gm BEDTIME ORAL 07/26/20 21:00 08/25/20 20:59 08/01/20 20:43 Neurological/Psychiatric: Denies: no symptoms, anxiety, depressed, emotional problems, headache, numbness, paresthesia, pre-existing deficit, seizure, tingling, tremors, weakness, other Allergies: Coded Allergies: No Known Allergies (Unverified , 01/16/18) Objective Data Height (Feet): 6 Height (Inches): 0.00 Weight (Pounds): 164 General Appearance: no apparent distress Appearance: no abnormalities noted Behavior Mannerisms: good eye contact Mental Status Exam - Affect: blunted Mental Status Exam - Mood: depressed, anxious Mental Status Exam - Thought P: goal-directed Mental Status Exam - Suicidal: not present, no plan Additional Comments: Assessment/Plan [place] I: ASSESSMENT: [place] I Major depressive disorder. [place] II Deferred. [place] III None. [place] IV Low. [place] V 50 PLAN: 1. Continue the Wellbutrin. 2. Celexa. 3. Provide the patient with reality orientation and supportive therapy. Status Narrative ASSESSMENT: [place] I Major depressive disorder. [place] II Deferred. [place] III None. [place] IV Low. [place] V 50 PLAN: 1. Continue the Wellbutrin. 2. Celexa. 3. Provide the patient with reality orientation and supportive therapy. Assessment/Plan: ASSESSMENT: [place] I Major depressive disorder. [place] II Deferred. [place] III None. [place] IV Low. [place] V 50 PLAN: 1. Continue the Wellbutrin. 2. Celexa. 3. Provide the patient with reality orientation and supportive therapy. Olegario Arreola MD Aug 02, 2020 23:07
[2020-08-03 00:16] VITALS: BP 119/74
[2020-08-03 04:00] VITALS: BP 122/75
[2020-08-03] MEDS: HYDROmorphone 1mg/ml Carpuject IVP PRN ×7 (04:47→23:51)
[2020-08-03] MEDS: MS Contin 15mg tab ORAL SCH ×3 (06:35→22:45)
[2020-08-03 07:13] LABS: HEMATOCRIT 24.6 % (42.0-52.0); HEMOGLOBIN 7.9 G/DL (14.2-18.0); MEAN CORPUSCULAR VOLUME 81 FL (80-99); PLATELET COUNT 135 K/UL (150-450); RED BLOOD COUNT 3.05 M/UL (4.70-6.10); RED CELL DISTRIBUTION WIDTH 16.1 % (11.6-14.8); WHITE BLOOD COUNT 4.8 K/UL (4.8-10.8)
--- NOTE | 2020-08-03 07:30 | NUR ---
NURSE NOTES: Patient is in bed asleep. Stable. Breathing is even and unlabored. No visible signs of distress noted. Patient appears comfortable, no facial grimacing noted. Patient is in bed in locked and lowest position with call light within reach. All safety measures provided. WIll continue to monitor.
--- NOTE | 2020-08-03 07:30 | NUR ---
NURSE HAND-OFF: Important Events on Shift: Kept NPO midnight for CT Patient Status: Diet: regular Pending Orders: Pending Results/Lab Pending MD notification Latest Vital Signs: Temperature 97.9 , Pulse 90 , B/P 119 /74 , Respiratory Rate 20 , O2 SAT 98 , Room Air, O2 Flow Rate 2.0 . Vital Sign Comment: Latest Wade Fall Score: 80 Fall Risk: High Risk Safety Measures: Call light Within Reach, Bed Alarm Zone 1, Side Rails Side Rails x2, Bed position Low and Locked. Fall Precautions: Yellow Socks Door Sign Patient Fall Education Report given to Lucila DUMONT.
[2020-08-03 08:00] VITALS: BP 109/62
[2020-08-03] MEDS: DOLUTEGRAVIR SODIUM 50 MG ORAL SCH (08:57)
[2020-08-03] MEDS: Docusate 100mg cap ORAL SCH ×2 (08:57→17:56)
[2020-08-03] MEDS: VALCYTE ORAL SCH ×2 (08:57→20:54)
[2020-08-03] MEDS: DUREZOL EYE BOTH EYES SCH (08:57)
[2020-08-03] MEDS: DESCOVY ORAL SCH (08:57)
[2020-08-03] MEDS: BuPROPion XL 150mg tab ORAL SCH (08:57)
[2020-08-03] MEDS: Metoprolol Tartrate 50mg tab ORAL SCH ×2 (08:58→20:53)
[2020-08-03] MEDS: Relistor 12mg/0.6ml Vial SUBQ SCH ×2 (09:00→09:01)
--- NOTE | 2020-08-03 09:11 | NUR ---
NURSE NOTES:DR. BEAR NOTIFIED RE:HGB.7.0/HCT.24.6,NO ORDERS.PRIMARY RN. AWARE.
--- NOTE | 2020-08-03 09:39 | General Progress Note ---
Subjective Date patient seen: Aug 03, 2020 Time patient seen: 08:30 - am Allergies: Coded Allergies: No Known Allergies (Unverified , 01/16/18) Subjective REVIEW OF SYSTEMS: Denies rash, fever, chills, sweating, dizziness, drowsiness, blurred vision, sore throat, or change in weight. No shortness of breath or chest pain. No nausea, vomiting, diarrhea, or blood in the stool or urine. No dysuria. HISTORY OF PRESENT ILLNESS: This is a 55-year-old male, who is being seen on the Med/Surg floor of [facility]. Patient continues to be in bed and was advised to participate in PT. Waiting to go for CT abd as per ID, pain has been tolerated on the Morphine ER and Dilaudid. Objective Last 24 Hour Vital Signs Date Time Temp Pulse Resp B/P (MAP) Pulse Ox O2 Delivery O2 Flow Rate FiO2 08/03/20 08:58 93 109/62 08/03/20 04:00 97.9 93 20 122/75 (91) 98 08/03/20 00:16 97.8 90 20 119/74 (89) 97 08/03/20 00:00 20 08/02/20 20:20 Room Air 08/02/20 20:11 96 108/70 08/02/20 20:00 98 Room Air 21 08/02/20 20:00 98.1 96 20 108/70 (83) 100 08/02/20 16:00 97.0 73 21 103/69 (80) 99 08/02/20 12:00 97.1 90 20 98/79 (85) 97 Intake and Output 08/02/20 08/03/20 19:00 07:00 Intake Total 1200 ml Output Total 800 ml 250 ml Balance 400 ml -250 ml Intake Oral 1200 ml Output Urine Total 800 ml 250 ml # Voids 3 2 Laboratory Tests 08/03/20 05:05: White Blood Count [Pending], Lymphocytes [Pending], Percent CD3 Cells [Pending], Absolute CD3 Count [Pending], Percent CD4 Cells [Pending], Absolute CD4 Count [Pending], T-Lymphocyte CD4/CD8 Ratio [Pending], Percent CD8 Cells [Pending], Absolute CD8 Count [Pending], Hepatitis A IgM Antibody [Pending], Hepatitis A Antibody Total [Pending], Hepatitis B Surface Antigen [Pending], Hepatitis B Core Total Antibody [Pending], Hepatitis B Core IgM Antibody [Pending], Hepatitis B DNA (IU/mL) [Pending], Hepatitis C Antibody [Pending], HIV-1 RNA (PCR) log10 Value [Pending], HIV-1 RNA Ultraquantitative (PCR) [Pending] 08/03/20 05:50: White Blood Count 4.8, Red Blood Count 3.05L, Hemoglobin 7.9L, Hematocrit 24.6L, Mean Corpuscular Volume 81, Mean Corpuscular Hemoglobin 25.8L, Mean Corpuscular Hemoglobin Concent 31.9L, Red Cell Distribution Width 16.1H, Platelet Count 135L, Mean Platelet Volume 4.8L, Neutrophils (%) (Auto) , Lymphocytes (%) (Auto) , Monocytes (%) (Auto) , Eosinophils (%) (Auto) , Basophils (%) (Auto) , Differential Total Cells Counted 100, Neutrophils % (Manual) 70, Lymphocytes % (Manual) 27, Monocytes % (Manual) 3, Eosinophils % (Manual) 0, Basophils % (Manual) 0, Band Neutrophils 0, Platelet Estimate DecreasedL, Platelet Morphology Normal, Hypochromasia 1+, Anisocytosis 1+ Height (Feet): 6 Height (Inches): 0.00 Weight (Pounds): 164 Objective PHYSICAL EXAMINATION: LUNGS: Decreased breath sounds bilaterally. HEART: S1 and S2 regular. ABDOMEN: Soft, nontender. EXTREMITIES: Left lower extremity is in a splint. NEURO: No changes. Assessment/Plan Assessment/Plan: (1) Left tibial pathological fracture (2) Left LE pain s/p ORIF (3) Metastatic prostate cancer Patient to be continued on Morphine ER, Dilaudid and Percocet. D/w Dr. Cristina and he concurred Ervin Duval Aug 03, 2020 09:39
--- NOTE | 2020-08-03 09:57 | Operative Note - PDOC ---
Operative Note Operative Note Pre-op Diagnosis: left tibia plateau fracture Procedure: orif left tibia plataue Post-op Diagnosis: same as pre-op plus Operative Findings: consistent w/pre-op dx studies Anesthesia: regional Specimen: none Complications: none Condition: stable Estimated Blood Loss: minimal Implant(s) used?: Yes Vel Pablo MD Aug 03, 2020 09:57
[2020-08-03 12:00] VITALS: BP 115/69
--- NOTE | 2020-08-03 12:24 | General Progress Note ---
Subjective ROS Limited/Unobtainable: Yes Allergies: Coded Allergies: No Known Allergies (Unverified , 01/16/18) Objective Last 24 Hour Vital Signs Date Time Temp Pulse Resp B/P (MAP) Pulse Ox O2 Delivery O2 Flow Rate FiO2 08/03/20 09:00 Room Air 08/03/20 08:58 93 109/62 08/03/20 08:00 98.2 93 20 109/62 (78) 98 08/03/20 04:00 97.9 93 20 122/75 (91) 98 08/03/20 00:16 97.8 90 20 119/74 (89) 97 08/03/20 00:00 20 08/02/20 20:20 Room Air 08/02/20 20:11 96 108/70 08/02/20 20:00 98 Room Air 21 08/02/20 20:00 98.1 96 20 108/70 (83) 100 08/02/20 16:00 97.0 73 21 103/69 (80) 99 Intake and Output 08/02/20 08/03/20 19:00 07:00 Intake Total 1200 ml Output Total 800 ml 250 ml Balance 400 ml -250 ml Intake Oral 1200 ml Output Urine Total 800 ml 250 ml # Voids 3 2 Laboratory Tests 08/03/20 05:05: White Blood Count [Pending], Lymphocytes [Pending], Percent CD3 Cells [Pending], Absolute CD3 Count [Pending], Percent CD4 Cells [Pending], Absolute CD4 Count [Pending], T-Lymphocyte CD4/CD8 Ratio [Pending], Percent CD8 Cells [Pending], Absolute CD8 Count [Pending], Hepatitis A IgM Antibody [Pending], Hepatitis A Antibody Total [Pending], Hepatitis B Surface Antigen [Pending], Hepatitis B Core Total Antibody [Pending], Hepatitis B Core IgM Antibody [Pending], Hepatitis B DNA (IU/mL) [Pending], Hepatitis C Antibody [Pending], HIV-1 RNA (PCR) log10 Value [Pending], HIV-1 RNA Ultraquantitative (PCR) [Pending] 08/03/20 05:50: White Blood Count 4.8, Red Blood Count 3.05L, Hemoglobin 7.9L, Hematocrit 24.6L, Mean Corpuscular Volume 81, Mean Corpuscular Hemoglobin 25.8L, Mean Corpuscular Hemoglobin Concent 31.9L, Red Cell Distribution Width 16.1H, Platelet Count 135L, Mean Platelet Volume 4.8L, Neutrophils (%) (Auto) , Lymphocytes (%) (Auto) , Monocytes (%) (Auto) , Eosinophils (%) (Auto) , Basophils (%) (Auto) , Differential Total Cells Counted 100, Neutrophils % (Manual) 70, Lymphocytes % (Manual) 27, Monocytes % (Manual) 3, Eosinophils % (Manual) 0, Basophils % (Manual) 0, Band Neutrophils 0, Platelet Estimate DecreasedL, Platelet Morphology Normal, Hypochromasia 1+, Anisocytosis 1+ Height (Feet): 6 Height (Inches): 0.00 Weight (Pounds): 164 General Appearance: alert EENT: normal ENT inspection Neck: supple Cardiovascular: normal rate Respiratory/Chest: decreased breath sounds Abdomen: normal bowel sounds, non tender, soft Extremities: non-tender Assessment/Plan Problem List: (1) Therapeutic opioid-induced constipation (OIC) ICD Codes: K59.03 - Drug induced constipation; T40.2X5A - Adverse effect of other opioids, initial encounter SNOMED: 624359900190267 (2) Prostate CA ICD Codes: C61 - Malignant neoplasm of prostate SNOMED: 495225292 (3) Left tibial fracture ICD Codes: S82.202A - Unspecified fracture of shaft of left tibia, initial encounter for closed fracture SNOMED: 01029505, [id number] Qualifiers: Qualified Codes: S82.192A - Other fracture of upper end of left tibia, initial encounter for closed fracture (4) HIV (human immunodeficiency virus infection) ICD Codes: B20 - Human immunodeficiency virus [HIV] disease SNOMED: 93702755 (5) Anemia ICD Codes: D64.9 - Anemia, unspecified SNOMED: 986409540 Assessment/Plan: good response to Relistor>>will give another shot today cont current meds will fu Toro Lugo MD Aug 03, 2020 12:24
--- NOTE | 2020-08-03 12:29 | Hematology/Onc Progress Note ---
Assessment/Plan Assessment/Plan 1 multifocal liver disease --> get ct abd/pelvis with con then biopsy if needed 2 malnutrition 3 dehydation 4 htn 5. anemia r/o gi bleed 6. hiv 7. hep B sAg+ 8. leukopenia 9. fracture of leg cont current tx dvt prophylasix cardio clearence s/p surgery hgb 8.2 -->7.3-->7.9->7.9 1 unit prbc plt lower psa 280 get id recs Subjective Allergies: Coded Allergies: No Known Allergies (Unverified , 01/16/18) Subjective 07/27 is for surgery friday left hip orif 07/28 scheduled for open reduction and internal fixation with lateral plate fixation of left lower leg today 07/29: pt is resting is sleepy. 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 07/31 labs noted, no bleeding, cbc has been reordered, meds reviewed 08/01 labs reviewed, hgb 7.3, plt lower, hepbs ag was + from prior, and hiv 08/02 meds reviewed, no bleeding, wbc 4.7, hgb 7.9, psa ordered 08/03 labs are noted, no bleeding, hgb 7.9, without hemolysis meds noted Objective Objective Current Medications Medications (Trade) Dose Ordered Sig/Liat Route PRN Reason Start Time Stop Time Status Last Admin Dose Admin Acetaminophen (Tylenol) 650 mg Q4H PRN ORAL Temp >100.5 07/24/20 21:45 08/23/20 21:44 07/31/20 21:17 Barium Sulfate (Readi-Cat 2) 450 ml NOW PRN ORAL Radiology Procedure 08/02/20 12:45 08/04/20 12:44 Bupropion HCl (Wellbutrin XL) 150 mg DAILY ORAL 07/26/20 13:00 08/25/20 12:59 08/03/20 08:57 Docusate Sodium (Colace) 200 mg TWICE A DAY ORAL 07/25/20 18:00 08/24/20 17:59 08/03/20 08:57 Gabapentin (Neurontin) 300 mg THREE TIMES A DAY ORAL 07/25/20 14:45 08/24/20 14:44 08/03/20 08:57 Hydromorphone HCl (Dilaudid) 1 mg Q2H PRN IVP Severe Pain (Pain Scale 7-10) 07/31/20 12:45 08/07/20 12:44 08/03/20 12:02 Iohexol (OMNIPAQUE-300 100ml) 100 ml NOW PRN INJ Radiology Procedure 08/02/20 12:45 08/04/20 12:44 Methylnaltrexone [place] (Relistor) 12 mg QOD SUBQ 08/03/20 09:00 11/01/20 08:59 08/03/20 09:01 Metoprolol Tartrate (Lopressor) 50 mg EVERY 12 HOURS ORAL 07/26/20 21:00 10/24/20 20:59 08/02/20 20:11 Mirtazapine (Remeron) 7.5 mg BEDTIME ORAL 08/02/20 21:00 10/31/20 20:59 08/02/20 20:11 Morphine Sulfate (MS Contin) 30 mg Q8H ORAL 07/31/20 14:45 08/07/20 14:44 08/03/20 06:35 Naloxone HCl (Narcan) 0.2 mg Q2M PRN IVP RR<8MIN 08/01/20 00:00 10/30/20 00:00 Oxycodone/ Acetaminophen (Percocet 10/325) 1 tab Q4H PRN ORAL Moderate Breakthru Pain (5-7) 07/31/20 14:45 08/07/20 14:44 Patient Own Medication (Patient's Own Med) 1 ea DAILY BOTH EYES 07/26/20 10:00 08/25/20 09:59 08/03/20 08:57 Patient Own Medication (Patient's Own Med) 1 ea DAILY ORAL 07/26/20 13:30 08/25/20 13:29 08/03/20 08:57 Patient Own Medication (Patient's Own Med) 1 ea DAILY ORAL 07/26/20 13:30 08/25/20 13:29 08/03/20 08:57 Patient Own Medication (Patient's Own Med) 2 ea Q12HR ORAL 07/26/20 13:30 08/25/20 13:29 08/03/20 08:57 Polyethylene Glycol (Miralax) 17 gm BEDTIME ORAL 07/26/20 21:00 08/25/20 20:59 08/01/20 20:43 Last 24 Hour Vital Signs Date Time Temp Pulse Resp B/P (MAP) Pulse Ox O2 Delivery O2 Flow Rate FiO2 08/03/20 09:00 Room Air 08/03/20 08:58 93 109/62 08/03/20 08:00 98.2 93 20 109/62 (78) 98 08/03/20 04:00 97.9 93 20 122/75 (91) 98 08/03/20 00:16 97.8 90 20 119/74 (89) 97 08/03/20 00:00 20 08/02/20 20:20 Room Air 08/02/20 20:11 96 108/70 08/02/20 20:00 98 Room Air 21 08/02/20 20:00 98.1 96 20 108/70 (83) 100 08/02/20 16:00 97.0 73 21 103/69 (80) 99 08/02/20 12:00 97.1 90 20 98/79 (85) 97 08/02/20 09:09 71 139/72 08/02/20 09:00 Room Air 08/02/20 08:02 98.0 71 20 139/72 (94) 97 08/02/20 04:00 99.2 90 20 106/67 (80) 96 08/02/20 00:00 20 08/01/20 20:57 Room Air 08/01/20 20:43 101 113/74 08/01/20 20:05 99 Room Air 21 08/01/20 20:00 99.0 101 20 113/74 (87) 97 08/01/20 16:00 98.0 89 20 127/75 (92) 98 Intake and Output 08/02/20 08/03/20 19:00 07:00 Intake Total 1200 ml Output Total 800 ml 250 ml Balance 400 ml -250 ml Intake Oral 1200 ml Output Urine Total 800 ml 250 ml # Voids 3 2 Labs Test 08/01/20 05:00 08/02/20 04:35 08/03/20 05:05 08/03/20 05:50 White Blood Count 4.8 K/UL (4.8-10.8) 4.7 K/UL (4.8-10.8) 4.8 K/UL (4.8-10.8) Red Blood Count 2.91 M/UL (4.70-6.10) 3.05 M/UL (4.70-6.10) 3.05 M/UL (4.70-6.10) Hemoglobin 7.3 G/DL (14.2-18.0) 7.9 G/DL (14.2-18.0) 7.9 G/DL (14.2-18.0) Hematocrit 23.1 % (42.0-52.0) 24.6 % (42.0-52.0) 24.6 % (42.0-52.0) Mean Corpuscular Volume 79 FL (80-99) 80 FL (80-99) 81 FL (80-99) Mean Corpuscular Hemoglobin 25.2 PG (27.0-31.0) 25.9 PG (27.0-31.0) 25.8 PG (27.0-31.0) Mean Corpuscular Hemoglobin Concent 31.7 G/DL (32.0-36.0) 32.2 G/DL (32.0-36.0) 31.9 G/DL (32.0-36.0) Red Cell Distribution Width 16.5 % (11.6-14.8) 16.0 % (11.6-14.8) 16.1 % (11.6-14.8) Platelet Count 132 K/UL (150-450) 130 K/UL (150-450) 135 K/UL (150-450) Mean Platelet Volume 5.6 FL (6.5-10.1) 5.6 FL (6.5-10.1) 4.8 FL (6.5-10.1) Neutrophils (%) (Auto) % (45.0-75.0) % (45.0-75.0) % (45.0-75.0) Lymphocytes (%) (Auto) % (20.0-45.0) % (20.0-45.0) % (20.0-45.0) Monocytes (%) (Auto) % (1.0-10.0) % (1.0-10.0) % (1.0-10.0) Eosinophils (%) (Auto) % (0.0-3.0) % (0.0-3.0) % (0.0-3.0) Basophils (%) (Auto) % (0.0-2.0) % (0.0-2.0) % (0.0-2.0) Differential Total Cells Counted 100 100 100 Neutrophils % (Manual) 71 % (45-75) 58 % (45-75) 70 % (45-75) Lymphocytes % (Manual) 23 % (20-45) 36 % (20-45) 27 % (20-45) Monocytes % (Manual) 4 % (1-10) 3 % (1-10) 3 % (1-10) Eosinophils % (Manual) 2 % (0-3) 2 % (0-3) 0 % (0-3) Basophils % (Manual) 0 % (0-2) 0 % (0-2) 0 % (0-2) Band Neutrophils 0 % (0-8) 1 % (0-8) 0 % (0-8) Platelet Estimate Adequate Decreased Decreased Platelet Morphology Normal Normal Normal Hypochromasia 1+ 1+ 1+ Anisocytosis 1+ 1+ 1+ Microcytosis 1+ 1+ Sodium Level 139 MMOL/L (136-145) Potassium Level 3.8 MMOL/L (3.5-5.1) Chloride Level 106 MMOL/L (98-107) Carbon Dioxide Level 24 MMOL/L (21-32) Anion Gap 9 mmol/L (5-15) Blood Urea Nitrogen 6 mg/dL (7-18) Creatinine 0.6 MG/DL (0.55-1.30) Estimat Glomerular Filtration Rate > 60 mL/min (>60) Glucose Level 105 MG/DL (74-106) Calcium Level 7.8 MG/DL (8.5-10.1) Iron Level 44 ug/dL (50-175) Total Iron Binding Capacity 121 ug/dL (250-450) Percent Iron Saturation 36 % (15-50) Unsaturated Iron Binding 77 ug/dL (112-346) Total Bilirubin 0.4 MG/DL (0.2-1.0) Aspartate Amino Transf (AST/SGOT) 125 U/L (15-37) Alanine Aminotransferase (ALT/SGPT) < 6 U/L (12-78) Alkaline Phosphatase 704 U/L (46-116) Total Protein 6.2 G/DL (6.4-8.2) Albumin 1.9 G/DL (3.4-5.0) Globulin 4.3 g/dL Albumin/Globulin Ratio 0.4 (1.0-2.7) Prostate Specific Antigen 279.67 ng/mL (0.13-4.0) Height (Feet): 6 Height (Inches): 0.00 Weight (Pounds): 164 Objective Gen nad Pulm ctab CV rrr Abd soft nt nd Ext Left leg in gauze padding Zack Castro MD Aug 03, 2020 12:29
--- NOTE | 2020-08-03 14:07 | Infectious Diseases Prog Note ---
Assessment/Plan Assessment: COVID19 neg x1 -07/24 rapid COVID PCR neg Low grade fever x1- probably post-op No leukocytosis Left tibial plateau fracture. -07/28 SP ORIF -07/24 L tibia/fibula xray: Positive for tibial and fibular fractures HIV on ARV (Tivicay and Descovy) Hep B (Hbs ag + 2017) Elevate AST Liver lesions- r/o malignancy -Abd US: Numerous small liver lesions. These are not evident previously, are worrisome for multifocal neoplasm. Possibly metastatic deposits given history of prostate carcinoma. Multiple abscesses also a possibility. Somewhat enlarged liver. Gallbladder sludge. Negative for stones or dilated bile ducts Poorly demonstrated pancreas, abdominal aorta, left kidney MDD/Anxiety disorder osteoporosis HTN metastatic Prostate cancer sp chemotherapy 3 yrs ago, CVA 2008 neuropathy Plan: -Continue to monitor off abx -f/u cx -Monitor CBC/CMP, temperatures -wound care per ortho team -Continue ARV: Tivicay and Descovy (for both HIV and Hep B) -Continue Ppx valganciclovir -Ortho f/u -f/u CT liver protocol to further evaluate liver lessions -f/u HIV VL, CD4, hep serologies and Hep B VL -GI and Heme onc f/u Thank you for this consultation. Will continue to follow along with you. Discussed with RN. Subjective Allergies: Coded Allergies: No Known Allergies (Unverified , 01/16/18) afebrile >36hrs mild leukopenia liver lesions on ABd US Objective Last 24 Hour Vital Signs Date Time Temp Pulse Resp B/P (MAP) Pulse Ox O2 Delivery O2 Flow Rate FiO2 08/03/20 09:00 Room Air 08/03/20 08:58 93 109/62 08/03/20 08:00 98.2 93 20 109/62 (78) 98 08/03/20 04:00 97.9 93 20 122/75 (91) 98 08/03/20 00:16 97.8 90 20 119/74 (89) 97 08/03/20 00:00 20 08/02/20 20:20 Room Air 08/02/20 20:11 96 108/70 08/02/20 20:00 98 Room Air 21 08/02/20 20:00 98.1 96 20 108/70 (83) 100 08/02/20 16:00 97.0 73 21 103/69 (80) 99 Height (Feet): 6 Height (Inches): 0.00 Weight (Pounds): 164 GENERAL: Alert, awake, and oriented. HEENT: PERRLA. NECK: Range of motion is decreased due to the patient's condition. No tenderness. LUNGS: Decreased breath sounds bilaterally. HEART: S1 and S2 regular. ABDOMEN: Soft, nontender. BACK: Range of motion is decreased in flexion and extension. Ext- post op wound Laboratory Tests Test 08/03/20 05:05 08/03/20 05:50 White Blood Count Pending 4.8 K/UL (4.8-10.8) Lymphocytes Pending Percent CD3 Cells Pending Absolute CD3 Count Pending Percent CD4 Cells Pending Absolute CD4 Count Pending T-Lymphocyte CD4/CD8 Ratio Pending Percent CD8 Cells Pending Absolute CD8 Count Pending Hepatitis A IgM Antibody Pending Hepatitis A Antibody Total Pending Hepatitis B Surface Antigen Pending Hepatitis B Core Total Antibody Pending Hepatitis B Core IgM Antibody Pending Hepatitis B DNA (IU/mL) Pending Hepatitis C Antibody Pending HIV-1 RNA (PCR) log10 Value Pending HIV-1 RNA Ultraquantitative (PCR) Pending Red Blood Count 3.05 M/UL (4.70-6.10) L Hemoglobin 7.9 G/DL (14.2-18.0) L Hematocrit 24.6 % (42.0-52.0) L Mean Corpuscular Volume 81 FL (80-99) Mean Corpuscular Hemoglobin 25.8 PG (27.0-31.0) L Mean Corpuscular Hemoglobin Concent 31.9 G/DL (32.0-36.0) L Red Cell Distribution Width 16.1 % (11.6-14.8) H Platelet Count 135 K/UL (150-450) L Mean Platelet Volume 4.8 FL (6.5-10.1) L Neutrophils (%) (Auto) % (45.0-75.0) Lymphocytes (%) (Auto) % (20.0-45.0) Monocytes (%) (Auto) % (1.0-10.0) Eosinophils (%) (Auto) % (0.0-3.0) Basophils (%) (Auto) % (0.0-2.0) Differential Total Cells Counted 100 Neutrophils % (Manual) 70 % (45-75) Lymphocytes % (Manual) 27 % (20-45) Monocytes % (Manual) 3 % (1-10) Eosinophils % (Manual) 0 % (0-3) Basophils % (Manual) 0 % (0-2) Band Neutrophils 0 % (0-8) Platelet Estimate Decreased L Platelet Morphology Normal Hypochromasia 1+ Anisocytosis 1+ Current Medications Medications (Trade) Dose Ordered Sig/Liat Route PRN Reason Start Time Stop Time Status Last Admin Dose Admin Acetaminophen (Tylenol) 650 mg Q4H PRN ORAL Temp >100.5 07/24/20 21:45 08/23/20 21:44 07/31/20 21:17 Barium Sulfate (Readi-Cat 2) 450 ml NOW PRN ORAL Radiology Procedure 08/02/20 12:45 08/04/20 12:44 Bupropion HCl (Wellbutrin XL) 150 mg DAILY ORAL 07/26/20 13:00 08/25/20 12:59 08/03/20 08:57 Docusate Sodium (Colace) 200 mg TWICE A DAY ORAL 07/25/20 18:00 08/24/20 17:59 08/03/20 08:57 Gabapentin (Neurontin) 300 mg THREE TIMES A DAY ORAL 07/25/20 14:45 08/24/20 14:44 08/03/20 13:31 Hydromorphone HCl (Dilaudid) 1 mg Q2H PRN IVP Severe Pain (Pain Scale 7-10) 07/31/20 12:45 08/07/20 12:44 08/03/20 12:02 Iohexol (OMNIPAQUE-300 100ml) 100 ml NOW PRN INJ Radiology Procedure 08/02/20 12:45 08/04/20 12:44 Methylnaltrexone [place] (Relistor) 12 mg QOD SUBQ 08/03/20 09:00 11/01/20 08:59 08/03/20 09:01 Metoprolol Tartrate (Lopressor) 50 mg EVERY 12 HOURS ORAL 07/26/20 21:00 10/24/20 20:59 08/02/20 20:11 Mirtazapine (Remeron) 7.5 mg BEDTIME ORAL 08/02/20 21:00 10/31/20 20:59 08/02/20 20:11 Morphine Sulfate (MS Contin) 30 mg Q8H ORAL 07/31/20 14:45 08/07/20 14:44 08/03/20 06:35 Naloxone HCl (Narcan) 0.2 mg Q2M PRN IVP RR<8MIN 08/01/20 00:00 10/30/20 00:00 Oxycodone/ Acetaminophen (Percocet 10/325) 1 tab Q4H PRN ORAL Moderate Breakthru Pain (5-7) 07/31/20 14:45 08/07/20 14:44 Patient Own Medication (Patient's Own Med) 1 ea DAILY BOTH EYES 07/26/20 10:00 08/25/20 09:59 08/03/20 08:57 Patient Own Medication (Patient's Own Med) 1 ea DAILY ORAL 07/26/20 13:30 08/25/20 13:29 08/03/20 08:57 Patient Own Medication (Patient's Own Med) 1 ea DAILY ORAL 07/26/20 13:30 08/25/20 13:29 08/03/20 08:57 Patient Own Medication (Patient's Own Med) 2 ea Q12HR ORAL 07/26/20 13:30 08/25/20 13:29 08/03/20 08:57 Polyethylene Glycol (Miralax) 17 gm BEDTIME ORAL 07/26/20 21:00 08/25/20 20:59 08/01/20 20:43 Mariaa Pemberton M.D. Aug 03, 2020 14:07
--- NOTE | 2020-08-03 15:48 | NUR ---
CASE MANAGEMENT: REVIEW 08/03/2020 SI: LEFT TIBIA FRACTURE S/P ORIF 07/28 VS: T 98 HR 92 RR 18 B/P 115/69 SATS 98% ON RA LABS: HGB 7.0 HCT 24.6 BUN 6 CA 7.8 AST 125 ALT <6 ALP 705 IS:LOPRESSOR PO Q12H REMERON PO QHS WELLBUTRIN PO QD MS CONTIN PO Q8H RELISTOR SUBQ QOD GABAPENTIN PO TID MED/SURG PLAN OF CARE: CT A/P >> Liver lesions- r/o malignancy
--- NOTE | 2020-08-03 15:49 | Diagnostic Imaging Report ---
Clinical Indication: Evaluation of liver lesions demonstrated on prior sonogram Technique: Patient given oral contrast. IV administration nonionic contrast. Multiphasic spiral acquisitions obtained through the abdomen and pelvis. Multiplanar reconstructions were generated. Total dose length product 790 mGycm. CTDIvol(s) 5, 96, 5, 5, 5 mGy. Dose reduction achieved using automated exposure control Comparison: No comparison CT. Reference made to abdominal sonogram dated 08/01/2020 Findings: Contrast opacification is somewhat suboptimal; per technologist, IV infiltrated at the injection Innumerable lesions are seen scattered throughout the liver, most under 1 cm. These correspond to findings reported on recent sonography. These are best appreciated on the venous and delayed phase images. No biliary ductal dilatation. The gallbladder contains layering sludge. The pancreas is somewhat atrophic. The spleen, adrenals, kidneys are all unremarkable. No retroperitoneal or mesenteric mass or adenopathy. No pelvic mass or adenopathy. The appendix is only equivocally identified, but there are no findings to suggest acute appendicitis. There is moderate retained stool within the proximal colon. No evidence of diverticulosis or diverticulitis. There is slight infiltration of the precoccygeal fat. No free or loculated intraperitoneal gas or fluid. No small bowel distention. There is a moderate-sized hiatal hernia. The remainder of the stomach and duodenum are unremarkable. The bones are diffusely markedly heterogeneously osteosclerotic The included lung bases demonstrate some dependent atelectatic changes. Impression: Innumerable small liver lesions. Most likely represent metastatic deposits, particularly in view of known history of metastatic prostate carcinoma. Tiny multifocal abscesses also possible, but deemed less likely Diffuse osteosclerosis, consistent with prostate carcinoma Gallbladder sludge Hiatal hernia Other incidental findings as noted The CT scanner at [facility] is accredited by the [employer] and the scans are performed using protocols designed to limit radiation exposure to as low as reasonably achievable to attain images of sufficient resolution adequate for diagnostic evaluation.
[2020-08-03 16:00] VITALS: BP 110/76
--- NOTE | 2020-08-03 16:33 | NUR ---
DISCHARGE PLANNING: NOTE PT WILL CONTINUE CA WORK UP OUTPT CM S/W SANDRA TOR (COUSIN AND CAREGIVER) REGARDING POC. PT HAS HOME HEALTH AND A NEIGHBOR WHO ASSISTS WITH CARING FOR PT. CAREGIVER IS PROVIDED THROUGH [facility] 2-3 HOURS/WEEK SANDRA IS UNABLE TO RECALL THE NAME OF THE HOME HEALTH AGENCY PT PMD IS DR JENNINGS (UNSURE OF THE SPELLING) [address] Addendum: 08/03/20 at 1739 by Rebecca Raya CM CM S/W PT HE IS IN SERVICE WITH [facility]. PT HAS A FWW, WC, AND QUAD CANE AT HOME
--- NOTE | 2020-08-03 18:31 | General Progress Note ---
Subjective Allergies: Coded Allergies: No Known Allergies (Unverified , 01/16/18) Subjective c/o pain Objective Last 24 Hour Vital Signs Date Time Temp Pulse Resp B/P (MAP) Pulse Ox O2 Delivery O2 Flow Rate FiO2 08/03/20 16:00 98.4 104 20 110/76 (87) 96 08/03/20 12:00 98.0 92 18 115/69 (84) 98 08/03/20 09:00 Room Air 08/03/20 08:58 93 109/62 08/03/20 08:00 98.2 93 20 109/62 (78) 98 08/03/20 07:00 99 Room Air 21 08/03/20 04:00 97.9 93 20 122/75 (91) 98 08/03/20 00:16 97.8 90 20 119/74 (89) 97 08/03/20 00:00 20 08/02/20 20:20 Room Air 08/02/20 20:11 96 108/70 08/02/20 20:00 98 Room Air 21 08/02/20 20:00 98.1 96 20 108/70 (83) 100 Intake and Output 08/02/20 08/03/20 19:00 07:00 Intake Total 1200 ml Output Total 800 ml 250 ml Balance 400 ml -250 ml Intake Oral 1200 ml Output Urine Total 800 ml 250 ml # Voids 3 2 Laboratory Tests 08/03/20 05:05: White Blood Count [Pending], Lymphocytes [Pending], Percent CD3 Cells [Pending], Absolute CD3 Count [Pending], Percent CD4 Cells [Pending], Absolute CD4 Count [Pending], T-Lymphocyte CD4/CD8 Ratio [Pending], Percent CD8 Cells [Pending], Absolute CD8 Count [Pending], Hepatitis A IgM Antibody [Pending], Hepatitis A Antibody Total [Pending], Hepatitis B Surface Antigen [Pending], Hepatitis B Core Total Antibody [Pending], Hepatitis B Core IgM Antibody [Pending], Hepatitis B DNA (IU/mL) [Pending], Hepatitis C Antibody [Pending], HIV-1 RNA (PCR) log10 Value [Pending], HIV-1 RNA Ultraquantitative (PCR) [Pending] 08/03/20 05:50: White Blood Count 4.8, Red Blood Count 3.05L, Hemoglobin 7.9L, Hematocrit 24.6L, Mean Corpuscular Volume 81, Mean Corpuscular Hemoglobin 25.8L, Mean Corpuscular Hemoglobin Concent 31.9L, Red Cell Distribution Width 16.1H, Platelet Count 135L, Mean Platelet Volume 4.8L, Neutrophils (%) (Auto) , Lymphocytes (%) (Auto) , Monocytes (%) (Auto) , Eosinophils (%) (Auto) , Basophils (%) (Auto) , Differential Total Cells Counted 100, Neutrophils % (Manual) 70, Lymphocytes % (Manual) 27, Monocytes % (Manual) 3, Eosinophils % (Manual) 0, Basophils % (Manual) 0, Band Neutrophils 0, Platelet Estimate DecreasedL, Platelet Morphology Normal, Hypochromasia 1+, Anisocytosis 1+, Alpha Fetoprotein [Pending], Carcinoembryonic Antigen [Pending] Height (Feet): 6 Height (Inches): 0.00 Weight (Pounds): 164 General Appearance: alert EENT: PERRL/EOMI Cardiovascular: regular rhythm Respiratory/Chest: normal breath sounds Abdomen: soft Extremities: swelling, other Assessment/Plan Assessment/Plan: 1 fracture of leg s/p orif 2 malnutrition 3 dehydation 4 htn dc plan to snf cont current tx Zeke Michael MD Aug 03, 2020 18:31
--- NOTE | 2020-08-03 18:33 | NUR ---
discharge disposition: please read [facility] [address] [facility] ROOM 10 A T: [phone]>> CALL FOR REPORT [facility] ETA [address] MÉNDEZ PT IS AGREEABLE TO TRANSFER
--- NOTE | 2020-08-03 19:01 | NUR ---
NURSE NOTES: RN spoke to Dr. Michael regarding patient's transfer. Orders to hold discharge entered and carried out. manager of financial planning Fred made aware. Patient made aware of new plan, patient is agreeable. Will continue to monitor.
--- NOTE | 2020-08-03 19:28 | NUR ---
NURSE HAND-OFF: Important Events on Shift: pain management, ct Patient Status: stable Diet: regular Pending Orders: pending d/c Pending Results/Labs:n/a Pending MD notification:n/a Latest Vital Signs: Temperature 98.4 , Pulse 104 , B/P 110 /76 , Respiratory Rate 20 , O2 SAT 96 , Room Air, O2 Flow Rate 2.0 . Vital Sign Comment: n/a Latest Wade Fall Score: 80 Fall Risk: High Risk Safety Measures: Call light Within Reach, Side Rails x2, Bed position Low and Locked. Fall Precautions: Yellow Socks Door Sign Patient Fall Education Report given to Court RN.
--- NOTE | 2020-08-03 19:30 | NUR ---
NURSE NOTES: RECEIVED PATIENT FROM TIM HUGHES. PATIENT IS AWAKE, AAOX4, ON ROOM AIR, NO ACUTE RESPIRATORY DISTRESS NOTED. PIV ON RIGHT FOREARM 22G INTACT AND PATENT. SURGICAL DRESSINGS ON LEFT LEG INTACT AND DRY, IMMOBILIZER IN PLACE. PATIENT C/O 8/10 PAIN ON LEFT LEG AND GENERALIZED PAIN. WILL FOLLOW UP WITH PRN PAIN MEDICATION. BED IS LOCKED AND LOW, BED ALARMS ACTIVE, SIDE RAILS UPX2 AND CALL LIGHT IS WITHIN REACH. WILL CONTINUE TO MONITOR.
[2020-08-03 20:00] VITALS: BP 113/77
[2020-08-03] MEDS: Miralax 17gm pkt ORAL SCH (20:53)
--- NOTE | 2020-08-03 20:57 | Cardiology Progress Note ---
Assessment/Plan Assessment/Plan 1. Left tibial facture, s/p left tibial ORIF, POD #6, no cardiac events. 2. Metastatic prostate cancer stage IV. 3. History of CVA, consider ASA and statins. 4. HIV disease. 5. History of neuropathy. 6. History of psychiatric disorder. Subjective Subjective No cardiac event reported. Objective Last 24 Hour Vital Signs Date Time Temp Pulse Resp B/P (MAP) Pulse Ox O2 Delivery O2 Flow Rate FiO2 08/03/20 20:53 110 113/77 08/03/20 20:00 98.7 110 17 113/77 (89) 98 08/03/20 16:00 98.4 104 20 110/76 (87) 96 08/03/20 12:00 98.0 92 18 115/69 (84) 98 08/03/20 09:00 Room Air 08/03/20 08:58 93 109/62 08/03/20 08:00 98.2 93 20 109/62 (78) 98 08/03/20 07:00 99 Room Air 21 08/03/20 04:00 97.9 93 20 122/75 (91) 98 08/03/20 00:16 97.8 90 20 119/74 (89) 97 08/03/20 00:00 20 Intake and Output 08/02/20 08/03/20 19:00 07:00 Intake Total 1200 ml Output Total 800 ml 250 ml Balance 400 ml -250 ml Intake Oral 1200 ml Output Urine Total 800 ml 250 ml # Voids 3 2 2D Echo: LVEF 60%, RVSP 73 mmHg, Grade I LVDD, RAP 15 mmHg, Mild-Mod AR Laboratory Tests Test 08/03/20 05:05 08/03/20 05:50 White Blood Count Pending 4.8 K/UL (4.8-10.8) Lymphocytes Pending Percent CD3 Cells Pending Absolute CD3 Count Pending Percent CD4 Cells Pending Absolute CD4 Count Pending T-Lymphocyte CD4/CD8 Ratio Pending Percent CD8 Cells Pending Absolute CD8 Count Pending Hepatitis A IgM Antibody Pending Hepatitis A Antibody Total Pending Hepatitis B Surface Antigen Pending Hepatitis B Core Total Antibody Pending Hepatitis B Core IgM Antibody Pending Hepatitis B DNA (IU/mL) Pending Hepatitis C Antibody Pending HIV-1 RNA (PCR) log10 Value Pending HIV-1 RNA Ultraquantitative (PCR) Pending Red Blood Count 3.05 M/UL (4.70-6.10) L Hemoglobin 7.9 G/DL (14.2-18.0) L Hematocrit 24.6 % (42.0-52.0) L Mean Corpuscular Volume 81 FL (80-99) Mean Corpuscular Hemoglobin 25.8 PG (27.0-31.0) L Mean Corpuscular Hemoglobin Concent 31.9 G/DL (32.0-36.0) L Red Cell Distribution Width 16.1 % (11.6-14.8) H Platelet Count 135 K/UL (150-450) L Mean Platelet Volume 4.8 FL (6.5-10.1) L Neutrophils (%) (Auto) % (45.0-75.0) Lymphocytes (%) (Auto) % (20.0-45.0) Monocytes (%) (Auto) % (1.0-10.0) Eosinophils (%) (Auto) % (0.0-3.0) Basophils (%) (Auto) % (0.0-2.0) Differential Total Cells Counted 100 Neutrophils % (Manual) 70 % (45-75) Lymphocytes % (Manual) 27 % (20-45) Monocytes % (Manual) 3 % (1-10) Eosinophils % (Manual) 0 % (0-3) Basophils % (Manual) 0 % (0-2) Band Neutrophils 0 % (0-8) Platelet Estimate Decreased L Platelet Morphology Normal Hypochromasia 1+ Anisocytosis 1+ Alpha Fetoprotein Pending Carcinoembryonic Antigen Pending Objective HEENT: Atraumatic and normocephalic. Anicteric. Pupils are equal, round, and reactive to light and accommodation. Extraocular muscles intact. NECK: JVP less than 5 cm. No carotid bruit. Carotid upstrokes 2+ bilaterally. CARDIOVASCULAR: Normal S1 and S2. Regular rate and rhythm. 2/6 MSM at LSB, no gallops, or rubs. PMI is at fourth intercostal space in the midclavicular line. LUNGS: Clear to auscultation bilaterally. ABDOMEN: Soft, nontender, nondistended. No hepatosplenomegaly. Positive bowel sounds. EXTREMITIES: Left lower extremity, swelling of left tibia about 2+. Hector Wiggins MD Aug 03, 2020 20:57
--- NOTE | 2020-08-03 22:22 | Psych Consult Progress Note ---
Psychiatry Progress Note Psychiatry Progress Note Medications Current Medications Medications (Trade) Dose Ordered Sig/Liat Route PRN Reason Start Time Stop Time Status Last Admin Dose Admin Acetaminophen (Tylenol) 650 mg Q4H PRN ORAL Temp >100.5 07/24/20 21:45 08/23/20 21:44 07/31/20 21:17 Barium Sulfate (Readi-Cat 2) 450 ml NOW PRN ORAL Radiology Procedure 08/02/20 12:45 08/04/20 12:44 Bupropion HCl (Wellbutrin XL) 150 mg DAILY ORAL 07/26/20 13:00 08/25/20 12:59 08/03/20 08:57 Docusate Sodium (Colace) 200 mg TWICE A DAY ORAL 07/25/20 18:00 08/24/20 17:59 08/03/20 17:56 Gabapentin (Neurontin) 300 mg THREE TIMES A DAY ORAL 07/25/20 14:45 08/24/20 14:44 08/03/20 17:56 Hydromorphone HCl (Dilaudid) 1 mg Q2H PRN IVP Severe Pain (Pain Scale 7-10) 07/31/20 12:45 08/07/20 12:44 08/03/20 20:46 Iohexol (OMNIPAQUE-300 100ml) 100 ml NOW PRN INJ Radiology Procedure 08/02/20 12:45 08/04/20 12:44 Methylnaltrexone [place] (Relistor) 12 mg QOD SUBQ 08/04/20 09:00 11/01/20 08:59 Metoprolol Tartrate (Lopressor) 50 mg EVERY 12 HOURS ORAL 07/26/20 21:00 10/24/20 20:59 08/02/20 20:11 Mirtazapine (Remeron) 7.5 mg BEDTIME ORAL 08/02/20 21:00 10/31/20 20:59 08/02/20 20:11 Morphine Sulfate (MS Contin) 30 mg Q8H ORAL 07/31/20 14:45 08/07/20 14:44 08/03/20 14:33 Naloxone HCl (Narcan) 0.2 mg Q2M PRN IVP RR<8MIN 08/01/20 00:00 10/30/20 00:00 Oxycodone/ Acetaminophen (Percocet 10/325) 1 tab Q4H PRN ORAL Moderate Breakthru Pain (5-7) 07/31/20 14:45 08/07/20 14:44 Patient Own Medication (Patient's Own Med) 1 ea DAILY BOTH EYES 07/26/20 10:00 08/25/20 09:59 08/03/20 08:57 Patient Own Medication (Patient's Own Med) 1 ea DAILY ORAL 07/26/20 13:30 08/25/20 13:29 08/03/20 08:57 Patient Own Medication (Patient's Own Med) 1 ea DAILY ORAL 07/26/20 13:30 08/25/20 13:29 08/03/20 08:57 Patient Own Medication (Patient's Own Med) 2 ea Q12HR ORAL 07/26/20 13:30 08/25/20 13:29 08/03/20 20:54 Polyethylene Glycol (Miralax) 17 gm BEDTIME ORAL 07/26/20 21:00 08/25/20 20:59 08/01/20 20:43 Neurological/Psychiatric: Reports: anxiety, depressed, emotional problems; Denies: no symptoms, headache, numbness, paresthesia, pre-existing deficit, seizure, tingling, tremors, weakness, other Allergies: Coded Allergies: No Known Allergies (Unverified , 01/16/18) Objective Data Height (Feet): 6 Height (Inches): 0.00 Weight (Pounds): 164 General Appearance: alert Appearance: no abnormalities noted Behavior Mannerisms: good eye contact Mental Status Exam - Affect: blunted Mental Status Exam - Mood: depressed, anxious Mental Status Exam - Thought P: goal-directed Mental Status Exam - Suicidal: not present, no plan Additional Comments: Assessment/Plan [place] I: ASSESSMENT: [place] I Major depressive disorder. [place] II Deferred. [place] III None. [place] IV Low. [place] V 50 PLAN: 1. Continue the Wellbutrin. 2. Celexa. 3. Provide the patient with reality orientation and supportive therapy. Status Narrative ASSESSMENT: [place] I Major depressive disorder. [place] II Deferred. [place] III None. [place] IV Low. [place] V 50 PLAN: 1. Continue the Wellbutrin. 2. Celexa. 3. Provide the patient with reality orientation and supportive therapy. Assessment/Plan: ASSESSMENT: [place] I Major depressive disorder. [place] II Deferred. [place] III None. [place] IV Low. [place] V 50 PLAN: 1. Continue the Wellbutrin. 2. Celexa. 3. Provide the patient with reality orientation and supportive therapy. Olegario Arreola MD Aug 03, 2020 22:22
[2020-08-04] VITALS: BP 121/73
[2020-08-04] MEDS: HYDROmorphone 1mg/ml Carpuject IVP PRN ×4 (03:54→16:22)
[2020-08-04 04:00] VITALS: BP 137/86
[2020-08-04] MEDS: MS Contin 15mg tab ORAL SCH ×2 (06:29→14:45)
--- NOTE | 2020-08-04 06:39 | NUR ---
NURSE HAND-OFF: Important Events on Shift: PATIENT WAS SEEN BY DR. DONOVAN, PAIN MANAGEMENT AROUND THE CLOCK Patient Status: STABLE Diet: REGULAR, SOFT EASY CHEW Pending Orders: N/A Pending Results/Labs: N/A Pending MD notification: N/A Latest Vital Signs: Temperature 98.0 , Pulse 112 , B/P 137 /86 , Respiratory Rate 17 , O2 SAT 99 , Room Air, O2 Flow Rate 2.0 . Vital Sign Comment: STABLE Latest Wade Fall Score: 80 Fall Risk: High Risk Safety Measures: Call light Within Reach, Bed Alarm Zone 1, Side Rails Side Rails x2, Bed position Low and Locked. Fall Precautions: IMPLEMENTED Yellow Socks Door Sign Patient Fall Education: GIVEN Addendum: 08/04/20 at [address] Donato RN Pending Orders: LIVER BIOPSY, NPO
[2020-08-04 07:05] LABS: HEMATOCRIT 24.7 % (42.0-52.0); HEMOGLOBIN 7.8 G/DL (14.2-18.0); MEAN CORPUSCULAR VOLUME 80 FL (80-99); PLATELET COUNT 151 K/UL (150-450); RED BLOOD COUNT 3.07 M/UL (4.70-6.10); RED CELL DISTRIBUTION WIDTH 16.4 % (11.6-14.8); WHITE BLOOD COUNT 4.8 K/UL (4.8-10.8)
--- NOTE | 2020-08-04 07:18 | NUR ---
HAND-OFF: Report given to TIM Banks.
--- NOTE | 2020-08-04 07:19 | NUR ---
NURSE NOTES: Handoff received from Court RN. Patient is awake and alert, no signs of acute distress noted, breathing is even and unlabored on room air. Patient is currently NPO for liver biopsy procedure. L leg dressing is clean dry and intact, immobilizer is on. Rt forearm IV is intact and asymptomatic, saline locked. Bed is low and locked, side rails up x2, call light is within reach.
[2020-08-04 08:00] VITALS: BP 137/82
[2020-08-04] MEDS: Docusate 100mg cap ORAL SCH (08:21)
[2020-08-04] MEDS: DUREZOL EYE BOTH EYES SCH (08:22)
[2020-08-04] MEDS: Metoprolol Tartrate 50mg tab ORAL SCH (08:22)
[2020-08-04] MEDS: VALCYTE ORAL SCH (08:23)
[2020-08-04] MEDS: DOLUTEGRAVIR SODIUM 50 MG ORAL SCH (08:23)
[2020-08-04] MEDS: BuPROPion XL 150mg tab ORAL SCH (08:23)
[2020-08-04] MEDS: DESCOVY ORAL SCH (08:23)
[2020-08-04] MEDS ORDERED: Relistor 12mg/0.6ml Vial SUBQ SCH (09:00)
--- NOTE | 2020-08-04 09:09 | General Progress Note ---
Subjective Date patient seen: Aug 04, 2020 Time patient seen: 08:30 - am Allergies: Coded Allergies: No Known Allergies (Unverified , 01/16/18) Subjective REVIEW OF SYSTEMS: Denies rash, fever, chills, sweating, dizziness, drowsiness, blurred vision, sore throat, or change in weight. No shortness of breath or chest pain. No nausea, vomiting, diarrhea, or blood in the stool or urine. No dysuria. HISTORY OF PRESENT ILLNESS: This is a 55-year-old male, who is being seen on the Med/Surg floor of [facility]. Patient lying in bed and reports pain has been tolerated well on the 2 doses of Morphine ER and 8 doses of Dilaudid. Going for liver biopsy. Objective Last 24 Hour Vital Signs Date Time Temp Pulse Resp B/P (MAP) Pulse Ox O2 Delivery O2 Flow Rate FiO2 08/04/20 08:22 107 137/82 08/04/20 04:00 98.0 112 17 137/86 (103) 99 08/04/20 00:00 98.8 113 18 121/73 (89) 98 08/03/20 21:00 Room Air 08/03/20 20:53 110 113/77 08/03/20 20:12 98 Room Air 21 08/03/20 20:00 98.7 110 17 113/77 (89) 98 08/03/20 16:00 98.4 104 20 110/76 (87) 96 08/03/20 12:00 98.0 92 18 115/69 (84) 98 Intake and Output 08/03/20 08/04/20 19:00 07:00 Intake Total 300 ml Output Total 550 ml Balance -250 ml Intake Oral 300 ml Output Urine Total 550 ml # Voids 3 Laboratory Tests 08/04/20 04:55: White Blood Count 4.8, Red Blood Count 3.07L, Hemoglobin 7.8L, Hematocrit 24.7L, Mean Corpuscular Volume 80, Mean Corpuscular Hemoglobin 25.3L, Mean Corpuscular Hemoglobin Concent 31.4L, Red Cell Distribution Width 16.4H, Platelet Count 151, Mean Platelet Volume 5.8L, Neutrophils (%) (Auto) , Lymphocytes (%) (Auto) , Monocytes (%) (Auto) , Eosinophils (%) (Auto) , Basophils (%) (Auto) , Differential Total Cells Counted 100, Neutrophils % (Manual) 74, Lymphocytes % (Manual) 21, Monocytes % (Manual) 4, Eosinophils % (Manual) 1, Basophils % (Manual) 0, Band Neutrophils 0, Platelet Estimate Adequate, Platelet Morphology Normal, Hypochromasia 1+, Anisocytosis 1+ Height (Feet): 6 Height (Inches): 0.00 Weight (Pounds): 164 Objective PHYSICAL EXAMINATION: LUNGS: Decreased breath sounds bilaterally. HEART: S1 and S2 regular. ABDOMEN: Soft, nontender. EXTREMITIES: Left lower extremity is in a splint. NEURO: No changes. Assessment/Plan Assessment/Plan: (1) Left tibial pathological fracture (2) Left LE pain s/p ORIF (3) Metastatic prostate cancer Patient to be continued on Morphine ER, Dilaudid and Percocet. D/w Dr. Cristina and he concurred Ervin Duval Aug 04, 2020 09:09
[2020-08-04] MEDS ORDERED: Lidocaine 1% Plain 30 ml INJ SCH (09:30)
--- NOTE | 2020-08-04 09:55 | General Progress Note ---
Subjective ROS Limited/Unobtainable: Yes Allergies: Coded Allergies: No Known Allergies (Unverified , 01/16/18) Objective Last 24 Hour Vital Signs Date Time Temp Pulse Resp B/P (MAP) Pulse Ox O2 Delivery O2 Flow Rate FiO2 08/04/20 08:22 107 137/82 08/04/20 04:00 98.0 112 17 137/86 (103) 99 08/04/20 00:00 98.8 113 18 121/73 (89) 98 08/03/20 21:00 Room Air 08/03/20 20:53 110 113/77 08/03/20 20:12 98 Room Air 21 08/03/20 20:00 98.7 110 17 113/77 (89) 98 08/03/20 16:00 98.4 104 20 110/76 (87) 96 08/03/20 12:00 98.0 92 18 115/69 (84) 98 Intake and Output 08/03/20 08/04/20 19:00 07:00 Intake Total 300 ml Output Total 550 ml Balance -250 ml Intake Oral 300 ml Output Urine Total 550 ml # Voids 3 Laboratory Tests 08/04/20 04:55: White Blood Count 4.8, Red Blood Count 3.07L, Hemoglobin 7.8L, Hematocrit 24.7L, Mean Corpuscular Volume 80, Mean Corpuscular Hemoglobin 25.3L, Mean Corpuscular Hemoglobin Concent 31.4L, Red Cell Distribution Width 16.4H, Platelet Count 151, Mean Platelet Volume 5.8L, Neutrophils (%) (Auto) , Lymphocytes (%) (Auto) , Monocytes (%) (Auto) , Eosinophils (%) (Auto) , Basophils (%) (Auto) , Differential Total Cells Counted 100, Neutrophils % (Manual) 74, Lymphocytes % (Manual) 21, Monocytes % (Manual) 4, Eosinophils % (Manual) 1, Basophils % (Manual) 0, Band Neutrophils 0, Platelet Estimate Adequate, Platelet Morphology Normal, Hypochromasia 1+, Anisocytosis 1+ Height (Feet): 6 Height (Inches): 0.00 Weight (Pounds): 164 General Appearance: alert EENT: normal ENT inspection Neck: supple Cardiovascular: normal rate Respiratory/Chest: decreased breath sounds Abdomen: normal bowel sounds, non tender, soft Extremities: non-tender Assessment/Plan Problem List: (1) Therapeutic opioid-induced constipation (OIC) ICD Codes: K59.03 - Drug induced constipation; T40.2X5A - Adverse effect of other opioids, initial encounter SNOMED: 423305587086593 (2) Prostate CA ICD Codes: C61 - Malignant neoplasm of prostate SNOMED: 271014694 (3) Left tibial fracture ICD Codes: S82.202A - Unspecified fracture of shaft of left tibia, initial encounter for closed fracture SNOMED: 87341423, 41440298638029735 Qualifiers: Qualified Codes: S82.192A - Other fracture of upper end of left tibia, initial encounter for closed fracture (4) HIV (human immunodeficiency virus infection) ICD Codes: B20 - Human immunodeficiency virus [HIV] disease SNOMED: 31233196 (5) Anemia ICD Codes: D64.9 - Anemia, unspecified SNOMED: 046889937 Assessment/Plan: good response to Relistor>>had another shot today with a good response pending liver biopsy cont current meds will Toro Cortes MD Aug 04, 2020 09:55
--- NOTE | 2020-08-04 10:18 | NUR ---
NURSE NOTES: Per Dr. Michael, cancel liver biopsy.
--- NOTE | 2020-08-04 10:19 | General Progress Note ---
Subjective Allergies: Coded Allergies: No Known Allergies (Unverified , 01/16/18) Subjective c/o pain minimum cough Objective Last 24 Hour Vital Signs Date Time Temp Pulse Resp B/P (MAP) Pulse Ox O2 Delivery O2 Flow Rate FiO2 08/04/20 08:22 107 137/82 08/04/20 04:00 98.0 112 17 137/86 (103) 99 08/04/20 00:00 98.8 113 18 121/73 (89) 98 08/03/20 21:00 Room Air 08/03/20 20:53 110 113/77 08/03/20 20:12 98 Room Air 21 08/03/20 20:00 98.7 110 17 113/77 (89) 98 08/03/20 16:00 98.4 104 20 110/76 (87) 96 08/03/20 12:00 98.0 92 18 115/69 (84) 98 Intake and Output 08/03/20 08/04/20 19:00 07:00 Intake Total 300 ml Output Total 550 ml Balance -250 ml Intake Oral 300 ml Output Urine Total 550 ml # Voids 3 Laboratory Tests 08/04/20 04:55: White Blood Count 4.8, Red Blood Count 3.07L, Hemoglobin 7.8L, Hematocrit 24.7L, Mean Corpuscular Volume 80, Mean Corpuscular Hemoglobin 25.3L, Mean Corpuscular Hemoglobin Concent 31.4L, Red Cell Distribution Width 16.4H, Platelet Count 151, Mean Platelet Volume 5.8L, Neutrophils (%) (Auto) , Lymphocytes (%) (Auto) , Monocytes (%) (Auto) , Eosinophils (%) (Auto) , Basophils (%) (Auto) , Differential Total Cells Counted 100, Neutrophils % (Manual) 74, Lymphocytes % (Manual) 21, Monocytes % (Manual) 4, Eosinophils % (Manual) 1, Basophils % (Manual) 0, Band Neutrophils 0, Platelet Estimate Adequate, Platelet Morphology Normal, Hypochromasia 1+, Anisocytosis 1+ Height (Feet): 6 Height (Inches): 0.00 Weight (Pounds): 164 General Appearance: alert EENT: PERRL/EOMI Neck: normal alignment Cardiovascular: regular rhythm Respiratory/Chest: lungs clear Abdomen: non tender, soft Extremities: swelling, other - lt leg with Assessment/Plan Assessment/Plan: 1 fracture of leg s/p orif 2 malnutrition 3 dehydation 4 htn dc plan to snf cont current tx Zeke Michael MD Aug 04, 2020 10:19
--- NOTE | 2020-08-04 10:51 | NUR ---
discharge disposition: please read PATIENT TO BE DISCHARGED TO [facility] [address] [place] [address] AVE RO[address] T:[phone]> CALL FOR REPORT [facility] ETA 1500
--- NOTE | 2020-08-04 11:46 | Hematology/Onc Progress Note ---
Assessment/Plan Assessment/Plan 1 Stage iv prostate cancer with multifocal liver disease --> get ct abd/pelvis with con then biopsy if needed->reviewed --> tumor markers noted --> liver lesions noted and dw Dr. Ferrara 2 malnutrition 3 dehydation 4 htn 5. anemia r/o gi bleed 6. hiv 7. hep B sAg+ 8. leukopenia 9. fracture of leg cont current tx dvt prophylasix cardio clearence s/p surgery hgb 8.2 -->7.3-->7.9->7.9 1 unit prbc plt lower psa 280 get id recs Subjective Constitutional: Denies: no symptoms, chills, fever, malaise, weakness, other HEENT: Denies: no symptoms, eye pain, blurred vision, tearing, double vision, ear pain, ear discharge, nose pain, nose congestion, throat pain, throat swelling, mouth pain, mouth swelling, other Cardiovascular: Denies: no symptoms, chest pain, edema, irregular heart rate, lightheadedness, palpitations, syncope, other Respiratory: Denies: no symptoms, cough, shortness of breath, SOB with excertion, SOB at rest, sputum, wheezing, other Gastrointestinal/Abdominal: Denies: no symptoms, abdomen distended, abdominal pain, black stools, tarry stools, blood in stool, constipated, diarrhea, difficulty swallowing, nausea, poor appetite, poor fluid intake, rectal bleeding, vomiting, other Genitourinary: Denies: no symptoms, burning, discharge, frequency, flank pain, hematuria, incontinence, pain, urgency, other Neurologic/Psychiatric: Denies: no symptoms, anxiety, depressed, emotional problems, headache, numbness, paresthesia, pre-existing deficit, seizure, tingling, tremors, weakness, other Endocrine: Denies: no symptoms, excessive sweating, flushing, intolerance to cold, intolerance to heat, increased hunger, increased thirst, increased urine, unexplained weight gain, unexplained weight loss, other Allergies: Coded Allergies: No Known Allergies (Unverified , 01/16/18) Subjective 07/27 is for surgery friday left hip orif 07/28 scheduled for open reduction and internal fixation with lateral plate fixation of left lower leg today 07/29: pt is resting is sleepy. 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 labs noted, no bleeding, cbc has been reordered, meds reviewed 08/01 labs reviewed, hgb 7.3, plt lower, hepbs ag was + from prior, and hiv 08/02 meds reviewed, no bleeding, wbc 4.7, hgb 7.9, psa ordered 08/03 labs are noted, no bleeding, hgb 7.9, without hemolysis meds noted 08/04 with innumerable small liver lesions, too small to biopsy, likely c/w stage iv prostate ca Objective Objective Current Medications Medications (Trade) Dose Ordered Sig/Liat Route PRN Reason Start Time Stop Time Status Last Admin Dose Admin Acetaminophen (Tylenol) 650 mg Q4H PRN ORAL Temp >100.5 07/24/20 21:45 08/23/20 21:44 07/31/20 21:17 Barium Sulfate (Readi-Cat 2) 450 ml NOW PRN ORAL Radiology Procedure 08/02/20 12:45 08/04/20 12:44 Bupropion HCl (Wellbutrin XL) 150 mg DAILY ORAL 07/26/20 13:00 08/25/20 12:59 08/04/20 08:23 Docusate Sodium (Colace) 200 mg TWICE A DAY ORAL 07/25/20 18:00 08/24/20 17:59 08/04/20 08:21 Gabapentin (Neurontin) 300 mg THREE TIMES A DAY ORAL 07/25/20 14:45 08/24/20 14:44 08/04/20 08:22 Hydromorphone HCl (Dilaudid) 1 mg Q2H PRN IVP Severe Pain (Pain Scale 7-10) 07/31/20 12:45 08/07/20 12:44 08/04/20 08:24 Iohexol (OMNIPAQUE-300 100ml) 100 ml NOW PRN INJ Radiology Procedure 08/02/20 12:45 08/04/20 12:44 Methylnaltrexone [place] (Relistor) 12 mg QOD SUBQ 08/04/20 09:00 11/01/20 08:59 08/04/20 08:22 Metoprolol Tartrate (Lopressor) 50 mg EVERY 12 HOURS ORAL 07/26/20 21:00 10/24/20 20:59 08/04/20 08:22 Mirtazapine (Remeron) 7.5 mg BEDTIME ORAL 08/02/20 21:00 10/31/20 20:59 08/02/20 20:11 Morphine Sulfate (MS Contin) 30 mg Q8H ORAL 07/31/20 14:45 08/07/20 14:44 08/04/20 06:29 Naloxone HCl (Narcan) 0.2 mg Q2M PRN IVP RR<8MIN 08/01/20 00:00 10/30/20 00:00 Oxycodone/ Acetaminophen (Percocet 10/325) 1 tab Q4H PRN ORAL Moderate Breakthru Pain (5-7) 07/31/20 14:45 08/07/20 14:44 Patient Own Medication (Patient's Own Med) 1 ea DAILY BOTH EYES 07/26/20 10:00 08/25/20 09:59 08/04/20 08:22 Patient Own Medication (Patient's Own Med) 1 ea DAILY ORAL 07/26/20 13:30 08/25/20 13:29 08/04/20 08:23 Patient Own Medication (Patient's Own Med) 1 ea DAILY ORAL 07/26/20 13:30 08/25/20 13:29 08/04/20 08:23 Patient Own Medication (Patient's Own Med) 2 ea Q12HR ORAL 07/26/20 13:30 08/25/20 13:29 08/04/20 08:23 Polyethylene Glycol (Miralax) 17 gm BEDTIME ORAL 07/26/20 21:00 08/25/20 20:59 08/01/20 20:43 Last 24 Hour Vital Signs Date Time Temp Pulse Resp B/P (MAP) Pulse Ox O2 Delivery O2 Flow Rate FiO2 08/04/20 09:00 Room Air 08/04/20 08:54 98.0 08/04/20 08:22 107 137/82 08/04/20 08:00 98.0 107 20 137/82 (100) 99 08/04/20 04:00 98.0 112 17 137/86 (103) 99 08/04/20 00:00 98.8 113 18 121/73 (89) 98 08/03/20 21:00 Room Air 08/03/20 20:53 110 113/77 08/03/20 20:12 98 Room Air 21 08/03/20 20:00 98.7 110 17 113/77 (89) 98 08/03/20 16:00 98.4 104 20 110/76 (87) 96 08/03/20 12:00 98.0 92 18 115/69 (84) 98 08/03/20 09:00 Room Air 08/03/20 08:58 93 109/62 08/03/20 08:00 98.2 93 20 109/62 (78) 98 08/03/20 07:00 99 Room Air 21 08/03/20 04:00 97.9 93 20 122/75 (91) 98 08/03/20 00:16 97.8 90 20 119/74 (89) 97 08/03/20 00:00 20 08/02/20 20:20 Room Air 08/02/20 20:11 96 108/70 08/02/20 20:00 98 Room Air 08/02/20 20:00 98.1 96 20 108/70 (83) 100 08/02/20 16:00 97.0 73 21 103/69 (80) 99 08/02/20 12:00 97.1 90 20 98/79 (85) 97 Intake and Output 08/03/20 08/04/20 19:00 07:00 Intake Total 300 ml Output Total 550 ml Balance -250 ml Intake Oral 300 ml Output Urine Total 550 ml # Voids 3 Labs Test 08/02/20 04:35 08/03/20 05:05 08/03/20 05:50 08/04/20 04:55 White Blood Count 4.7 K/UL (4.8-10.8) 4.6 x10E3/uL (3.4-10.8) 4.8 K/UL (4.8-10.8) 4.8 K/UL (4.8-10.8) Red Blood Count 3.05 M/UL (4.70-6.10) 3.05 M/UL (4.70-6.10) 3.07 M/UL (4.70-6.10) Hemoglobin 7.9 G/DL (14.2-18.0) 7.9 G/DL (14.2-18.0) 7.8 G/DL (14.2-18.0) Hematocrit 24.6 % (42.0-52.0) 24.6 % (42.0-52.0) 24.7 % (42.0-52.0) Mean Corpuscular Volume 80 FL (80-99) 81 FL (80-99) 80 FL (80-99) Mean Corpuscular Hemoglobin 25.9 PG (27.0-31.0) 25.8 PG (27.0-31.0) 25.3 PG (27.0-31.0) Mean Corpuscular Hemoglobin Concent 32.2 G/DL (32.0-36.0) 31.9 G/DL (32.0-36.0) 31.4 G/DL (32.0-36.0) Red Cell Distribution Width 16.0 % (11.6-14.8) 16.1 % (11.6-14.8) 16.4 % (11.6-14.8) Platelet Count 130 K/UL (150-450) 135 K/UL (150-450) 151 K/UL (150-450) Mean Platelet Volume 5.6 FL (6.5-10.1) 4.8 FL (6.5-10.1) 5.8 FL (6.5-10.1) Neutrophils (%) (Auto) % (45.0-75.0) % (45.0-75.0) % (45.0-75.0) Lymphocytes (%) (Auto) % (20.0-45.0) % (20.0-45.0) % (20.0-45.0) Monocytes (%) (Auto) % (1.0-10.0) % (1.0-10.0) % (1.0-10.0) Eosinophils (%) (Auto) % (0.0-3.0) % (0.0-3.0) % (0.0-3.0) Basophils (%) (Auto) % (0.0-2.0) % (0.0-2.0) % (0.0-2.0) Differential Total Cells Counted 100 100 100 Neutrophils % (Manual) 58 % (45-75) 70 % (45-75) 74 % (45-75) Lymphocytes % (Manual) 36 % (20-45) 27 % (20-45) 21 % (20-45) Monocytes % (Manual) 3 % (1-10) 3 % (1-10) 4 % (1-10) Eosinophils % (Manual) 2 % (0-3) 0 % (0-3) 1 % (0-3) Basophils % (Manual) 0 % (0-2) 0 % (0-2) 0 % (0-2) Band Neutrophils 1 % (0-8) 0 % (0-8) 0 % (0-8) Platelet Estimate Decreased Decreased Adequate Platelet Morphology Normal Normal Normal Hypochromasia 1+ 1+ 1+ Anisocytosis 1+ 1+ 1+ Microcytosis 1+ Sodium Level 139 MMOL/L (136-145) Potassium Level 3.8 MMOL/L (3.5-5.1) Chloride Level 106 MMOL/L (98-107) Carbon Dioxide Level 24 MMOL/L (21-32) Anion Gap 9 mmol/L (5-15) Blood Urea Nitrogen 6 mg/dL (7-18) Creatinine 0.6 MG/DL (0.55-1.30) Estimat Glomerular Filtration Rate > 60 mL/min (>60) Glucose Level 105 MG/DL (74-106) Calcium Level 7.8 MG/DL (8.5-10.1) Iron Level 44 ug/dL (50-175) Total Iron Binding Capacity 121 ug/dL (250-450) Percent Iron Saturation 36 % (15-50) Unsaturated Iron Binding 77 ug/dL (112-346) Total Bilirubin 0.4 MG/DL (0.2-1.0) Aspartate Amino Transf (AST/SGOT) 125 U/L (15-37) Alanine Aminotransferase (ALT/SGPT) < 6 U/L (12-78) Alkaline Phosphatase 704 U/L (46-116) Total Protein 6.2 G/DL (6.4-8.2) Albumin 1.9 G/DL (3.4-5.0) Globulin 4.3 g/dL Albumin/Globulin Ratio 0.4 (1.0-2.7) Prostate Specific Antigen 279.67 ng/mL (0.13-4.0) Lymphocytes 27 % (Not Estab.) Nucleated Red Blood Cells (.) Absolute Lymphocytes (Cell Immunity 1.2 x10E3/uL (0.7-3.1) Percent CD3 Cells 61.4 % (57.5-86.2) Absolute CD3 Count 737 /uL (622-2402) Percent CD4 Cells 15.2 % (30.8-58.5) Absolute CD4 Count 182 /uL (359-1519) T-Lymphocyte CD4/CD8 Ratio 0.34 (0.92-3.72) Percent CD8 Cells 44.3 % (12.0-35.5) Absolute CD8 Count 532 /uL (109-897) Hepatitis A IgM Antibody Negative (Negative) Hepatitis A Antibody Total Negative (Negative) Hepatitis B Surface Antigen Negative (Negative) Hepatitis B Core Total Antibody Positive (Negative) Hepatitis B Core IgM Antibody Negative (Negative) Hepatitis C Antibody <0.1 s/co ratio Alpha Fetoprotein 4.4 ng/mL (0.0-8.3) Carcinoembryonic Antigen 1.1 ng/mL (0.0-4.7) Height (Feet): 6 Height (Inches): 0.00 Weight (Pounds): 164 Objective Gen nad Pulm ctab CV rrr Abd soft nt nd Ext Left leg in gauze padding Zack Csatro MD Aug 04, 2020 11:46
[2020-08-04 12:00] VITALS: BP 128/80
--- NOTE | 2020-08-04 12:16 | Infectious Diseases Prog Note ---
Assessment/Plan Assessment: COVID19 neg x1 -07/24 rapid COVID PCR neg Low grade fever x1- probably post-op No leukocytosis Left tibial plateau fracture. -07/28 SP ORIF -07/24 L tibia/fibula xray: Positive for tibial and fibular fractures HIV on ARV (Tivicay and Descovy) -CD4 182 (15.2%), VL p Hep B (Hbs ag + 2017)> Hep B s ag neg 07/2020, positive Hep Bc ab Elevate AST Liver lesions- likely metastatic disease -CT abd/p w/: Innumerable small liver lesions. Most likely represent metastatic deposits, particularly in view of known history of metastatic prostate carcinoma. Tiny multifocal abscesses also possible, but deemed less likely. Diffuse osteosclerosis, consistent with prostate carcinoma. Gallbladder sludge Hiatal hernia -Abd US: Numerous small liver lesions. These are not evident previously, are worrisome for multifocal neoplasm. Possibly metastatic deposits given history of prostate carcinoma. Multiple abscesses also a possibility. Somewhat enlarged liver. Gallbladder sludge. Negative for stones or dilated bile ducts Poorly demonstrated pancreas, abdominal aorta, left kidney CMV retinitis on tx MDD/Anxiety disorder osteoporosis HTN metastatic Prostate cancer sp chemotherapy 3 yrs ago CVA 2008 neuropathy Plan: -Continue to monitor off abx -f/u cx -Monitor CBC/CMP, temperatures -wound care per ortho team -Continue ARV: Tivicay and Descovy (for both HIV and Hep B) -Continue Ppx valganciclovir -Ortho f/u -f/u HIV VL, Hep B VL -GI and Heme onc f/u Thank you for this consultation. Will continue to follow along with you. Discussed with RN. Subjective Allergies: Coded Allergies: No Known Allergies (Unverified , 01/16/18) afebrile >72hrs Objective Last 24 Hour Vital Signs Date Time Temp Pulse Resp B/P (MAP) Pulse Ox O2 Delivery O2 Flow Rate FiO2 08/04/20 09:00 Room Air 08/04/20 08:54 98.0 08/04/20 08:22 107 137/82 08/04/20 08:00 98.0 107 20 137/82 (100) 99 08/04/20 04:00 98.0 112 17 137/86 (103) 99 08/04/20 00:00 98.8 113 18 121/73 (89) 98 08/03/20 21:00 Room Air 08/03/20 20:53 110 113/77 08/03/20 20:12 98 Room Air 21 08/03/20 20:00 98.7 110 17 113/77 (89) 98 08/03/20 16:00 98.4 104 20 110/76 (87) 96 Height (Feet): 6 Height (Inches): 0.00 Weight (Pounds): 164 GENERAL: Alert, awake, and oriented. HEENT: PERRLA. NECK: Range of motion is decreased due to the patient's condition. No tenderness. LUNGS: Decreased breath sounds bilaterally. HEART: S1 and S2 regular. ABDOMEN: Soft, nontender. BACK: Range of motion is decreased in flexion and extension. Ext- post op wound Laboratory Tests Test 08/04/20 04:55 White Blood Count 4.8 K/UL (4.8-10.8) Red Blood Count 3.07 M/UL (4.70-6.10) L Hemoglobin 7.8 G/DL (14.2-18.0) L Hematocrit 24.7 % (42.0-52.0) L Mean Corpuscular Volume 80 FL (80-99) Mean Corpuscular Hemoglobin 25.3 PG (27.0-31.0) L Mean Corpuscular Hemoglobin Concent 31.4 G/DL (32.0-36.0) L Red Cell Distribution Width 16.4 % (11.6-14.8) H Platelet Count 151 K/UL (150-450) Mean Platelet Volume 5.8 FL (6.5-10.1) L Neutrophils (%) (Auto) % (45.0-75.0) Lymphocytes (%) (Auto) % (20.0-45.0) Monocytes (%) (Auto) % (1.0-10.0) Eosinophils (%) (Auto) % (0.0-3.0) Basophils (%) (Auto) % (0.0-2.0) Differential Total Cells Counted 100 Neutrophils % (Manual) 74 % (45-75) Lymphocytes % (Manual) 21 % (20-45) Monocytes % (Manual) 4 % (1-10) Eosinophils % (Manual) 1 % (0-3) Basophils % (Manual) 0 % (0-2) Band Neutrophils 0 % (0-8) Platelet Estimate Adequate Platelet Morphology Normal Hypochromasia 1+ Anisocytosis 1+ Current Medications Medications (Trade) Dose Ordered Sig/Liat Route PRN Reason Start Time Stop Time Status Last Admin Dose Admin Acetaminophen (Tylenol) 650 mg Q4H PRN ORAL Temp >100.5 07/24/20 21:45 08/23/20 21:44 07/31/20 21:17 Barium Sulfate (Readi-Cat 2) 450 ml NOW PRN ORAL Radiology Procedure 08/02/20 12:45 08/04/20 12:44 Bupropion HCl (Wellbutrin XL) 150 mg DAILY ORAL 07/26/20 13:00 08/25/20 12:59 08/04/20 08:23 Docusate Sodium (Colace) 200 mg TWICE A DAY ORAL 07/25/20 18:00 08/24/20 17:59 08/04/20 08:21 Gabapentin (Neurontin) 300 mg THREE TIMES A DAY ORAL 07/25/20 14:45 08/24/20 14:44 08/04/20 08:22 Hydromorphone HCl (Dilaudid) 1 mg Q2H PRN IVP Severe Pain (Pain Scale 7-10) 07/31/20 12:45 08/07/20 12:44 08/04/20 08:24 Iohexol (OMNIPAQUE-300 100ml) 100 ml NOW PRN INJ Radiology Procedure 08/02/20 12:45 08/04/20 12:44 Methylnaltrexone Holiday (Relistor) 12 mg QOD SUBQ 08/04/20 09:00 11/01/20 08:59 08/04/20 08:22 Metoprolol Tartrate (Lopressor) 50 mg EVERY 12 HOURS ORAL 07/26/20 21:00 10/24/20 20:59 08/04/20 08:22 Mirtazapine (Remeron) 7.5 mg BEDTIME ORAL 08/02/20 21:00 10/31/20 20:59 08/02/20 20:11 Morphine Sulfate (MS Contin) 30 mg Q8H ORAL 07/31/20 14:45 08/07/20 14:44 08/04/20 06:29 Naloxone HCl (Narcan) 0.2 mg Q2M PRN IVP RR<8MIN 08/01/20 00:00 10/30/20 00:00 Oxycodone/ Acetaminophen (Percocet 10) 1 tab Q4H PRN ORAL Moderate Breakthru Pain (5-7) 07/31/20 14:45 08/07/20 14:44 Patient Own Medication (Patient's Own Med) 1 ea DAILY BOTH EYES 07/26/20 10:00 08/25/20 09:59 08/04/20 08:22 Patient Own Medication (Patient's Own Med) 1 ea DAILY ORAL 07/26/20 13:30 08/25/20 13:29 08/04/20 08:23 Patient Own Medication (Patient's Own Med) 1 ea DAILY ORAL 07/26/20 13:30 08/25/20 13:29 08/04/20 08:23 Patient Own Medication (Patient's Own Med) 2 ea Q12HR ORAL 07/26/20 13:30 08/25/20 13:29 08/04/20 08:23 Polyethylene Glycol (Miralax) 17 gm BEDTIME ORAL 07/26/20 21:00 08/25/20 20:59 08/01/20 20:43 Mariaa Pemberton M.D. Aug 04, 2020 12:16
[2020-08-04] MEDS ORDERED: Flu Vaccine Quadrivalent IM ONE (12:30)
--- NOTE | 2020-08-04 12:33 | CDS Physician Query ---
Clarification is required for compliance, coding accuracy, and to reflect severity of illness for this patient. Dear Dr. Cezar Michael Date: 08/04/2020 CDS name: Suni Hua Clinical Documentation states: HNP: 55 years old aam c/o fall sustained fracture of lt tibia, interctable pain 07/[address] note: NUTRITION DIAGNOSIS:Increased kcal/prot needs R/T catabolic dx as evidenced by HIV +, h/o metastatic prostate CA Albumin 1.9 In order to accurately code this and to reflect the appropriate severity of ilness, please clarify diagnosis. [] Mild Malnutrition [] Moderate Malnutrition [] Severe Malnutrition [] Unknown degree [] Other: [] Clinically Undetermined Present on Admission: [] Yes [] No [] Clinically Undetermined Physician signature Date Please also document in your Progress Notes and/or Discharge Summary and indicate if the condition was present on admission. MTDD
--- NOTE | 2020-08-04 14:45 | NUR ---
NURSE NOTES: MS busby held because patient got dilaudid 1mg
--- NOTE | 2020-08-04 16:30 | NUR ---
NURSE NOTES: Patient safely transferred to [facility] via [facility]. Belongings list verified and signed, IV and ID wristband removed. Patient's questions were answered. Patient packet compiled and sent with patient.
--- NOTE | 2020-08-04 23:37 | Psych Consult Progress Note ---
Psychiatry Progress Note Psychiatry Progress Note Neurological/Psychiatric: Reports: anxiety, depressed, emotional problems; Denies: no symptoms, headache, numbness, paresthesia, pre-existing deficit, seizure, tingling, tremors, weakness, other Allergies: Coded Allergies: No Known Allergies (Unverified , 01/16/18) Objective Data Height (Feet): 6 Height (Inches): 0.00 Weight (Pounds): 164 General Appearance: WD/WN, no apparent distress, alert, alert oriented x3 Appearance: no abnormalities noted Behavior Mannerisms: good eye contact Mental Status Exam - Affect: blunted Mental Status Exam - Mood: depressed, anxious Mental Status Exam - Thought P: goal-directed Mental Status Exam - Suicidal: not present, no plan Additional Comments: Assessment/Plan [place] I: ASSESSMENT: [place] I Major depressive disorder. [place] II Deferred. [place] III None. [place] IV Low. [place] V 50 PLAN: 1. Continue the Wellbutrin. 2. Celexa. 3. Provide the patient with reality orientation and supportive therapy. Status Narrative ASSESSMENT: [place] I Major depressive disorder. [place] II Deferred. [place] III None. [place] IV Low. [place] V 50 PLAN: 1. Continue the Wellbutrin. 2. Celexa. 3. Provide the patient with reality orientation and supportive therapy. Assessment/Plan: ASSESSMENT: [place] I Major depressive disorder. [place] II Deferred. [place] III None. [place] IV Low. [place] V 50 PLAN: 1. Continue the Wellbutrin. 2. Celexa. 3. Provide the patient with reality orientation and supportive therapy. Olegario Arreola MD Aug 04, 2020 23:36
--- NOTE | 2020-08-05 10:28 | Diagnostic Imaging Report ---
INDICATION: Pain, intraoperative TECHNIQUE: Intraoperative imaging Fluoroscopy time: 67.9 seconds Total dose: 0.76072 mGym2 Total number of images: 4 COMPARISON: None FINDINGS: Intraoperative images document surgical repair of proximal tibial fracture using side plate and screws. IMPRESSION: Intraoperative imaging, as described
--- NOTE | 2020-08-06 14:52 | Discharge Summary ---
Discharge Summary Discharge Summary _ DATE OF ADMISSION: 07/24/2020 DATE OF DISCHARGE: 08/04/2020 DISCHARGED BY: Dr. Cezar Michael CONSULTANTS: Dr. Olegario Pablo BRIEF HOSPITAL COURSE: Patient is a 55-year-old male with history history of metastatic prostate cancer. He presented to ED with left ankle tibial pain, aggravated with movement and alleviated with rest. Severity is moderate. He endorsed pain as sharp. Patient was walking and hit his knee against a stool. He tripped and fell. There was no loss of consciousness. He did not hit his head. There was no chest pain or shortness of breath. Upon evaluation at ED, vital signs were stable. Blood work showed hemoglobin of 8 and hematocrit 27. Electrolytes were normal. X-ray of the left leg showed fracture of the superior tibia. Left leg was placed on a long posterior leg splint. Leg was neurovascular intact. He was then admitted for evaluation of left tibial fracture. Patient was admitted to medical floor. He was given pain management with IV morphine.. He was optimized for surgery. Echocardiogram showed LVEF of approximately 55%. He was cleared for surgery. On 07/28/2020, patient underwent ORIF of the left tibia. She tolerated procedure well. Postoperatively, he was given SALAD MAKER Dilaudid. SALAD MAKER was eventually discontinued. He was transitioned to morphine ER and Percocet. He was seen by psychiatrist. He was continued on Wellbutrin and Celexa. He was given physical therapy. GI was consulted due to constipation. Patient did not have any bowel movement for 5 days. He did not respond to Colace and MiraLAX. He was given a dose of Relistor. There was a drop in hemoglobin and he received blood transfusion. Abdominal ultrasound showed numerous small liver lesions. Lesions were not evident previously. Possibly metastatic deposits given history of prostate carcinoma. He was continued off antibiotics. CT of the abdomen and pelvis showed innumerable small liver lesions. Most likely metastatic deposits. Unable to do biopsy as lesions were too small He responded well to Relistor. He had good pain control. He was eventually cleared for discharge home. FINAL DIAGNOSES: Left tibial plateau fracture status post ORIF HIV on ARV Metastatic prostate CA CMV retinitis on treatment Osteoporosis CVA in 2008 Neuropathy Major depressive disorder Malnutrition Dehydration Hypertension Anemia requiring blood transfusion Leukopenia DISPOSITION: Patient was discharged to SNF. DISCHARGE MEDICATIONS: Refer to Discharge Medication List. I have been assigned to complete a discharge summary on this account, I was not involved with the patient's management.--SKYE Wu Jacqueline Robles NP Aug 06, 2020 14:52
== END 2020-08-04 17:29 | DRG 493 ==
LOC: EDBD 18:07 → EMR 18:28 → 3E 20:05 → EDBEDREQ 20:17 → 3E 21:15
PROC: 0QSH04Z Reposition Left Tibia with Internal Fixation Device, Open Approach (ICD-10-PCS; principal; 2020-07-28 13:30)
DX: M80.862A Other osteoporosis with current pathological fracture, left lower leg, initial encounter for fracture (principal); B20 Human immunodeficiency virus [HIV] disease; C78.7 Secondary malignant neoplasm of liver and intrahepatic bile duct; B25.8 Other cytomegaloviral diseases; H30.899 Other chorioretinal inflammations, unspecified eye; E44.1 Mild protein-calorie malnutrition; B19.10 Unspecified viral hepatitis B without hepatic coma; W01.190A Fall on same level from slipping, tripping and stumbling with subsequent striking against furniture, initial encounter; Y92.9 Unspecified place or not applicable; Z85.46 Personal history of malignant neoplasm of prostate; Z68.23 Body mass index [BMI] 23.0-23.9, adult; E86.0 Dehydration; I10 Essential (primary) hypertension; D64.9 Anemia, unspecified; F32.9 Major depressive disorder, single episode, unspecified; F41.9 Anxiety disorder, unspecified; R50.82 Postprocedural fever; Z86.73 Personal history of transient ischemic attack (TIA), and cerebral infarction without residual deficits; D72.819 Decreased white blood cell count, unspecified; K59.03 Drug induced constipation; T40.2X5A Adverse effect of other opioids, initial encounter; Y92.230 Patient room in hospital as the place of occurrence of the external cause; G62.9 Polyneuropathy, unspecified; Z20.828 Contact with and (suspected) exposure to other viral communicable diseases
CPT/HCPCS: 29505; 36415; 74177; 76000; 76700; 80048; 80053; 82105; 82378; 82728; 83540; 83550; 84153; 85007; 85025; 85610; 85730; 86360; 86704; 86705; 86708; 86709; 86803; 86850; 86900; 86901; 86920; 87340; 87516; 87536; 90689; 93005; 93306; 94003; 94150; 96374; 96375; 96376; 99285; J2250; J2370; J2405; J2710; J2765; J2795; J7030; U0002

== ENCOUNTER 2020-08-12 13:22 | Emergency (ER) | payer MEDICARE, OTHER ==
[~2020-08-12] VITALS: Ht 185.4 cm; Wt 68.9 kg
[~2020-08-12 13:22] MED LIST changes: +ASPIRIN325 MG ORAL; +BUPROPION XL150 MG ORAL; +BUPROPION XL300 MG ORAL; +CELEXA20 MG ORAL; +DESCOVY 200MG/25MG PO; +DUREZOL5 M1 OP; +KADIAN100 MG PO; +KADIAN20 M1 PO; +METOPROLOL TART50 M1 ORAL; +NEURONTIN300 MG ORAL; +OXYCODONE HCL15 M1 ORAL; +OXYCODONE HCL5 M2 ORAL; +ROXICODONE30 M1 ORAL; +TIVICAY50 MG ORAL; +VALACYCLOVIR
[2020-08-12 13:33] VITALS: BP 111/71
[2020-08-12] MEDS ORDERED: DOCUSIL100 M1 ORAL (13:33)
[2020-08-12] MEDS ORDERED: GABAPENTIN100 MG ORAL (13:33)
[2020-08-12] MEDS ORDERED: Morphine Sulfate 2mg/ml Inj(IV/IM USE ONLY) IVP ONE ×2 (13:45→17:00)
[2020-08-12] MEDS ORDERED: Omnipaque-300 100ml vial INJ PRN (13:45)
--- NOTE | 2020-08-12 13:53 | Emergency Room Report ---
History of Present Illness General Chief Complaint: Abdominal Pain Source: Patient, EMS (Jony Devlin) Present Illness HPI 55-year-old male with recent history of tibial fracture status post aspiration less than a month ago at [place] and stage IV prostate cancer brought in from [facility] due to 2 days of diffuse abdominal pain and constipation. Patient does not recall the last time that he made a bowel movement denies any blood in stool. Denies any nausea vomiting. Rates abdominal pain 07/29. Has not taken medication. Denies chest pain, shortness of breath, headache and dizziness. (Jony Devlin) Allergies: Coded Allergies: No Known Allergies (Unverified , 01/16/18) COVID-19 Screening Contact w/high risk pt: No Experienced COVID-19 symptoms?: No COVID-19 Testing performed DATA ENTRY COORDINATOR: No - 07/24/20 COVID-19 Testing Source: SNF (Jony Devlin) Patient History Past Medical History: see triage record Past Surgical History: none Pertinent Family History: none Immunizations: UTD Reviewed Nursing Documentation: PMH: Agreed; PSxH: Agreed (Jony Devlin) Nursing Documentation-PMH Hx Cancer: Yes - Stage 4 Prostate Hx Gastrointestinal Problems: No Hx Cerebrovascular Accident: Yes - 2008 (Jony Devlin) Review of Systems All Other Systems: negative except mentioned in HPI (Jony Devlin) Physical Exam Vital Signs Date Time Temp Pulse Resp B/P (MAP) Pulse Ox O2 Delivery O2 Flow Rate FiO2 08/12/20 13:23 97.9 84 19 111/71 (84) 98 Room Air Sp02 EP Interpretation: reviewed, normal General Appearance: no apparent distress, alert, GCS 15, non-toxic Head: normocephalic, atraumatic Eyes: bilateral eye normal inspection, bilateral eye PERRL ENT: hearing grossly normal, normal pharynx, no angioedema, normal voice Neck: full range of motion, supple/symm/no masses Respiratory: chest non-tender, lungs clear, normal breath sounds, speaking full sentences Cardiovascular #1: regular rate, rhythm, no edema Cardiovascular #2: 2+ carotid (R), 2+ carotid (L), 2+ radial (R), 2+ radial (L) Gastrointestinal: normal bowel sounds, non tender, soft, no mass, no organomegaly, no peritonitis, non-distended, no guarding, no hernia, no pulsatile mass, no rebound Rectal: deferred Genitourinary: no CVA tenderness Musculoskeletal: back normal, other - Right tib-fib is placed in knee immobilizer Neurologic: alert, motor strength/tone normal, oriented x3, sensory intact, responsive, speech normal Psychiatric: judgement/insight normal, memory normal, mood/affect normal, no suicidal/homicidal ideation Skin: no rash Lymphatic: no adenopathy (Jony Devlin) Medical Decision Making PA Attestation All diagnoses and treatment plans were reviewed and discussed with my supervising physician Dr. Rashid (Jony Devlin) Diagnostic Impression: Primary Impression: Constipation Qualified Codes: K59.03 - Drug induced constipation Additional Impressions: Metastatic cancer Qualified Codes: C79.51 - Secondary malignant neoplasm of bone UTI (urinary tract infection) Qualified Codes: N39.0 - Urinary tract infection, site not specified Prostate CA ER Course 55-year-old male with recent history of tibial fracture status post aspiration less than a month ago at [place] and stage IV prostate cancer brought in from prison due to 2 days of diffuse abdominal pain and constipation. Patient does not recall the last time that he made a bowel movement denies any blood in stool. Denies any nausea vomiting. Rates abdominal pain 10/10. Has not taken medication. Denies chest pain, shortness of breath, headache and dizziness. Ddx considered but are not limited to: appendicitis, cholecystis, gastritis, ga stroenteritis, UTI, pyelonephritis, SBO, diverticulitis, fecal impaction Patient has been having low hemoglobin for several months and denies any shortness of breath. Patient has not been seen by oncologist for over a month now due to injury to her lower extremity erythema receiving chemotherapy. Vital signs: are WNL, pt. is afebrile H&PE are most consistent with: constipation, metastatic cancer, UTI ORDERS: abdominal CT, abdominal pain set, EKG, lactulose, keflex, colace ED INTERVENTIONS: Morphine, Zofran, Pepcid DISCHARGE: At this time pt. is stable for d/c to home. Will provide printed patient care instructions, and any necessary prescriptions. Care plan and follow up instructions have been discussed with the patient prior to discharge. Take medication as directed, increase oral hydration, follow-up with your primary care provider, if worsening symptoms return to the emergency room. Also consult with your doctor in regards to taking vitamins with folic acid. (Jony Devlin) ER Course Please see above note. Patient discussed in detail with me and examined by me. Anemia appears chronic over a year. Patient denies symptoms from anemia. Improved with enema. Still presumed increased stool load. Patient's treatment for metastatic prostate cancer on hold because of fracture. Discussed with patient the need for follow-up. Discussed treatment plan with patient. Patient stable for outpatient observation and treatment. (Tremayne Rashid MD) EKG Diagnostic Results Rate: normal Rhythm: NSR ST Segments: no acute changes Other Impression No acute ST changes ASA given to the pt in ED: No (Jony Devlin) CT/MRI/US Diagnostic Results CT/MRI/US Diagnostic Results : Imaging Test Ordered: CT abdomen pelvis with contrast Impression FINDINGS: Minimal dependent basilar atelectasis. Appearance of hiatal hernia again noted. Innumerable varying sized small low-density foci throughout the liver are again noted which may be related to metastatic disease and are not significantly changed in appearance. The other abdominal solid organs, gallbladder and abdominal aorta otherwise appear within limits. Aortoiliac atherosclerotic calcification again noted. Fecal material is seen throughout the colon without significant appearing fecal load. No colonic wall thickening or pericolonic inflammatory change identified. No bowel dilation, free air or free fluid. The bladder appears within limits. Diffuse osseous sclerotic changes are again noted consistent with metastatic disease. IMPRESSION: Innumerable varying sized small low-density foci throughout the liver are again noted which may be related to metastatic disease and are not significantly c hanged in appearance. Fecal material is seen throughout the colon without significant appearing fecal load. No colonic wall thickening or pericolonic inflammatory change identified. No bowel dilation, free air or free fluid. Diffuse osseous sclerotic changes are again noted consistent with metastatic disease. (Jony Devlin) Last Vital Signs Date Time Temp Pulse Resp B/P (MAP) Pulse Ox O2 Delivery O2 Flow Rate FiO2 08/12/20 13:33 97.9 19 111/71 98 Room Air 08/12/20 13:33 84 (Jony Devlin) Last Vital Signs Date Time Temp Pulse Resp B/P (MAP) Pulse Ox O2 Delivery O2 Flow Rate FiO2 08/12/20 17:46 97.9 08/12/20 17:00 87 16 116/71 97 Room Air Status: improved (Tremayne Rashid MD) Disposition: HOME, SELF-CARE Condition: Stable Scripts Cephalexin* (KEFLEX*) 500 Mg Capsule 500 MG ORAL EVERY 12 HOURS for 7 Days, #14 CAP 0 Refills Prov: Jony Devlin 08/12/20 Docusate Sodium* (COLACE*) 100 Mg Capsule 100 MG ORAL TWICE A DAY, #30 CAP Prov: Jony Devlin 08/12/20 Lactulose (LACTULOSE*) 20 Gm/30 Ml Solution 15 ML ORAL TID, #300 ML 0 Refills Prov: Jony Devlin 08/12/20 Patient Instructions: Abdominal Pain, Adult, Constipation, Adult, [id number], Urinary Tract Infection, [id number] Additional Instructions: Take medication as directed, increase oral hydration, follow-up with your primary care provider, if worsening symptoms return to the emergency room. Also consult with your doctor in regards to taking vitamins with folic acid. Also follow-up with your oncologist Jony Devlin Aug 12, 2020 13:53 Tremayne Rashid MD Aug 13, 2020 03:45
[2020-08-12 14:45] LABS: HEMOGLOBIN 7.8 G/DL (14.2-18.0); MEAN CORPUSCULAR VOLUME 83 FL (80-99); PLATELET COUNT 255 K/UL (150-450); RED BLOOD COUNT 3.14 M/UL (4.70-6.10); RED CELL DISTRIBUTION WIDTH 17.4 % (11.6-14.8); WHITE BLOOD COUNT 6.8 K/UL (4.8-10.8)
[2020-08-12 15:04] LABS: INR 1.1 (0.9-1.1)
[2020-08-12 15:06] LABS: ANION GAP 7 mmol/L (5-15); BLOOD UREA NITROGEN 9 mg/dL (7-18); CALCIUM 8.3 MG/DL (8.5-10.1); CARBON DIOXIDE 26 MMOL/L (21-32); CHLORIDE 104 MMOL/L (98-107); CREATININE 0.7 MG/DL (0.55-1.30); SODIUM 137 MMOL/L (136-145)
[2020-08-12 15:10] LABS: ALANINE AMINOTRANSFERASE 9 U/L (12-78); ALBUMIN 2.3 G/DL (3.4-5.0); ALBUMIN/GLOBULIN RATIO 0.4 (1.0-2.7); ALKALINE PHOSPHATASE 713 U/L (46-116); ASPARTATE AMINO TRANSFERASE 55 U/L (15-37); BILIRUBIN,TOTAL 0.4 MG/DL (0.2-1.0)
[2020-08-12] MEDS ORDERED: Fleet's Mineral Oil Enema RECTAL ONE (15:30)
[2020-08-12 15:52] VITALS: BP 113/76
--- NOTE | 2020-08-12 16:17 | Diagnostic Imaging Report ---
History: PAIN Exam: CT ABDOMEN + PELVIS With Contrast Technique more: CTDI is 4.5 mGy and DLP is 247.40 mGy-cm. Technique more: One or more of the following dose reduction techniques were used: automated exposure control, adjustment of the mA and/or kV according to patient size, use of iterative reconstruction technique. Comparison: 08/03/2020 FINDINGS: Minimal dependent basilar atelectasis. Appearance of hiatal hernia again noted. Innumerable varying sized small low-density foci throughout the liver are again noted which may be related to metastatic disease and are not significantly changed in appearance. The other abdominal solid organs, gallbladder and abdominal aorta otherwise appear within limits. Aortoiliac atherosclerotic calcification again noted. Fecal material is seen throughout the colon without significant appearing fecal load. No colonic wall thickening or pericolonic inflammatory change identified. No bowel dilation, free air or free fluid. The bladder appears within limits. Diffuse osseous sclerotic changes are again noted consistent with metastatic disease. IMPRESSION: Innumerable varying sized small low-density foci throughout the liver are again noted which may be related to metastatic disease and are not significantly changed in appearance. Fecal material is seen throughout the colon without significant appearing fecal load. No colonic wall thickening or pericolonic inflammatory change identified. No bowel dilation, free air or free fluid. Diffuse osseous sclerotic changes are again noted consistent with metastatic disease.
[2020-08-12 16:39] LABS: BILIRUBIN, URINE NEGATIVE (NEGATIVE); GLUCOSE, URINE (UA) NEGATIVE (NEGATIVE); KETONES,URINE 2+ (NEGATIVE); LEUKOCYTE ESTERASE ,URINE 1+ (NEGATIVE); NITRITE,URINE POSITIVE (NEGATIVE); PH,URINE 6 (4.5-8.0); PROTEIN,URINE 2+ (NEGATIVE); UROBILINOGEN,URINE 4 MG/DL (0.0-1.0)
[2020-08-12 16:41] LABS: APPEARANCE,URINE SLIGHTLY CLOUDY; COLOR,URINE YELLOW
[2020-08-12] MEDS ORDERED: LACTULOSE20 GM/301 ORAL (16:54)
[2020-08-12] MEDS ORDERED: CEPHALEXIN500 MG ORAL (16:54)
[2020-08-12] MEDS ORDERED: COLACE100 MG ORAL (16:54)
[2020-08-12 17:00] VITALS: BP 116/71
[2020-08-12] MEDS ORDERED: cefTRIAXone 1 GM in NS 55 ML IVPB ONE (17:00)
== END 2020-08-12 19:00 | disposition home or self-care (01) ==
LOC: EDBD 13:22 → EMR 13:52
DX: K59.03 Drug induced constipation (principal); C79.51 Secondary malignant neoplasm of bone; N39.0 Urinary tract infection, site not specified; C61 Malignant neoplasm of prostate; Z86.73 Personal history of transient ischemic attack (TIA), and cerebral infarction without residual deficits; K44.9 Diaphragmatic hernia without obstruction or gangrene; D64.9 Anemia, unspecified
CPT/HCPCS: 36415; 74177; 80053; 81003; 83690; 84484; 85007; 85025; 85610; 85730; 93005; 96365; 96375; 96376; 99284; J0696; J2270; J2405; Q9965; S0028